=== PATIENT | male | born 1945 | race Caucasian/White ===

== ENCOUNTER 2019-08-28 10:23 | Emergency (ER) | payer OTHER, SELFPAY | END 2019-08-28 10:30 | disposition left against medical advice (07) | PROVIDERS: Emergency Provider Nurse Practitioner Family; PCP Physician Assistant | DX: Z53.21 Procedure and treatment not carried out due to patient leaving prior to being seen by health care provider (principal) | CPT/HCPCS: 99199 ==

== ENCOUNTER 2019-08-28 10:55 | Emergency (ER) | payer OTHER, SELFPAY ==
--- NOTE | ~2019-08-28 | CT_ITS ---
EXAMINATION: CT brain wo con INDICATION: Intermittent dizziness and nausea COMPARISON: None TECHNIQUE: Standard unenhanced head CT. The dose-length product (DLP) was 605.33 mGy-cm. The mA was a djusted according to patient size. Iterative reconstruction technique was employed. FINDINGS: There is no acute intraparenchymal hemorrhage. No evidence of mass lesion. No evidence of a cute infarction. There is mild periventricular and subcortical hypodensity probably related to small vessel ischemic disease. There is mild prominence of the sulci and ventricles related to cerebral atr ophy. Intracranial calcified cerebral atherosclerosis is noted. There are no extra-axial collections. There is no mass effect or midline shift. The orbits and soft tissues are unremarkable. There is mi ld mucosal thickening of the paranasal sinuses. IMPRESSION: 1. No acute intracranial abnormality. 2. Age related findings. Reviewed, dictated and finalized at location A.
--- NOTE | ~2019-08-28 | XR_ITS ---
EXAMINATION: XR chest 1V portable INDICATION: Dizziness and loss of balance TECHNIQUE: Portable AP chest at 1159 hours COMPARISON: 05/09/2014 FINDINGS: The lungs are free of acute opacities. There is no pleural effusion or pneumothorax. The ca rdiomediastinal silhouette is normal. IMPRESSION: 1. No acute cardiopulmonary abnormality. Reviewed, dictated and finalized at location A.
--- NOTE | 2019-08-28 10:57 | ECG_ITS ---
Measurements Intervals [place] Rate: 59 P: 80 WV: 160 QRS: -37 QRSD: 109 T: 2 QT: 409 QTc: 405 Interpretive Statements SINUS BRADYCARDIA LEFT AXIS DEVIATION INCOMPLETE RIGHT BUNDLE BRANCH BLOCK BORDERLINE ECG Electronically Signed On 08-28-2019 13:31:25 CDT by Henry Fraser D.O.
[2019-08-28 10:59] VITALS: BP 169/74; PULSE 58; RESP 19; TEMP 36.3; O2SAT 94
[2019-08-28 11:16] VITALS: BP 140/79; PULSE 59; RESP 17; O2SAT 96
[2019-08-28] MEDS: SODIUM CHLORIDE 0.9% IV 500 ML 999 ML IV CONT (11:17)
[2019-08-28] MEDS: FAMOTIDINE 20 MG/2 ML VIAL IV PUSH (11:17)
[2019-08-28] MEDS: MECLIZINE HCL 25 MG TABLET PO (11:18)
--- NOTE | 2019-08-28 11:24 | ED.GENADULT ---
HPI - General Adult General Chief complaint: Dizziness Stated complaint: loss of balance, occ dizzy Time Seen by Provider: 08/28/19 10:58 Source: patient Mode of arrival: ambulatory Limitations: no limitations History of Present Illness HPI narrative: Patient is a 74-year-old male who presents to emergency department per private vehicle for evaluation of intermittent dizziness patient notes over the weekend he had had an episode of sneezing with resultant dizziness and vertigo-like symptoms followed by nausea and vomiting patient notes that the vomiting and severe dizziness resolved but he continues to have intermittent bouts of dizziness typically made worse with standing feeling a little off balance patient denies similar occurrence in the past injury or trauma patient has not taken anything for his symptoms has not been seen for this complaint Related Data Allergies Allergy/AdvReac Type Severity Reaction Status Date / Time olmesartan Allergy Unknown sob sick Verified 08/28/19 11:01 potassium iodide Allergy Unknown Nausea and Verified 08/28/19 11:01 myalgias Review of Systems Review of Systems: All systems reviewed & are unremarkable except as noted in HPI and below PMFSH Past Medical History Medical History (Updated 08/28/19 @ 13:04 by Cole Blake PA-C) Hypertension Surgical History Surgical History H/O hernia repair Family History Family History Mother Patient's mother is , Onset Age: 80 Father Patient's father is , Onset Age: 80 Sibling Patient's brother is in good health Social History Social History Smoking status: Former smoker Smoking end date: 03/11/05 Alcohol intake: current Gender identity (if verbalized by the patient): Male Exam Narrative: Exam Narrative: GENERAL: Well-appearing, well-nourished, and in no acute distress. HEAD: Normocephalic, atraumatic. EYES: PERRLA and EOMI. ENT: Nares clear, no rhinorrhea or epistaxis. Mucous membranes moist. Oropharynx without tonsillar hypertrophy exudate or other lesions. NECK: Supple. No adenopathy or masses. CHEST: Clear to auscultation. No respiratory distress. No wheezes rales or rhonchi HEART: Regular rate and rhythm. No murmur heard. Normal peripheral pulses. ABDOMEN: Soft, nontender,distended EXTREMITIES: Normal range of motion. No edema. SKIN: Warm, dry, no rash. NEURO: No focal deficits. Alert and oriented x3. Cranial nerves II through XII grossly intact. Normal speech and gait. Cerebellar intact. No pronator drift. PSYCH: Normal mood and affect. Course Course Emergency Course: Patient in the room at this time in no distress aware of case findings treatment plan and diagnosis agreeing to follow-up with primary care and ENT as instructed also provided with reasons to return. Patient's intermittent dizziness is without focal neurological deficits on exam. Subarachnoid hemorrhage is felt to be unlikey at this time. There is no history of fever, and neck is supple without meningismus, making meningitis unlikely. No traumatic history or signs of trauma on exam. No risk factors for CVA, risk factors reviewed. NO ocular signs on exam and in history to suggest acute glaucoma. Patients headache is felt to be a reasonable candidate for outpatient evaluation. Consultations Consultation #1: Discussed case with primary care who agrees patient can be followed in clinic Date: 08/28/19 Time: 13:04 Vital Signs Vital signs: Vital Signs Temperature 97.4 F L 08/28/19 10:59 Pulse Rate 58 L 08/28/19 10:59 Respiratory Rate 19 08/28/19 10:59 Blood Pressure 169/74 H 08/28/19 10:59 Pulse Oximetry 94 08/28/19 10:59 Temperature 97.4 F L 08/28/19 10:59 Pulse Rate 59 L 08/28/19 11:16 Respiratory Rate 17 08/28/19 11:
--- NOTE | 2019-08-28 11:26 | PC.NURSE ---
BS 96
[2019-08-28 11:27] LABS: Glucose Point of Care 95 (65-105)
[2019-08-28 11:27] LABS: Basophils Percent Auto 0.2 % (0.2-1.2); Eosinophils Absolute Auto 0.1 K/mm3 (0-0.3); Eosinophils Percent Auto 2.3 % (0-4.4); Hematocrit 41.9 % (42.0-52.0); Hemoglobin 13.8 g/dL (14.0-18.0); Immature Granulocyte Absolute 0.02 K/mm3 (0.00-0.031); Immature Granulocyte Percent A 0.3 % (0-0.5); Lymphocytes Absolute Auto 2.64 K/mm3 (0.9-3.2); Lymphocytes Percent Auto 43.6 % (18.3-44.2); Mean Corpuscular HGB Conc 32.9 g/dl (32-36); Mean Corpuscular Hemoglobin 30.5 pg (26-34); Mean Corpuscular Volume 92.7 fl (80-100); Mean Platelet Volume 8.9 fl (7.4-10.4); Monocytes Absolute Auto 0.5 K/mm3 (0.1-0.6); Monocytes Percent Auto 7.6 % (2.6-8.5); Neutrophils Absolute Auto 2.8 K/mm3 (1.3-6.7); Platelet Count Result 243 k/mm3 (150-375); Red Blood Count 4.52 M/mm3 (4.6-6.20); Red Cell Distribution Width 12.9 % (11.5-14.5); White Blood Count 6.1 K/mm3 (4.5-10.0)
[2019-08-28 11:36] LABS: Blood Urea Nitrogen 15 mg/dL (9-20); Calcium 9.6 mg/dL (8.4-10.2); Carbon Dioxide 31 mmol/L (22-30); Chloride 102 mmol/L (98-107); Estimated CRCL calculation 87 ml/min; Estimated Glomerular Filt Rate > 60; Glucose 105 mg/dL (75-110); Potassium 3.9 mmol/L (3.4-5.0); Sodium 138 mmol/L (137-145)
[2019-08-28 11:37] LABS: INR 0.9; Prothrombin Time 12.1 Seconds (11.1-14.7)
[2019-08-28 11:48] LABS: Troponin I 0.017 ng/mL (0.000-0.034)
[2019-08-28 12:15] VITALS: BP 138/82; PULSE 59; RESP 19; O2SAT 100
[2019-08-28 13:16] VITALS: BP 136/99; PULSE 67; RESP 16; O2SAT 99
[2019-08-28 13:23] VITALS: BP 136/99; PULSE 61; RESP 16; O2SAT 98
== END 2019-08-28 13:24 | disposition home or self-care (01) ==
PROVIDERS: Emergency Medicine Emergency Medical Services; Emergency Provider Emergency Medicine; PCP Family Medicine
DX: R42 Dizziness and giddiness (principal); I10 Essential (primary) hypertension; Z87.891 Personal history of nicotine dependence; R00.1 Bradycardia, unspecified; I45.10 Unspecified right bundle-branch block
CPT/HCPCS: 36415; 70450; 71045; 80048; 82948; 84484; 85025; 85610; 85730; 93005; 96361; 96374; 99284; A9270; J7040

== ENCOUNTER 2023-06-11 10:34 | Observation (INO) | payer OTHER, SELFPAY ==
[2023-06-11] VITALS (11 sets, daily range): BP systolic 115–153; BP diastolic 72–105; PULSE 79–105; RESP 16–22; TEMP 36.1–36.6; O2SAT 93–96
--- NOTE | ~2023-06-11 | XR_ITS ---
Clinical Indication: Weakness PA and lateral views of the chest: Comparison: None Findings: Questionable minimal bibasilar haziness. Cardiomediastinal silhouette is within normal hare its. Bones and soft tissues are unremarkable. Impression: Questionable minimal bibasilar haziness. Correlate for minimal pulmonary edema or infection. Reviewed, dictated and finalized at [facility]. Impression: Questionable minimal bibasilar haziness. Correlate for minimal pulmonary edema or infection.
--- NOTE | 2023-06-11 10:41 | ECG_ITS ---
Measurements Intervals [place] Rate: 83 P: [place]: 0 QRS: 4 QRSD: 108 T: 120 QT: 351 QTc: 413 Interpretive Statements ATRIAL FIBRILLATION ST DEVIATION AND MODERATE T-WAVE ABNORMALITY, CONSIDER ANTERIOR ISCHEMIA [-0.1+ mV T WAVE IN V3/V4] COMPARED TO ECG 08/28/2019 11:02:46 ATRIAL FIBRILLATION NOW PRESENT Electronically Signed On 06-11-2023 12:36:18 CDT by Heron Panda M.D.
[2023-06-11 11:22] LABS: Basophils Percent Auto 0.1 % (0.2-1.2); Eosinophils Absolute Auto 0.1 K/mm3 (0-0.3); Eosinophils Percent Auto 0.6 % (0-4.4); Hematocrit 39.4 % (42.0-52.0); Hemoglobin 12.5 g/dL (14.0-18.0); Immature Granulocyte Absolute 0.02 K/mm3 (0.00-0.031); Immature Granulocyte Percent A 0.2 % (0-0.5); Lymphocytes Absolute Auto 1.98 K/mm3 (0.9-3.2); Lymphocytes Percent Auto 24.4 % (18.3-44.2); Mean Corpuscular HGB Conc 31.7 g/dl (32-36); Mean Corpuscular Volume 94.5 fl (80-100); Mean Platelet Volume 8.7 fl (7.4-10.4); Monocytes Absolute Auto 0.4 K/mm3 (0.1-0.6); Monocytes Percent Auto 4.7 % (2.6-8.5); Neutrophils Absolute Auto 5.7 K/mm3 (1.3-6.7); Platelet Count Result 248 k/mm3 (150-375); Red Blood Count 4.17 M/mm3 (4.6-6.20); Red Cell Distribution Width 13.5 % (11.5-14.5); White Blood Count 8.1 K/mm3 (4.5-10.0)
[2023-06-11 11:35] LABS: Alanine Aminotransferase 22 U/L (6-50); Albumin Level 4.3 g/dL (3.5-5.1); Alkaline Phosphatase 90 U/L (38-126); Anion Gap 6 mmol/L (4-12); Aspartate Amino Transferase 61 U/L (17-59); Bilirubin,Total 1.9 mg/dL (0.2-1.3); Blood Urea Nitrogen 17 mg/dL (9-20); Calcium 9.7 mg/dL (8.4-10.2); Carbon Dioxide 30 mmol/L (22-30); Chloride 99 mmol/L (98-107); Estimated CRCL calculation 89 ml/min; Estimated Glomerular Filt Rate > 60; Glucose 126 mg/dL (65-110); Sodium 135 mmol/L (137-145)
[2023-06-11 12:33] LABS: Appearance Urine Clear (Clear); Bilirubin Urine Negative (Negative); Blood Urine Negative (Negative); Color Urine Yellow (Yellow); Glucose Urine UA Negative (Negative); Ketones Urine Negative (Negative); Leukocyte Esterase Ur Negative LEU/UL (Negative); Nitrate Urine Negative (Negative); Protein Urine Negative (Negative); Specific Grav Ur 1.018 (1.001-1.035)
--- NOTE | 2023-06-11 12:38 | ED.WEAKNESS ---
HPI - Weakness General Chief complaint: Weakness Stated complaint: sent by PCP for mult. c/o Time Seen by Provider: 06/11/23 11:55 Source: patient and family ( ) Mode of arrival: ambulatory History of Present Illness HPI Narrative: 77-year-old male presents after being sent to emergency department by his primary care physician to multiple complaints. Patient states on Saturday06/09/2023 he started developing symptoms of generalized weakness, dizziness, and shortness or breath. He states the dizziness and shortness of breath have now resolved but the generalized weakness persists. I don't feel like doing nothing. no fevers, diarrhea, or vomiting. He has had a cough productive of green sputum. has noticed the emergency department that will be intermittently diaphoretic and this is associated with his blood pressure being elevated for example systolic 159mmHg. Patient is on apixaban atenolol for atrial fibrillation. he was previously once told that he has hyperlipidemia but then this resolved on further testing or medication. Nonsmoker. No family history. He has seen his tour operator Dr. Cordero recently and had an echo but denies previous stress test or heart catheterization Related Data Allergies Allergy/AdvReac Type Severity Reaction Status Date / Time No Known Allergies Allergy Verified 06/11/23 10:49 [facility] Past Medical History Medical History (Updated 06/11/23 @ 17:50 by Amina Gregory PA-C) Chronic anticoagulation Hypertension Paroxysmal atrial fibrillation Surgical History Surgical History (Updated 06/11/23 @ 17:47 by Amina Gregory PA-C) History of cataract extraction with lens replacement History of elbow surgery Open reduction and internal fixation of lateral epicondyle fracture and irrigation debridement of open fracture. History of inguinal hernia repair Family History Family History Mother Patient's mother is , Onset Age: 80 Father Patient's father is , Onset Age: 80 Sibling Patient's brother is in good health Social History Social History (Updated 06/11/23 @ 17:49 by Amina Gregory PA-C) Social History: Surrogate medical decision maker: Florence Nicoleter, spouse. Code status: Full code. Smoking status: Never smoker Smoking end date: 03/11/05 Alcohol intake: current Drinks per week: 7 Substance use: never Substance use type: does not use Do You Feel Safe in your Home?: Yes Lack of Transportation: No Lack of Food: Never True Current Housing: I Have Housing Concerned About Future Housing: No Difficulty Paying Gas/Electric Bills: No Difficulty Paying for Meds: No Currently Unemployed: No Education: High School Diploma/GED Difficulty w/ Childcare or Family Care: No Additional living arrangements comments: Lives with spouse in [place]. Spiritual care concerns: No Exam Narrative: GENERAL: Well-appearing, well-nourished, and in no acute distress. HEAD: Normocephalic, atraumatic. EYES: Non injected, non icteric ENT: Nares clear, no rhinorrhea or epistaxis. NECK: Supple. CHEST: Clear to auscultation Without wheeze , crackles, stridor, focal consolidation. No respiratory distress. HEART: irregularly irregular rate and rhythm , rate controlled. . ABDOMEN: Soft, obese but nondistended. EXTREMITIES: Normal range of motion. No edema. SKIN: Warm, dry, no rash. NEURO: No focal deficits. Alert and oriented. PSYCH: Normal mood and affect. Course Vital Signs Vital signs: Vital Signs Temperature 97.8 F 06/11/23 10:44 Pulse Rate 79 06/11/23 10:44 Respiratory Rate 18 06/11/23 10:44 Blood Pressure 153/98 H 06/11/23 10:44 Pulse Oximetry 93 06/11/23 10:44 Oxygen Delivery Room Air 06/11/23 10:44 Temperature 97.9 F 06/12/23 07:54 Pulse Rate 96 06/12/23 10:00 Respiratory Rate 18 06/12/23 07:54 [place]
[2023-06-11 12:43] LABS: Add Urine Microscopic? NO
--- NOTE | 2023-06-11 12:48 | PC.NURSE ---
Lab called to add on additional blood tests
[2023-06-11 12:56] LABS: Creatine Kinase 204 U/L (55-170); Magnesium 1.7 mg/dL (1.6-2.3)
--- NOTE | 2023-06-11 13:23 | ECG_ITS ---
Measurements Intervals [place] Rate: 91 P: [place]: 0 QRS: -14 QRSD: 98 T: 22 QT: 333 QTc: 410 Interpretive Statements ATRIAL FIBRILLATION ST DEVIATION AND MODERATE T-WAVE ABNORMALITY, CONSIDER ANTEROLATERAL ISCHEMIA [-0.1+ mV T WAVE IN V3-V6] COMPARED TO ECG 06/11/2023 10:51:44 NO SIGNIFICANT CHANGES Electronically Signed On 06-11-2023 14:54:07 CDT by Heron Panda M.D.
[2023-06-11 13:40] LABS: Influenza A QL RT-PCR Negative (Negative); Influenza B QL RT-PCR Negative (Negative); RSV RNA, RT-PCR Negative (Negative); SARS-CoV-2 RNA PCR Negative (Negative)
[2023-06-11] MEDS: ASPIRIN 81 MG CHEWABLE TABLET 324 MG PO (15:26)
[2023-06-11] MEDS: HEPARIN SODIUM 5,000 UNITS/ML VIAL 4000 UNITS IV PUSH ×2 (15:27→21:13)
[2023-06-11] MEDS: HEPARIN SOD/D5W 100 UNITS/ML 25,000 UNITS/250 ML BAG 10 UNITS IV CONT (15:27)
[2023-06-11 15:30] LABS: Basophils Percent Auto 0.1 % (0.2-1.2); Eosinophils Absolute Auto 0.1 K/mm3 (0-0.3); Eosinophils Percent Auto 0.7 % (0-4.4); Hematocrit 39.5 % (42.0-52.0); Hemoglobin 12.7 g/dL (14.0-18.0); Immature Granulocyte Absolute 0.02 K/mm3 (0.00-0.031); Immature Granulocyte Percent A 0.3 % (0-0.5); Lymphocytes Absolute Auto 1.89 K/mm3 (0.9-3.2); Lymphocytes Percent Auto 25.1 % (18.3-44.2); Mean Corpuscular HGB Conc 32.2 g/dl (32-36); Mean Corpuscular Hemoglobin 30.1 pg (26-34); Mean Corpuscular Volume 93.6 fl (80-100); Mean Platelet Volume 8.5 fl (7.4-10.4); Monocytes Absolute Auto 0.4 K/mm3 (0.1-0.6); Monocytes Percent Auto 5.4 % (2.6-8.5); Neutrophils Absolute Auto 5.2 K/mm3 (1.3-6.7); Neutrophils Percent Auto 68.4 % (45.5-73.1); Platelet Count Result 243 k/mm3 (150-375); Red Blood Count 4.22 M/mm3 (4.6-6.20); Red Cell Distribution Width 13.6 % (11.5-14.5); White Blood Count 7.5 K/mm3 (4.5-10.0)
[2023-06-11 15:35] LABS: INR 1.1; Prothrombin Time 14.5 Seconds (11.1-14.7)
[2023-06-11 15:36] LABS: Partial Thromboplastin Time 32.7 Seconds (22.3-36.8)
--- NOTE | 2023-06-11 16:00 | PC.NURSE ---
Meal tray ordered for pt
--- NOTE | 2023-06-11 16:17 | ECG_ITS ---
Measurements Intervals [place] Rate: 95 P: [place]: 0 QRS: -22 QRSD: 118 T: 31 QT: 353 QTc: 445 Interpretive Statements ATRIAL FIBRILLATION ST DEVIATION AND MODERATE T-WAVE ABNORMALITY, CONSIDER ANTEROLATERAL ISCHEMIA COMPARED TO ECG 06/11/2023 13:32:44 NO SIGNIFICANT CHANGES Electronically Signed On 06-12-2023 12:19:07 CDT by Heron Panda M.D.
--- NOTE | 2023-06-11 17:44 | PM.IMHP ---
H&P: HPI History of Present Illness Date/Time: 06/11/23 18:00 Chief Complaint: Weakness. Narrative: This is a pleasant 77-year-old male with hypertension and paroxysmal atrial fibrillation on chronic anticoagulation who presented to the emergency department for evaluation of weakness. The patient provides the following history. Send the evening he was sitting on the couch watching television when he developed pain in the back of his neck radiating to the posterior shoulders associated with dizziness, weakness, and shortness of breath. He took some ibuprofen for the pain however his symptoms lasted a majority of the night. He was not having any pain when he woke up yesterday morning but has continued to feel extremely weak and short of breath with minimal activity. ?I do not feel like doing anything.? Blood pressures have been running a bit high and notes that he has been developing sweats with minimal activity such as ambulating 10 ft to the bathroom. He has no current chest pain, sweats, for nausea. He has no known history of coronary artery disease. In the ED: He was afebrile on arrival with an initial blood pressure of 153/98. He has been in atrial fibrillation but is rate controlled. Labs were significant for a WBC count of 7.5, hemoglobin 12.7, platelet 243, INR 1.1, sodium 135, BUN 12 17, creatinine 0.80, total bili I 0.9, AST 61, total CK 204, troponin 4.780. EKG showed atrial fibrillation with a rate of [address] deviation moderate T-wave abnormalities in the anterior leads. He tested negative for influenza, RSV, and COVID. Chest x-ray showed questionable minimal bibasilar haziness which could be mild pulmonary edema or infection. He received aspirin 324 mg and was started on a heparin drip. He is being admitted for close monitoring and Cardiology consultation. Review of Systems Review of Systems: Twelve systems were reviewed. No fever, chills, or sweats. No sinus congestion or sore throat. Endorses cough which is rarely productive of green sputum. No sick contacts. Except as documented, all other systems were reviewed and are negative. [facility] Past Medical History Medical History (Updated 06/11/23 @ 17:50 by Amina Gregory PA-C) Chronic anticoagulation Hypertension Paroxysmal atrial fibrillation Surgical History Surgical History (Updated 06/11/23 @ 17:47 by Amina Gregory PA-C) History of cataract extraction with lens replacement History of elbow surgery Open reduction and internal fixation of lateral epicondyle fracture and irrigation debridement of open fracture. History of inguinal hernia repair Family History Family History Mother Patient's mother is , Onset Age: 80 Father Patient's father is , Onset Age: 80 Sibling Patient's brother is in good health Social History Social History (Updated 06/11/23 @ 17:49 by Amina Gregory PA-C) Social History: Surrogate medical decision maker: Florence Garner, spouse. Code status: Full code. Smoking status: Never smoker Smoking end date: 03/11/05 Alcohol intake: current Drinks per week: 7 Substance use: never Substance use type: does not use Do You Feel Safe in your Home?: Yes Lack of Transportation: No Lack of Food: Never True Current Housing: I Have Housing Concerned About Future Housing: No Difficulty Paying Gas/Electric Bills: No Difficulty Paying for Meds: No Currently Unemployed: No Education: High School Diploma/GED Difficulty w/ Childcare or Family Care: No Additional living arrangements comments: Lives with spouse in [place]. Spiritual care concerns: No Meds Home Medications and Allergies Home Medications Medication Instructions Recorded Confirmed Type atenolol 50 mg-chlorthalidone 25 1 tablet PO DAILY #90 tabs 03/12/23 06/11/23 Rx mg tablet apixaban 5 mg tablet 5 mg PO BID #60 tabs 04/29/23 06/11/23 Rx
[2023-06-11 20:54] LABS: Partial Thromboplastin Time 53.9 Seconds (22.3-36.8)
[2023-06-12] VITALS (21 sets, daily range): BP systolic 113–161; BP diastolic 63–109; PULSE 67–103; RESP 15–24; TEMP 36.1–36.6; O2SAT 92–100
--- NOTE | 2023-06-12 | ECHO_ITS ---
Patient Info Name: Sudarshan Garner Age: 77 years : 1945 Gender: Male Ht: 69 in Wt: 279 lbs BSA: 2.54 m2 HR: 85 bpm BP: 152 / 90 mmHg Heart Rhythm: Atrial Fibrillation Technical Quality: Poor Exam Date: 06/12/2023 10:50 AM Exam Location: Echo Lab Exam Room: 214 Patient Status: Inpatient Admit Date: 06/11/2023 Staff Ordering Physician: Amina Gregory PA-C Wheelabrator Operator: Josee Hardy RDCS Attending Provider: Mayito Boyd MD Referring Physician: Colt ELIAS; Exam Type: CA echo doppler color flow Study Info Indications - NSTEMI ATRIAL FIB Complete two-dimensional, color flow and Doppler transthoracic echocardiogram is performed with contrast to opacify the left ventricle and to improve the deliniation of the left ventricle endocardial borders. Contrast/Agitated Saline Contrast/Ag. Saline: Definity Amount: 3.00 ml Administered By: Josee Hardy [facility] Existing IV Access: Yes IV Access Condition: patent with no signs of infiltration Reason for Poor Study: patient body habitus Summary 1. Technically difficult study due to body habitus. 2. Left ventricular chamber dimension is normal. 3. Left ventricular systolic function is mildly reduced, estimated at 40-45%. 4. There is mildly increased left ventricular wall thickness. 5. Right ventricular systolic function is normal. 6. Right atrial chamber dimension is mildly enlarged. 7. There is mild mitral valve regurgitation. 8. There is mild tricuspid valve regurgitation. Left Ventricle Left ventricular chamber dimension is normal. Left ventricular systolic function is mildly reduced, estimated at 40-45%. There is mildly increased left ventricular wall thickness. Right Ventricle Right ventricular chamber dimension is normal. Right ventricular systolic function is normal. Left Atria Left atrial chamber dimension is normal. Right Atria Right atrial chamber dimension is mildly enlarged. Atrial Septum Intact interatrial septum visualized by color flow imaging. Aortic Valve The aortic valve is probable trileaflet. There is no aortic valve stenosis. There is no aortic valve regurgitation. There is moderate aortic valve calcification. Pulmonic Valve The pulmonic valve is not well visualized. There is trace pulmonic regurgitation. Mitral Valve There is mild mitral valve regurgitation. The mitral valve annulus is mildly calcified. Tricuspid Valve There is mild tricuspid valve regurgitation. Pericardium/Pleural The pericardium appears epicardial fat pad. There is no pericardial effusion. Inferior Vena Cava Normal inferior vena cava with >50% collapse upon inspiration consistent with normal right atrial pressure, 3 mmHg. Left Ventricular Outflow Tract Name Value Normal LVOT 2D LVOT Diameter 2.1 cm LVOT Doppler LVOT Peak Gradient 3 mmHg LVOT Mean Gradient 2 mmHg LVOT VTI 16 cm LVOT VTI/AV VTI Ratio 0.9 LVOT Stroke Volume 55 ml LVOT CO 13.2 l/min LVOT CI
[2023-06-12 04:35] LABS: Basophils Percent Auto 0.3 % (0.2-1.2); Eosinophils Absolute Auto 0.1 K/mm3 (0-0.3); Eosinophils Percent Auto 1.3 % (0-4.4); Hematocrit 37.8 % (42.0-52.0); Hemoglobin 12.5 g/dL (14.0-18.0); Immature Granulocyte Absolute 0.02 K/mm3 (0.00-0.031); Immature Granulocyte Percent A 0.3 % (0-0.5); Lymphocytes Absolute Auto 1.91 K/mm3 (0.9-3.2); Mean Corpuscular HGB Conc 33.1 g/dl (32-36); Mean Corpuscular Hemoglobin 30.8 pg (26-34); Mean Corpuscular Volume 93.1 fl (80-100); Mean Platelet Volume 9.1 fl (7.4-10.4); Monocytes Absolute Auto 0.4 K/mm3 (0.1-0.6); Monocytes Percent Auto 6.6 % (2.6-8.5); Neutrophils Absolute Auto 3.7 K/mm3 (1.3-6.7); Neutrophils Percent Auto 60.5 % (45.5-73.1); Platelet Count Result 250 k/mm3 (150-375); Red Blood Count 4.06 M/mm3 (4.6-6.20); Red Cell Distribution Width 13.5 % (11.5-14.5); White Blood Count 6.2 K/mm3 (4.5-10.0)
[2023-06-12 04:46] LABS: Anion Gap 6 mmol/L (4-12); Blood Urea Nitrogen 17 mg/dL (9-20); Calcium 9.7 mg/dL (8.4-10.2); Carbon Dioxide 29 mmol/L (22-30); Chloride 99 mmol/L (98-107); Cholesterol 163 mg/dL (0-200); Estimated CRCL calculation 88 ml/min; Estimated Glomerular Filt Rate > 60; Glucose 123 mg/dL (65-110); HDL Direct 42 mg/dL; Magnesium 1.9 mg/dL (1.6-2.3); Potassium 3.6 mmol/L (3.4-5.0); Sodium 134 mmol/L (137-145); Triglycerides 80 mg/dL (<150)
[2023-06-12 04:57] LABS: LDL Cholesterol Direct 96 mg/dL
--- NOTE | 2023-06-12 09:21 | PM.IMPN ---
Progress Note: A&P Assessment and Plan (1) Non-ST elevation MA (NSTEMI): Code(s): I21.4 - Non-ST elevation (NSTEMI) myocardial infarction Status: Acute (2) Paroxysmal atrial fibrillation: Code(s): I48.0 - Paroxysmal atrial fibrillation Status: Deleted (3) Chronic anticoagulation: Code(s): Z79.01 - group home (current) use of anticoagulants Status: Acute (4) Hypertension: Code(s): I10 - Essential (primary) hypertension Status: Acute Plan NSTEMI The patient presented to the emergency department for evaluation of weakness as detailed Initial troponin was elevated EKG does show findings concerning for ischemia with ST deviation T-wave inversion in the anterior leads Troponins will be trended to peak. Cardiology consulted and they recommend starting heparin drip (last dose of apixaban was over 24 hours). NPO after midnight for cardiac catheterization AM. Continue aspirin 81 mg daily p.o., Lipitor 80 mg daily p.o., nitroglycerin sublingual Telemetry monitoring Chronic atrial fibrillation rate controlled on atenolol. Hold Eliquis patient is on heparin drip Essential hypertension Blood pressures stable. Continue atenolol, chlorthalidone 1 tab daily Subjective Date/time seen: 06/12/23 09:21 Interval history: I saw and examined the patient. Patient denies chest pain, shortness of breath, abdomen pain, nausea vomiting Exam Narrative: GENERAL: Pleasant, in no acute distress. Well-nourished. - EYES: EOMI. Anicteric. - HENT: Moist mucous membranes. - LUNGS: Clear to auscultation bilaterally, no wheezing, rhonchi, or rales. - CARDIOVASCULAR: Regular rate and rhythm. No murmur. No JVD. - ABDOMEN: Soft, non-tender and non-distended. No palpable masses. - EXTREMITIES: No edema. Peripheral pulses 2+. Non-tender. - NEUROLOGIC: No focal neurological deficits. CN II-XII grossly intact. - PSYCHIATRIC: Awake, Alert and oriented x 3. Appropriate mood and affect. - SKIN: No rashes or lesions. Warm. - LYMPH: No cervical lymphadenopathy. Objective Data Vital Signs Vital Signs: Vital Signs - 24 hr 06/11/23 10:44 06/11/23 10:49 06/11/23 12:24 Temperature 97.8 F Pulse Rate 79 84 Respiratory Rate 18 21 H Blood Pressure 153/98 H 140/80 Pulse Oximetry 93 94 94 Oxygen Delivery Room Air Room Air 06/11/23 12:57 06/11/23 15:31 06/11/23 16:38 Temperature Pulse Rate 92 98 90 Respiratory Rate 22 H 22 H 19 Blood Pressure 137/72 115/96 H 150/73 H Pulse Oximetry 95 95 96 Oxygen Delivery 06/11/23 17:40 06/11/23 17:45 06/11/23 20:00 Temperature 97.6 F 97.9 F 97 F L Pulse Rate 99 102 H 88 Respiratory Rate 17 20 16 Blood Pressure 130/81 130/80 128/105 H Pulse Oximetry 96 94 95 Oxygen Delivery 06/11/23 20:00 06/11/23 21:43 06/11/23 21:43 Temperature 97.2 F L 97.2 F L 97.2 F L Pulse Rate 88 99 105 H Respiratory Rate 16 18 18 Blood Pressure 142/73 H 130/83 132/72 Pulse Oximetry 95 94 94 Oxygen Delivery 06/11/23 20:00 06/11/23 22:00 06/11/23 20:00 Temperature Pulse Rate 93 85 85 Respiratory Rate 18 Blood Pressure Pulse Oximetry 94 Oxygen Delivery Room Air 06/12/23 00:00 06/12/23 00:00 06/12/23 00:00 Temperature 97 F L Pulse Rate 94 94 96 Respiratory Rate 18 18 Blood Pressure 141/79 H Pulse Oximetry 96 96 Oxygen Delivery Room Air 06/12/23 02:00 06/12/23 03:44 06/12/23 04:00 Temperature 97.5 F L Pulse Rate 103 H 90 95 Respiratory Rate 20 Blood Pressure 152/90 H Pulse Oximetry 93 Oxygen Delivery 06/12/23 04:00 06/12/23 06:00 06/12/23 07:53 Temperature 97.9 F Pulse Rate 95 97 89 Respiratory Rate 20 18 Blood Pressure 161/88 H Pulse Oximetry 93 96 Oxygen Delivery Room Air 06/12/23 07:54 06/12/23 07:56 06/12/23 07:56 Temperature 97.9 F Pulse Rate 89 Respiratory Rate 18 Blood Pressure 161/88 H 154/88 H 155/86 H Pulse Oximetry 96 Oxygen Delivery Intake
[2023-06-12] MEDS: HEPARIN SOD/D5W 100 UNITS/ML 25,000 UNITS/250 ML BAG 14 UNITS IV CONT (09:38)
[2023-06-12] MEDS: CHLORTHALIDONE 25 MG TABLET PO (09:38)
[2023-06-12] MEDS: atenoloL 50 MG TABLET PO (09:38)
--- NOTE | 2023-06-12 10:24 | PM.CNCAR ---
Assessment and Plan Assessment and plan (1) Non-ST elevation [place] (NSTEMI): Code(s): I21.4 - Non-ST elevation (NSTEMI) myocardial infarction Status: Acute Assessment and Plan: Given NSTEMI, recommend cardiac catheterization. Discussed indication for procedure, procedure details, risks vs benefits, alternative management options. Patient is agreeable to proceed. Will plan for cardiac cath later today. Patient to remain NPO for procedure. Start ASA 81mg once daily. LDL is 96. Start high-intensity statin. Continue Heparin drip for now. Echocardiogram ordered and pending. Further recommendations and plan pending results of cardiac catheterization. (2) Persistent atrial fibrillation: Code(s): I48.19 - Other persistent atrial fibrillation Status: Acute Assessment and Plan: Rate controlled. Continue Atenolol (3) Chronic anticoagulation: Code(s): Z79.01 - penitentiary (current) use of anticoagulants Status: Acute Assessment and Plan: Continue to hold Eliquis for now in anticipation for cardiac catheterization. (4) Hypertension: Code(s): I10 - Essential (primary) hypertension Status: Acute Assessment and Plan: Elevated blood pressures on admission. Continue home med of Atenolol-Chlorthalidone. Will reassess blood pressure after cardiac catheterization. (5) Obesity, unspecified: Qualifiers: Obesity type: due to excess calories Obesity classification: adult class 3 (BMI >= 40) Serious obesity comorbidity presence: with serious comorbidity Body mass index: BMI 40.0-44.9 Qualified Code(s): E66.01 - Morbid (severe) obesity due to excess calories; Z68.41 - Body mass index (BMI) 40.0-44.9, adult Code(s): E66.9 - Obesity, unspecified Status: Acute Assessment and Plan: Morbidly obese History of Present Illness History of Present Illness Consult date/time: 06/12/23 10:24 Requesting physician: Monisha Briggs MD Consult reason: Other (NSTEMI) Reason For Visit: NSTEMI/plan for Cardiac Cath 06/11 Narrative: We are consulted for NSTEMI. This is a 77 year old male with hypertension, atrial fibrillation on Eliquis, morbid obesity who states that on Saturday night, he had severe bilateral shoulder pain, left arm pain along with weakness and shortness of breath. Has been short of breath with exertion since then. No chest pain. Patient states he had a similar episode of shoulder pain about 6 months ago, but it was mild. Has not had issues with dyspnea on exertion prior to Saturday. He states he is feeling great now. EKGs on admission showed rate-controlled atrial fibrillation, T wave abnormality in the anterolateral leads, which is new compared to his last EKG from 2022. Troponins are 4.78, 4.71, 4.73. Patient is on Eliquis, but his reports that his last dose of Saturday morning. They ran out of Eliquis after that and didn't get a chance to get it filled. He is otherwise compliant with his Eliquis twice daily. Patient sees Dr. Gomez as his coater carbon paper. Last saw him in March 2023 as a new patient. Transthoracic echocardiogram 05/29/2023 showed LVEF 50%, moderate enlargement of left atrium, mild enlargement of right atrium, mild MR, mild TR. Review of Systems Review of Systems: All systems reviewed & are unremarkable except as noted in HPI and below (HPI) [facility] Past Medical History Medical History (Updated 06/12/23 @ 10:32 by Heron Panda MD) Chronic anticoagulation Hypertension Surgical History Surgical History History of cataract extraction with lens replacement History of elbow surgery Open reduction and internal fixation of lateral epicondyle fracture and irrigation debridement of open fracture. History of inguinal hernia repair Family History Family History Mother Patient's mother is , Onset Age: 80 F
--- NOTE | 2023-06-12 10:36 | WPDMODSED ---
Moderate Sedation Note-Pt Data Patient Data Diagnosis: NSTEMI Present Complaint: NSTEMI Procedure to be performed/Plan: Coronary angiography, left heart cath, +/- PCI Allergies Allergy/AdvReac Type Severity Reaction Status Date / Time No Known Allergies Allergy Verified 06/11/23 10:49 Home Medications Medication Instructions Recorded Confirmed Type atenolol 50 mg-chlorthalidone 25 1 tablet PO DAILY #90 tabs 03/12/23 06/11/23 Rx mg tablet apixaban 5 mg tablet 5 mg PO BID #60 tabs 04/29/23 06/11/23 Rx Current Medications: Active Medications Acetaminophen (Acetaminophen 325 Mg Tablet) 650 mg PO Q4H PRN PRN Reason: Mild Pain (1-3) or Fever Aspirin (Aspirin 81 Mg Enteric Tablet) 81 mg PO QAM [facility] Atenolol (Atenolol 50 Mg Tablet) 50 mg PO DAILY [facility] Last Admin: 06/12/23 09:38 Dose: 50 mg Atorvastatin Calcium (Atorvastatin 40 Mg Tablet) 80 mg PO DAILY [facility] Chlorthalidone (Chlorthalidone 25 Mg Tablet) 25 mg PO DAILY [facility] Last Admin: 06/12/23 09:38 Dose: 25 mg Heparin Sodium (Porcine) (Heparin Sodium 5,000 Units/Ml Vial) 4,000 units IV PUSH PRN PRN PRN Reason: aPTT less than 55 seconds Last Admin: 06/11/23 21:13 Dose: 4,000 units Heparin Sodium (Porcine) (Heparin Sodium 5,000 Units/Ml Vial) 3,500 units IV PUSH PRN PRN PRN Reason: aPTT 55 - 70 seconds Heparin Sodium/Dextrose (Heparin Sodium/D5w 100 Units/Ml) 25,000 units in 250 mls @ 14 mls/hr IV CONT .[id number] [facility]; Protocol Last Admin: 06/12/23 09:38 Dose: 1,400 units/hr, 14 mls/hr Morphine Sulfate (Morphine Sulfate (*Crx) 2 Mg/Ml Inj) 2 mg IV PUSH Q4H PRN PRN Reason: Pain Rated 7-10 Nitroglycerin (Nitroglycerin Sl 0.4 Mg Tablet) 0.4 mg SUBLINGUAL Q5MIN PRN PRN Reason: Chest Pain Ondansetron HCl (Ondansetron Inj 4 Mg/2 Ml Vial) 4 mg IV PUSH Q4H PRN PRN Reason: Nausea Perflutren Lipid Microsphere (Perflutren Lipid Microspheres 1.5 Ml Vial Diluted To 10 Ml Total Volume) 0 ml IV PUSH ONCE PRN; Protocol PRN Reason: adequate visualization Stop: 06/14/23 18:01 Perflutren Lipid Microsphere (Perflutren Lipid Microspheres 1.5 Ml Vial Diluted To 10 Ml Total Volume) 0 ml IV PUSH ONCE PRN; Protocol PRN Reason: adequate visualization Stop: 06/15/23 09:08 Sedation/Anesthesia: No previous sedation/anesthesia problems (including family history). [facility] Past Medical History Medical History Chronic anticoagulation Hypertension Surgical History Surgical History History of cataract extraction with lens replacement History of elbow surgery Open reduction and internal fixation of lateral epicondyle fracture and irrigation debridement of open fracture. History of inguinal hernia repair Family History Family History Mother Patient's mother is , Onset Age: 80 Father Patient's father is , Onset Age: 80 Sibling Patient's brother is in good health Social History Social History Social History: Surrogate medical decision maker: Florence Garner, spouse. Code status: Full code. Smoking status: Never smoker Smoking end date: 03/11/05 Alcohol intake: current Drinks per week: 7 Substance use: never Substance use type: does not use Do You Feel Safe in your Home?: Yes Lack of Transportation: No Lack of Food: Never True Current Housing: I Have Housing Concerned About Future Housing: No Difficulty Paying Gas/Electric Bills: No Difficulty Paying for Meds: No Currently Unemployed: No Education: High School Diploma/GED Difficulty w/ Childcare or Family Care: No Additional living arrangements comments: Lives with spouse in [place]. Spiritual care concerns: No Mod Sed Physical Exam Physical Exam Pre Procedural Exam: Normal: Lungs, Neuro Exam, Extremities and Skin and Variat
[2023-06-12] MEDS: ATORVASTATIN 40 MG TABLET 80 MG PO (11:18)
[2023-06-12] MEDS: ASPIRIN 81 MG ENTERIC TABLET PO (11:18)
[2023-06-12] MEDS: PERFLUTREN LIPID MICROSPHERES 1.5 ML VIAL DILUTED TO 10 ML TOTAL VOLUME IV PUSH (11:20)
--- NOTE | 2023-06-12 11:51 | PC.NURSE ---
patient to general labor, dairy and food laboratory assistant RN aware of bp 157/102, heparin drip stopped.
--- NOTE | 2023-06-12 12:40 | IVDEFINITY ---
Prior to administration of IV Definity the patient was educated on the risks and benefits of the imaging enhancing agent including potential adverse side effects. The patient verbalized understanding. Allergies were verified. No exclusion criteria were identified and at least one of the following inclusion criteria were met: 1) physician request, 2) patient technically difficult to image (per the [place] Society of Echocardiography guidelines of two or more segments not discernable within the apical view), or 3) questionable left ventricular function. ?
--- NOTE | 2023-06-12 12:56 | WPDCARDPROC ---
Cardiac Cath Procedure Note Date of procedure:: 06/12/23 Performing physician:: CATHETERIZATION LABORATORY REPORT Procedure Date: 06/12/2023 Mortuary Operations Manager: Heron Panda M.D., [facility]? Referring Physician: Heron Panda M.D. ? Anesthesia: Versed and Fentanyl were ordered and given in my presence at 12:15, procedure ended at 12:52. Supervision of nurse monitored moderate sedation with Versed and Fentanyl was provided for 37 minutes. Total of Versed 1mg and Fentanyl 75mcg were administered by the Judge Clerk RN Mariel Durham. Pre-op Diagnosis: NSTEMI Post-op Diagnosis: 1. Multivessel coronary artery disease 2. Elevated left ventricular end-diastolic pressure of 21mmHg Procedure(s): 1. Moderate sedation 2. Ultrasound-guided access of the right radial artery 3. Coronary angiography 4. Left heart catheterization Access Site: Right radial artery Brief History and Clinical Indications: Patient is a 77 year-old male with hypertension, persistent atrial fibrillation, morbid obesity who is referred for [facility] for NSTEMI. All risks, benefits and alternatives to left heart catheterization with or without percutaneous coronary intervention was discussed at length with the patient. Risk of complications including but not limited to bleeding, infection, arrhythmia, stroke, worsening kidney function, blood loss, groin hematoma, limb loss, emergency coronary artery bypass grafting, and even were discussed with the patient and all questions were answered. The patient understood and wished to proceed. Time out called, patient name, date of , medical record number, allergies, procedure performed, identify Mortuary Operations Manager, patient and staff member concurred with accurate data, procedure carried on. Findings: LEFT HEART CATHETERIZATION FINDINGS: 1. Left main: Heavy calcifications seen in the left main. The distal left main coronary artery has an eccentric 70-80% stenosis that extends into the ostium of the LAD and LCX. 2. Left anterior descending: Heavy calcifications seen in the proximal LAD. The distal left main disease extends into the ostium of the LAD resulting in significant stenosis. The proximal to mid LAD has severe diffuse disease of up to 90-99% stenosis. There is a large caliber first septal branch with significant ostial disease. The first diagonal branch has significant ostial disease of 80-90%. 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 3. Ramus: Ramus has diffuse mild disease. No angiographically significant disease appreciated in the Ramus 4. Left circumflex: The distal left main disease extends into the ostium of the LCX; remainder of the LCX has diffuse mid disease. There is an occluded OM branch that is filled distally from [id number] collaterals. 5. Right coronary artery: The RCA is the dominant vessel. The RCA is FORESTRY WORKER in its proximal portion. There are [id number] bridging collaterals to the mid RCA along with [id number] collaterals to the distal RCA territory. 6. Left ventricle: A. End-diastolic pressure 21 mmHg. B. LV gram deferred. C. No significant gradient across aortic valve on catheter pullback. Description of Procedure: Informed consent signed and placed in the chart. Patient transferred to freezer laboratory technician room. Prepped and draped in usual sterile fashion. 2% lidocaine injected subcutaneously in right wrist area. 22-gauge venipuncture catheter used to access the right radial artery under ultrasound guidance. 6-FR slender sheath placed in right radial artery. Nitroglycerine and Verapamil were given intraarterial through the sheath. Versacore wire advanced under fluoroscopy Initially engaged 5F Tig 4 diagnostic catheter engaged Left Main Coronary Artery, however, catheter kept disengaging. Therefore, left coronary system angiograms obtained with 5F FL 4 diagnostic catheter. 5F FR 4 diagnostic catheter engaged Right Coronary Artery Multiple orthogonal angiogram obtained and reviewe
--- NOTE | 2023-06-12 17:00 | PM.TDS ---
Transfer Discharge Sum: Prov Provider Date of admission: 06/11/23 14:47 Primary care physician: Frederick Mendez DO Admitting clinician: Mayito Boyd MD Attending physician on admission: Mayito Boyd Consults: 06/11/23 Consult to Physician Routine Comment: Consulting Provider: Heron Panda casting house laborer/MD group to consult: spoke with Moriah lance for provider Reason for consultation: NSTEMI; HEART score 6; no prior catheterization Has provider been notified: Yes Attending physician on discharge: Mayito Boyd Discharging clinician: Heron Panda Anticipated date of transfer: 06/12/23 Receiving physician/facility: [facility] DS: Admitting Diagnosis Discharge Date 06/12/23 Admitting Diagnosis NSTEMI DS: Discharge Diagnosis Discharge Diagnosis (1) Non-ST elevation [place] (NSTEMI): Code(s): I21.4 - Non-ST elevation (NSTEMI) myocardial infarction Status: Acute (2) Persistent atrial fibrillation: Code(s): I48.19 - Other persistent atrial fibrillation Status: Acute (3) Hypertension: Code(s): I10 - Essential (primary) hypertension Status: Acute (4) Chronic anticoagulation: Code(s): Z79.01 - intermediate manager (current) use of anticoagulants Status: Acute (5) Essential (primary) hypertension: Code(s): I10 - Essential (primary) hypertension Status: Acute Transfer Discharge Sum: Med Medications Active and Home Medications: Home Medications atenolol 50 mg-chlorthalidone 25 mg tablet 1 tablet PO DAILY #90 tabs 03/12/23 [Rx Confirmed 06/11/23] apixaban 5 mg tablet 5 mg PO BID #60 tabs 04/29/23 [Rx Confirmed 06/11/23] Transfer Discharge Sum: Hosp Hospital Course Hospital course: Sudarshan Garner is a 77 year old male who was admitted with NSTEMI. Cardiac catheterization 06/11 showed severe MVCAD. He was transferred to [facility] for CT Surgery evaluation for consideration of CABG. Time Spent with Patient Time attestation: Total time spent providing and/or coordinating transfer services: Exam Narrative: See exam from Cardiology Consult note dated 06/11. DS: Data Data Completed and Pending Labs on day of discharge: Labs from last 24 hours 04/03/24 04/03/24 18:00 03:43 POC Capillary Glucose 109 H Hemoglobin A1c 6.3 H
[2023-06-12 18:05] LABS: Glucose Point of Care 109 mg/dl (65-105)
--- NOTE | 2023-06-12 19:15 | PC.NURSE ---
1817 Report called to TRACY Najera at [facility]
--- NOTE | 2023-06-12 19:20 | PC.NURSE ---
Patient alert and oriented up EMS arrival. Right distal radius puncture site soft to palpitation, no drainage noted, arm board secure.
[2023-06-12 22:03] LABS: Hemoglobin A1C 6.3 % (<5.7)
== END 2023-06-12 19:22 | disposition short-term general hospital (02) ==
LOC: ANHED 12:53 → ANHIMU 17:19
PROVIDERS: Emergency Medicine; Internal Medicine; Physician Assistant; Admitting Provider Hospitalist; Emergency Provider Student in an Organized Health Care Education/Training Program; PCP Family Medicine; Visit Provider Hospitalist
PROC: 4A023N7 Measurement of Cardiac Sampling and Pressure, Left Heart, Percutaneous Approach (ICD-10-PCS; CPT 93452; principal; 2023-06-12 11:30)
DX: I21.4 Non-ST elevation (NSTEMI) myocardial infarction (principal); I48.19 Other persistent atrial fibrillation; I10 Essential (primary) hypertension; I25.10 Atherosclerotic heart disease of native coronary artery without angina pectoris; D64.9 Anemia, unspecified; I08.3 Combined rheumatic disorders of mitral, aortic and tricuspid valves; E66.01 Morbid (severe) obesity due to excess calories; Z68.41 Body mass index [BMI] 40.0-44.9, adult; Z20.822 Contact with and (suspected) exposure to COVID-19; Z79.01 Long term (current) use of anticoagulants; F10.90 Alcohol use, unspecified, uncomplicated; Z79.899 Other long term (current) drug therapy
CPT/HCPCS: 36415; 71046; 80048; 80053; 80061; 81003; 82550; 82948; 83036; 83735; 84443; 84484; 85025; 85610; 85730; 87637; 93005; 93306; 93458; 96365; 96366; 96375; 99285; A9270; C1769; C1887; C1894; C8929; G0378; J1644; J2250; J3010; J7040; Q9957

== ENCOUNTER 2023-07-01 12:28 | Emergency (ER) | payer OTHER, SELFPAY ==
[2023-07-01] VITALS (13 sets, daily range): BP systolic 121–171; BP diastolic 62–93; PULSE 94–110; RESP 18–30; TEMP 36.6; O2SAT 90–100
--- NOTE | ~2023-07-01 | CT_ITS ---
EXAMINATION: CTA chest PE protocol DATE: 07/01/2023 14:54 CDT INDICATION: Pulmonary embolism. High risk. TECHNIQUE: Computed tomographic angiography (CTA) of the chest was performed with 100 mL Omnipaque-35 0 intravenous contrast. The dose-length product was 1165.72 mGy-cm. Maximum intensity projection 3D-r econstructions of the aorta and other arteries were constructed by the technologist on a separate wor kstation. Automated exposure control and iterative reconstruction technique were employed. COMPARISON: Chest x-ray dated 06/11/2023. FINDINGS: The status post median sternotomy for CABG. These findings were not seen on chest x-ray per formed 06/11/2023. There is gas and fluid in the anterior mediastinum, likely related to recent surge ry. Small pleural effusions with dependent atelectasis. Study is technically adequate without evidenc e for central pulmonary embolism. Evaluation of lower lobe segmental and subsegmental pulmonary arter ies limited due to motion artifact. No endobronchial lesions. Borderline heart size. There are nonobs tructing left renal stones. There are calcified granulomas of the spleen. IMPRESSION: 1. Abnormal gas and fluid in the anterior mediastinum, likely related to interval median sternotomy f or CABG since prior chest x-ray. 2: Small pleural effusions with underlying compressive atelectasis. 3: No large central pulmonary embolism. Reviewed, dictated and finalized at location B. IMPRESSION: 1. Abnormal gas and fluid in the anterior mediastinum, likely related to interv al median sternotomy for CABG since prior chest x-ray. 2: Small pleural effusions with underlying compressive atelectasis. 3: No large central pulmonary embolism.
--- NOTE | 2023-07-01 13:50 | ECG_ITS ---
SEE SCANNED COPY FOR CONFIRMED REPORT MTDD
[2023-07-01 14:08] LABS: Basophils Percent Auto 0.3 % (0.2-1.2); Eosinophils Percent Auto 0.6 % (0-4.4); Hematocrit 29.7 % (42.0-52.0); Hemoglobin 8.8 g/dL (14.0-18.0); Immature Granulocyte Absolute 0.02 K/mm3 (0.00-0.031); Immature Granulocyte Percent A 0.3 % (0-0.5); Lymphocytes Absolute Auto 1.23 K/mm3 (0.9-3.2); Lymphocytes Percent Auto 19.4 % (18.3-44.2); Mean Corpuscular HGB Conc 29.6 g/dl (32-36); Mean Corpuscular Hemoglobin 29.2 pg (26-34); Mean Corpuscular Volume 98.7 fl (80-100); Mean Platelet Volume 8.3 fl (7.4-10.4); Monocytes Absolute Auto 0.3 K/mm3 (0.1-0.6); Monocytes Percent Auto 5.2 % (2.6-8.5); Neutrophils Absolute Auto 4.7 K/mm3 (1.3-6.7); Neutrophils Percent Auto 74.2 % (45.5-73.1); Platelet Count Result 484 k/mm3 (150-375); Red Blood Count 3.01 M/mm3 (4.6-6.20); Red Cell Distribution Width 15.1 % (11.5-14.5); White Blood Count 6.3 K/mm3 (4.5-10.0)
[2023-07-01] MEDS: ALBUTEROL SULFATE NEB 2.5 MG/3 ML INH 15 MG INHALATION (14:10)
[2023-07-01] MEDS: IPRATROPIUM BR 0.02% INH SOLN 0.5 MG/2.5 ML VIAL 1.5 MG INHALATION (14:10)
--- NOTE | 2023-07-01 14:11 | ED.SOB ---
HPI - SOB/Dyspnea General Chief Complaint: Shortness of Breath/Dyspnea Stated Complaint: SOB Time Seen by Provider: 07/01/23 13:36 History of Present Illness HPI Narrative: Patient is a 77-year-old male who presents ER with shortness of breath. Patient recently underwent 4 vessel CABG at [facility] 2 weeks ago. He has been out of his Xarelto for the last week. He reports since his discharge he has been having shortness of breath as well as cough and wheezing. No change in lower extremity edema. No hemoptysis. No fevers or chills. He is cared for by Dr. Gomez. Patient reports extreme shortness of breath with exertion and persistent short of breath at rest. Related Data Allergies Allergy/AdvReac Type Severity Reaction Status Date / Time No Known Allergies Allergy Verified 06/11/23 10:49 Review of Systems Review of Systems: All systems reviewed & are unremarkable except as noted in HPI and below Constitutional: Constitutional: Denies chills, Reports fatigue, Denies fever(s) and Reports weakness ENT: Reports system reviewed and no additional complaints, except as documented Cardiovascular: Cardiovascular: Reports no additional cardiovascular complaints Respiratory: Respiratory: Reports chest congestion, Reports cough and Reports wheezing Gastrointestinal: Gastrointestinal: Reports no additional gastrointestinal complaints Genitourinary: Genitourinary: Reports no additional male genitourinary complaints Musculoskeletal: Musculoskeletal: Reports no additional musculoskeletal complaints Neurologic: Reports system reviewed and no additional complaints, except as documented [facility] Past Medical History Medical History Chronic anticoagulation Hypertension Surgical History Surgical History History of cataract extraction with lens replacement History of elbow surgery Open reduction and internal fixation of lateral epicondyle fracture and irrigation debridement of open fracture. History of inguinal hernia repair Family History Family History Mother Patient's mother is , Onset Age: 80 Father Patient's father is , Onset Age: 80 Sibling Patient's brother is in good health Social History Social History (Updated 07/01/23 @ 18:36 by Aguila Palomares MD) Social History: Surrogate medical decision maker: Florence Nicoleter, spouse. Code status: Full code. Smoking status: Former smoker Tobacco type: cigars Smoking end date: 03/11/05 Alcohol intake: current Drinks per week: 7 Substance use: never Substance use type: does not use Do You Feel Safe in your Home?: Yes Lack of Transportation: No Lack of Food: Never True Current Housing: I Have Housing Concerned About Future Housing: No Difficulty Paying Gas/Electric Bills: No Difficulty Paying for Meds: No Currently Unemployed: No Education: High School Diploma/GED Difficulty w/ Childcare or Family Care: No Additional living arrangements comments: Lives with spouse in [place]. Spiritual care concerns: No Exam Narrative: GENERAL: Well-appearing, obese, and in no acute distress. HEAD: Normocephalic, atraumatic. ENT: Mucous membranes moist. NECK: Supple. CHEST: Rales and wheezing in all lung [place] with expiration, decreased air movement noted as well. No respiratory distress. HEART: Regular rate and rhythm. Normal peripheral pulses. ABDOMEN: Soft, nontender, nondistended. EXTREMITIES: Normal range of motion. 1+ edema. SKIN: Warm, dry, no rash. NEURO: Alert and oriented x3. PSYCH: Normal mood and affect. Course Course Emergency Course: Patient reports all symptoms are resolved the getting an hour long breathing treatment and wheezing has significantly improved. Troponin trending down words. Cardiology consulted and feel
[2023-07-01 14:19] LABS: INR 1.1; Prothrombin Time 14.3 Seconds (11.1-14.7)
[2023-07-01 14:20] LABS: Partial Thromboplastin Time 29.9 Seconds (22.3-36.8)
[2023-07-01 14:24] LABS: Alanine Aminotransferase 24 U/L (6-50); Albumin Level 3.9 g/dL (3.5-5.1); Alkaline Phosphatase 139 U/L (38-126); Anion Gap 5 mmol/L (4-12); Aspartate Amino Transferase 36 U/L (17-59); Bilirubin,Total 0.7 mg/dL (0.2-1.3); Blood Urea Nitrogen 20 mg/dL (9-20); Calcium 9.6 mg/dL (8.4-10.2); Carbon Dioxide 33 mmol/L (22-30); Chloride 100 mmol/L (98-107); Estimated CRCL calculation 72 ml/min; Estimated Glomerular Filt Rate > 60; Glucose 160 mg/dL (65-110); Potassium 4.7 mmol/L (3.4-5.0); Sodium 138 mmol/L (137-145)
[2023-07-01 14:32] LABS: NT Pro B Type Natriuretic Pept 4440 pg/mL (19.9-100)
[2023-07-01 14:44] LABS: Troponin I 0.112 ng/mL (0.000-0.034)
[2023-07-01 14:59] LABS: Platelet Estimate Adequate (Adequate)
[2023-07-01 15:00] LABS: Anisocytosis 1+; Hypochromasia 2+; Schistocytes None Seen; Stomatocytes 1+
--- NOTE | 2023-07-01 16:22 | ECG_ITS ---
SEE SCANNED COPY FOR CONFIRMED REPORT. MTDD
[2023-07-01] MEDS: FUROSEMIDE INJ 40 MG/4 ML VIAL IV PUSH (16:46)
[2023-07-01 17:19] LABS: Troponin I 0.097 ng/mL (0.000-0.034)
== END 2023-07-01 19:22 | disposition home or self-care (01) ==
PROVIDERS: Emergency Provider Emergency Medicine; PCP Family Medicine
DX: I11.0 Hypertensive heart disease with heart failure (principal); I50.9 Heart failure, unspecified; R06.2 Wheezing; R00.0 Tachycardia, unspecified; Z79.01 Long term (current) use of anticoagulants
CPT/HCPCS: 36415; 71275; 80053; 83880; 84484; 85025; 85610; 85730; 93005; 96374; 99284; J1940; Q9967

== ENCOUNTER 2023-07-04 16:16 | Inpatient (IN) | payer OTHER, MEDICARE, SELFPAY ==
[2023-07-04] VITALS (13 sets, daily range): BP systolic 126–165; BP diastolic 60–94; PULSE 81–98; RESP 18–26; TEMP 36.4–36.6; O2SAT 89–99; BMI 39.7
--- NOTE | ~2023-07-04 | CT_ITS ---
EXAMINATION: CTA chest PE protocol DATE: 07/04/2023 20:21 INDICATION: Shortness of breath. TECHNIQUE: Computed tomography angiography (CTA) of the chest was performed with 100 mL Omnipaque-350 intravenous contrast timed to evaluate the pulmonary arteries. Coronal maximum intensity projection 3D-reconstructions were created by the technologist. Automated exposure control and iterative reconst ruction technique were employed. The dose-length product was 1009.73 mGy-cm. COMPARISON: Chest CT 07/01/2023 FINDINGS: There are moderate-sized right and small left pleural effusions. There is dependent atelect asis bilaterally. There are mild airspace opacities in left lower lobe and lingula. Calcified right l drea nodules and calcified right hilar lymph nodes are consistent with old granulomatous disease. Ther e is no pulmonary embolus. Cardiomegaly is noted. There are coronary artery calcifications. There is a trace pericardial effusion. There are changes of recent coronary artery bypass grafting including a focus of gas in the anterior mediastinum. There is a closure device at left atrial appendage. There is severe cervical and thoracic spondylosis. IMPRESSION: 1. No pulmonary embolus. 2. Stable moderate-sized right and small left pleural effusions. 3. Stable mild airspace opacities in left lower lobe and lingula, consistent with atelectasis versus pneumonia. Reviewed, dictated and finalized at location E. IMPRESSION: 1. No pulmonary embolus. 2. Stable moderate-sized right and small left pleural effusions. 3. Stable mild airspace opacities in left lower lobe and lingula, consistent wi th atelectasis versus pneumonia.
--- NOTE | ~2023-07-04 | XR_ITS ---
XR chest 1V portable 07/09/2023 13:12 Indication: Shortness of breath Procedure: AP portable chest Comparison: Comparison to multiple prior studies sequentially, with oldest reviewed study dated 07/03. Findings: Status post median sternotomy for CABG. Mild interstitial edema. Small pleural effusions. N o pneumothorax. Impression: 1: Cardiomegaly with mild interstitial edema. Reviewed, dictated and finalized at location B. Impression: 1: Cardiomegaly with mild interstitial edema.
--- NOTE | ~2023-07-04 | XR_ITS ---
EXAMINATION: [id number] DATE: 07/08/2023 13:54 INDICATION: Right pleural effusion status post thoracentesis. TECHNIQUE: Frontal and lateral views of the chest were obtained. COMPARISON: Chest single view at 5:37 AM FINDINGS: There are small pleural effusions. There are airspace opacities at the lung bases. No pneum othorax. Cardiomegaly is noted. Median sternotomy wires and mediastinal surgical clips are seen, like ly from prior coronary artery bypass grafting. There is a closure device at left atrial appendage. IMPRESSION: 1. Small pleural effusions with improvement on the right status post thoracentesis. 2. Airspace opacities at the lung bases with improvement on the right, consistent with atelectasis ve rsus pneumonia. 3. Cardiomegaly. Reviewed, dictated and finalized at location A. IMPRESSION: 1. Small pleural effusions with improvement on the right status post thoracente sis. 2. Airspace opacities at the lung bases with improvement on the right, consiste nt with atelectasis versus pneumonia. 3. Cardiomegaly.
--- NOTE | ~2023-07-04 | US_ITS ---
EXAMINATION: US thoracentesis DATE: 07/08/2023 14:08 INDICATION: pleural effusion TECHNIQUE: The procedure and its risks, benefits, and alternatives were discussed with the patient. P otential risks discussed included bleeding, infection, and pneumothorax. The patient understood the r isks and agreed to proceed. The skin was prepped and draped in sterile fashion. 1% lidocaine was used for local anesthesia. Under ultrasound guidance, a 5 Fr catheter with trochar was advanced into the right pleural effusion. Fluid was aspirated. The catheter was removed, and a dressing was applied. Th ere were no immediate complications. FINDINGS: Ultrasound images demonstrate a right pleural effusion and the catheter within the fluid. IMPRESSION: 1. Successful ultrasound-guided thoracentesis yielding 1000 mL of serosanguineous fluid. Reviewed, dictated and finalized at location A. IMPRESSION: 1. Successful ultrasound-guided thoracentesis yielding 1000 mL of serosanguine ous fluid.
--- NOTE | ~2023-07-04 | XR_ITS ---
EXAMINATION: XR chest 2V DATE: 07/04/2023 17:10 INDICATION: Shortness of breath. TECHNIQUE: Frontal and lateral views of the chest were obtained on 3 radiographs. COMPARISON: Chest 2 views 06/11/2023, chest CT 07/01/2023 FINDINGS: There are moderate-sized right and small left pleural effusions. There are airspace opaciti es at the lung bases. No pneumothorax. Cardiomegaly is noted. Median sternotomy wires and mediastinal surgical clips are seen, likely from prior coronary artery bypass grafting. There is a closure devic e at left atrial appendage. IMPRESSION: 1. Moderate-sized right and small left pleural effusions. 2. Airspace opacities at the lung bases, consistent with atelectasis versus pneumonia. 3. Cardiomegaly. Reviewed, dictated and finalized at location E. IMPRESSION: 1. Moderate-sized right and small left pleural effusions. 2. Airspace opacities at the lung bases, consistent with atelectasis versus pne umonia. 3. Cardiomegaly.
--- NOTE | ~2023-07-04 | XR_ITS ---
Portable chest x-ray Comparison: 07/07/2023 Clinical History: CHF Findings: Moderate right pleural effusion and probable minimal left pleural effusion present. Mild p ulmonary edema pattern present with probable mild right basilar atelectasis. Cardiomediastinal silho uette is stable. Bones and soft tissues are unremarkable. Impression: Stable moderate right pleural effusion and small left pleural effusion with bibasilar mild pulmonary edema and probable right basilar atelectasis. Reviewed, dictated and finalized at location . Impression: Stable moderate right pleural effusion and small left pleural effusion with bib asilar mild pulmonary edema and probable right basilar atelectasis.
--- NOTE | ~2023-07-04 | XR_ITS ---
XR chest 1V portable 07/05/2023 05:33 Indication: Respiratory failure Procedure: AP portable chest Comparison: Comparison to multiple prior studies sequentially, with oldest reviewed study dated 03/2014. Findings: Cardiomegaly. Status post median sternotomy for CABG. There is pulmonary edema. Small pleur al effusions. No pneumothorax. No acute osseous abnormality. Impression: 1: Cardiomegaly with pulmonary edema. 2: Bilateral pleural effusions, right greater than left. Reviewed, dictated and finalized at location B. Impression: 1: Cardiomegaly with pulmonary edema. 2: Bilateral pleural effusions, right greater than left.
--- NOTE | ~2023-07-04 | XR_ITS ---
XR chest 1V portable DATE: 07/07/2023 06:02 INDICATION: Congestive heart failure TECHNIQUE: Portable upright AP views July 07, 2023 at 0540 and 0541 hours COMPARISON: July 05, 2023 portable upright AP chest at 0522 hours FINDINGS: Status post sternotomy. Cardiomegaly. Aortic arch calcification. There are bilateral predominantly lower lung infiltrates and/or atelectasis, the improved since July 05, 2023. Mild/moderate right and small left pleural effusions. No pneumothorax. IMPRESSION: Mild improvement in bilateral pulmonary infiltrates since July 05, 2023 Reviewed, dictated and finalized at location A.
--- NOTE | 2023-07-04 16:34 | ECG_ITS ---
SEE SCANNED COPY FOR CONFIRMED REPORT MTDD
[2023-07-04 17:00] LABS: Basophils Percent Auto 0.2 % (0.2-1.2); Eosinophils Percent Auto 0.6 % (0-4.4); Hematocrit 31.6 % (42.0-52.0); Hemoglobin 9.4 g/dL (14.0-18.0); Immature Granulocyte Absolute 0.01 K/mm3 (0.00-0.031); Immature Granulocyte Percent A 0.2 % (0-0.5); Lymphocytes Absolute Auto 1.08 K/mm3 (0.9-3.2); Lymphocytes Percent Auto 20.1 % (18.3-44.2); Mean Corpuscular HGB Conc 29.7 g/dl (32-36); Mean Corpuscular Hemoglobin 29.1 pg (26-34); Mean Corpuscular Volume 97.8 fl (80-100); Mean Platelet Volume 8.2 fl (7.4-10.4); Monocytes Absolute Auto 0.3 K/mm3 (0.1-0.6); Monocytes Percent Auto 5.4 % (2.6-8.5); Neutrophils Percent Auto 73.5 % (45.5-73.1); Platelet Count Result 390 k/mm3 (150-375); Red Blood Count 3.23 M/mm3 (4.6-6.20); White Blood Count 5.4 K/mm3 (4.5-10.0)
[2023-07-04 17:24] LABS: INR 1.2; Partial Thromboplastin Time 33.3 Seconds (22.3-36.8); Platelet Estimate Adequate (Adequate); Prothrombin Time 16.3 Seconds (11.1-14.7)
[2023-07-04 17:25] LABS: Anisocytosis 2+; Hypochromasia 1+; Ovalocytes 1+; Poikilocytosis 1+; Schistocytes None Seen; Stomatocytes 1+
[2023-07-04 17:35] LABS: Alanine Aminotransferase 22 U/L (6-50); Alkaline Phosphatase 171 U/L (38-126); Anion Gap 5 mmol/L (4-12); Aspartate Amino Transferase 31 U/L (17-59); Bilirubin,Total 0.8 mg/dL (0.2-1.3); Blood Urea Nitrogen 26 mg/dL (9-20); Calcium 9.7 mg/dL (8.4-10.2); Carbon Dioxide 35 mmol/L (22-30); Chloride 98 mmol/L (98-107); Estimated CRCL calculation 66 ml/min; Estimated Glomerular Filt Rate > 60; Glucose 157 mg/dL (65-110); Lipase 166 U/L (23-300); Potassium 4.3 mmol/L (3.4-5.0); Sodium 138 mmol/L (137-145)
[2023-07-04 17:47] LABS: Troponin I 0.087 ng/mL (0.000-0.034)
--- NOTE | 2023-07-04 19:10 | ED.SOB ---
HPI - SOB/Dyspnea General Chief Complaint: Shortness of Breath/Dyspnea <Argelia Ybarra PA-C - Last Filed: 07/05/23 02:36> Stated Complaint: SOB <Argelia Ybarra PA-C - Last Filed: 07/05/23 02:36> Time Seen by Provider: 07/04/23 18:56 <Argelia Ybarra PA-C - Last Filed: 07/05/23 02:36> History of Present Illness HPI Narrative: 77-year-old male with history of persistent AFib, hypertension, obesity, sleep apnea and NSTEMI with recent CABG at [facility] on 06/11/2023 presents to the emergency department for shortness of breath since his surgery. Patient states he has had increasing dyspnea since he was discharged from [facility] after his CABG. He was seen in our emergency department on 07/01/2023 and was found to have pleural effusions and down trending troponins. The case was consulted with Cardiology with decision to discharge the patient home. Patient states since his discharge he has continued to have worsening shortness of breath, especially today. He normally does not wear oxygen but he has been placed on 2 L nasal cannula for O2 saturations in the 80s. Patient has satting 96% on 2 L nasal cannula in no respiratory distress and speaking in full sentences. He denies chest pain, abdominal pain, nausea vomiting, diarrhea, cough or congestion, lower extremity edema. He is chronically anticoagulated on Eliquis for AFib and takes 40 mg of Lasix daily. States he has been taking all his medications as prescribed. Per chart review, patient saw his PCP today. Per PCP's note, the patient had a complicated bypass, had of a pericardiotomy with resultant bleeding, he had to return to the OR the next day. He was discharged last week and reportedly was not compliant with his Eliquis. He has a follow-up appoint with cardiology next week. In office his oxygen saturation was low at 80% and the patient admitted to feeling lightheaded when ambulating. <Argelia Ybarra PA-C - Last Filed: 07/05/23 02:36> Related Data Home Medications: Home Medications Medication Instructions Recorded Confirmed acetaminophen 500 mg capsule 500 mg PO Q6H PRN Pain (Scale 07/04/23 07/05/23 Score 1-3) amiodarone 200 mg tablet 200 mg PO DAILY 07/04/23 07/05/23 clopidogrel 75 mg tablet 75 mg PO DAILY 07/04/23 07/05/23 furosemide 40 mg tablet 40 mg PO QAM 07/04/23 07/05/23 polyethylene glycol 3350 17 17 g PO DAILY PRN Constipation 07/04/23 07/05/23 gram/dose oral powder (Miralax) potassium chloride 20 mEq 20 meq PO DAILY 07/04/23 07/05/23 tablet,extended release senna-docusate sodium tablet 1 tablet PO BID PRN Constipation 07/04/23 07/05/23 tramadol 50 mg tablet 50 mg PO Q8H PRN Pain (Scale Score 07/04/23 07/05/23 4-6) <Argelia Ybarra PA-C - Last Filed: 07/05/23 02:36> Allergies/Adverse Reactions: Allergies Allergy/AdvReac Type Severity Reaction Status Date / Time atorvastatin AdvReac Severe Agitated Verified 07/04/23 15:45 <Argelia Ybarra PA-C - Last Filed: 07/05/23 02:36> Review of Systems Review of Systems: CONSTITUTIONAL: Denies fever, chills, or sweats. EYES: Denies visual changes, redness, or discharge. ENT: Denies rhinorrhea, congestion, sore throat, or otalgia. CARDIOVASCULAR: See HPI RESPIRATORY: See HPI GASTROINTESTINAL: Denies abdominal pain, nausea, vomiting, or diarrhea. GENITOURINARY: Denies dysuria or hematuria. SKIN: Denies rash or itching. MUSCULOSKELETAL: Denies back pain, joint pain, or myalgia. NEUROLOGIC: Denies headache, numbness, or weakness. PSYCHIATRIC: Denies anxiety or depression. <Argelia Ybarra PA-C - Last Filed: 07/05/23 02:36> COUNTS INCLUDE 234 BEDS AT THE [facility] Past Medical History Medical History: Medical History Chronic anticoagulation Hypertension <Argelia Ybarra PA-C - Last Filed: 07/05/23 02:36> Surgical History Surgical History: Surgical History (Reviewed 07/04/23 @ 19:15 by Olamide
[2023-07-04 19:56] LABS: Alveolar/Arterial O2 Gradient 37.6 mmHg; Base Excess ABG 6.6 mEq/l (+/-2.0); Fractional Inspired Oxygen 28 %; HCO3 ABG 32.6 mEq/l (22.0-26.0); Oxygen Content ABG 12.6 %vol (16.0-22.0); Oxygen Saturation ABG 97.2 % (95.0-100.0); Oxyhemoglobin 94.9 % THb (90.0-100.0); PCO2 ABG 55.4 mmHg (35.0-45.0); PO2 ABG 96.7 mmHg (80.0-100.0); PO2 FiO2 Ratio Arterial Blood 3.45 %; Total Hemoglobin 9.3 g/dL (12.0-18.0); pH ABG 7.388 (7.350-7.450)
[2023-07-04 19:57] LABS: Device NASAL CANNULA; Modified Allen's Test Pass; Site Drawn RIGHT RADIAL
[2023-07-04 20:03] LABS: Lactic Acid Reflex 1.2 mmol/L (0.7-2.0)
[2023-07-04 20:17] LABS: Troponin I 0.082 ng/mL (0.000-0.034)
[2023-07-04 20:21] LABS: Magnesium 2.1 mg/dL (1.6-2.3)
[2023-07-04 20:25] LABS: Influenza A QL RT-PCR Negative (Negative); Influenza B QL RT-PCR Negative (Negative); RSV RNA, RT-PCR Negative (Negative); SARS-CoV-2 RNA PCR Negative (Negative)
[2023-07-04] MEDS: ASPIRIN 81 MG CHEWABLE TABLET 324 MG PO (20:25)
[2023-07-04 20:27] LABS: Appearance Urine Clear (Clear); Bacteria Urine None Seen /hpf; Bilirubin Urine 1+ (Negative); Blood Urine 3+ (Negative); Color Urine Dark Yellow (Yellow); Glucose Urine UA Negative (Negative); Ketones Urine Negative (Negative); Leukocyte Esterase Ur Negative LEU/UL (Negative); Nitrate Urine Negative (Negative); Non Pathogenic Casts 0-2; Protein Urine 1+ mg/dL (Negative); RBC Urine 51-100 /hpf (0-2); Specific Grav Ur 1.023 (1.001-1.035); Squamous Epithelial Cell Urine None Seen /hpf (Few); WBC Urine 0-5 /hpf (0-3)
[2023-07-04 20:31] LABS: NT Pro B Type Natriuretic Pept 6140 pg/mL (19.9-100)
[2023-07-04 20:35] LABS: Add Urine Microscopic? YES
--- NOTE | 2023-07-04 20:54 | ECG_ITS ---
SEE SCANNED COPY FOR CONFIRMED REPORT MTDD
[2023-07-04] MEDS: FUROSEMIDE INJ 40 MG/4 ML VIAL IV PUSH (21:27)
--- NOTE | 2023-07-04 21:41 | PC.NURSE ---
Spoke with pt's and gave update and informed her that pt will be admitted to the hospital.
--- NOTE | 2023-07-04 22:18 | PM.IMHP ---
H&P: HPI History of Present Illness Date/Time: 07/04/23 22:18 Chief Complaint: sob Narrative: This is a 77-year-old male with past medical history significant for coronary artery disease, coronary artery bypass graft, atrial fibrillation, obesity, obstructive sleep apnea. patient had coronary artery bypass graft at outside hospital. Comes to the emergency room due to shortness of breath, found to have low oxygen saturation requiring supplemental oxygen by nasal cannula. Patient has had chills and night sweats. Patient denies any nausea, vomiting, abdominal pain, diarrhea, has pedal and ankle swelling. Preliminary workup was significant for chest x-ray with lung infiltrates. Patient has been started on antibiotics admitted for further evaluation management and treatment. EXAMINATION: XR chest 2V DATE: 07/04/2023 17:10 INDICATION: Shortness of breath. TECHNIQUE: Frontal and lateral views of the chest were obtained on 3 radiographs. COMPARISON: Chest 2 views 06/11/2023, chest CT 07/01/2023 FINDINGS: There are moderate-sized right and small left pleural effusions. There are airspace opacities at the lung bases. No pneumothorax. Cardiomegaly is noted. Median sternotomy wires and mediastinal surgical clips are seen, likely from prior coronary artery bypass grafting. There is a closure device at left atrial appendage. IMPRESSION: 1. Moderate-sized right and small left pleural effusions. 2. Airspace opacities at the lung bases, consistent with atelectasis versus pneumonia. 3. Cardiomegaly. Review of Systems Review of Systems: shortness of breath Constitutional: Constitutional: Reports chills, Reports fatigue, Reports night sweats and Reports weakness Eyes: Eyes: Denies change in vision ENT: Denies dysphagia and Denies odynophagia Cardiovascular: Cardiovascular: Denies chest pain, Denies radiating jaw, neck or arm pain and Denies palpitations Respiratory: Respiratory: Denies chest congestion, Denies cough and Denies excessive phlegm production Gastrointestinal: Gastrointestinal: Denies abdominal pain, Denies dyspepsia, Denies diarrhea, Denies nausea and Denies vomiting Genitourinary: Genitourinary: Denies dysuria Musculoskeletal: Musculoskeletal: Reports myalgias Integumentary/Breasts: Skin/Breast: Denies rash Neurologic: Denies focal weakness and Denies Sensory deficit (Neuro) Psychiatric: Psychiatric: Reports no additional psychiatric complaints and Reports as per HPI Endocrine: Endocrine: Denies cold intolerance, Denies fatigue, Denies flushing, Denies heat intolerance, Denies polyphagia, Denies polydipsia, Denies polyuria and Denies palpitations Hematologic/Lymphatic: Hematologic/Lymphatic: Reports no additional hematologic/lymphatic complaints and Reports as per HPI Allergic/Immunologic: Allergic/Immunologic: Reports no additional allergic/immunologic complaints and Reports as per HPI PMFSH Past Medical History Medical History Chronic anticoagulation Hypertension Surgical History Surgical History History of cataract extraction with lens replacement History of elbow surgery Open reduction and internal fixation of lateral epicondyle fracture and irrigation debridement of open fracture. History of inguinal hernia repair Family History Family History Mother Patient's mother is , Onset Age: 80 Father Patient's father is , Onset Age: 80 Sibling Patient's brother is in good health Social History Social History Social History: Surrogate medical decision maker: Florence Nicoleter, spouse. Code status: Full code. Smoking status: Never smoker Tobacco type: cigars Smoking end date: 03/11/05 Alcohol intake: current Drinks per we
[2023-07-04] MEDS: AZITHROMYCIN 500 MG/NS 250 ML 500 MG/250 ML BAG 250 MG IVPB (22:58)
[2023-07-04 23:09] LABS: Troponin I 0.093 ng/mL (0.000-0.034)
--- NOTE | 2023-07-04 23:29 | ADMGEN ---
This patient, Sudarshan Garner, was admitted to IMU Room 203-01. Patient/family oriented to hospital policies and general routines including ID bracelet, bed and alarms, visiting hours, pain management, procedures, bathroom and other care routines, personal items, smoking policy, room service/diet, and visiting hours. Information on how to activate the Rapid Response Team has been discussed. Patient/Family are encouraged to report perceived risks to care and to ask questions if they do not understand what they are told or what they should do.
[2023-07-05] VITALS (40 sets, daily range): BP systolic 96–132; BP diastolic 64–79; PULSE 77–97; RESP 18–30; TEMP 36.2–36.8; O2SAT 77–100
--- NOTE | 2023-07-05 | ECHO_ITS ---
Patient Info Name: Sudarshan Garner Age: 77 years : 1945 Gender: Male Ht: 70 in Wt: 283 lbs BSA: 2.57 m2 HR: 88 bpm BP: 115 / 70 mmHg Heart Rhythm: Atrial Fibrillation Technical Quality: Poor Exam Date: 07/05/2023 12:12 PM Exam Location: Echo Lab Patient Status: Inpatient Admit Date: 07/05/2023 Staff Ordering Physician: Jaquelin Nails MD Automobile Accessories Installer: Omayra Hillman RDCS Attending Provider: Jaquelin Nails MD Referring Physician: Jesu GARDNER; Exam Type: CA echo dop color flow w con Study Info Indications - RESPIRATORY FAILURE Complete two-dimensional, color flow and Doppler transthoracic echocardiogram is performed with contrast to opacify the left ventricle and to improve the deliniation of the left ventricle endocardial borders. Reason for Poor Study: poor echocardiographic windows Summary 1. Technically difficult echocardiogram, definity contrast injected to improve visualization. 2. Concentric left ventricular hypertrophy with normal appearing systolic function. 3. Abnormal septal motion due to bundle branch block. 4. Sclerotic but not stenotic aortic valve. 5. Atrial fibrillation. 6. Moderate biatrial dilation. Left Ventricle Left ventricular chamber dimension is normal. Left ventricular systolic function is normal, estimated at 60-65%. There is moderate concentric increased left ventricular wall thickness. The left ventricular diastolic function is indeterminate. Right Ventricle Right ventricular chamber dimension is normal. Left Atria Left atrial chamber dimension is moderately enlarged. Right Atria Right atrial chamber dimension is moderately enlarged. Aortic Valve The aortic valve is trileaflet. There is mild aortic valve sclerosis. Pulmonic Valve The pulmonic valve is not well visualized. Mitral Valve The mitral valve has normal leaflets. Tricuspid Valve The tricuspid valve leaflets are not well visualized. Pericardium/Pleural The pericardium appears normal. Aorta The aortic root size at the sinus of Valsalva is normal. Left Ventricular Outflow Tract Name Value Normal LVOT 2D LVOT Diameter 2.29 cm LVOT Doppler LVOT Peak Gradient 3 mmHg LVOT Mean Gradient 2 mmHg LVOT VTI 16.55 cm LVOT VTI/AV VTI Ratio 0.69 LVOT Stroke Volume 68.00 ml LVOT CO 4.69 l/min LVOT CI 1.82 L/min/m2 Pulmonic Valve Name Value Normal RVOT Doppler RVOT Peak Gradient 1 mmHg PV Doppler PV Peak Gradient 1 mmHg Mitral Valve Name Value Normal
[2023-07-05] MEDS: TAMSULOSIN HCL 0.4 MG CAPSULE PO (01:29)
[2023-07-05] MEDS: WATER FOR IRRIGATION, STERILE 1,000 ML BOTTLE 1000 ML (02:55)
--- NOTE | 2023-07-05 03:26 | PC.NURSE ---
Patient's SpO2 dropping as low as 53% on 8 L high flow nasal cannula. Patient found to be apneic and having profound periods of apnea. Dr. Nails notified and CPAP ordered. Patient placed on CPAP and SpO2 in mid 90's. Will continue to monitor.
--- NOTE | 2023-07-05 04:35 | PC.NURSE ---
Patient desatting into the low 80's as low as 79% on CPAP. RT notified and bleed in placed on CPAP machine.
[2023-07-05 05:09] LABS: Glucose Point of Care 80 mg/dl (65-105)
--- NOTE | 2023-07-05 05:25 | PC.NURSE ---
Patient continues having worsening respiratory failure with SpO2's in 50's-70's on CPAP with 10L bleed in. Dr. Nails at bedside and patient placed on continuous BiPap. Stat labs & ABG obtained. CXR obtained as well. Patient extremely lethargic and arousable to voice but quickly drifts back to sleep. Hannon catheter placed. Will continue to monitor.
[2023-07-05 05:34] LABS: Alveolar/Arterial O2 Gradient 201.7 mmHg; Base Excess ABG 7.1 mEq/l (+/-2.0); Fractional Inspired Oxygen 60 %; HCO3 ABG 35.1 mEq/l (22.0-26.0); Oxygen Content ABG 13.8 %vol (16.0-22.0); Oxygen Saturation ABG 98.6 % (95.0-100.0); Oxyhemoglobin 97.7 % THb (90.0-100.0); PO2 ABG 147.1 mmHg (80.0-100.0); PO2 FiO2 Ratio Arterial Blood 2.45 %; Total Hemoglobin 9.8 g/dL (12.0-18.0); pH ABG 7.307 (7.350-7.450)
--- NOTE | 2023-07-05 05:45 | ECG_ITS ---
SEE SCANNED COPY FOR CONFIRMED REPORT MTDD
[2023-07-05 05:50] LABS: Device BIPAP; Modified Allen's Test Pass; PCO2 ABG 71.8 mmHg (35.0-45.0); Site Drawn RIGHT RADIAL
[2023-07-05 05:50] LABS: Hematocrit 29.7 % (42.0-52.0); Hemoglobin 8.6 g/dL (14.0-18.0); Mean Platelet Volume 8.3 fl (7.4-10.4); Platelet Count Result 352 k/mm3 (150-375); Red Blood Count 2.97 M/mm3 (4.6-6.20); Red Cell Distribution Width 14.8 % (11.5-14.5); White Blood Count 4.8 K/mm3 (4.5-10.0)
[2023-07-05 05:51] LABS: Expiratory Pressure 6 cmH2O; Inspiratory Pressure 16 cmH2O
[2023-07-05 06:03] LABS: INR 1.2; Prothrombin Time 16.2 Seconds (11.1-14.7)
[2023-07-05 06:04] LABS: Alanine Aminotransferase 20 U/L (6-50); Albumin Level 3.6 g/dL (3.5-5.1); Alkaline Phosphatase 158 U/L (38-126); Anion Gap 2 mmol/L (4-12); Aspartate Amino Transferase 31 U/L (17-59); Bilirubin,Total 0.8 mg/dL (0.2-1.3); Blood Urea Nitrogen 26 mg/dL (9-20); Calcium 8.8 mg/dL (8.4-10.2); Carbon Dioxide 38 mmol/L (22-30); Chloride 99 mmol/L (98-107); Estimated CRCL calculation 62 ml/min; Estimated Glomerular Filt Rate 59; Glucose 96 mg/dL (65-110); Lactic Acid Reflex 0.9 mmol/L (0.7-2.0); Magnesium 2.2 mg/dL (1.6-2.3); Partial Thromboplastin Time 34.1 Seconds (22.3-36.8); Phosphorus 4.5 mg/dL (2.5-4.5); Potassium 4.2 mmol/L (3.4-5.0); Sodium 139 mmol/L (137-145)
[2023-07-05 06:16] LABS: Troponin I 0.082 ng/mL (0.000-0.034)
[2023-07-05 08:22] LABS: Base Excess ABG 6.5 mEq/l (+/-2.0); Carboxyhemoglobin 0.4 % THb (0-2.0); Fractional Inspired Oxygen 50 %; HCO3 ABG 34.7 mEq/l (22.0-26.0); Methemoglobin ABG 0.2 %THb (0-1.5); Oxygen Content ABG 13.5 %vol (16.0-22.0); Oxygen Saturation ABG 96.2 % (95.0-100.0); Oxyhemoglobin 95.3 % THb (90.0-100.0); PO2 ABG 95.2 mmHg (80.0-100.0); Reduced Hemoglobin 4.1 %THb (0-5.0)
[2023-07-05 08:31] LABS: Device NON-INVASIVE VENT; Modified Allen's Test Pass; PCO2 ABG 73.2 mmHg (35.0-45.0); Site Drawn RIGHT RADIAL; pH ABG 7.294 (7.350-7.450)
[2023-07-05 08:32] LABS: Non-Invasive Expiratory Pressure 6 CMH2O; Non-Invasive Inspiratory Pressure 16 CMH2O; Non-Invasive Vent Rate 20 /MIN
--- NOTE | 2023-07-05 09:06 | PM.IMPN ---
Progress Note: A&P Assessment and Plan (1) Respiratory failure with hypoxia and hypercapnia: Code(s): J96.91 - Respiratory failure, unspecified with hypoxia; J96.92 - Respiratory failure, unspecified with hypercapnia Status: Acute (2) S/P CABG (coronary artery bypass graft): Code(s): Z95.1 - Presence of aortocoronary bypass graft Status: Acute (3) CAD (coronary artery disease): Code(s): I25.10 - Atherosclerotic heart disease of [place] coronary artery without angina pectoris Status: Acute (4) Acute hypoxic respiratory failure: Code(s): J96.01 - Acute respiratory failure with hypoxia Status: Acute (5) Pleural effusion: Code(s): J90 - Pleural effusion, not elsewhere classified Status: Acute Plan acute respiratory failure with hypoxemia and hypercapnia ? possible resulting from acute on chronic heart failure, obesity hypoventilation syndrome ? patient will be placed on BiPAP treat underlying disease start DuoNeb scheduled albuterol nebulizer as needed Consult lumber buyer for evaluation treatment, changed to AVAPS per lumber buyer acute on chronic heart failure echocardiogram June 2023 suggest mild to moderate systolic heart failure EF 40-55% X-ray shows pulmonary congestion and pulmonary edema pleural effusion start Lasix 40 mg b.i.d. IV push follow-up input output consult piece hand for evaluation treatment Pneumonia: suspected pneumonia, received azithromycin and ceftriaxone IV pulmonary does not consider patient have pneumonia, discontinue antibiotics per lumber buyer pleural effusion possible due to CHF Continue IV Lasix pulmonology considers thoracentesis on Saturday, if patient is not responsive diuretic medications Persistent atrial fibrillation: ?Code(s): I48.19 - Other persistent atrial fibrillation ?Status:?Acute ?Assessment and Plan: continue home meds discontinue mL and Eliquis per piece hand because patient had mass per seizure and left atrial appendage ligation JUDE patient has CO2 retention Patient may need BiPAP Consult lumber buyer for evaluation treatment elevated troponin history of CAD S/P CABG (coronary artery bypass graft): elevated troponin likely secondary to demand ischemia due to respiratory failure, heart failure EKG showed AFib, right bundle block continue Plavix 75 mg daily p.o. consult piece hand for evaluation treatment Generalized weakness: ?Code(s): R53.1 - Weakness ?Status:?Acute ?Assessment and Plan: likely secondary to deconditioning consult PT OT women's health care nurse practitioner for evaluation and assisting placement Subjective Date/time seen: 07/05/23 09:06 Interval history: I saw and examined patient today. Patient is on BiPAP, patient felt dyspnea is improving, has some cough. Patient afebrile, blood pressure stable, leukocytosis resolved Exam Narrative: GENERAL: Pleasant, in no acute distress. Well-nourished. - EYES: EOMI. Anicteric. - HENT: Moist mucous membranes. - LUNGS: coarse breath sound bilaterally - CARDIOVASCULAR: irregular irregular rhythm, tachycardia. No murmur. No JVD. - ABDOMEN: Soft, non-tender and non-distended. No palpable masses. - EXTREMITIES: No edema. Peripheral pulses 2+. Non-tender. - NEUROLOGIC: No focal neurological deficits. CN II-XII grossly intact. - PSYCHIATRIC: Awake, Alert and oriented x 3. Appropriate mood and affect. - SKIN: No rashes or lesions. Warm. - LYMPH: No cervical lymphadenopathy. Objective Data Vital Signs Vital Signs: Vital Signs - 24 hr 07/04/23 16:19 07/04/23 17:00 07/04/23 16:45 Temperature 97.9 F Pulse Rate 98 Respiratory Rate 22 H Blood Pressure 142/89 H Pulse Oximetry 92 92 95 Oxygen Delivery Room Air Nasal Cannula Nasal Cannula Oxygen Flow Rate 2 2 Fraction of Inspired Oxygen 07/04/23 16:31 07/04/23 17:00 07/04/23 17:15 Temperature Pulse R
[2023-07-05 11:51] LABS: Procalcitonin 0.1 ng/mL
[2023-07-05 11:52] LABS: Free T4 Free Thyroxine 1.36 ng/mL (0.78-2.19)
[2023-07-05] MEDS: PERFLUTREN LIPID MICROSPHERES 1.5 ML VIAL DILUTED TO 10 ML TOTAL VOLUME IV PUSH (12:20)
--- NOTE | 2023-07-05 12:33 | PM.CNPUL ---
Assessment and Plan Assessment and plan (1) Respiratory failure with hypoxia and hypercapnia: Code(s): J96.91 - Respiratory failure, unspecified with hypoxia; J96.92 - Respiratory failure, unspecified with hypercapnia Status: Acute Assessment and Plan: patient with a history of coronary artery disease status post CABG on 06/14/2023 presents now with worsening shortness of breath, Congestion with bilateral pleural effusions, pedal edema, elevated BNP. The chart states he has a history of prior tobacco use but is a maintained on no daily inhalers. CT angiogram of the chest is negative for PE. There are bilateral pleural effusions right greater than left with atelectasis. Very small infiltrates in the lingula and left lower lobe with no leukocytosis, no fever. ABG on presentation was 7.39/55/97 on 2 L and later on BiPAP 7.29/73/95. procalcitonin 0.1. Etiology of Acute on chronic hypoxemic and hypercarbic respiratory failure includes: congestive heart failure with fluid overload, bilateral pleural effusions with atelectasis, doubt pneumonia, tracheobronchitis or COPD exacerbation. 07/05/23 Plan: As aggressive diuresis as tolerated by his cardiac and renal systems per Cardiology and hospitalist team. Currently is on for 40 of Lasix IV b.i.d.. Will attempt to aggressively diurese patient over the next 3 days and reassess him on Saturday for possible thoracentesis if he does not respond to diuretics. I have placed his Plavix on hold as that is a 5 day hold prior to thoracentesis and cardiology will consult to determine if the Plavix is absolutely required a this time. He can continue his Eliquis for now as that is a 24 hour hold prior to thoracentesis. The chart says that he quit smoking in 2005 is not maintained on any inhalers. he has no wheezes on exam. He has no bullous emphysema on his CT scan of the chest. I have no PFTs. I will not initiate any inhalers at this time. I do not believe he has a pneumonia at this time. Unfortunately no blood cultures were drawn. I will discontinue azithromycin and ceftriaxone and follow him clinically. If there is concern for a pulmonary infection he will need coverage for healthcare associated pneumonia as he was recently admitted to [facility]. I changed him to noninvasive ventilation with the AVAPS mode and adjusted to comfort resulting in a rate of 20, tidal volume 500, EPAP 5, minimal inspiratory pressure 6, maximal inspiratory pressure 25, inspiratory time 1.0, rise of 5 and 45% FiO2 with saturations 96%. the patient is feeling better now and I have told the nurse that he can come off of the BiPAP and that he can use it p.r.n. during the day for shortness of breath are lethargy but that he should wear tonight. I will obtain an ABG in the morning prior to removal of the mask. Discussed with Dr Boyd, will follow with you. History of Present Illness History of Present Illness Consult date: 07/05/23 Chief complaint: Acute Hypoxic Respiratory Failure Narrative: 07/05/2023: This is a new pulmonary consult for acute on chronic hypercarbic and hypoxemic respiratory failure. 77-year-old with a history of hypertension, hyperlipidemia, AFib, vertigo, obesity, coronary artery disease status post CABG 06/14/2023. patient underwent 4 vessel CABG on 06/14/2023 with left atrial ligation and bilateral Maze ablation. Postoperative he had bleeding and went back to the OR with pericardial tamponade. He was discharged home from [facility] on 06/22/2023. On 07/01/2023 E presented to the emergency room with shortness of breath since discharge. He also complained of cough and wheezing. CT angiogram of the chest was negative for PE, small bilateral effusions with atelectasis. 07/04/2023 patient presented to his PCP with dizziness, shortness of breath and room air saturations 80% and was transferred to the ED. In the emergency room he had sheyla de
[2023-07-05] MEDS: AMIODARONE HCL 200 MG TABLET 400 MG PO (12:47)
[2023-07-05] MEDS: APIXABAN 5 MG TABLET PO (12:47)
[2023-07-05] MEDS: FUROSEMIDE INJ 40 MG/4 ML VIAL IV PUSH ×2 (12:48→17:36)
--- NOTE | 2023-07-05 13:01 | IVDEFINITY ---
Prior to administration of IV Definity the patient was educated on the risks and benefits of the imaging enhancing agent including potential adverse side effects. The patient verbalized understanding. Allergies were verified. No exclusion criteria were identified and at least one of the following inclusion criteria were met: 1) physician request, 2) patient technically difficult to image (per the [place] [employer] guidelines of two or more segments not discernable within the apical view), or 3) questionable left ventricular function. ?
--- NOTE | 2023-07-05 13:10 | PM.CNCAR ---
Assessment and Plan Assessment and plan (1) Persistent atrial fibrillation: Code(s): I48.19 - Other persistent atrial fibrillation Status: Acute (2) S/P CABG (coronary artery bypass graft): Code(s): Z95.1 - Presence of aortocoronary bypass graft Status: Acute Plan This is a 77-year-old man with chronic atrial fibrillation also with recently identified critical left main coronary artery disease who is couple of weeks following surgical revascularization at [facility]. He enters the hospital with shortness of breath pulmonary congestion and some right pleural fluid that is noted. He has responded favorably to diuretics he says he feels notably better than when he came into the hospital last evening. At this time I would recommend discontinuing amiodarone since he is in chronic atrial fibrillation and the chance of restoring and maintaining sinus rhythm is no longer an option. Maze procedure was done at the time of his surgery not unexpectedly he is back in atrial fibrillation. I would also recommend discontinuing apixaban since his left atrial appendage has been ligated he should not need ongoing anticoagulation. He was on ARB therapy with Benicar prior to his surgery I am going to resume that for the moment at 10 mg per day. We will observe his heart rate we may have to titrate in some beta-keith treatment for his CHF as well as his AFib since amiodarone is being discontinued. Thank you for asking us to see this gentleman in consultation and participate in his care once again. Gildardo Marroquin MD [facility] History of Present Illness History of Present Illness Consult date/time: 07/05/23 13:10 Reason For Visit: Acute Hypoxic Respiratory Failure Narrative: This is a 77-year-old man with atrial fibrillation and coronary artery disease being seen at the request of the hospitalist today apparently because of shortness of breath and evidence of some congestive heart failure. He is unknown to me but known to my partners. This is a gentleman with a history of atrial fibrillation for at least a year or more prior to recent office consultation by my partner. He presented to [facility] earlier this year with acute coronary syndrome and underwent left heart catheterization. He was found to have left main coronary disease with ostial LAD involvement and was transferred from this hospital to [facility] for surgical myocardial revascularization. He was taken to the operating room on 06/14/2023 and received an VALENTIN graft to the LAD, a radial artery graft sequentially to the ramus and OM branch and a saphenous vein graft to the posterior descending artery. He also underwent a bilateral Maze ablation procedure and a left atrial appendage ligation. His surgical recovery was complicated by bleeding with pericardial tamponade resulting in the need to return him to the operating room on the day of surgery for control of bleeding. After that the rest of his hospital stay was uncomplicated. His 1st postop electrocardiogram showed atrial fibrillation before discharge his ECG showed sinus rhythm with well with chronic right bundle branch block and leftward axis. He enters the hospital last night through the emergency room with symptoms of worsening shortness of breath for several days. His chest x-ray shows bilateral pulmonary congestion and a moderate-size right pleural effusion. He is in atrial fibrillation with a controlled ventricular response with chronic right bundle branch block pattern. In this setting I am seeing him in consultation. His laboratory data shows normal renal function and postop anemia with a hemoglobin of over 8 g. He is relatively comfortable supine in bed head of the bed elevated about 30? watching television when I entered the room to see him. He is receiving intravenous furosemide at this time Review of Systems Constitutional: Constitutional: Reports lethargy Eyes: Eyes: Reports no a
[2023-07-05] MEDS: ALBUTEROL SULFATE NEB 2.5 MG/3 ML INH INHALATION ×2 (15:28→20:36)
[2023-07-06] VITALS (17 sets, daily range): BP systolic 100–139; BP diastolic 57–96; PULSE 84–106; RESP 14–28; TEMP 35.7–36.6; O2SAT 94–100
[2023-07-06 04:31] LABS: Alveolar/Arterial O2 Gradient 115.9 mmHg; Fractional Inspired Oxygen 35 %; HCO3 ABG 36.5 mEq/l (22.0-26.0); Oxygen Content ABG 12.3 %vol (16.0-22.0); Oxygen Saturation ABG 96.3 % (95.0-100.0); PO2 ABG 77.9 mmHg (80.0-100.0); PO2 FiO2 Ratio Arterial Blood 2.23 %; Total Hemoglobin 9.1 g/dL (12.0-18.0); pH ABG 7.499 (7.350-7.450)
[2023-07-06 04:32] LABS: Modified Allen's Test Pass; Site Drawn RIGHT RADIAL
[2023-07-06 04:33] LABS: Device OTHER DEVICE
--- NOTE | 2023-07-06 08:52 | PM.IMPN ---
Progress Note: A&P Assessment and Plan (1) Respiratory failure with hypoxia and hypercapnia: Code(s): J96.91 - Respiratory failure, unspecified with hypoxia; J96.92 - Respiratory failure, unspecified with hypercapnia Status: Acute (2) S/P CABG (coronary artery bypass graft): Code(s): Z95.1 - Presence of aortocoronary bypass graft Status: Acute (3) CAD (coronary artery disease): Code(s): I25.10 - Atherosclerotic heart disease of [place] coronary artery without angina pectoris Status: Acute (4) Acute hypoxic respiratory failure: Code(s): J96.01 - Acute respiratory failure with hypoxia Status: Acute (5) Pleural effusion: Code(s): J90 - Pleural effusion, not elsewhere classified Status: Acute Plan acute respiratory failure with hypoxemia and hypercapnia ? possible resulting from acute on chronic heart failure, obesity hypoventilation syndrome ? patient will be placed on BiPAP treat underlying disease start DuoNeb scheduled albuterol nebulizer as needed Consult twine winder for evaluation treatment, changed to AVAPS per twine winder acute on chronic heart failure echocardiogram June 2023 suggest mild to moderate systolic heart failure EF 40-55% X-ray shows pulmonary congestion and pulmonary edema pleural effusion continue Lasix 40 mg b.i.d. IV push today follow-up input output consult powder shoveler for evaluation treatment may change Lasix to p.o. tomorrow per powder shoveler Pneumonia: suspected pneumonia, received azithromycin and ceftriaxone IV pulmonary does not consider patient have pneumonia, discontinue antibiotics per twine winder pleural effusion possible due to CHF Continue IV Lasix pulmonology considers thoracentesis on Saturday, if patient is not responsive diuretic medications Persistent atrial fibrillation: ?Code(s): I48.19 - Other persistent atrial fibrillation ?Status:?Acute ?Assessment and Plan: continue home meds discontinue amiodarone and Eliquis per powder shoveler because patient had mass per seizure and left atrial appendage ligation patient still has AFib, start metoprolol p.o. per powder shoveler JUDE patient has CO2 retention Patient may need BiPAP Consult twine winder for evaluation treatment elevated troponin history of CAD S/P CABG (coronary artery bypass graft): elevated troponin likely secondary to demand ischemia due to respiratory failure, heart failure EKG showed AFib, right bundle block continue Plavix 75 mg daily p.o. consult powder shoveler for evaluation treatment Generalized weakness: ?Code(s): R53.1 - Weakness ?Status:?Acute ?Assessment and Plan: likely secondary to deconditioning consult PT OT health care facility administrator for evaluation and assisting placement Subjective Date/time seen: 07/06/23 08:52 Interval history: I saw and examined patient today. Patient is ooff BiPAP, patient felt dyspnea is improving, has some cough. Patient afebrile, blood pressure stable, leukocytosis resolved. negative input and output balance 806 mL Exam Narrative: GENERAL: Pleasant, in no acute distress. Well-nourished. - EYES: EOMI. Anicteric. - HENT: Moist mucous membranes. - LUNGS: coarse breath sound bilaterally - CARDIOVASCULAR: regular rhythm, tachycardia. No murmur. No JVD. - ABDOMEN: Soft, non-tender and non-distended. No palpable masses. - EXTREMITIES: No edema. Peripheral pulses 2+. Non-tender. - NEUROLOGIC: No focal neurological deficits. CN II-XII grossly intact. - PSYCHIATRIC: Awake, Alert and oriented x 3. Appropriate mood and affect. - SKIN: No rashes or lesions. Warm. - LYMPH: No cervical lymphadenopathy. Objective Data Vital Signs Vital Signs: Vital Signs - 24 hr 07/05/23 12:02 07/05/23 12:13 07/05/23 12:47 Temperature 98.3 F Pulse Rate 88 97 Respiratory Rate 20 Blood Pressure 132/79 Pulse Oximetry 99 93 Oxygen Delivery Hi
[2023-07-06] MEDS: OLMESARTAN MEDOXOMIL 10 MG TABLET PO (09:10)
[2023-07-06] MEDS: FUROSEMIDE INJ 40 MG/4 ML VIAL IV PUSH ×2 (09:10→16:26)
--- NOTE | 2023-07-06 12:30 | PM.PNCARD ---
Progress Note: A&P Assessment and Plan (1) Persistent atrial fibrillation: Code(s): I48.19 - Other persistent atrial fibrillation Status: Acute Assessment and Plan: Heart rate in AFib elevated at times, reasonably controlled overall. Amiodarone discontinued. Add Toprol XL 25 mg daily to observe tolerance, monitor BP. Continue telemetry for heart rate control. Systemic anticoagulation discontinued given history of left atrial appendage ligation. Amiodarone discontinued given persistence of atrial fibrillation, however, concern with regards to heart rate control moving forward as such will initiate AV kassy blocking agents. (2) CAD (coronary artery disease): Code(s): I25.10 - Atherosclerotic heart disease of [place] coronary artery without angina pectoris Status: Acute Assessment and Plan: Stable, no anginal symptoms. Continue aggressive medical therapy. Continue clopidogrel 75 mg daily. Unfortunately patient is intolerant to statin therapy. Addition of Zetia 10 mg daily would be advised unable to utilize at this time. PCSK9 inhibitor therapy should be considered as an outpatient. (3) Acute hypoxic respiratory failure: Code(s): J96.01 - Acute respiratory failure with hypoxia Status: Acute Assessment and Plan: Wean O2 supplementation as tolerated. Patient remains on IV Lasix 40 mg twice daily for possible acute on chronic heart failure with preserved ejection fraction. Change to oral Lasix 40 mg p.o. b.i.d. starting tomorrow. Monitor volume status closely. Monitor electrolytes and renal function. (4) Pneumonia: Qualifiers: Laterality: left Lung location: lower lobe of lung Pneumonia type: due to unspecified organism Qualified Code(s): J18.9 - Pneumonia, unspecified organism Code(s): J18.9 - Pneumonia, unspecified organism Status: Acute Assessment and Plan: Continue management per primary service. Continue azithromycin, ceftriaxone. (5) Hypertension: Code(s): I10 - Essential (primary) hypertension Status: Acute Assessment and Plan: BP stable. Monitor tolerance with initiation Toprol XL. He remains on olmesartan 10 mg daily. (6) S/P CABG (coronary artery bypass graft): Code(s): Z95.1 - Presence of aortocoronary bypass graft Status: Acute Plan Subjective Date/time seen: Date of service: 07/06/23 12:30 Interval history: Follow-up for CHF, status post CABG, AFib Feeling better overall. denies SOB, CP or palps. AF 90's-100's on RA currently. Review of Systems Constitutional: Constitutional: Reports lethargy Eyes: Eyes: Reports no additional eye complaints ENT: Reports system reviewed and no additional complaints, except as documented Cardiovascular: Cardiovascular: Reports as per HPI and Reports dyspnea on exertion Respiratory: Respiratory: Reports dyspnea on exertion Gastrointestinal: Gastrointestinal: Reports no additional gastrointestinal complaints Genitourinary: Genitourinary: Reports no additional male genitourinary complaints Musculoskeletal: Musculoskeletal: Reports no additional musculoskeletal complaints Integumentary/Breasts: Skin/Breast: Reports system reviewed and no additional complaints, except as docu Neurologic: Reports system reviewed and no additional complaints, except as documented Endocrine: Endocrine: Reports no additional endocrine complaints Hematologic/Lymphatic: Hematologic/Lymphatic: Reports no additional hematologic/lymphatic complaints Allergic/Immunologic: Allergic/Immunologic: Reports no additional allergic/immunologic complaints Exam Const: Other: Obese white male BMI 40.6 supine in bed as mentioned above appears relatively comfortable at this time on room air lying upright in bed HENMT: Mouth: Yes moist mucous membranes Eyes: Sclera: sclerae normal Neck: Neck: supple Other: No obvious JVD Resp: Effort & Inspection
--- NOTE | 2023-07-06 12:37 | PM.PNPUL ---
Progress Note: A&P Assessment and Plan (1) Respiratory failure with hypoxia and hypercapnia: Code(s): J96.91 - Respiratory failure, unspecified with hypoxia; J96.92 - Respiratory failure, unspecified with hypercapnia Status: Acute Assessment and Plan: patient with a history of coronary artery disease status post CABG on 06/14/2023 presents now with worsening shortness of breath, Congestion with bilateral pleural effusions, pedal edema, elevated BNP. The chart states he has a history of prior tobacco use but is a maintained on no daily inhalers. CT angiogram of the chest is negative for PE. There are bilateral pleural effusions right greater than left with atelectasis. Very small infiltrates in the lingula and left lower lobe with no leukocytosis, no fever. ABG on presentation was 7.39/55/97 on 2 L and later on BiPAP 7.29/73/95. procalcitonin 0.1. Etiology of Acute on chronic hypoxemic and hypercarbic respiratory failure includes: congestive heart failure with fluid overload, bilateral pleural effusions with atelectasis, doubt pneumonia, tracheobronchitis or COPD exacerbation. 07/05/23 Plan: As aggressive diuresis as tolerated by his cardiac and renal systems per Cardiology and hospitalist team. Currently is on for 40 of Lasix IV b.i.d.. Will attempt to aggressively diurese patient over the next 3 days and reassess him on Saturday for possible thoracentesis if he does not respond to diuretics. I have placed his Plavix on hold as that is a 5 day hold prior to thoracentesis and cardiology will consult to determine if the Plavix is absolutely required a this time. He can continue his Eliquis for now as that is a 24 hour hold prior to thoracentesis. The chart says that he quit smoking in 2005 is not maintained on any inhalers. he has no wheezes on exam. He has no bullous emphysema on his CT scan of the chest. I have no PFTs. I will not initiate any inhalers at this time. I do not believe he has a pneumonia at this time. Unfortunately no blood cultures were drawn. I will discontinue azithromycin and ceftriaxone and follow him clinically. If there is concern for a pulmonary infection he will need coverage for healthcare associated pneumonia as he was recently admitted to [facility]. I changed him to noninvasive ventilation with the AVAPS mode and adjusted to comfort resulting in a rate of 20, tidal volume 500, EPAP 5, minimal inspiratory pressure 6, maximal inspiratory pressure 25, inspiratory time 1.0, rise of 5 and 45% FiO2 with saturations 96%. the patient is feeling better now and I have told the nurse that he can come off of the BiPAP and that he can use it p.r.n. during the day for shortness of breath are lethargy but that he should wear tonight. I will obtain an ABG in the morning prior to removal of the mask. 07/06/23: Patient tells me he slept well with the [facility] noninvasive ventilator. He is breathing back to his baseline. He denies cough. He does have some phlegm production. Patient is currently on 2 L nasal cannula saturations 96%. Cumulative diuresis since admission is 1.6 L. His weight today is 128.3 kg. Patient wore the hospital noninvasive ventilator with 35% FiO2 and his blood gas this morning prior to removal was 7.50/48/78. Plan: As aggressive diuresis as tolerated by his cardiac and renal systems per Cardiology and hospitalist team. Currently is on for 40 of Lasix IV b.i.d.. patient is improved states he is breathing back to normal. He is on 2 L nasal cannula so is oxygenation has improved. The patient tells me he does not feel he needs a BiPAP anymore. I will change the BiPAP to p.r.n.. I will check a blood gas in the morning off of the BiPAP on the 2 L nasal cannula oxygen. I will check a chest x-ray, BMP and BNP in the morning. Discussed with Dr Boyd, will follow with you. Subjective Date/time seen: 07/06/23 12:37 Interval history:
[2023-07-06] MEDS: METOPROLOL SUCCINATE EXT REL 25 MG TABCR PO (16:26)
[2023-07-06] MEDS: WATER FOR IRRIGATION, STERILE 500 ML BOTTLE (19:37)
[2023-07-07] VITALS (10 sets, daily range): BP systolic 99–126; BP diastolic 59–81; PULSE 71–88; RESP 16–20; TEMP 36.3–36.6; O2SAT 96–100
[2023-07-07 05:07] LABS: Anion Gap 4 mmol/L (4-12); Blood Urea Nitrogen 28 mg/dL (9-20); Carbon Dioxide 38 mmol/L (22-30); Chloride 96 mmol/L (98-107); Estimated CRCL calculation 57 ml/min; Estimated Glomerular Filt Rate 54; Glucose 113 mg/dL (65-110); Potassium 3.5 mmol/L (3.4-5.0); Sodium 138 mmol/L (137-145)
[2023-07-07 05:16] LABS: NT Pro B Type Natriuretic Pept 2430 pg/mL (19.9-100)
[2023-07-07 05:52] LABS: Alveolar/Arterial O2 Gradient 35.8 mmHg; Base Excess ABG 9.9 mEq/l (+/-2.0); Fractional Inspired Oxygen 28 %; HCO3 ABG 36.5 mEq/l (22.0-26.0); Oxygen Content ABG 12.8 %vol (16.0-22.0); Oxygen Saturation ABG 96.6 % (95.0-100.0); Oxyhemoglobin 95.7 % THb (90.0-100.0); PO2 ABG 90.3 mmHg (80.0-100.0); PO2 FiO2 Ratio Arterial Blood 3.23 %; Total Hemoglobin 9.4 g/dL (12.0-18.0); pH ABG 7.386 (7.350-7.450)
[2023-07-07 05:57] LABS: Modified Allen's Test Pass; PCO2 ABG 62.3 mmHg (35.0-45.0); Site Drawn RIGHT RADIAL
[2023-07-07 06:00] LABS: Device HIGH FLOW NASAL CANN
[2023-07-07] MEDS: METOPROLOL SUCCINATE EXT REL 25 MG TABCR PO (09:57)
[2023-07-07] MEDS: OLMESARTAN MEDOXOMIL 10 MG TABLET PO (09:57)
[2023-07-07] MEDS: FUROSEMIDE INJ 40 MG/4 ML VIAL IV PUSH (09:57)
--- NOTE | 2023-07-07 10:14 | P.PNPL_ITS ---
Progress Note: A&P Assessment and Plan (1) Respiratory failure with hypoxia and hypercapnia: Code(s): J96.91 - Respiratory failure, unspecified with hypoxia; J96.92 - Respiratory failure, unspecified with hypercapnia Status: Acute Assessment and Plan: patient with a history of coronary artery disease status post CABG on 06/14/2023 presents now with worsening shortness of breath, Congestion with bilateral pleural effusions, pedal edema, elevated BNP. The chart states he has a history of prior tobacco use but is a maintained on no daily inhalers. CT angiogram of the chest is negative for PE. There are bilateral pleural effusions right greater than left with atelectasis. Very small infiltrates in the lingula and left lower lobe with no leukocytosis, no fever. ABG on presentation was 7.39/55/97 on 2 L and later on BiPAP 7.29/73/95. procalcitonin 0.1. Etiology of Acute on chronic hypoxemic and hypercarbic respiratory failure includes: congestive heart failure with fluid overload, bilateral pleural effusions with atelectasis, obesity hypoventilation syndrome doubt pneumonia, tracheobronchitis or COPD exacerbation. 07/05/23 Plan: As aggressive diuresis as tolerated by his cardiac and renal systems per Cardiology and hospitalist team. Currently is on for 40 of Lasix IV b.i.d.. Will attempt to aggressively diurese patient over the next 3 days and reassess him on Saturday for possible thoracentesis if he does not respond to diuretics. I have placed his Plavix on hold as that is a 5 day hold prior to thoracentesis and cardiology will consult to determine if the Plavix is absolutely required a this time. He can continue his Eliquis for now as that is a 24 hour hold prior to thoracentesis. TSH 3.58. Free T4 1.36, both normal The chart says that he quit smoking in 2005 is not maintained on any inhalers. he has no wheezes on exam. He has no bullous emphysema on his CT scan of the chest. I have no PFTs. I will not initiate any inhalers at this time. I do not believe he has a pneumonia at this time. Unfortunately no blood cultures were drawn. I will discontinue azithromycin and ceftriaxone and follow him clinically. If there is concern for a pulmonary infection he will need coverage for healthcare associated pneumonia as he was recently admitted to [facility]. I changed him to noninvasive ventilation with the AVAPS mode and adjusted to comfort resulting in a rate of 20, tidal volume 500, EPAP 5, minimal inspiratory pressure 6, maximal inspiratory pressure 25, inspiratory time 1.0, rise of 5 and 45% FiO2 with saturations 96%. the patient is feeling better now and I have told the nurse that he can come off of the BiPAP and that he can use it p.r.n. during the day for shortness of breath are lethargy but that he should wear tonight. I will obtain an ABG in the morning prior to removal of the mask. 07/06/23: Patient tells me he slept well with the hospital noninvasive ventilator. He is breathing back to his baseline. He denies cough. He does have some phlegm production. Patient is currently on 2 L nasal cannula saturations 96%. Cumulative diuresis since admission is 1.6 L. His weight today is 128.3 kg. Patient wore the hospital noninvasive ventilator with 35% FiO2 and his blood gas this morning prior to removal was 7.50/48/78. Plan: The above AVAPS settings provide adequate ventilation. As aggressive diuresis as tolerated by his cardiac and renal systems per Cardiology and hospitalist team. Currently is on for 40 of Lasix IV b.i.d.. patient is improved states he is breathing back to normal. He is on 2 L nasal cannula so is oxygenation has improved. The patient tells me he does not feel
--- NOTE | 2023-07-07 10:57 | P.PNIM_ITS ---
Progress Note: A&P Assessment and Plan (1) Respiratory failure with hypoxia and hypercapnia: Code(s): J96.91 - Respiratory failure, unspecified with hypoxia; J96.92 - Respiratory failure, unspecified with hypercapnia Status: Acute (2) S/P CABG (coronary artery bypass graft): Code(s): Z95.1 - Presence of aortocoronary bypass graft Status: Acute (3) CAD (coronary artery disease): Code(s): I25.10 - Atherosclerotic heart disease of [place] coronary artery without angina pectoris Status: Acute (4) Acute hypoxic respiratory failure: Code(s): J96.01 - Acute respiratory failure with hypoxia Status: Acute (5) Pleural effusion: Code(s): J90 - Pleural effusion, not elsewhere classified Status: Acute Plan acute respiratory failure with hypoxemia and hypercapnia ? possible resulting from acute on chronic heart failure, obesity hypoventilation syndrome ? patient will be placed on BiPAP treat underlying disease start DuoNeb scheduled albuterol nebulizer as needed Consult daycare director for evaluation treatment, changed to AVAPS per daycare director acute on chronic heart failure echocardiogram June 2023 suggest mild to moderate systolic heart failure EF 40-55% X-ray shows pulmonary congestion and pulmonary edema pleural effusion continue Lasix 40 mg b.i.d. IV push today follow-up input output consult tight barrel inspector for evaluation treatment may change Lasix to p.o. tomorrow per tight barrel inspector 07/06. change to Lasix 40 mg b.i.d. p.o. per tight barrel inspector recommendation Pneumonia: suspected pneumonia, received azithromycin and ceftriaxone IV pulmonary does not consider patient have pneumonia, discontinue antibiotics per daycare director pleural effusion possible due to CHF Continue IV Lasix pulmonology considers thoracentesis on Saturday, if patient is not responsive diuretic medications Persistent atrial fibrillation: ?Code(s): I48.19 - Other persistent atrial fibrillation ?Status:?Acute ?Assessment and Plan: continue home meds discontinue amiodarone and Eliquis per tight barrel inspector because patient had mass per seizure and left atrial appendage ligation patient still has AFib, start metoprolol p.o. per tight barrel inspector JUDE patient has CO2 retention Patient may need BiPAP Consult daycare director for evaluation treatment elevated troponin history of CAD S/P CABG (coronary artery bypass graft): elevated troponin likely secondary to demand ischemia due to respiratory failure, heart failure EKG showed AFib, right bundle block continue Plavix 75 mg daily p.o. consult tight barrel inspector for evaluation treatment Generalized weakness: ?Code(s): R53.1 - Weakness ?Status:?Acute ?Assessment and Plan: likely secondary to deconditioning consult PT OT career consultant for evaluation and assisting placement Subjective Date/time seen: 07/07/23 10:57 Interval history: I saw examined patient today, patient feels comfortable, dyspnea is improving, patient is off BiPAP during the daytime, patient denies abdomen pain, nausea vomiting diarrhea, patient is afebrile, Exam Narrative: GENERAL: Pleasant, in no acute distress. Well-nourished. - EYES: EOMI. Anicteric. - HENT: Moist mucous membranes. - LUNGS: coarse breath sound bilaterall y - CARDIOV
--- NOTE | 2023-07-07 10:57 | PM.IMPN ---
Progress Note: A&P Assessment and Plan (1) Respiratory failure with hypoxia and hypercapnia: Code(s): J96.91 - Respiratory failure, unspecified with hypoxia; J96.92 - Respiratory failure, unspecified with hypercapnia Status: Acute (2) S/P CABG (coronary artery bypass graft): Code(s): Z95.1 - Presence of aortocoronary bypass graft Status: Acute (3) CAD (coronary artery disease): Code(s): I25.10 - Atherosclerotic heart disease of [place] coronary artery without angina pectoris Status: Acute (4) Acute hypoxic respiratory failure: Code(s): J96.01 - Acute respiratory failure with hypoxia Status: Acute (5) Pleural effusion: Code(s): J90 - Pleural effusion, not elsewhere classified Status: Acute Plan acute respiratory failure with hypoxemia and hypercapnia ? possible resulting from acute on chronic heart failure, obesity hypoventilation syndrome ? patient will be placed on BiPAP treat underlying disease start DuoNeb scheduled albuterol nebulizer as needed Consult liner machine operator helper for evaluation treatment, changed to AVAPS per liner machine operator helper acute on chronic heart failure echocardiogram June 2023 suggest mild to moderate systolic heart failure EF 40-55% X-ray shows pulmonary congestion and pulmonary edema pleural effusion continue Lasix 40 mg b.i.d. IV push today follow-up input output consult patient care associate for evaluation treatment may change Lasix to p.o. tomorrow per patient care associate 07/06. change to Lasix 40 mg b.i.d. p.o. per patient care associate recommendation Pneumonia: suspected pneumonia, received azithromycin and ceftriaxone IV pulmonary does not consider patient have pneumonia, discontinue antibiotics per liner machine operator helper pleural effusion possible due to CHF Continue IV Lasix pulmonology considers thoracentesis on Saturday, if patient is not responsive diuretic medications Persistent atrial fibrillation: ?Code(s): I48.19 - Other persistent atrial fibrillation ?Status:?Acute ?Assessment and Plan: continue home meds discontinue amiodarone and Eliquis per patient care associate because patient had mass per seizure and left atrial appendage ligation patient still has AFib, start metoprolol p.o. per patient care associate JUDE patient has CO2 retention Patient may need BiPAP Consult liner machine operator helper for evaluation treatment elevated troponin history of CAD S/P CABG (coronary artery bypass graft): elevated troponin likely secondary to demand ischemia due to respiratory failure, heart failure EKG showed AFib, right bundle block continue Plavix 75 mg daily p.o. consult patient care associate for evaluation treatment Generalized weakness: ?Code(s): R53.1 - Weakness ?Status:?Acute ?Assessment and Plan: likely secondary to deconditioning consult PT OT healthcare customer service for evaluation and assisting placement Subjective Date/time seen: 07/07/23 10:57 Interval history: I saw examined patient today, patient feels comfortable, dyspnea is improving, patient is off BiPAP during the daytime, patient denies abdomen pain, nausea vomiting diarrhea, patient is afebrile, Exam Narrative: GENERAL: Pleasant, in no acute distress. Well-nourished. - EYES: EOMI. Anicteric. - HENT: Moist mucous membranes. - LUNGS: coarse breath sound bilaterally - CARDIOVASCULAR: regular rhythm, tachycardia. No murmur. No JVD. - ABDOMEN: Soft, non-tender and non-distended. No palpable masses. - EXTREMITIES: No edema. Peripheral pulses 2+. Non-tender. - NEUROLOGIC: No focal neurological deficits. CN II-XII grossly intact. - PSYCHIATRIC: Awake, Alert and oriented x 3. Appropriate mood and affect. - SKIN: No rashes or lesions. Warm. - LYMPH: No cervical lymphadenopathy. Objective Data Vital Signs Vital Signs: Vital Signs - 24 hr 07/06/23 11:35 07/06/23 12:00 07/06/23 12:00 Temperature 97.2 F L Pulse Rate 103 H 106 H Respiratory Rate 18 Blood Pr
[2023-07-07 11:22] LABS: Hematocrit 30.7 % (42.0-52.0); Mean Corpuscular HGB Conc 29.3 g/dl (32-36); Mean Corpuscular Hemoglobin 29.2 pg (26-34); Mean Corpuscular Volume 99.7 fl (80-100); Mean Platelet Volume 8.6 fl (7.4-10.4); Platelet Count Result 339 k/mm3 (150-375); Red Blood Count 3.08 M/mm3 (4.6-6.20); Red Cell Distribution Width 15.5 % (11.5-14.5); White Blood Count 4.5 K/mm3 (4.5-10.0)
--- NOTE | 2023-07-07 12:25 | PM.PNCARD ---
Progress Note: A&P Assessment and Plan (1) Persistent atrial fibrillation: Code(s): I48.19 - Other persistent atrial fibrillation Status: Acute Assessment and Plan: Heart rate in AFib elevated at times, reasonably controlled overall. Amiodarone discontinued. Continue Toprol XL 25 mg daily to reasonably well, BP rate reasonably controlled at present. Systemic anticoagulation discontinued given history of left atrial appendage ligation. Amiodarone discontinued given persistence of atrial fibrillation, however, concern with regards to heart rate control moving forward. Will need to monitor (2) CAD (coronary artery disease): Code(s): I25.10 - Atherosclerotic heart disease of [place] coronary artery without angina pectoris Status: Acute Assessment and Plan: Stable, no anginal symptoms. Continue aggressive medical therapy. Continue clopidogrel 75 mg daily. Unfortunately patient is intolerant to statin therapy. Addition of Zetia 10 mg daily would be advised unable to utilize at this time. PCSK9 inhibitor therapy should be considered as an outpatient. Need resume antiplatelet therapy as soon as possible. Appreciate ability to resume aspirin today. (3) Acute hypoxic respiratory failure: Code(s): J96.01 - Acute respiratory failure with hypoxia Status: Acute Assessment and Plan: Wean O2 supplementation as tolerated. Patient remains on IV Lasix 40 mg twice daily for possible acute on chronic heart failure with preserved ejection fraction. Change to oral Lasix 40 mg p.o. b.i.d. starting tomorrow. Monitor volume status closely. Monitor electrolytes and renal function. Patient has right pleural effusion with recommendations for thoracentesis. Plan for right thoracentesis Saturday. Discussed with the patient who agrees with the. Appreciate Dr. Persaud's involvement and recommendations. (4) Pneumonia: Qualifiers: Laterality: left Lung location: lower lobe of lung Pneumonia type: due to unspecified organism Qualified Code(s): J18.9 - Pneumonia, unspecified organism Code(s): J18.9 - Pneumonia, unspecified organism Status: Acute Assessment and Plan: Continue management per primary service. Continue azithromycin, ceftriaxone. (5) Hypertension: Code(s): I10 - Essential (primary) hypertension Status: Acute Assessment and Plan: BP stable. Monitor tolerance with initiation Toprol XL. He remains on olmesartan 10 mg daily. (6) S/P CABG (coronary artery bypass graft): Code(s): Z95.1 - Presence of aortocoronary bypass graft Status: Acute Assessment and Plan: As above, resume antiplatelet therapy continue Zetia. Subjective Date/time seen: Date of service: 07/07/23 12:25 Interval history: Follow-up for CHF, status post CABG, AFib Feeling better overall. denies SOB, CP or palps. AF 90's-100's on RA currently. Date of service 07/07/2023: Today he states he feels fine. Denies shortness of breath, chest pain. He is on 2 L nasal cannula now. Plan for thoracentesis tomorrow morning. Heart rate reasonably controlled. Tolerating metoprolol. Review of Systems Constitutional: Constitutional: Denies lethargy Eyes: Eyes: Reports no additional eye complaints ENT: Reports system reviewed and no additional complaints, except as documented Cardiovascular: Cardiovascular: Reports as per HPI and Reports dyspnea on exertion Respiratory: Respiratory: Reports dyspnea on exertion Gastrointestinal: Gastrointestinal: Reports no additional gastrointestinal complaints Genitourinary: Genitourinary: Reports no additional male genitourinary complaints Musculoskeletal: Musculoskeletal: Reports no additional musculoskeletal complaints Integumentary/Breasts: Skin/Breast: Reports system reviewed and no additional complaints, except as docu Neurologic: Reports system reviewed and no additional complaints, except as docume
[2023-07-07] MEDS: ASPIRIN 81 MG ENTERIC TABLET PO (14:18)
[2023-07-07] MEDS: FUROSEMIDE 40 MG TABLET PO (17:18)
[2023-07-08] VITALS (11 sets, daily range): BP systolic 111–150; BP diastolic 58–81; PULSE 74–92; RESP 12–20; TEMP 35.8–36.6; O2SAT 92–99
[2023-07-08 04:57] LABS: Lactate Dehydrogenase 196 U/L (120-246)
[2023-07-08] MEDS: FUROSEMIDE 40 MG TABLET PO ×2 (09:25→16:49)
[2023-07-08] MEDS: OLMESARTAN MEDOXOMIL 10 MG TABLET PO (09:25)
[2023-07-08] MEDS: METOPROLOL SUCCINATE EXT REL 25 MG TABCR PO (09:25)
--- NOTE | 2023-07-08 10:06 | PM.PNCARD ---
Progress Note: A&P Assessment and Plan (1) Persistent atrial fibrillation: Code(s): I48.19 - Other persistent atrial fibrillation Status: Acute Assessment and Plan: Heart rate in AFib elevated at times, reasonably controlled overall. Amiodarone discontinued. Continue Toprol XL 25 mg daily as heart rate is controlled. Systemic anticoagulation discontinued given history of left atrial appendage ligation. Continue to monitor on telemetry for now. (2) CAD (coronary artery disease): Code(s): I25.10 - Atherosclerotic heart disease of [place] coronary artery without angina pectoris Status: Acute Assessment and Plan: Stable, no anginal symptoms. Continue aggressive medical therapy. Continue clopidogrel 75 mg daily. Unfortunately patient is intolerant to statin therapy. Addition of Zetia 10 mg daily would be advised unable to utilize at this time. PCSK9 inhibitor therapy should be considered as an outpatient. Need resume antiplatelet therapy as soon as possible. (3) Acute hypoxic respiratory failure: Code(s): J96.01 - Acute respiratory failure with hypoxia Status: Acute Assessment and Plan: Wean O2 supplementation as tolerated. Change to oral Lasix 40 mg p.o. b.i.d. today. Monitor volume status closely. Monitor electrolytes and renal function. Patient has right pleural effusion with recommendations for thoracentesis which is scheduled to take place today. (4) Pneumonia: Qualifiers: Laterality: left Lung location: lower lobe of lung Pneumonia type: due to unspecified organism Qualified Code(s): J18.9 - Pneumonia, unspecified organism Code(s): J18.9 - Pneumonia, unspecified organism Status: Acute Assessment and Plan: Continue management per primary service. Continue azithromycin, ceftriaxone. (5) Hypertension: Code(s): I10 - Essential (primary) hypertension Status: Acute Assessment and Plan: BP stable. Monitor tolerance with initiation Toprol XL. He remains on olmesartan 10 mg daily. (6) S/P CABG (coronary artery bypass graft): Code(s): Z95.1 - Presence of aortocoronary bypass graft Status: Acute Assessment and Plan: As above, resume antiplatelet therapy continue Zetia. Subjective Date/time seen: 07/08/23 10:06 Interval history: Follow-up for CHF, status post CABG, AFib Feeling better overall. denies SOB, CP or palps. AF 90's-100's on RA currently. Date of service 07/07/2023: Today he states he feels fine. Denies shortness of breath, chest pain. He is on 2 L nasal cannula now. Plan for thoracentesis tomorrow morning. Heart rate reasonably controlled. Tolerating metoprolol. Date of service 07/08/2023: He feels well this morning. Denies any shortness of breath. Has some mild edema still. Plan for thoracentesis today and he is wondering when this will take place because he is hungry and thirsty. Review of Systems Constitutional: Constitutional: Denies lethargy Eyes: Eyes: Reports no additional eye complaints ENT: Reports system reviewed and no additional complaints, except as documented Cardiovascular: Cardiovascular: Reports as per HPI and Reports dyspnea on exertion Respiratory: Respiratory: Reports dyspnea on exertion Gastrointestinal: Gastrointestinal: Reports no additional gastrointestinal complaints Genitourinary: Genitourinary: Reports no additional male genitourinary complaints Musculoskeletal: Musculoskeletal: Reports no additional musculoskeletal complaints Integumentary/Breasts: Skin/Breast: Reports system reviewed and no additional complaints, except as docu Neurologic: Reports system reviewed and no additional complaints, except as documented Endocrine: Endocrine: Reports no additional endocrine complaints Hematologic/Lymphatic: Hematologic/Lymphatic: Reports no additional hematologic/lymphatic complaints Allergic/Immunologic: Allergic/Immunologic: Report
--- NOTE | 2023-07-08 12:18 | PM.PNPUL ---
Progress Note: A&P Assessment and Plan (1) Respiratory failure with hypoxia and hypercapnia: Code(s): J96.91 - Respiratory failure, unspecified with hypoxia; J96.92 - Respiratory failure, unspecified with hypercapnia Status: Acute Assessment and Plan: patient with a history of coronary artery disease status post CABG on 06/14/2023 presents now with worsening shortness of breath, Congestion with bilateral pleural effusions, pedal edema, elevated BNP. The chart states he has a history of prior tobacco use but is a maintained on no daily inhalers. CT angiogram of the chest is negative for PE. There are bilateral pleural effusions right greater than left with atelectasis. Very small infiltrates in the lingula and left lower lobe with no leukocytosis, no fever. ABG on presentation was 7.39/55/97 on 2 L and later on BiPAP 7.29/73/95. procalcitonin 0.1. Etiology of Acute on chronic hypoxemic and hypercarbic respiratory failure includes: congestive heart failure with fluid overload, bilateral pleural effusions with atelectasis, obesity hypoventilation syndrome doubt pneumonia, tracheobronchitis or COPD exacerbation. 07/05/23 Plan: As aggressive diuresis as tolerated by his cardiac and renal systems per Cardiology and hospitalist team. Currently is on for 40 of Lasix IV b.i.d.. Will attempt to aggressively diurese patient over the next 3 days and reassess him on Saturday for possible thoracentesis if he does not respond to diuretics. I have placed his Plavix on hold as that is a 5 day hold prior to thoracentesis and cardiology will consult to determine if the Plavix is absolutely required a this time. He can continue his Eliquis for now as that is a 24 hour hold prior to thoracentesis. TSH 3.58. Free T4 1.36, both normal The chart says that he quit smoking in 2005 is not maintained on any inhalers. he has no wheezes on exam. He has no bullous emphysema on his CT scan of the chest. I have no PFTs. I will not initiate any inhalers at this time. I do not believe he has a pneumonia at this time. Unfortunately no blood cultures were drawn. I will discontinue azithromycin and ceftriaxone and follow him clinically. If there is concern for a pulmonary infection he will need coverage for healthcare associated pneumonia as he was recently admitted to [facility]. I changed him to noninvasive ventilation with the AVAPS mode and adjusted to comfort resulting in a rate of 20, tidal volume 500, EPAP 5, minimal inspiratory pressure 6, maximal inspiratory pressure 25, inspiratory time 1.0, rise of 5 and 45% FiO2 with saturations 96%. the patient is feeling better now and I have told the nurse that he can come off of the BiPAP and that he can use it p.r.n. during the day for shortness of breath are lethargy but that he should wear tonight. I will obtain an ABG in the morning prior to removal of the mask. 07/06/23: Patient tells me he slept well with the hospital noninvasive ventilator. He is breathing back to his baseline. He denies cough. He does have some phlegm production. Patient is currently on 2 L nasal cannula saturations 96%. Cumulative diuresis since admission is 1.6 L. His weight today is 128.3 kg. Patient wore the hospital noninvasive ventilator with 35% FiO2 and his blood gas this morning prior to removal was 7.50/48/78. Plan: The above AVAPS settings provide adequate ventilation. As aggressive diuresis as tolerated by his cardiac and renal systems per Cardiology and hospitalist team. Currently is on for 40 of Lasix IV b.i.d.. patient is improved states he is breathing back to normal. He is on 2 L nasal cannula so is oxygenation has improved. The patient tells me he does not feel he needs a BiPAP anymore. I will change the BiPAP to p.r.n.. I will check a blood gas in the morning off of the BiPAP on the 2 L nasal cannula oxygen. I will check a chest x-ray, BMP and BNP in the morning.
[2023-07-08 14:19] LABS: pH Pleural Fluid > 0.000 (7.210-7.500)
--- NOTE | 2023-07-08 14:35 | PM.IMPN ---
Progress Note: A&P Assessment and Plan (1) Respiratory failure with hypoxia and hypercapnia: Code(s): J96.91 - Respiratory failure, unspecified with hypoxia; J96.92 - Respiratory failure, unspecified with hypercapnia Status: Acute (2) S/P CABG (coronary artery bypass graft): Code(s): Z95.1 - Presence of aortocoronary bypass graft Status: Acute (3) CAD (coronary artery disease): Code(s): I25.10 - Atherosclerotic heart disease of [place] coronary artery without angina pectoris Status: Acute (4) Acute hypoxic respiratory failure: Code(s): J96.01 - Acute respiratory failure with hypoxia Status: Acute (5) Pleural effusion: Code(s): J90 - Pleural effusion, not elsewhere classified Status: Acute Plan acute respiratory failure with hypoxemia and hypercapnia ? possible resulting from acute on chronic heart failure, obesity hypoventilation syndrome ? patient will be placed on BiPAP treat underlying disease start DuoNeb scheduled albuterol nebulizer as needed Consult food safety specialist for evaluation treatment, changed to AVAPS per food safety specialist acute on chronic heart failure echocardiogram June 2023 suggest mild to moderate systolic heart failure EF 40-55% X-ray shows pulmonary congestion and pulmonary edema pleural effusion continue Lasix 40 mg b.i.d. IV push today follow-up input output consult operations scheduler for evaluation treatment may change Lasix to p.o. tomorrow per operations scheduler 07/06. change to Lasix 40 mg b.i.d. p.o. per operations scheduler recommendation Pneumonia: suspected pneumonia, received azithromycin and ceftriaxone IV pulmonary does not consider patient have pneumonia, discontinue antibiotics per food safety specialist pleural effusion possible due to CHF lasix changed to oral pulmology rounding sp thorecentesis Persistent atrial fibrillation: ?Code(s): I48.19 - Other persistent atrial fibrillation ?Status:?Acute ?Assessment and Plan: continue home meds discontinue amiodarone and Eliquis per operations scheduler because patient had mass per seizure and left atrial appendage ligation patient still has AFib, start metoprolol p.o. per operations scheduler JUDE patient has CO2 retention Patient may need BiPAP pulmology on board elevated troponin history of CAD S/P CABG (coronary artery bypass graft): elevated troponin likely secondary to demand ischemia due to respiratory failure, heart failure EKG showed AFib, right bundle block continue Plavix 75 mg daily p.o. cardiology on board Generalized weakness: ?Code(s): R53.1 - Weakness ?Status:?Acute ?Assessment and Plan: likely secondary to deconditioning PT/ OT Subjective Date/time seen: 07/08/23 14:35 Interval history: 77-year-old male with past medical history significant for coronary artery? disease, coronary artery bypass graft, atrial fibrillation, obesity, obstructive sleep apnea. patient had coronary artery bypass graft at outside hospital.? Pt going for thoracentesis today for pleural effusion recent CABG in [facility] one month ago Pt was on bipap last night Review of Systems Review of Systems: SOb improving Exam Narrative: GENERAL: Pleasant on oxygen presently . - HENT: Moist mucous membranes. - LUNGS: coarse breath sound bilaterally - CARDIOVASCULAR: regular rhythm, tachycardia. No murmur. No JVD. - ABDOMEN: Soft, non-tender and non-distended. No palpable masses. - EXTREMITIES: No edema. Peripheral pulses 2+. Non-tender. - NEUROLOGIC: No focal neurological deficits. CN II-XII grossly intact. - PSYCHIATRIC: Awake, Alert and oriented x 3. Appropriate mood and affect. - SKIN: No rashes or lesions. Warm. - LYMPH: No cervical lymphadenopathy. Objective Data Vital Signs Vital Signs: Vital Signs - 24 hr 07/07/23 16:32 07/07/23 17:00 07/07/23 16:00 Temperature 36.6 C Pulse Rate 79 82 Respiratory Rate 20 Blood Pressur
[2023-07-08] MEDS: ASPIRIN 81 MG ENTERIC TABLET PO (14:48)
--- NOTE | 2023-07-08 15:47 | PC.NURSE ---
This patient, Sudarshan Garner, was received from IMU on 07/08/23 at 1500. Report received from TRACY Doll. Patient/family oriented to unit policies and routines
--- NOTE | 2023-07-08 16:14 | PC.NURSE ---
This patient, Sudarshan Garner, was transferred to [facility] on 07/08/23 at 1500. Personal belongings sent with patient. Report given to TRACY Vang. Appropriate documentation sent with patient.
[2023-07-09] VITALS (17 sets, daily range): BP systolic 94–116; BP diastolic 42–60; PULSE 73–108; RESP 16–28; TEMP 36.7–36.9; O2SAT 86–97
[2023-07-09 05:07] LABS: Hemoglobin 8.4 g/dL (14.0-18.0); Mean Corpuscular Hemoglobin 28.3 pg (26-34); Mean Platelet Volume 8.3 fl (7.4-10.4); Platelet Count Result 293 k/mm3 (150-375); Red Blood Count 2.97 M/mm3 (4.6-6.20); Red Cell Distribution Width 14.9 % (11.5-14.5); White Blood Count 5.2 K/mm3 (4.5-10.0)
[2023-07-09 05:20] LABS: Blood Urea Nitrogen 22 mg/dL (9-20); Carbon Dioxide > 40 mmol/L (22-30); Chloride 95 mmol/L (98-107); Estimated CRCL calculation 62 ml/min; Estimated Glomerular Filt Rate 59; Glucose 116 mg/dL (65-110); Potassium 3.9 mmol/L (3.4-5.0); Sodium 138 mmol/L (137-145)
[2023-07-09] MEDS: METOPROLOL SUCCINATE EXT REL 25 MG TABCR PO (10:00)
[2023-07-09] MEDS: ASPIRIN 81 MG ENTERIC TABLET PO (10:00)
[2023-07-09] MEDS: FUROSEMIDE 40 MG TABLET PO ×2 (10:00→17:29)
[2023-07-09] MEDS: OLMESARTAN MEDOXOMIL 10 MG TABLET PO (10:00)
--- NOTE | 2023-07-09 11:32 | HOMEO2EVAL ---
Evaluation was performed at [facility] Home Oxygen Evaluation RC: Home Oxygen (O2) Evaluation Start: 07/09/23 10:24 Freq: ONCE Status: Active Protocol: RPE Activity Type Activity Date Activity User E-sign Co-sign Detail Recorded Client Recorded Date Recorded By Document 07/09/23 11:00 ARVIND [id number] 07/09/23 11:32 ARVIND Document 07/09/23 11:05 ARVIND [email or web address] 07/09/23 11:32 ARVIND Document 07/09/23 11:06 ARVIND [email or web address] 07/09/23 11:32 ARVIND Document 07/09/23 11:07 ARVIND [email or web address] 07/09/23 11:32 ARVIND Document 07/09/23 11:15 ARVIND [email or web address] 07/09/23 11:32 ARVIND 07/09/23 07/09/23 07/09/23 11:00 11:05 11:06 Home O2 Evaluation [Oxygen] -Test Phase Resting Exercise Exercise -Oxygen Delivery Room Air Room Air Nasal Cannula -Oxygen Flow Rate (L/min) 1 [Pulse Oximetry] -Pulse Oximetry (90-100 %) 92 86 L 87 L [Pulse Rate] -Pulse Rate (60-100 beats/min) 86 96 [Comments] -Home Oxygen Evaluation Comments [Charges] -Evaluation Charges O2 Evaluation by Pulmonary 07/09/23 07/09/23 11:07 11:15 Home O2 Evaluation [Oxygen] -Test Phase Exercise Resting -Oxygen Delivery Nasal Cannula Room Air -Oxygen Flow Rate (L/min) 2 [Pulse Oximetry] -Pulse Oximetry (90-100 %) 90 92 [Pulse Rate] -Pulse Rate (60-100 beats/min) 108 H 92 [Comments] -Home Oxygen Evaluation Comments Pt requires 2 L home O2 with activity [Charges] -Evaluation Charges
--- NOTE | 2023-07-09 12:49 | PM.IMPN ---
Progress Note: A&P Assessment and Plan (1) Respiratory failure with hypoxia and hypercapnia: Code(s): J96.91 - Respiratory failure, unspecified with hypoxia; J96.92 - Respiratory failure, unspecified with hypercapnia Status: Acute (2) S/P CABG (coronary artery bypass graft): Code(s): Z95.1 - Presence of aortocoronary bypass graft Status: Acute (3) CAD (coronary artery disease): Code(s): I25.10 - Atherosclerotic heart disease of [place] coronary artery without angina pectoris Status: Acute (4) Acute hypoxic respiratory failure: Code(s): J96.01 - Acute respiratory failure with hypoxia Status: Acute (5) Pleural effusion: Code(s): J90 - Pleural effusion, not elsewhere classified Status: Acute Plan acute respiratory failure with hypoxemia and hypercapnia ? possible resulting from acute on chronic heart failure, obesity hypoventilation syndrome ? patient will be placed on BiPAP treat underlying disease start DuoNeb scheduled albuterol nebulizer as needed Consult electronic equipment maint tech for evaluation treatment unfortunately pt refusing BIPAP at night awaiting pleural fluid analysis off oxygen but needs oxygen on ambulation pt failed walk study michael need oxygen at home plan dc erinn on 2 liters of oxygen on DC acute on chronic heart failure echocardiogram June 2023 suggest mild to moderate systolic heart failure EF 40-55% X-ray shows pulmonary congestion and pulmonary edema pleural effusion continue Lasix 40 mg b.i.d. IV push today follow-up input output consult education supervisor for evaluation treatment may change Lasix to p.o. tomorrow per education supervisor 07/06. change to Lasix 40 mg b.i.d. p.o. per education supervisor recommendation Pneumonia: suspected pneumonia, received azithromycin and ceftriaxone IV pulmonary does not consider patient have pneumonia, off antibiotics per electronic equipment maint tech pleural effusion possible due to CHF lasix changed to oral pulmology rounding sp thoracentesis Persistent atrial fibrillation: ?Code(s): I48.19 - Other persistent atrial fibrillation ?Status:?Acute ?Assessment and Plan: continue home meds discontinue amiodarone and Eliquis per education supervisor because patient had mass per seizure and left atrial appendage ligation patient still has AFib, start metoprolol p.o. per education supervisor JUDE patient has CO2 retention Patient may need BiPAP pulmology on board elevated troponin history of CAD S/P CABG (coronary artery bypass graft): elevated troponin likely secondary to demand ischemia due to respiratory failure, heart failure EKG showed AFib, right bundle block continue Plavix 75 mg daily p.o. cardiology on board Generalized weakness: ?Code(s): R53.1 - Weakness ?Status:?Acute ?Assessment and Plan: likely secondary to deconditioning PT/ OT DC catheter walk with theraphy DC erinn Subjective Date/time seen: 07/09/23 12:49 Interval history: 77-year-old male with past medical history significant for coronary artery? disease, coronary artery bypass graft, atrial fibrillation, obesity, obstructive sleep apnea. patient had coronary artery bypass graft at outside hospital.? Pt going for thoracentesis today for pleural effusion recent CABG in [facility] one month ago 07/08 Pt feels better since thoracentesis Pt refused BIPAP last night Really wants to go home not on oxygen at rest but needing 2 liters on ambulation Review of Systems Review of Systems: Still sob on ambulation Exam Narrative: GENERAL: Pleasant off oxygen at rest - HENT: Moist mucous membranes. - LUNGS: Coarse breath sound bilaterally - CARDIOVASCULAR: regular rhythm, tachycardia. No murmur. No JVD. - ABDOMEN: Soft, non-tender and non-distended. No palpable masses. - EXTREMITIES: No edema. Peripheral pulses 2+. Non-tender. - NEUROLOGIC: No focal neurological deficits. CN II-XII grossly intact. - PSY
--- NOTE | 2023-07-09 14:51 | PM.PNCARD ---
Progress Note: A&P Assessment and Plan (1) Persistent atrial fibrillation: Code(s): I48.19 - Other persistent atrial fibrillation Status: Acute Assessment and Plan: Heart rate in AFib well controlled. Amiodarone discontinued. Continue Toprol XL 25 mg daily as heart rate is controlled. Systemic anticoagulation discontinued given history of left atrial appendage ligation. Telemetry can be discontinued at this point. (2) CAD (coronary artery disease): Code(s): I25.10 - Atherosclerotic heart disease of [place] coronary artery without angina pectoris Status: Acute Assessment and Plan: Stable, no anginal symptoms. Continue aggressive medical therapy. Continue clopidogrel 75 mg daily. Unfortunately patient is intolerant to statin therapy. Addition of Zetia 10 mg daily would be advised unable to utilize at this time. PCSK9 inhibitor therapy should be considered as an outpatient. Plavix has not been resumed, so will order that. (3) Acute hypoxic respiratory failure: Code(s): J96.01 - Acute respiratory failure with hypoxia Status: Acute Assessment and Plan: Wean O2 supplementation as tolerated. Continue Lasix 40 mg p.o. b.i.d. today, would reduce to 40mg daily at discharge. Monitor electrolytes and renal function. s/p thoracentesis with 1L fluid removed. (4) Pneumonia: Qualifiers: Laterality: left Lung location: lower lobe of lung Pneumonia type: due to unspecified organism Qualified Code(s): J18.9 - Pneumonia, unspecified organism Code(s): J18.9 - Pneumonia, unspecified organism Status: Acute Assessment and Plan: Continue management per primary service. Continue azithromycin, ceftriaxone. (5) Hypertension: Code(s): I10 - Essential (primary) hypertension Status: Acute Assessment and Plan: BP stable. Monitor tolerance with initiation Toprol XL. He remains on olmesartan 10 mg daily. (6) S/P CABG (coronary artery bypass graft): Code(s): Z95.1 - Presence of aortocoronary bypass graft Status: Acute Assessment and Plan: As above, resume antiplatelet therapy continue Zetia. Plan Would anticipate discharge tomorrow. Cardiology will sign off please call with any questions. Subjective Date/time seen: 07/09/23 14:51 Interval history: Follow-up for CHF, status post CABG, AFib Feeling better overall. denies SOB, CP or palps. AF 90's-100's on RA currently. Date of service 07/07/2023: Today he states he feels fine. Denies shortness of breath, chest pain. He is on 2 L nasal cannula now. Plan for thoracentesis tomorrow morning. Heart rate reasonably controlled. Tolerating metoprolol. Date of service 07/08/2023: He feels well this morning. Denies any shortness of breath. Has some mild edema still. Plan for thoracentesis today and he is wondering when this will take place because he is hungry and thirsty. Date of service 07/09/23: Feeling much better today. Currently off room air. Edema resolved. Heart rate is stable on telemetry. Review of Systems Constitutional: Constitutional: Denies lethargy Eyes: Eyes: Reports no additional eye complaints ENT: Reports system reviewed and no additional complaints, except as documented Cardiovascular: Cardiovascular: Reports as per HPI and Reports dyspnea on exertion Respiratory: Respiratory: Reports dyspnea on exertion Gastrointestinal: Gastrointestinal: Reports no additional gastrointestinal complaints Genitourinary: Genitourinary: Reports no additional male genitourinary complaints Musculoskeletal: Musculoskeletal: Reports no additional musculoskeletal complaints Integumentary/Breasts: Skin/Breast: Reports system reviewed and no additional complaints, except as docu Neurologic: Reports system reviewed and no additional complaints, except as documented Endocrine: Endocrine: Reports no additional endocrine complaints Hematologic/Lymphatic:
[2023-07-10 04:39] VITALS: BP 120/64; PULSE 88; RESP 18; TEMP 37; O2SAT 91
[2023-07-10 04:58] LABS: Hematocrit 29.6 % (42.0-52.0); Hemoglobin 8.4 g/dL (14.0-18.0); Mean Corpuscular HGB Conc 28.4 g/dl (32-36); Mean Corpuscular Hemoglobin 28.3 pg (26-34); Mean Corpuscular Volume 99.7 fl (80-100); Mean Platelet Volume 8.3 fl (7.4-10.4); Platelet Count Result 277 k/mm3 (150-375); Red Blood Count 2.97 M/mm3 (4.6-6.20); Red Cell Distribution Width 14.7 % (11.5-14.5); White Blood Count 4.6 K/mm3 (4.5-10.0)
[2023-07-10 05:12] LABS: Blood Urea Nitrogen 21 mg/dL (9-20); Calcium 8.8 mg/dL (8.4-10.2); Carbon Dioxide > 40 mmol/L (22-30); Chloride 93 mmol/L (98-107); Estimated CRCL calculation 67 ml/min; Estimated Glomerular Filt Rate > 60; Glucose 122 mg/dL (65-110); Potassium 3.6 mmol/L (3.4-5.0); Sodium 135 mmol/L (137-145)
[2023-07-10 09:03] VITALS: PULSE 78
[2023-07-10] MEDS: CLOPIDOGREL BISULFATE 75 MG TABLET PO (09:03)
[2023-07-10] MEDS: METOPROLOL SUCCINATE EXT REL 25 MG TABCR PO (09:03)
[2023-07-10] MEDS: FUROSEMIDE 40 MG TABLET PO (09:03)
[2023-07-10] MEDS: OLMESARTAN MEDOXOMIL 10 MG TABLET PO (09:03)
[2023-07-10] MEDS: ASPIRIN 81 MG ENTERIC TABLET PO (09:03)
[2023-07-10 09:09] VITALS: O2SAT 91
[2023-07-10 14:00] VITALS: BP 115/43; PULSE 85; RESP 24; TEMP 36.4; O2SAT 93
--- NOTE | 2023-07-10 16:13 | PM.DS ---
DS: Admitting Diagnosis Discharge Date July 10, 2023 Admitting Diagnosis Acute respiratory failure DS: Discharge Diagnosis Discharge Diagnosis (1) Respiratory failure with hypoxia and hypercapnia: Code(s): J96.91 - Respiratory failure, unspecified with hypoxia; J96.92 - Respiratory failure, unspecified with hypercapnia Status: Acute (2) S/P CABG (coronary artery bypass graft): Code(s): Z95.1 - Presence of aortocoronary bypass graft Status: Acute (3) CAD (coronary artery disease): Code(s): I25.10 - Atherosclerotic heart disease of [place] coronary artery without angina pectoris Status: Acute (4) Pleural effusion: Code(s): J90 - Pleural effusion, not elsewhere classified Status: Acute DS: Summary Hospital Course Hospital Course: 77-year-old male with past medical history hypertension, hyperlipidemia, AFib, vertigo, obesity, CAD status post CABG on 06/14/2023 presents to [place] emergency room with shortness of breath he was found to have bilateral pleural effusions elevated BNP. The patient was aggressively diuresed and responded well. He intermittently requires oxygen via nasal cannula and failed a walk test will be sent home on oxygen therapy. AVAPS was prescribed due to hypercapnia but the patient refused on multiple occasions. Otherwise, medication changes were made by the Cardiology team. He is status post left atrial appendage ligation so has amiodarone and Eliquis were discontinued. Toprol XL 25 mg daily continued. Advised the patient continue Plavix 75 mg daily. Unfortunately he is intolerant to statin therapy so Zetia at 10 mg was started. He is being sent home on 40 mg of Lasix p.o. q.day. he was treated for possible pneumonia ceftriaxone and azithromycin. He is stable for discharge to home on July 10, 2023 with his . Adverse effects risk and benefits of medications were discussed to which the patient understood and agreed with the plan. Placed heavy prior ready on the patient following up with his air bag stripper and primary care provider within a week to which he agreed. Also agreed he can take his medications as prescribed. He was full code during the admission. Time Spent with Patient Time attestation: Total time spent providing and/or coordinating discharge services: Exam Const: General: comfortable and no acute distress Eyes: Pupils: Equal, round and reactive pupils present Neck: Neck: supple Resp: Effort & Inspection: normal respiratory effort Auscultation: crackles Cardio: Rate: regular rate Rhythm: regular rhythm GI: GI Palp: Yes Soft to palpation and No Tenderness to palpation present (GI) Extrem: General: no edema DS: Data Data Completed and Pending Completed studies during hospitalization: Pending at discharge 07/08/23 11:15 Cytology [PTH] Routine Labs on day of discharge: Labs from last 24 hours 07/10/23 04:36 WBC 4.6 RBC 2.97 L Hgb 8.4 L Hct 29.6 L MCV 99.7 MCH 28.3 MCHC 28.4 L RDW 14.7 H Plt Count 277 MPV 8.3 Sodium 135 L Potassium 3.6 Chloride 93 L Carbon Dioxide > 40 H Anion Gap BUN 21 H Creatinine 1.10 Estim Creat Clear Calc 67 Estimated GFR > 60 Glucose 122 H Calcium 8.8 Preliminary micro results at discharge 07/08/23 13:55 Acid Fast Bacilli Culture - Preliminary Pleural Fluid 07/08/23 13:55 Anaerobic Culture - Preliminary Pleural Fluid Aerobic Culture - Preliminary Discharge Plan Discharge Attending physician on discharge: Julianna Borjas Consulting providers: Argelia Ybarra; Gildardo Persaud; Gildardo Marroquin Discharging Clinician: Julianna Borjas Patient Disposition: Home Health Service Activity: july shower Diet: as tolerated Discharge Instructions: Per Care Coordination: [facility] will resume services at discharge. [facility] will follow for RN and PT/OT eval and treat. [facility] can be co
[2023-07-18 21:24] LABS: Albumin Pleural Fluid 1.7 g/dL; Amylase, Pleural Fluid <10 U/L; Glucose Pleural Fluid 108 mg/dL; LDH Pleural Fluid 175 U/L; Total Protein Pleural Fluid <3.0 g/dL
== END 2023-07-10 16:40 | disposition home health service (06) | DRG 291 ==
LOC: ANHED 21:35 → ANHIMU 22:32 → ANH2MED 07-08 14:53
PROVIDERS: Family Medicine; Hospitalist; Internal Medicine Pulmonary Disease; Student in an Organized Health Care Education/Training Program; Admitting Provider Internal Medicine; Emergency Provider Physician Assistant; PCP Family Medicine; Visit Provider General Practice
DX: I11.0 Hypertensive heart disease with heart failure (principal); I50.23 Acute on chronic systolic (congestive) heart failure; J96.21 Acute and chronic respiratory failure with hypoxia; J18.9 Pneumonia, unspecified organism; J96.22 Acute and chronic respiratory failure with hypercapnia; Z68.41 Body mass index [BMI] 40.0-44.9, adult; E66.2 Morbid (severe) obesity with alveolar hypoventilation; I48.19 Other persistent atrial fibrillation; I24.89 Other forms of acute ischemic heart disease; J91.8 Pleural effusion in other conditions classified elsewhere; I25.10 Atherosclerotic heart disease of native coronary artery without angina pectoris; E78.5 Hyperlipidemia, unspecified; I45.10 Unspecified right bundle-branch block; Z95.1 Presence of aortocoronary bypass graft; Z87.891 Personal history of nicotine dependence
CPT/HCPCS: 32555; 36415; 36600; 71045; 71046; 71275; 80048; 80053; 81001; 82042; 82150; 82375; 82805; 82945; 82948; 83050; 83605; 83615; 83690; 83735; 83880; 83986; 84100; 84145; 84155; 84157; 84311; 84439; 84443; 84478; 84484; 85025; 85027; 85610; 85730; 87015; 87070; 87075; 87102; 87116; 87205; 87206; 87637; 88108; 88305; 93005; 94002; 94003; 94618; 94640; 94660; 96365; 96375; 97161; 99285; A9270; C8929; G0378; J0456; J0696; J1940; Q9957; Q9967

== ENCOUNTER 2023-07-16 11:24 | Inpatient (IN) | payer MEDICARE, OTHER, SELFPAY ==
[2023-07-16] VITALS (31 sets, daily range): BP systolic 76–148; BP diastolic 57–93; PULSE 79–112; RESP 16–33; TEMP 36.3–36.6; O2SAT 93–100; BMI 42.4
--- NOTE | ~2023-07-16 | US_ITS ---
EXAMINATION: US thoracentesis DATE: 07/26/2023 10:10 INDICATION: Large right pleural effusion TECHNIQUE: The procedure and its risks and benefits were discussed with the patient. Potential risks discussed included bleeding, infection, and pneumothorax. The patient understood the risks and agreed to proceed. The skin was prepped and draped in sterile fashion. 1% lidocaine was used for local anes thesia. Under ultrasound guidance, a 5 Fr catheter with trochar was advanced into the right pleural e ffusion. Fluid was aspirated. The catheter was removed, and a dressing was applied. There were no imm ediate complications. FINDINGS: Ultrasound images demonstrate a large right pleural effusion and the catheter within the fluid. IMPRESSION: 1. Successful ultrasound-guided thoracentesis yielding 1000 mL of yellowish fluid. Reviewed, dictated and finalized at location A. IMPRESSION: 1. Successful ultrasound-guided thoracentesis yielding 1000 mL of yellowish fl uid.
--- NOTE | ~2023-07-16 | XR_ITS ---
EXAMINATION: XR chest 1V portable DATE: 07/23/2023 08:35 INDICATION: Shortness of breath. TECHNIQUE: A single frontal view of the chest was obtained on 2 radiographs. COMPARISON: Chest single view 07/20/2023 FINDINGS: There is a moderate-sized right pleural effusion. There is a small left pleural effusion. T here are airspace opacities at the lung bases. No pneumothorax. Cardiomegaly is noted. Median sternot harrison wires and mediastinal surgical clips are seen, likely from prior coronary artery bypass grafting. There is a closure device at left atrial appendage. Calcified right hilar lymph nodes are consistent with old granulomatous disease. IMPRESSION: 1. Stable moderate-sized right and small left pleural effusions. 2. Several airspace opacities at the lung bases, consistent with atelectasis or less likely pneumonia . 3. Cardiomegaly. Reviewed, dictated and finalized at location A. IMPRESSION: 1. Stable moderate-sized right and small left pleural effusions. 2. Several airspace opacities at the lung bases, consistent with atelectasis or less likely pneumonia. 3. Cardiomegaly.
--- NOTE | ~2023-07-16 | XR_ITS ---
EXAMINATION: [id number] DATE: 07/26/2023 10:05 INDICATION: Status post right thoracentesis TECHNIQUE: frontal and lateral views of the chest were obtained. COMPARISON: Chest radiograph dated 07/08/2023 FINDINGS: Small to moderate-sized right and small left pleural effusions with associated compressive atelectasi s at the posterior lower lungs. No other airspace opacities, pulmonary edema or pneumothorax. Cardiom egaly. Median sternotomy wires and mediastinal surgical clips are seen, likely from prior coronary ar lauren bypass grafting. Visualized bones and soft tissues are unremarkable. Left atrial appendage occlu pepito clip. IMPRESSION: 1. Small to moderate right and small left pleural effusions with associated compressive atelectasis. No pneumothorax. 2. Cardiomegaly. Reviewed, dictated and finalized at location A. IMPRESSION: 1. Small to moderate right and small left pleural effusions with associated com pressive atelectasis. No pneumothorax. 2. Cardiomegaly.
--- NOTE | ~2023-07-16 | XR_ITS ---
Portable chest x-ray Comparison: 07/09/2023 Clinical History: Shortness of breath Findings: Moderate right pleural effusion and small left pleural effusion are present. There is biba silar pulmonary edema/atelectasis. Cardiomediastinal silhouette is stable. Bones and soft tissues ar e unremarkable. Impression: Moderate right pleural effusion with bibasilar pulmonary edema/atelectasis. Reviewed, dictated and finalized at location M. Impression: Moderate right pleural effusion with bibasilar pulmonary edema/atelectasis.
--- NOTE | ~2023-07-16 | CT_ITS ---
EXAMINATION: CTA chest PE protocol DATE: 07/16/2023 16:00 INDICATION: Shortness of breath. TECHNIQUE: Computed tomography angiography (CTA) of the chest was performed with 100 mL Omnipaque-350 intravenous contrast timed to evaluate the pulmonary arteries. Coronal maximum intensity projection 3D-reconstructions were created by the technologist. Automated exposure control and iterative reconst ruction technique were employed. The dose-length product was 1120.04 mGy-cm. COMPARISON: Chest CT 07/04/2023 FINDINGS: There are moderate-sized right and small left pleural effusions. There is dependent atelect asis bilaterally. There is persistent mild airspace opacities in left lower lobe and lingula. There a re parenchymal calcifications in the lower lobes. Calcified right hilar lymph nodes are consistent wi th old granulomatous disease. Cardiomegaly is noted. There are changes of recent coronary artery bypa ss grafting. There is a closure device at left atrial appendage. No pericardial effusion. There is a 17 mm cyst in left kidney. There is severe cervical and thoracic spondylosis. There is mild chronic a nterior wedging of multiple vertebral bodies. IMPRESSION: 1. Persistent mild airspace opacities in left lower lobe and lingula, consistent with atelectasis/sca rring versus pneumonia. 2. Stable moderate-sized right and small left pleural effusions. Reviewed, dictated and finalized at location A. IMPRESSION: 1. Persistent mild airspace opacities in left lower lobe and lingula, consisten t with atelectasis/scarring versus pneumonia. 2. Stable moderate-sized right and small left pleural effusions.
--- NOTE | ~2023-07-16 | XR_ITS ---
XR chest 1V portable DATE: 07/20/2023 06:10 INDICATION: Congestive heart failure TECHNIQUE: Portable AP views on 07/20/2023 at 0537 and 0538 hours COMPARISON: 07/16/2023 CTA chest 07/16/2023 portable AP chest FINDINGS: Status post sternotomy. Cardiomegaly. Aortic arch calcification. There is pulmonary vascular congestion and redistribution. There are bilateral but a right central pa rticularly lower lung zone infiltrates and/or atelectasis. There are bilateral pleural effusions, mod erate on the right, mild on the left. No pneumothorax. IMPRESSION: Congestive heart failure Bilateral pulmonary infiltrates, likely due to pulmonary edema. Pneumonia or aspiration are not exclu ded Bilateral pleural effusions, moderate on the right, mild on the left There may be minimal improvement of the bilateral pulmonary infiltrates since 07/16/2023 Reviewed, dictated and finalized at location A. IMPRESSION: Congestive heart failure Bilateral pulmonary infiltrates, likely due to pulmonary edema. Pneumonia or as piration are not excluded Bilateral pleural effusions, moderate on the right, mild on the left There may be minimal improvement of the bilateral pulmonary infiltrates since
--- NOTE | ~2023-07-16 | CT_ITS ---
Clinical Indication: Shortness of breath CT Scan of the Chest with Contrast: Technique: Contiguous sections were acquired throughout the chest after intravenous administration of 100 cc of Omnipaque 350. Dose reduction technique was used on this scan by utilizing automated expos ure control and iterative reconstruction technique. The dose-length product (DLP) was 1085.67 mGy-cm. COMPARISON: 07/16/2023 Findings: There is no evidence of any significant mediastinal, hilar or axillary lymphadenopathy. There is no f illing defect in the pulmonary arterial tree to suggest pulmonary embolus. There is no evidence of ao rtic dissection or aneurysm. No pericardial effusion. Moderate to large right pleural effusion and moderate left pleural effusion are present. There is com plete right lower lobe atelectasis, as well as partial left lower lobe and right middle lobe atelecta sis. There is mild dependent right upper lobe atelectasis. Images through the upper abdomen reveal no abnormalities. Impression: No evidence of pulmonary embolus, aortic dissection, or aortic aneurysm. Moderate to large right pleural effusion and moderate left pleural effusion, with extensive bibasilar atelectatic changes, as detailed above, including complete right lower lobe atelectasis. Reviewed, dictated and finalized at location . Impression: No evidence of pulmonary embolus, aortic dissection, or aortic aneurysm. Moderate to large right pleural effusion and moderate left pleural effusion, wi th extensive bibasilar atelectatic changes, as detailed above, including comple te right lower lobe atelectasis.
--- NOTE | 2023-07-16 11:34 | ECG_ITS ---
SEE SCANNED COPY FOR CONFIRMED REPORT. MTDD
--- NOTE | 2023-07-16 11:44 | ED.GENADULT ---
HPI - General Adult General Chief complaint: Shortness of Breath/Dyspnea <Constantine Mitchell PA-C - Last Filed: 07/16/23 18:48> Stated complaint: cant breath <ERYN Ramirez Last Filed: 07/16/23 18:48> Time Seen by Provider: 07/16/23 11:34 <ERYN Ramirez Last Filed: 07/16/23 18:48> Source: patient <ERYN Ramirez Last Filed: 07/16/23 18:48> Mode of arrival: ambulatory <ERYN Ramirez Last Filed: 07/16/23 18:48> Limitations: no limitations <ERYN Ramirez Last Filed: 07/16/23 18:48> History of Present Illness HPI narrative: This is a 77-year-old male with PMH of CAD, s/p CABG x4, HTN who presents to the ED with chief complaint of shortness of breath x1 day. Patient reports that he was discharged from this hospital nearly 1 week ago after coming in for shortness of breath. Patient reports that he was started on home O2 2L nasal cannula when he was discharged. Reports that over the last couple of days he has had to start wearing it all the time rather than as needed. Reports some chest discomfort at his incision site from CABG that was done several weeks ago at [facility]. He is unsure if this is associated with exertion or not. Denies fevers, chills, cough, back pain, syncope, numbness, weakness, abdominal pain or vomiting. He does note that while in the hospital they were able to draw fluid off of his lungs which helped a lot. He was told that he may have pneumonia and heart failure that caused all this. <ERYN Ramirez Last Filed: 07/16/23 18:48> Related Data Home medications: Home Medications Medication Instructions Recorded Confirmed acetaminophen 500 mg capsule 500 mg PO Q6H PRN Pain (Scale 07/04/23 07/16/23 Score 1-3) clopidogrel 75 mg tablet 75 mg PO DAILY 07/04/23 07/16/23 polyethylene glycol 3350 17 17 g PO DAILY PRN Constipation 07/04/23 07/16/23 gram/dose oral powder (Miralax) potassium chloride 20 mEq 20 meq PO DAILY 07/04/23 07/16/23 tablet,extended release senna-docusate sodium tablet 1 tablet PO BID PRN Constipation 07/04/23 07/16/23 tramadol 50 mg tablet 50 mg PO Q8H PRN Pain (Scale Score 07/04/23 07/16/23 4-6) <Constantine Mitchell PA-C - Last Filed: 07/16/23 18:48> Allergies/adverse reactions: Allergies Allergy/AdvReac Type Severity Reaction Status Date / Time atorvastatin AdvReac Severe Agitated Verified 07/16/23 11:41 <ERYN Ramirez Last Filed: 07/16/23 18:48> Review of Systems Review of Systems: All systems as dictated in HPI <ERYN Ramirez Last Filed: 07/16/23 18:48> [facility] Past Medical History Medical History: Medical History Chronic anticoagulation Hypertension <ERYN Ramirez Last Filed: 07/16/23 18:48> Surgical History Surgical History: Surgical History History of cataract extraction with lens replacement History of elbow surgery Open reduction and internal fixation of lateral epicondyle fracture and irrigation debridement of open fracture. History of inguinal hernia repair <ERYN Ramirez Last Filed: 07/16/23 18:48> Family History Family History: Family History Mother Patient's mother is , Onset Age: 80 Father Patient's father is , Onset Age: 80 Sibling Patient's brother is in good health <ERYN Ramirez Last Filed: 07/16/23 18:48> Social History Social History: Social History Social History: Surrogate medical decision maker: Florence Nicoleter, spouse. Code status: Full code. Smoking status: Never smoker Tobacco type: cigars Smoking end date: 03/11/05 Alcohol intake: current Drinks per week: 7 Substance use: never Substance use type: does not
[2023-07-16] MEDS: FUROSEMIDE INJ 40 MG/4 ML VIAL IV PUSH (12:02)
[2023-07-16 12:03] LABS: Basophils Percent Auto 0.2 % (0.2-1.2); Eosinophils Absolute Auto 0.1 K/mm3 (0-0.3); Eosinophils Percent Auto 0.8 % (0-4.4); Hematocrit 28.7 % (42.0-52.0); Hemoglobin 8.3 g/dL (14.0-18.0); Immature Granulocyte Absolute 0.02 K/mm3 (0.00-0.031); Immature Granulocyte Percent A 0.3 % (0-0.5); Lymphocytes Absolute Auto 1.33 K/mm3 (0.9-3.2); Lymphocytes Percent Auto 21.8 % (18.3-44.2); Mean Corpuscular HGB Conc 28.9 g/dl (32-36); Mean Corpuscular Hemoglobin 28.5 pg (26-34); Mean Corpuscular Volume 98.6 fl (80-100); Mean Platelet Volume 8.6 fl (7.4-10.4); Monocytes Absolute Auto 0.3 K/mm3 (0.1-0.6); Monocytes Percent Auto 4.1 % (2.6-8.5); Neutrophils Absolute Auto 4.5 K/mm3 (1.3-6.7); Neutrophils Percent Auto 72.8 % (45.5-73.1); Platelet Count Result 336 k/mm3 (150-375); Red Blood Count 2.91 M/mm3 (4.6-6.20); Red Cell Distribution Width 15.1 % (11.5-14.5); White Blood Count 6.1 K/mm3 (4.5-10.0)
[2023-07-16 12:15] LABS: Alveolar/Arterial O2 Gradient 87.7 mmHg; Base Excess ABG 11.7 mEq/l (+/-2.0); Fractional Inspired Oxygen 32 %; HCO3 ABG 38.9 mEq/l (22.0-26.0); Oxygen Content ABG 16.9 %vol (16.0-22.0); Oxygen Saturation ABG 92.8 % (95.0-100.0); Oxyhemoglobin 91.4 % THb (90.0-100.0); PO2 ABG 66.8 mmHg (80.0-100.0); PO2 FiO2 Ratio Arterial Blood 2.09 %; Total Hemoglobin 13.1 g/dL (12.0-18.0); pH ABG 7.408 (7.350-7.450)
[2023-07-16 12:16] LABS: Alanine Aminotransferase 37 U/L (6-50); Albumin Level 3.8 g/dL (3.5-5.1); Alkaline Phosphatase 197 U/L (38-126); Anion Gap 3 mmol/L (4-12); Aspartate Amino Transferase 44 U/L (17-59); Bilirubin,Total 0.8 mg/dL (0.2-1.3); Blood Urea Nitrogen 21 mg/dL (9-20); Calcium 9.5 mg/dL (8.4-10.2); Carbon Dioxide 35 mmol/L (22-30); Chloride 98 mmol/L (98-107); Estimated CRCL calculation 93 ml/min; Estimated Glomerular Filt Rate > 60; Glucose 119 mg/dL (65-110); Potassium 5.2 mmol/L (3.4-5.0); Sodium 136 mmol/L (137-145)
[2023-07-16 12:16] LABS: Device NASAL CANNULA; Modified Allen's Test Pass; Site Drawn RIGHT RADIAL
[2023-07-16 12:22] LABS: NT Pro B Type Natriuretic Pept 5790 pg/mL (19.9-100)
[2023-07-16 12:24] LABS: Anisocytosis 1+; Platelet Estimate Adequate (Adequate)
[2023-07-16 12:25] LABS: Schistocytes None Seen; Stomatocytes 1+; Target Cells 1+
[2023-07-16 12:26] LABS: D Dimer 3.72 ug/mL (<0.48)
[2023-07-16 12:29] LABS: Troponin I 0.044 ng/mL (0.000-0.034)
--- NOTE | 2023-07-16 13:02 | PC.NURSE ---
bone density technician came to room to take patient for scan. patient consented to get scan with contrast. after getting to CT, she verified that he wanted scan and he then said he does not want it and wants to call his to go home. attempted to call @1245 to inform her. Lforence, his called back at 1303 to state she will not be able to come back for roughly an hour. respiratory also informed me that the patient now declines an updated ABG to see if BIPAP is working well for his treatment. patient has been demanding that staff brings a phone to his room to talk to his , but he is unable to walk so he cannot make it to the nurses station to talk to her himself until she comes back to the ER. patient was educated on the reasons these tests are being ordered and provider is notified on refusal.
--- NOTE | 2023-07-16 13:06 | PCRCNOTE ---
RT attempted to obtain repeat ABG. Patient refused. RN and Constantine Mitchell PA-C aware.
--- NOTE | 2023-07-16 13:42 | PC.NURSE ---
patient refuses to lay in stretcher. provided a recliner for them with call light bedside.
[2023-07-16 14:53] LABS: Alveolar/Arterial O2 Gradient 60.4 mmHg; Base Excess ABG 13.7 mEq/l (+/-2.0); Fractional Inspired Oxygen 28 %; HCO3 ABG 38.5 mEq/l (22.0-26.0); Oxygen Content ABG 12.5 %vol (16.0-22.0); Oxygen Saturation ABG 96.4 % (95.0-100.0); Oxyhemoglobin 94.5 % THb (90.0-100.0); PCO2 ABG 50.7 mmHg (35.0-45.0); PO2 ABG 79.4 mmHg (80.0-100.0); PO2 FiO2 Ratio Arterial Blood 2.84 %; Total Hemoglobin 9.3 g/dL (12.0-18.0); pH ABG 7.498 (7.350-7.450)
[2023-07-16 14:54] LABS: Device NON-INVASIVE VENT; Modified Allen's Test Pass; Site Drawn RIGHT RADIAL
[2023-07-16 14:55] LABS: Non-Invasive Expiratory Pressure 7 CMH2O; Non-Invasive Inspiratory Pressure 14 CMH2O; Non-Invasive Vent Rate 18 /MIN
--- NOTE | 2023-07-16 15:04 | ECG_ITS ---
SEE SCANNED COPY FOR CONFIRMED REPORT MTDD
[2023-07-16 15:36] LABS: Troponin I 0.045 ng/mL (0.000-0.034)
--- NOTE | 2023-07-16 18:00 | PC.NURSE ---
attempted to call report at 1715 and nurse was not quite ready yet. called again @1749 and was able to give report to TRACY Mahan
--- NOTE | 2023-07-16 18:18 | ADMGEN ---
This patient, Sudarshan Garner, was admitted to IMU Room 211-01 at 1801. Patient/family oriented to hospital policies and general routines including ID bracelet, bed and alarms, visiting hours, pain management, procedures, bathroom and other care routines, personal items, smoking policy, room service/diet, and visiting hours. Information on how to activate the Rapid Response Team has been discussed. Patient/Family are encouraged to report perceived risks to care and to ask questions if they do not understand what they are told or what they should do.
[2023-07-16] MEDS: AZITHROMYCIN 500 MG/NS 250 ML 500 MG/250 ML BAG 250 MG IVPB (18:38)
[2023-07-16 19:06] LABS: Troponin I 0.039 ng/mL (0.000-0.034)
--- NOTE | 2023-07-16 20:41 | PM.IMHP ---
H&P: HPI History of Present Illness Date/Time: 07/16/23 20:41 Chief Complaint: Shortness of breath Narrative: 77-year-old male with a past medical history of 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 at [facility], atrial fibrillation, essential hypertension, CHF with preserved ejection fraction and obstructive sleep apnea with refusal BiPAP/trilogy who presented to the ER from primary care physician's office with shortness of breath. The patient usually wears oxygen as needed and has required the oxygen continuously since his recent discharge from hospital for respiratory failure on 07/10/2023. The patient reports that his biggest complaint is not really shortness of breath but fatigue. His symptoms were improved after his oxygen was increased from 2 L which she had been discharged home on this past week up to 3 L. He reports that he sleeps on the couch at all times. He has not noticed any increasing orthopnea. Nursing staff reports that he send the patient falls asleep his oxygen saturations do drop to 77%. The patient did agree to BiPAP despite his protest earlier in the evening. The patient states that he does not want to do cardiac rehab because he is just lazy. He wants to be discharged in the morning because he already has follow-up with Dr. Gomez on . He reports that his cough is moderate and occasionally productive of white sputum. He has not had any fevers or chills. He was treated with a full course of antibiotic therapy with Rocephin and azithromycin during his last hospitalization. Changes on a CT scan appears stable he does not have a white count. His BNP is double what it was during his last hospitalization. He denies any chest pain except for the pain associated with his recent sternotomy. He complains of frequent urination due to Lasix and initially refused Lasix at the time of my evaluation in stated that he would not take it until he got home. He denies palpitations despite having chronic AFib. He is no longer on chronic anticoagulation due to recent left atrial appendage ablation. Source of information is review of external records, ER report and patient report. Patient is a poor to fair historian. The patient reports that he is frustrated because nobody is helping him. When we tried to explain the treatment options the patient then states that he will not allow us to give him the meds or support needed. He states he does not understand why he cannot just go home on increased oxygen. Review of Systems Review of Systems: 12 systems were reviewed with pertinent positives and negatives per HPI. Except as documented in the HPI, all other systems were reviewed and are negative. [facility] Past Medical History Medical History (Updated 07/17/23 @ 04:39 by Pao Deal DO) Chronic anticoagulation Stopped as the patient had ligation of his left atrial appendage 06/14/2023 Dupuytren's contracture Hypertension Morbid obesity with BMI of 40.0-44.9, adult Obstructive sleep apnea Persistent atrial fibrillation Surgical History Surgical History (Updated 07/17/23 @ 04:39 by Pao Deal DO) History of cardiac catheterization (06/12/23) Multivessel coronary disease transferred for CABG History of cataract extraction with lens replacement History of elbow surgery Open reduction and internal fixation of lateral epicondyle fracture and irrigation debridement of open fracture. History of four vessel coronary artery bypass graft (06/14/23) [facility] History of inguinal hernia repair Status post ligation of left atrial appendage Family History Family History Mother Patient's mother is , Onset Age: 80 Father Patient's father is , Onset Age: 80 Sibling Patient's brother is in good health Social History Social History (Updated 07/17/23 @ 04:40 by Pao Deal DO) Social
[2023-07-17] VITALS (17 sets, daily range): BP systolic 117–141; BP diastolic 54–97; PULSE 72–107; RESP 20–24; TEMP 36.2–36.8; O2SAT 92–100
--- NOTE | 2023-07-17 09:18 | PM.IMPN ---
Progress Note: A&P Assessment and Plan (1) Acute on chronic respiratory failure with hypoxemia: Code(s): J96.21 - Acute and chronic respiratory failure with hypoxia Status: Acute (2) Persistent atrial fibrillation: Code(s): I48.19 - Other persistent atrial fibrillation Status: Acute (3) Hyperkalemia: Code(s): E87.5 - Hyperkalemia Status: Acute (4) Elevated troponin: Code(s): R79.89 - Other specified abnormal findings of blood chemistry Status: Acute (5) Pleural effusion: Code(s): J90 - Pleural effusion, not elsewhere classified Status: Acute Plan 77-year-old male with a past medical history of 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 at [facility], atrial fibrillation, essential hypertension, CHF with preserved ejection fraction and obstructive sleep apnea with refusal BiPAP/trilogy who presented to the ER from primary care physician's office with shortness of breath acute on chronic respiratory failure, JUDE, acute on chronic diastolic heart failure patient is noncompliant with medications, including Lasix, and patient also refused trilogy AVAPS patient came back to due to worsening shortness of breath He still has persistent moderate right pleural effusion despite recent thoracentesis and small left pleural effusion. startLasix 40 mg IV b.i.d. and monitor strict I&O's and daily weights. Patient has agreed to wear BiPAP now that his oxygen saturations have dropped. history of CAD Patient denies chest pain Continue with home Plavix, atorvastatin, and Zetia, angiotensin receptor keith and beta-keith. paroxysmal afib Amiodarone discontinued.? Continue Toprol XL 25 mg daily as heart rate is controlled.? ? Systemic anticoagulation discontinued given history of left atrial appendage ligation. pleural effusion CT report 1. Persistent mild airspace opacities in left lower lobe and lingula, consistent with atelectasis/scarring versus pneumonia. 2. Stable moderate-sized right and small left pleural effusions. continue Lasix IV, less likely pneumonia Follow-up procalcitonin mild hyperkalemia. The patient's potassium has been placed on hold. Subjective Date/time seen: 07/17/23 09:18 Interval history: I saw exam patient today, patient feels better, patient has cough, scant phlegm, no respiratory distress Exam Narrative: GENERAL: Pleasant, in no acute distress. Well-nourished. - EYES: EOMI. Anicteric. - HENT: Moist mucous membranes. - LUNGS: decreased air entry right lower lobe no wheezing, rhonchi, or rales. - CARDIOVASCULAR: Regular rate and rhythm. No murmur. No JVD. - ABDOMEN: Soft, non-tender and non-distended. No palpable masses. - EXTREMITIES: No edema. Peripheral pulses 2+. Non-tender. - NEUROLOGIC: No focal neurological deficits. CN II-XII grossly intact. - PSYCHIATRIC: Awake, Alert and oriented x 3. Appropriate mood and affect. - SKIN: No rashes or lesions. Warm. - LYMPH: No cervical lymphadenopathy. Objective Data Vital Signs Vital Signs: Vital Signs - 24 hr 07/16/23 11:35 07/16/23 11:55 07/16/23 11:55 Temperature 97.3 F L Pulse Rate 112 H 104 H Respiratory Rate 28 H Blood Pressure 107/78 Pulse Oximetry 97 95 Oxygen Delivery Nasal Cannula Nasal Cannula Oxygen Flow Rate 3 3 Fraction of Inspired Oxygen 07/16/23 12:08 07/16/23 11:40 07/16/23 11:46 Temperature Pulse Rate 111 H 112 H 107 H Respiratory Rate 24 H 33 H 30 H Blood Pressure 107/78 130/84 Pulse Oximetry 99 94 94 Oxygen Delivery BiPAP Oxygen Flow Rate Fraction of Inspired Oxygen 07/16/23 12:02 07/16/23 12:16 07/16/23 13:41 Temperature Pulse Rate 103 H 102 H 89 Respiratory Rate 32 H 27 H 28 H Blood Pressure 135/88 129/82 86/57 L Pulse Oximetry 96 98 99 Oxygen Delivery Oxygen Flow Rate Fraction of Inspired Oxygen 07/16/23 13:46 07/16/23 14:01 07/16/23 14:15
[2023-07-17] MEDS: ENOXAPARIN 40 MG/0.4 ML SYRINGE SUB-Q (11:30)
[2023-07-17] MEDS: FUROSEMIDE INJ 40 MG/4 ML VIAL IV PUSH ×2 (11:31→17:58)
[2023-07-17] MEDS: CLOPIDOGREL BISULFATE 75 MG TABLET PO (11:31)
[2023-07-17] MEDS: METOPROLOL SUCCINATE EXT REL 25 MG TABCR PO (11:31)
[2023-07-17] MEDS: OLMESARTAN MEDOXOMIL 10 MG TABLET PO (11:31)
[2023-07-17] MEDS: EZETIMIBE 10 MG TABLET PO (11:32)
--- NOTE | 2023-07-17 11:33 | PC.NURSE ---
This RN went into the patients room to pass medications. The BIPAP machine was removed and the patient was placed on nasal cannula at this time. The patient had complaints related to his bed not adjusting up and down properly. Stated When I roll this way (indicating on his right side), I fall into a hole . This RN explained to the patient that we were going to change out his bed. The bed does move up and down but stops at about a 30-40 degree anais. The patient is sitting with legs on the right side of the bed and the his upper torso on the left side of the bed. This RN asked the patient to pull his upper torso more centered in the bed. The patient stated he was comfortable in his current position, but that he couldn't eat in because he couldn't sit high enough. This RN again told the patient that we are planning on changing out his bed. The patient was clearly agitated and asked who I was and what my title was. This RN told the patient name and title. This RN asked if there was an issue and the patient proceeded to say that You are the worse nurse I have ever had of all 2000 nurse . This RN asked the patient if he would like a different nurse? The patient stated I would like a different nurse . This RN called the charge nurse and made her aware of the situation. Report was given to TRACY Mahan.
[2023-07-18] VITALS (18 sets, daily range): BP systolic 106–135; BP diastolic 45–91; PULSE 74–102; RESP 20–21; TEMP 36–36.6; O2SAT 93–100
[2023-07-18 04:42] LABS: Hematocrit 29.1 % (42.0-52.0); Hemoglobin 8.2 g/dL (14.0-18.0); Mean Corpuscular HGB Conc 28.2 g/dl (32-36); Mean Corpuscular Hemoglobin 28.5 pg (26-34); Mean Platelet Volume 8.5 fl (7.4-10.4); Platelet Count Result 336 k/mm3 (150-375); Red Blood Count 2.88 M/mm3 (4.6-6.20); Red Cell Distribution Width 15.3 % (11.5-14.5); White Blood Count 4.3 K/mm3 (4.5-10.0)
[2023-07-18 04:56] LABS: Blood Urea Nitrogen 23 mg/dL (9-20); Carbon Dioxide > 40 mmol/L (22-30); Chloride 95 mmol/L (98-107); Estimated CRCL calculation 63 ml/min; Estimated Glomerular Filt Rate 59; Glucose 104 mg/dL (65-110); Magnesium 2.1 mg/dL (1.6-2.3); Phosphorus 4.7 mg/dL (2.5-4.5); Potassium 4.3 mmol/L (3.4-5.0); Sodium 138 mmol/L (137-145)
[2023-07-18] MEDS: FUROSEMIDE INJ 40 MG/4 ML VIAL IV PUSH ×2 (08:48→17:38)
[2023-07-18] MEDS: EZETIMIBE 10 MG TABLET PO (08:48)
[2023-07-18] MEDS: CLOPIDOGREL BISULFATE 75 MG TABLET PO (08:48)
[2023-07-18] MEDS: ENOXAPARIN 40 MG/0.4 ML SYRINGE SUB-Q (08:48)
[2023-07-18] MEDS: METOPROLOL SUCCINATE EXT REL 25 MG TABCR PO (08:48)
[2023-07-18] MEDS: OLMESARTAN MEDOXOMIL 10 MG TABLET PO (08:49)
--- NOTE | 2023-07-18 10:00 | PM.IMPN ---
Progress Note: A&P Assessment and Plan (1) Acute on chronic respiratory failure with hypoxemia: Code(s): J96.21 - Acute and chronic respiratory failure with hypoxia Status: Acute (2) Persistent atrial fibrillation: Code(s): I48.19 - Other persistent atrial fibrillation Status: Acute (3) Hyperkalemia: Code(s): E87.5 - Hyperkalemia Status: Acute (4) Elevated troponin: Code(s): R79.89 - Other specified abnormal findings of blood chemistry Status: Acute (5) Pleural effusion: Code(s): J90 - Pleural effusion, not elsewhere classified Status: Acute Plan 77-year-old male with a past medical history of 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 at [facility], atrial fibrillation, essential hypertension, CHF with preserved ejection fraction and obstructive sleep apnea with refusal BiPAP/trilogy who presented to the ER from primary care physician's office with shortness of breath acute on chronic respiratory failure, JUDE, acute on chronic diastolic heart failure patient is noncompliant with medications, including Lasix, and patient also refused trilogy AVAPS patient came back to due to worsening shortness of breath He still has persistent moderate right pleural effusion despite recent thoracentesis and small left pleural effusion. startLasix 40 mg IV b.i.d. and monitor strict I&O's and daily weights. Patient has agreed to wear BiPAP now that his oxygen saturations have dropped. history of CAD Patient denies chest pain Continue with home Plavix, atorvastatin, and Zetia, angiotensin receptor keith and beta-keith. paroxysmal afib Amiodarone discontinued.? Continue Toprol XL 25 mg daily as heart rate is controlled.? ? Systemic anticoagulation discontinued given history of left atrial appendage ligation. pleural effusion CT report 1. Persistent mild airspace opacities in left lower lobe and lingula, consistent with atelectasis/scarring versus pneumonia. 2. Stable moderate-sized right and small left pleural effusions. continue Lasix IV, less likely pneumonia Follow-up procalcitonin pleural effusion seems worse than previous admission consult president + publisher for evaluation treatment mild hyperkalemia. The patient's potassium has been placed on hold. Subjective Date/time seen: 07/18/23 10:00 Interval history: I saw exam patient today, patient feels better, but still has shortnessof breath, patient has cough, scant phlegm, no respiratory distress Exam Narrative: GENERAL: Pleasant, in no acute distress. Well-nourished. - EYES: EOMI. Anicteric. - HENT: Moist mucous membranes. - LUNGS: decreased air entry right lower lobe no wheezing, rhonchi, or rales. - CARDIOVASCULAR: Regular rate and rhythm. No murmur. No JVD. - ABDOMEN: Soft, non-tender and non-distended. No palpable masses. - EXTREMITIES: No edema. Peripheral pulses 2+. Non-tender. - NEUROLOGIC: No focal neurological deficits. CN II-XII grossly intact. - PSYCHIATRIC: Awake, Alert and oriented x 3. Appropriate mood and affect. - SKIN: No rashes or lesions. Warm. - LYMPH: No cervical lymphadenopathy. Objective Data Vital Signs Vital Signs: Vital Signs - 24 hr 07/17/23 12:00 07/17/23 12:00 07/17/23 12:00 Temperature 97.1 F L Pulse Rate 103 H 107 H 107 H Respiratory Rate 24 H 24 H Blood Pressure 128/62 Pulse Oximetry 97 97 Oxygen Delivery Nasal Cannula Oxygen Flow Rate 5 Fraction of Inspired Oxygen 50 07/17/23 12:00 07/17/23 14:00 07/17/23 16:00 Temperature 97.2 F L Pulse Rate 87 102 H Respiratory Rate 22 H Blood Pressure 141/97 H Pulse Oximetry 97 93 Oxygen Delivery Nasal Cannula Oxygen Flow Rate 5 Fraction of Inspired Oxygen 07/17/23 16:00 07/17/23 16:00 07/17/23 18:00 Temperature Pulse Rate 84 100 Respiratory Rate Blood Pressure Pulse Oximetry 93 Oxygen Delivery Nasal Cannula O
--- NOTE | 2023-07-18 13:35 | PM.CNPUL ---
Assessment and Plan Assessment and plan (1) Acute on chronic respiratory failure with hypoxemia: Code(s): J96.21 - Acute and chronic respiratory failure with hypoxia Status: Acute Assessment and Plan: A 77-year-old male patient with a history of obesity was recently admitted to the hospital due to acute on chronic hypercapnic hypoxemic respiratory failure, along with new bilateral pleural effusions since early June this year. Approximately a month ago, he underwent a coronary artery bypass grafting procedure. During his previous hospitalization, he was treated for congestive heart failure. He has now returned, complaining of shortness of breath. His respiratory status remains largely unchanged since his last hospital stay. A chest CT scan confirmed the presence of bilateral pleural effusions, as seen previously. Given the moderate size of these bilateral pleural effusions, it's highly likely that the patient continues to experience desaturation at night. These relatively new bilateral pleural effusions could be related to his recent cardiac surgery or diastolic heart failure. His obesity also suggests a potential underlying condition of obstructive sleep apnea. Fortunately, the patient is now agreeable to continuing with BiPAP support. The treatment plan is to maintain his current BiPAP support and supplemental oxygen, administer diuretics, and continue DVT prophylaxis. Pleural fluid analysis results are pending. We will also proceed with an ApneaLink test. (2) S/P CABG (coronary artery bypass graft): Code(s): Z95.1 - Presence of aortocoronary bypass graft Status: Acute (3) Pleural effusion: Code(s): J90 - Pleural effusion, not elsewhere classified Status: Acute (4) Obesity, unspecified: Qualifiers: Obesity type: due to excess calories Obesity classification: adult class 3 (BMI >= 40) Serious obesity comorbidity presence: with serious comorbidity Body mass index: BMI 40.0-44.9 Qualified Code(s): E66.01 - Morbid (severe) obesity due to excess calories; Z68.41 - Body mass index (BMI) 40.0-44.9, adult Code(s): E66.9 - Obesity, unspecified Status: Acute (5) Sleep apnea, unspecified: Code(s): G47.30 - Sleep apnea, unspecified Status: Acute History of Present Illness History of Present Illness Consult date: 07/18/23 Chief complaint: Acute Hypoxic Respiratory Failure/Plueral Effusion Narrative: A 77-year-old male patient with a past medical history of multivessel coronary disease, atrial fibrillation, essential hypertension, CHF with preserved ejection fraction, and obstructive sleep apnea was presented to the ER from his primary care physician's office due to shortness of breath. He was recently discharged from [facility]. During his last hospitalization, the Pulmonary Services team found that he had bilateral pleural effusions associated with congestive heart failure, and there was speculation about the possibility of obesity hypoventilation syndrome. The patient refused home ventilatory support treatment during his hospitalization. He has a history of orthopnea, mild cough, and shortness of breath. There hasn't been a significant change in his cough or shortness of breath since his discharge from the hospital about a week ago. He denied having fever, chills, or hemoptysis. A chest CT on admission revealed bilateral pleural effusions, which were essentially unchanged from his recent hospitalization. A chest x-ray taken in early June showed clear lungs with no evidence of bilateral effusions. He then underwent coronary artery bypass surgery at [facility]. Approximately two weeks ago, when he presented to [facility], a chest x-ray revealed new bilateral pleural effusions. The patient underwent right thoracentesis with the removal of about 1L of fluid. The fluid analysis data is not yet available. During his last hospitalization, the patient had acute on ch
[2023-07-19] VITALS (14 sets, daily range): BP systolic 106–118; BP diastolic 58–67; PULSE 70–100; RESP 18–23; TEMP 36.4–36.7; O2SAT 93–98
[2023-07-19] MEDS: OLMESARTAN MEDOXOMIL 10 MG TABLET PO (08:43)
[2023-07-19] MEDS: METOPROLOL SUCCINATE EXT REL 25 MG TABCR PO (08:43)
[2023-07-19] MEDS: FUROSEMIDE INJ 40 MG/4 ML VIAL IV PUSH ×2 (08:43→17:58)
[2023-07-19] MEDS: CLOPIDOGREL BISULFATE 75 MG TABLET PO (08:43)
[2023-07-19] MEDS: ENOXAPARIN 40 MG/0.4 ML SYRINGE SUB-Q (08:43)
[2023-07-19] MEDS: EZETIMIBE 10 MG TABLET PO (08:43)
--- NOTE | 2023-07-19 11:01 | PM.IMPN ---
Progress Note: A&P Assessment and Plan (1) Acute on chronic respiratory failure with hypoxemia: Code(s): J96.21 - Acute and chronic respiratory failure with hypoxia Status: Acute (2) Persistent atrial fibrillation: Code(s): I48.19 - Other persistent atrial fibrillation Status: Acute (3) Hyperkalemia: Code(s): E87.5 - Hyperkalemia Status: Acute (4) Elevated troponin: Code(s): R79.89 - Other specified abnormal findings of blood chemistry Status: Acute (5) Pleural effusion: Code(s): J90 - Pleural effusion, not elsewhere classified Status: Acute Plan 77-year-old male with a past medical history of 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 [facility], atrial fibrillation, essential hypertension, CHF with preserved ejection fraction and obstructive sleep apnea with refusal BiPAP/trilogy who presented to the ER from primary care physician's office with shortness of breath acute on chronic respiratory failure, JUDE, acute on chronic diastolic heart failure patient is noncompliant with medications, including Lasix, and patient also refused trilogy AVAPS patient came back to due to worsening shortness of breath He still has persistent moderate right pleural effusion despite recent thoracentesis and small left pleural effusion. startLasix 40 mg IV b.i.d. and monitor strict I&O's and daily weights. Patient has agreed to wear BiPAP now that his oxygen saturations have dropped. history of CAD Patient denies chest pain Continue with home Plavix, atorvastatin, and Zetia, angiotensin receptor keith and beta-keith. paroxysmal afib Amiodarone discontinued.? Continue Toprol XL 25 mg daily as heart rate is controlled.? ? Systemic anticoagulation discontinued given history of left atrial appendage ligation. pleural effusion CT report 1. Persistent mild airspace opacities in left lower lobe and lingula, consistent with atelectasis/scarring versus pneumonia. 2. Stable moderate-sized right and small left pleural effusions. continue Lasix IV, less likely pneumonia Follow-up procalcitonin pleural effusion seems worse than previous admission consult customer advisor for evaluation treatment mild hyperkalemia. The patient's potassium has been placed on hold. Subjective Date/time seen: 07/19/23 11:01 Interval history: I saw exam patient today, patient feels better, dyspnea is improving,, patient has cough, scant phlegm, no respiratory distress Exam Narrative: GENERAL: Pleasant, in no acute distress. Well-nourished. - EYES: EOMI. Anicteric. - HENT: Moist mucous membranes. - LUNGS: decreased air entry right lower lobe no wheezing, rhonchi, or rales. - CARDIOVASCULAR: Regular rate and rhythm. No murmur. No JVD. - ABDOMEN: Soft, non-tender and non-distended. No palpable masses. - EXTREMITIES: No edema. Peripheral pulses 2+. Non-tender. - NEUROLOGIC: No focal neurological deficits. CN II-XII grossly intact. - PSYCHIATRIC: Awake, Alert and oriented x 3. Appropriate mood and affect. - SKIN: No rashes or lesions. Warm. - LYMPH: No cervical lymphadenopathy. Objective Data Vital Signs Vital Signs: Vital Signs - 24 hr 07/18/23 12:00 07/18/23 12:00 07/18/23 16:00 Temperature 97.5 F L 97.5 F L Pulse Rate 79 93 90 Respiratory Rate 20 20 Blood Pressure 108/91 H 118/55 L Pulse Oximetry 100 99 Oxygen Delivery Oxygen Flow Rate 07/18/23 16:00 07/18/23 19:39 07/18/23 21:25 Temperature 97.6 F Pulse Rate 89 100 Respiratory Rate 20 Blood Pressure 130/45 L Pulse Oximetry 93 94 Oxygen Delivery Nasal Cannula Oxygen Flow Rate 3 07/18/23 22:48 07/18/23 23:21 07/18/23 20:00 Temperature 97.8 F Pulse Rate 89 79 80 Respiratory Rate 21 H 20 Blood Pressure 106/63 Pulse Oximetry 98 96 Oxygen Delivery BiPAP Oxygen Flow Rate 07/18/23 20:00 07/19/23 00:00 07/19/23 03:14 Temper
--- NOTE | 2023-07-19 11:08 | PM.PNPUL ---
Progress Note: A&P Assessment and Plan (1) Acute on chronic respiratory failure with hypoxemia: Code(s): J96.21 - Acute and chronic respiratory failure with hypoxia Status: Acute (2) Respiratory failure with hypoxia and hypercapnia: Code(s): J96.91 - Respiratory failure, unspecified with hypoxia; J96.92 - Respiratory failure, unspecified with hypercapnia Status: Acute Assessment and Plan: A 77-year-old male patient with a history of obesity was recently admitted to the hospital due to acute on chronic hypercapnic hypoxemic respiratory failure, along with new bilateral pleural effusions since early June this year. Approximately a month ago, he underwent a coronary artery bypass grafting procedure. During his previous hospitalization, he was treated for congestive heart failure. He has now returned, complaining of shortness of breath. His respiratory status remains largely unchanged since his last hospital stay. A chest CT scan confirmed the presence of bilateral pleural effusions, as seen previously. Given the moderate size of these bilateral pleural effusions, it's highly likely that the patient continues to experience desaturation at night. These relatively new bilateral pleural effusions could be related to his recent cardiac surgery or diastolic heart failure. His obesity also suggests a potential underlying condition of obstructive sleep apnea. Fortunately, the patient is now agreeable to continuing with BiPAP support. The treatment plan is to maintain his current BiPAP support and supplemental oxygen, administer diuretics, and continue DVT prophylaxis. ApneaLink conducted last night showed no evidence of oxyhemoglobin desaturation. Will continue to monitor respiratory status along with you. (3) Pleural effusion: Code(s): J90 - Pleural effusion, not elsewhere classified Status: Acute (4) CAD (coronary artery disease): Code(s): I25.10 - Atherosclerotic heart disease of [place] coronary artery without angina pectoris Status: Acute Subjective Date/time seen: 07/19/23 11:08 Interval history: Patient has no new respiratory symptoms. He slept well last night on BiPAP 21/09, respirations 18 per minute and FiO2 of 50%. He tolerated the BiPAP support with no issues. Review of Systems Review of Systems: All systems reviewed & are unremarkable except as noted in HPI and below (HPI and below) Exam Narrative: GENERAL APPEARANCE: Well developed, well nourished, alert and cooperative, and appears to be in no acute distress while on supplemental oxygen via nasal cannula SKIN: Inspection of the skin reveals no rashes, ulcerations or petechiae. HEENT: Sclerae anicteric and conjunctivae pink and moist. Extraocular movements were intact and pupils were equal, round, and reactive to light. The oral mucosa, hard and soft palate, tongue and posterior pharynx were normal. NECK: Supple. There was no thyroid enlargement, and no tenderness, or masses were felt. CHEST: Normal AP diameter and normal contour without any kyphoscoliosis. LUNGS: Dullness to percussion and decreased breath sounds at bases posteriorly no wheezing CARDIAC: There was a regular rate and rhythm without any murmurs, gallops, rubs. ABDOMEN: Soft and nontender with normal bowel sounds. There was no organomegaly. LYMPH NODES: No lymphadenopathy was appreciated in the neck. EXTREMITIES: No cyanosis, clubbing; 1+ pedal edema NEUROLOGIC: Alert and oriented x 3. Normal affect. Objective Data Vital Signs Vital Signs: Vital Signs - 24 hr 07/18/23 12:00 07/18/23 12:00 07/18/23 16:00 Temperature 36.4 C L 36.4 C L Pulse Rate 79 93 90 Respiratory Rate 20 20 Blood Pressure 108/91 H 118/55 L Pulse Oximetry 100 99 Oxygen Delivery Oxygen Flow Rate 07/18/23 16:00 07/18/23 19:39 07/18/23 21:25 Temperature 36.4 C Pulse Rate 89 100 Respiratory Rate 20 Blood Pressure 130/45 L Pulse Oximetry 93 94 Oxygen Delivery
--- NOTE | 2023-07-19 15:11 | PC.NURSE ---
This patient, Sudarshan Garner, was transferred to [facility] on 07/19/23 at 1511. Personal belongings sent with patient. Report given to Agnes MOLINA. Appropriate documentation sent with patient.
[2023-07-20] VITALS (13 sets, daily range): BP systolic 103–128; BP diastolic 46–64; PULSE 84–94; RESP 16–28; TEMP 36.4–36.8; O2SAT 92–98
[2023-07-20] MEDS: METOPROLOL SUCCINATE EXT REL 25 MG TABCR PO (09:14)
[2023-07-20] MEDS: CLOPIDOGREL BISULFATE 75 MG TABLET PO (09:14)
[2023-07-20] MEDS: OLMESARTAN MEDOXOMIL 10 MG TABLET PO (09:14)
[2023-07-20] MEDS: ENOXAPARIN 40 MG/0.4 ML SYRINGE SUB-Q (09:15)
[2023-07-20] MEDS: EZETIMIBE 10 MG TABLET PO (09:15)
[2023-07-20] MEDS: FUROSEMIDE INJ 40 MG/4 ML VIAL IV PUSH ×2 (09:15→17:01)
--- NOTE | 2023-07-20 15:05 | PM.PNPUL ---
Progress Note: A&P Assessment and Plan (1) Acute on chronic respiratory failure with hypoxemia: Code(s): J96.21 - Acute and chronic respiratory failure with hypoxia Status: Acute (2) Respiratory failure with hypoxia and hypercapnia: Code(s): J96.91 - Respiratory failure, unspecified with hypoxia; J96.92 - Respiratory failure, unspecified with hypercapnia Status: Acute Assessment and Plan: A 77-year-old male patient with a history of obesity was recently admitted to the hospital due to acute on chronic hypercapnic hypoxemic respiratory failure, along with new bilateral pleural effusions since early June this year. Approximately a month ago, he underwent a coronary artery bypass grafting procedure. During his previous hospitalization, he was treated for congestive heart failure. He has now returned, complaining of shortness of breath. His respiratory status remains largely unchanged since his last hospital stay. A chest CT scan confirmed the presence of bilateral pleural effusions, as seen previously. Given the moderate size of these bilateral pleural effusions, it's highly likely that the patient continues to experience desaturation at night. These relatively new bilateral pleural effusions could be related to his recent cardiac surgery or diastolic heart failure. His obesity also suggests a potential underlying condition of obstructive sleep apnea. Fortunately, the patient is now agreeable to continuing with BiPAP support. The treatment plan is to maintain his current BiPAP support and supplemental oxygen, administer diuretics, and continue DVT prophylaxis. ApneaLink conducted recently showed no evidence of oxyhemoglobin desaturation while on BiPAP support and supplemental oxygen. Plan: Will repeat overnight oximetry on just supplemental oxygen 3 liters/minute. (3) Pleural effusion: Code(s): J90 - Pleural effusion, not elsewhere classified Status: Acute (4) CAD (coronary artery disease): Code(s): I25.10 - Atherosclerotic heart disease of [place] coronary artery without angina pectoris Status: Acute Subjective Date/time seen: 07/20/23 15:05 Interval history: Patient has no new respiratory symptoms. Remains on supplemental oxygen. Did not use BiPAP support last night. Review of Systems Review of Systems: All systems reviewed & are unremarkable except as noted in HPI and below (HPI and below) Exam Narrative: GENERAL APPEARANCE: Well developed, well nourished, alert and cooperative, and appears to be in no acute distress while on supplemental oxygen via nasal cannula SKIN: Inspection of the skin reveals no rashes, ulcerations or petechiae. HEENT: Sclerae anicteric and conjunctivae pink and moist. Extraocular movements were intact and pupils were equal, round, and reactive to light. The oral mucosa, hard and soft palate, tongue and posterior pharynx were normal. NECK: Supple. There was no thyroid enlargement, and no tenderness, or masses were felt. CHEST: Normal AP diameter and normal contour without any kyphoscoliosis. LUNGS: Dullness to percussion and decreased breath sounds at bases posteriorly no wheezing CARDIAC: There was a regular rate and rhythm without any murmurs, gallops, rubs. ABDOMEN: Soft and nontender with normal bowel sounds. There was no organomegaly. LYMPH NODES: No lymphadenopathy was appreciated in the neck. EXTREMITIES: No cyanosis, clubbing; 1+ pedal edema NEUROLOGIC: Alert and oriented x 3. Normal affect. Objective Data Vital Signs Vital Signs: Vital Signs - 24 hr 07/19/23 15:15 07/19/23 15:30 07/19/23 16:00 Temperature 36.4 C Pulse Rate 89 89 Respiratory Rate 20 Blood Pressure 106/58 L Pulse Oximetry 98 98 Oxygen Delivery Nasal Cannula Oxygen Flow Rate 3 07/19/23 20:26 07/19/23 20:00 07/20/23 00:00 Temperature 36.5 C Pulse Rate 100 97 90 Respiratory Rate 18 Blood Pressure 118/60 Pulse Oximetry 95 Oxygen Delivery O
--- NOTE | 2023-07-20 15:16 | PM.IMPN ---
Progress Note: A&P Time Spent With Patient Time: 77-year-old male residing at home with past medical history hypertension, hyperlipidemia, AFib status post left atrial appendage ligation, vertigo, obesity, CAD status post CABG had [facility], bilateral pleural effusion, JUDE noncompliant/refusing NIPPV, diastolic heart failure presenting main complaint of fatigue associated shortness of breath. Admitted on 07/16/2023 Acute on chronic respiratory failure with hypoxia and hypercapnia -multifactorial including obesity/JUDE/heart failure/compliance. -pulmonology consulted. Plan is to can use supplemental oxygen and diuretics. Has previously been refusing CPAP at night on multiple occasions although he is amenable to using it on this admission. Bilateral pleural effusions -stable moderate size right and small left pleural effusions. -most likely due to decompensated heart failure. His respiratory status is stable so we will continue to monitor this. Diastolic heart failure -he is on Lasix 40 mg q.day at home. Currently on Lasix 40 mg IV b.i.d. deescalate this tomorrow as he is approaching euvolemic status AFib status post left atrial appendage ligation -continue metoprolol 25 mg p.o. q.a.m., this is home dose. JUDE noncompliant/refusing NIPPV at night -he is now amenable to using this since this admission. He has a chronic retainer. On admission his pCO2 has come down to 50. Encourage compliance and recheck ABG as needed. Essential hypertension -at goal. Continue metoprolol and olmesartan. Diuretic use adjusted per the above problems Acute on chronic anemia -subacute. Previously his baseline was in the 10s. Since June 30 which included last admission he is now in the low 8. -macrocytic anemia -check iron panel ferritin vitamin B12 and folate. This could be contributing to his anemia -check stool occult FEN: Saline lock IV. GI prophylaxis: Not indicated DVT prophylaxis: Lovenox 40 mg subQ daily Lines: Peripheral IV Code Status: Full code Dispo: Stable on medical floor Subjective Date/time seen: 07/20/23 15:16 Interval history: No acute overnight events. Patient rest comfortably in bed and has no complaints including shortness of breath or cough or chest pain. Review of Systems Review of Systems: All systems reviewed & are unremarkable except as noted in HPI and below (Subjective) Exam Const: General: comfortable and no acute distress Objective Data Vital Signs Vital Signs: Vital Signs - 24 hr 07/19/23 15:30 07/19/23 16:00 07/19/23 20:26 Temperature 97.7 F Pulse Rate 89 100 Respiratory Rate 18 Blood Pressure 118/60 Pulse Oximetry 98 95 Oxygen Delivery Nasal Cannula Oxygen Flow Rate 3 07/19/23 20:00 07/20/23 00:00 07/20/23 04:00 Temperature Pulse Rate 97 90 93 Respiratory Rate Blood Pressure Pulse Oximetry Oxygen Delivery Oxygen Flow Rate 07/20/23 04:28 07/20/23 09:14 07/20/23 09:13 Temperature 97.6 F Pulse Rate 94 87 Respiratory Rate 16 Blood Pressure 117/64 Pulse Oximetry 92 92 Oxygen Delivery Nasal Cannula Oxygen Flow Rate 3 07/20/23 08:00 07/20/23 12:00 07/20/23 13:55 Temperature 98.2 F Pulse Rate 89 85 89 Respiratory Rate 18 Blood Pressure 128/63 Pulse Oximetry 98 Oxygen Delivery Oxygen Flow Rate Intake/Output Intake/Output: Intake & Output 07/17/23 07/18/23 07/19/23 07/20/23 23:59 23:59 23:59 23:59 Intake Total 1664 2070 750 780 Output Total 1420 2750 2110 550 Balance 900 -296 -4336 230 Meds/Results Medications: Active Medications Generic Name Dose Route Start Last Admin Trade Name Freq PRN Reason Stop Dose Admin Acetaminophen 500 mg 07/16/23 20:52 Acetaminophen 500 Mg Tablet PO Q6H PRN Pain 1-3 or fever Clopidogrel Bisulfate 75 mg 07/17/23 09:00 07/20/23 09:14 Clopidogrel Bisulfate 75 Mg Tablet PO 75 mg DAILY DAMIAN Administration Ezetimibe 1
[2023-07-20] MEDS: ACETAMINOPHEN 500 MG TABLET PO (19:38)
[2023-07-21] VITALS (20 sets, daily range): BP systolic 108–140; BP diastolic 66–82; PULSE 76–95; RESP 16–29; TEMP 36.3–36.8; O2SAT 91–100
[2023-07-21 06:17] LABS: Basophils Percent Auto 0.2 % (0.2-1.2); Eosinophils Absolute Auto 0.1 K/mm3 (0-0.3); Eosinophils Percent Auto 1.8 % (0-4.4); Hematocrit 28.8 % (42.0-52.0); Hemoglobin 8.1 g/dL (14.0-18.0); Immature Granulocyte Absolute 0.01 K/mm3 (0.00-0.031); Immature Granulocyte Percent A 0.2 % (0-0.5); Lymphocytes Absolute Auto 1.27 K/mm3 (0.9-3.2); Lymphocytes Percent Auto 28.3 % (18.3-44.2); Mean Corpuscular HGB Conc 28.1 g/dl (32-36); Mean Corpuscular Hemoglobin 29.1 pg (26-34); Mean Corpuscular Volume 103.6 fl (80-100); Mean Platelet Volume 8.3 fl (7.4-10.4); Monocytes Absolute Auto 0.3 K/mm3 (0.1-0.6); Neutrophils Absolute Auto 2.9 K/mm3 (1.3-6.7); Neutrophils Percent Auto 63.5 % (45.5-73.1); Platelet Count Result 295 k/mm3 (150-375); Red Blood Count 2.78 M/mm3 (4.6-6.20); White Blood Count 4.5 K/mm3 (4.5-10.0)
[2023-07-21 06:25] LABS: Alanine Aminotransferase 34 U/L (6-50); Albumin Level 3.8 g/dL (3.5-5.1); Alkaline Phosphatase 179 U/L (38-126); Aspartate Amino Transferase 34 U/L (17-59); Bilirubin,Total 0.7 mg/dL (0.2-1.3); Blood Urea Nitrogen 17 mg/dL (9-20); Carbon Dioxide > 40 mmol/L (22-30); Chloride 91 mmol/L (98-107); Estimated CRCL calculation 75 ml/min; Estimated Glomerular Filt Rate > 60; Glucose 119 mg/dL (65-110); Magnesium 2.1 mg/dL (1.6-2.3); Potassium 4.1 mmol/L (3.4-5.0); Sodium 138 mmol/L (137-145)
[2023-07-21 06:27] LABS: Iron 44 ug/dL (49-181)
[2023-07-21 06:36] LABS: Percent Iron Saturation 11 % (20-50)
[2023-07-21 06:48] LABS: Anisocytosis 1+; Platelet Estimate Adequate (Adequate); Schistocytes None Seen; Stomatocytes 1+
[2023-07-21 07:27] LABS: Folic Acid 7.1 ng/mL (2.76->20)
[2023-07-21] MEDS: CLOPIDOGREL BISULFATE 75 MG TABLET PO (08:59)
[2023-07-21] MEDS: METOPROLOL SUCCINATE EXT REL 25 MG TABCR PO (09:00)
[2023-07-21] MEDS: OLMESARTAN MEDOXOMIL 10 MG TABLET PO (09:00)
[2023-07-21] MEDS: ENOXAPARIN 40 MG/0.4 ML SYRINGE SUB-Q (09:00)
[2023-07-21] MEDS: EZETIMIBE 10 MG TABLET PO (09:00)
[2023-07-21] MEDS: FUROSEMIDE INJ 40 MG/4 ML VIAL IV PUSH (09:01)
--- NOTE | 2023-07-21 11:37 | PM.PNPUL ---
Progress Note: A&P Assessment and Plan (1) Acute on chronic respiratory failure with hypoxemia: Code(s): J96.21 - Acute and chronic respiratory failure with hypoxia Status: Acute (2) Respiratory failure with hypoxia and hypercapnia: Code(s): J96.91 - Respiratory failure, unspecified with hypoxia; J96.92 - Respiratory failure, unspecified with hypercapnia Status: Acute Assessment and Plan: A 77-year-old male patient with a history of obesity was recently admitted to the hospital due to acute on chronic hypercapnic hypoxemic respiratory failure, along with new bilateral pleural effusions since early June this year. Approximately a month ago, he underwent a coronary artery bypass grafting procedure. During his previous hospitalization, he was treated for congestive heart failure. He has now returned, complaining of shortness of breath. His respiratory status remains largely unchanged since his last hospital stay. A chest CT scan confirmed the presence of bilateral pleural effusions, as seen previously. Given the moderate size of these bilateral pleural effusions, it's highly likely that the patient continues to experience desaturation at night. These relatively new bilateral pleural effusions could be related to his recent cardiac surgery or diastolic heart failure. His obesity also suggests a potential underlying condition of obstructive sleep apnea. Fortunately, the patient is now agreeable to continuing with BiPAP support. The treatment plan is to maintain his current BiPAP support and supplemental oxygen, administer diuretics, and continue DVT prophylaxis. ApneaLink conducted recently showed no evidence of oxyhemoglobin desaturation while on BiPAP support and supplemental oxygen. New ApneaLink study on just supplemental oxygen last night showed significant oxyhemoglobin desaturation, making sleep disordered breathing highly likely. Plan: The patient should persist with the current BiPAP settings and supplemental oxygen during the night. It's crucial for him to maintain his home BiPAP support and supplemental oxygen, as his cardiorespiratory condition is unlikely to improve without ventilatory assistance and additional oxygen. It's worth mentioning that the patient was recently readmitted to the hospital for a similar issue, most likely due to ongoing overnight oxyhemoglobin desaturation in the absence of home ventilatory support. (3) Pleural effusion: Code(s): J90 - Pleural effusion, not elsewhere classified Status: Acute (4) CAD (coronary artery disease): Code(s): I25.10 - Atherosclerotic heart disease of [place] coronary artery without angina pectoris Status: Acute Subjective Date/time seen: 07/21/23 11:37 Interval history: Patient has no new respiratory symptoms. Underwent ApneaLink study last night on just supplemental oxygen. Study showed significant oxyhemoglobin desaturation on just supplemental oxygen. Review of Systems Review of Systems: All systems reviewed & are unremarkable except as noted in HPI and below (HPI and below) Exam Narrative: GENERAL APPEARANCE: Well developed, well nourished, alert and cooperative, and appears to be in no acute distress while on supplemental oxygen via nasal cannula SKIN: Inspection of the skin reveals no rashes, ulcerations or petechiae. HEENT: Sclerae anicteric and conjunctivae pink and moist. Extraocular movements were intact and pupils were equal, round, and reactive to light. The oral mucosa, hard and soft palate, tongue and posterior pharynx were normal. NECK: Supple. There was no thyroid enlargement, and no tenderness, or masses were felt. CHEST: Normal AP diameter and normal contour without any kyphoscoliosis. LUNGS: Dullness to percussion and decreased breath sounds at bases posteriorly no wheezing CARDIAC: There was a regular rate and rhythm without any murmurs, gallops, rubs. ABDOMEN: Soft and nontender with normal bowel sounds. There w
[2023-07-21 11:49] LABS: IFOB Positive Control Positive; Immunochemical Fecal Occult Bl Negative (N)
--- NOTE | 2023-07-21 12:01 | PM.IMPN ---
Progress Note: A&P Time Spent With Patient Time: 77-year-old male residing at home with past medical history hypertension, hyperlipidemia, AFib status post left atrial appendage ligation, vertigo, obesity, CAD status post CABG had [facility], bilateral pleural effusion, JUDE noncompliant/refusing NIPPV, diastolic heart failure presenting main complaint of fatigue associated shortness of breath. Admitted on 07/16/2023 Acute on chronic respiratory failure with hypoxia and hypercapnia -multifactorial including obesity/JUDE/heart failure/compliance. -pulmonology consulted. Plan is to can use supplemental oxygen and diuretics. Has previously been refusing CPAP at night on multiple occasions although he is amenable to using it on this admission. -ApneaLink conducted on night of 07/19. Although it was a technically short study does have desaturations on 3 L nasal cannula. As well in the morning of 07/20 the patient has developed confusion after not being on noninvasive positive pressure overnight. This further supports him needing ventilatory assistance. This was again encouraged in the patient seems to be amenable now. -as for his acute confusion, his pCO2 on ABG is 72.6. We will place him back on BiPAP in recheck ABG in 2 hours. Bilateral pleural effusions -stable moderate size right and small left pleural effusions. -most likely due to decompensated heart failure. His respiratory status is stable so we will continue to monitor this. Diastolic heart failure -he appears euvolemic now. Deescalate Lasix 40 mg IV b.i.d. to 40 mg p.o. q.day which is his home dose. AFib status post left atrial appendage ligation -continue metoprolol 25 mg p.o. q.a.m., this is home dose. JUDE noncompliant/refusing NIPPV at night -he is now amenable to using this since this admission. He is a chronic retainer. On admission his pCO2 has come down to 50. Encourage compliance and recheck ABG as needed. Essential hypertension -at goal. Continue metoprolol and olmesartan. Diuretic use adjusted per the above problems Acute on chronic anemia -subacute. Previously his baseline was in the 10s. Since June 30 which included last admission he is now in the low 8. -macrocytic anemia -check iron panel ferritin vitamin B12 and folate. Vitamin B12 borderline low. Check MMA and homocystine levels. -stool occult negative FEN: Saline lock IV. GI prophylaxis: Not indicated DVT prophylaxis: Lovenox 40 mg subQ daily Lines: Peripheral IV Code Status: Full code Dispo: Stable on medical floor Subjective Date/time seen: 07/21/23 12:01 Interval history: ApneaLink conducted overnight on 3 L nasal cannula. Patient is A&O x3 and cooperative with exam however nursing reports he is going on for his in seems a bit more agitated. Patient denies complaints otherwise. Review of Systems Review of Systems: All systems reviewed & are unremarkable except as noted in HPI and below (Subjective) Exam Const: General: comfortable and no acute distress Eyes: Pupils: Equal, round and reactive pupils present Neck: Neck: supple Resp: Effort & Inspection: normal respiratory effort Auscultation: diminished lung sounds Cardio: Rate: regular rate Rhythm: regular rhythm GI: GI Palp: Yes Soft to palpation and No Tenderness to palpation present (GI) Extrem: General: no edema Objective Data Vital Signs Vital Signs: Vital Signs - 24 hr 07/20/23 13:55 07/20/23 16:00 07/20/23 19:17 Temperature 98.2 F 97.6 F Pulse Rate 89 84 87 Respiratory Rate 18 16 Blood Pressure 128/63 103/46 L Pulse Oximetry 98 95 Oxygen Delivery Oxygen Flow Rate 07/20/23 20:00 07/21/23 00:00 07/20/23 21:25 Temperature Pulse Rate 94 93 93 Respiratory Rate 28 H Blood Pressure Pulse Oximetry 95 Oxygen Delivery BiPAP Oxygen Flow Rate 07/20/23 22:40 07/21/23 04:00 07/21/23 05:25 Temperature 98.2 F Pulse Rate 93 95 Respiratory Rate 16 Blo
[2023-07-21 12:17] LABS: Alveolar/Arterial O2 Gradient 86.9 mmHg; Carboxyhemoglobin 1.4 % THb (0-2.0); Fractional Inspired Oxygen 32 %; HCO3 ABG 43.2 mEq/l (22.0-26.0); Oxyhemoglobin 88.1 % THb (90.0-100.0); PO2 ABG 56.3 mmHg (80.0-100.0); PO2 FiO2 Ratio Arterial Blood 1.76 %; Reduced Hemoglobin 10.5 %THb (0-5.0); Total Hemoglobin 8.8 g/dL (12.0-18.0); pH ABG 7.392 (7.350-7.450)
[2023-07-21 12:18] LABS: PCO2 ABG 72.6 mmHg (35.0-45.0)
[2023-07-21 12:19] LABS: Device NASAL CANNULA; Modified Allen's Test Pass; Oxygen Saturation ABG 87.6 % (95.0-100.0); Site Drawn RIGHT RADIAL
[2023-07-21 14:46] LABS: Alveolar/Arterial O2 Gradient 66.9 mmHg; Base Excess ABG 16.1 mEq/l (+/-2.0); Fractional Inspired Oxygen 32 %; HCO3 ABG 43.5 mEq/l (22.0-26.0); Oxygen Content ABG 12.2 %vol (16.0-22.0); Oxygen Saturation ABG 94.2 % (95.0-100.0); Oxyhemoglobin 93.7 % THb (90.0-100.0); PO2 ABG 74.8 mmHg (80.0-100.0); PO2 FiO2 Ratio Arterial Blood 2.34 %; Total Hemoglobin 9.2 g/dL (12.0-18.0); pH ABG 7.388 (7.350-7.450)
--- NOTE | 2023-07-21 14:49 | PCPTNOTE ---
HOLD PT evaluation due to respiratory issues per Krystal RN, pt is on BIPAP.
[2023-07-21 14:50] LABS: Device NON-INVASIVE VENT; Modified Allen's Test Pass; Non-Invasive Expiratory Pressure 7 CMH2O; Non-Invasive Inspiratory Pressure 14 CMH2O; Non-Invasive Vent Rate 18 /MIN; PCO2 ABG 73.9 mmHg (35.0-45.0); Site Drawn RIGHT RADIAL
--- NOTE | 2023-07-21 18:15 | PC.NURSE ---
This patient, Sudarshan Garner, was transferred to [facility] [place] on 07/21/23 at 1735. Personal belongings sent with patient. Report given to TRACY Mahan. Appropriate documentation sent with patient.
[2023-07-22] VITALS (23 sets, daily range): BP systolic 109–131; BP diastolic 63–98; PULSE 73–99; RESP 18–26; TEMP 36.1–36.6; O2SAT 93–100
[2023-07-22 05:08] LABS: Alveolar/Arterial O2 Gradient 58.6 mmHg; Base Excess ABG 15.9 mEq/l (+/-2.0); Carboxyhemoglobin 1.4 % THb (0-2.0); Fractional Inspired Oxygen 32 %; HCO3 ABG 43.3 mEq/l (22.0-26.0); Methemoglobin ABG 0.3 %THb (0-1.5); Oxygen Content ABG 12.3 %vol (16.0-22.0); Oxygen Saturation ABG 95.6 % (95.0-100.0); Oxyhemoglobin 94.5 % THb (90.0-100.0); PO2 ABG 83.1 mmHg (80.0-100.0); Reduced Hemoglobin 3.8 %THb (0-5.0); Total Hemoglobin 9.2 g/dL (12.0-18.0); pH ABG 7.386 (7.350-7.450)
[2023-07-22 05:12] LABS: Device NON-INVASIVE VENT; Modified Allen's Test Pass; PCO2 ABG 73.9 mmHg (35.0-45.0); Site Drawn RIGHT RADIAL
[2023-07-22 05:13] LABS: Non-Invasive Expiratory Pressure 7 CMH2O; Non-Invasive Inspiratory Pressure 14 CMH2O; Non-Invasive Vent Rate 18 /MIN
--- NOTE | 2023-07-22 08:20 | PCPTNOTE ---
per RN, hold PT evaluation d/t pt being on and off Bipap , will follow
--- NOTE | 2023-07-22 08:48 | PCOTNOTE ---
The patient treatment was not able to be completed hold per RN. Will plan to continue treatment per plan of care.
[2023-07-22] MEDS: OLMESARTAN MEDOXOMIL 10 MG TABLET PO (09:11)
[2023-07-22] MEDS: CLOPIDOGREL BISULFATE 75 MG TABLET PO (09:11)
[2023-07-22] MEDS: FUROSEMIDE 40 MG TABLET PO (09:11)
[2023-07-22] MEDS: EZETIMIBE 10 MG TABLET PO (09:12)
[2023-07-22] MEDS: METOPROLOL SUCCINATE EXT REL 25 MG TABCR PO (09:12)
--- NOTE | 2023-07-22 09:18 | PM.PNPUL ---
Progress Note: A&P Assessment and Plan (1) Acute on chronic respiratory failure with hypoxemia: Code(s): J96.21 - Acute and chronic respiratory failure with hypoxia Status: Acute (2) Respiratory failure with hypoxia and hypercapnia: Code(s): J96.91 - Respiratory failure, unspecified with hypoxia; J96.92 - Respiratory failure, unspecified with hypercapnia Status: Acute Assessment and Plan: A 77-year-old male patient with a history of obesity was recently admitted to the hospital due to acute on chronic hypercapnic hypoxemic respiratory failure, along with new bilateral pleural effusions since early June this year. Approximately a month ago, he underwent a coronary artery bypass grafting procedure. During his previous hospitalization, he was treated for congestive heart failure. He has now returned, complaining of shortness of breath. His respiratory status remains largely unchanged since his last hospital stay. A chest CT scan confirmed the presence of bilateral pleural effusions, as seen previously. Given the moderate size of these bilateral pleural effusions, it's highly likely that the patient continues to experience desaturation at night. These relatively new bilateral pleural effusions could be related to his recent cardiac surgery or diastolic heart failure. His obesity also suggests a potential underlying condition of obstructive sleep apnea. Fortunately, the patient is now agreeable to continuing with BiPAP support. The treatment plan is to maintain his current BiPAP support and supplemental oxygen, administer diuretics, and continue DVT prophylaxis. ApneaLink conducted recently showed no evidence of oxyhemoglobin desaturation while on BiPAP support and supplemental oxygen. New ApneaLink study on just supplemental oxygen showed significant oxyhemoglobin desaturation, making sleep disordered breathing highly likely. Plan: The patient should persist with the current BiPAP settings and supplemental oxygen during the night. It's crucial for him to maintain his home BiPAP support and supplemental oxygen, as his cardiorespiratory condition is unlikely to improve without ventilatory assistance and additional oxygen. It's worth mentioning that the patient was recently readmitted to the hospital for a similar issue, most likely due to ongoing overnight oxyhemoglobin desaturation in the absence of home ventilatory support. The patient is set for discharge once his home ventilatory support receives approval. Both the patient and his , who was present at the bedside, have been briefed on the treatment plan. The patient will persist with his congestive heart failure treatment. His confirmed that appointments with his top waddy and cardiac thoracic surgeon have been scheduled for later this week. I've furnished the patient with the pulmonary clinic's business card, advising him to schedule an appointment roughly 3-4 weeks after discharge. There's a need for additional investigation into potential sleep apnea and/or obstructive airway disease. I'm concluding my note now, but please feel free to contact me if you have any questions. (3) Pleural effusion: Code(s): J90 - Pleural effusion, not elsewhere classified Status: Acute (4) CAD (coronary artery disease): Code(s): I25.10 - Atherosclerotic heart disease of [place] coronary artery without angina pectoris Status: Acute Subjective Date/time seen: 07/22/23 09:18 Interval history: Patient without any new respiratory symptoms. Using BiPAP support at night as well as oxygen 3 liters/minute continuously. Review of Systems Review of Systems: All systems reviewed & are unremarkable except as noted in HPI and below (HPI and below) Exam Narrative: GENERAL APPEARANCE: Well developed, well nourished, alert and cooperative, and appears to be in no acute distress while on supplemental oxygen via nasal cannula SKIN: Inspection of the skin reveals no r
[2023-07-22] MEDS: ENOXAPARIN 40 MG/0.4 ML SYRINGE SUB-Q (09:36)
--- NOTE | 2023-07-22 11:45 | PCRCNOTE ---
PT. CURRENTLY HAS O2 WITH [facility]. FAXED BIPAP SETUP TO THEM WELL. PENDING APPROVAL.
[2023-07-22] MEDS: guaiFENesin 12 HR 600 MG TABCR PO ×2 (12:38→20:05)
--- NOTE | 2023-07-22 15:47 | PM.IMPN ---
Progress Note: A&P Time Spent With Patient Time: 77-year-old male residing at home with past medical history hypertension, hyperlipidemia, AFib status post left atrial appendage ligation not on anticoagulation, vertigo, obesity, CAD status post CABG at [facility] on 06/14/2023, bilateral pleural effusions, JUDE noncompliant/refusing NIPPV, diastolic heart failure presenting main complaint of fatigue associated shortness of breath. Admitted on 07/16/2023 Acute on chronic respiratory failure with hypoxia and hypercapnia -multifactorial including obesity/JUDE/heart failure/compliance. -pulmonology consulted. Plan is to can use supplemental oxygen and diuretics and continuous noninvasive positive pressure ventilation support. He has been previously very noncompliant since being readmitted the patient seems understand the dire need for ventilatory support and he has been wearing the mask. -ApneaLink conducted on night of 07/19. Although it was a technically short study does have desaturations on 3 L nasal cannula. He developed transient confusion while his pCO2 was above 70 but it resolved in his pCO2 did not come down. -pulmonology recommendations appreciated. It is felt that due to his pleural effusions, CHF, morbid obesity and severe thoracic spondylosis he will need continuous BiPAP support with backup rate and home base oxygen therapy. This is currently being set up for his home. He has been furnished pulmonology clinics business card to follow up in 3-4 weeks can do additional investigations for sleep apnea/obstructive disease. The patient also has follow-up with dural mechanic and thoracic surgeon. Bilateral pleural effusions -stable moderate size right and small left pleural effusions. -most likely due to decompensated heart failure. Respiratory status currently stable Diastolic heart failure -he appears euvolemic now. Diuresis has been deescalated to his home dose. -surface echocardiogram on 07/05/2023 was technically difficult but did demonstrate concentric left ventricular hypertrophy with normal appearing systolic function. The left ventricular diastolic function was indeterminate. AFib status post left atrial appendage ligation -continue metoprolol 25 mg p.o. q.a.m., this is home dose. JUDE noncompliant/refusing NIPPV at night -he is now amenable to using this since this admission. He is a chronic retainer. Essential hypertension -at goal. Continue metoprolol and olmesartan. Diuretic use adjusted per the above problems Acute on chronic anemia -subacute. Previously his baseline was in the 10s. Since June 30 which included last admission he is now in the low 8. -macrocytic anemia -check iron panel ferritin vitamin B12 and folate. Vitamin B12 borderline low. Check MMA and homocystine levels. -stool occult negative FEN: Saline lock IV. GI prophylaxis: Not indicated DVT prophylaxis: Lovenox 40 mg subQ daily Lines: Peripheral IV Code Status: Full code Dispo: Stable on medical floor. Patient is being set up for BiPAP and oxygen therapy at home. Otherwise he is ready for discharge. Subjective Date/time seen: 07/22/23 15:47 Interval history: No acute overnight events. Patient appears to be comfortable wearing the noninvasive positive-pressure ventilation mask and is amenable to continue wearing it. Review of Systems Review of Systems: All systems reviewed & are unremarkable except as noted in HPI and below (Subjective) Exam Const: General: comfortable and no acute distress Other: Obese. Eyes: Pupils: Equal, round and reactive pupils present Neck: Neck: supple Resp: Effort & Inspection: normal respiratory effort Other: Diminished lung sounds. Dullness at the bilateral bases Cardio: Rate: regular rate Rhythm: regular rhythm GI: GI Palp: Yes Soft to palpation, No Tenderness to palpation present (GI) and No Guarding due to palpation present (GI) Neuro: Other: A&O x3 Extre
[2023-07-23] VITALS (32 sets, daily range): BP systolic 103–130; BP diastolic 66–76; PULSE 82–102; RESP 21–36; TEMP 35.7–36.6; O2SAT 92–100
--- NOTE | 2023-07-23 07:55 | PM.IMPN ---
Progress Note: A&P Time Spent With Patient Time: 77-year-old male residing at home with past medical history hypertension, hyperlipidemia, AFib status post left atrial appendage ligation not on anticoagulation, vertigo, obesity, CAD status post CABG at [facility] on 06/14/2023, bilateral pleural effusions, JUDE noncompliant/refusing NIPPV, diastolic heart failure presenting main complaint of fatigue associated shortness of breath. Admitted on 07/16/202307/22 -will hold discharge. He is complaining of shortness of breath again and can barely eat breakfast. He wore BiPAP at night and we will place him on that continuous again. Check chest x-ray troponin EKG quad viral screen CBC BMP magnesium. We will give him a 1 time DuoNeb and then schedule them afterwards. An ABG is well and will consult pulmonology for optimizing his ventilator settings, suspect he will be hypercapnic. Acute on chronic respiratory failure with hypoxia and hypercapnia -multifactorial including obesity/JUDE/heart failure/compliance. -pulmonology consulted. Plan is to can use supplemental oxygen and diuretics and continuous noninvasive positive pressure ventilation support. He has been previously very noncompliant since being readmitted the patient seems understand the dire need for ventilatory support and he has been wearing the mask. -ApneaLink conducted on night of 07/19. Although it was a technically short study does have desaturations on 3 L nasal cannula. He developed transient confusion while his pCO2 was above 70 but it resolved in his pCO2 did not come down. -pulmonology recommendations appreciated. It is felt that due to his pleural effusions, CHF, morbid obesity and severe thoracic spondylosis he will need continuous BiPAP support with backup rate and home base oxygen therapy. This is currently being set up for his home. He has been furnished pulmonology clinics business card to follow up in 3-4 weeks can do additional investigations for sleep apnea/obstructive disease. The patient also has follow-up with hydraulic miner blasting and thoracic surgeon. Bilateral pleural effusions -stable moderate size right and small left pleural effusions. -most likely due to decompensated heart failure. Respiratory status currently stable Diastolic heart failure -he appears euvolemic now. Diuresis has been deescalated to his home dose. -surface echocardiogram on 07/05/2023 was technically difficult but did demonstrate concentric left ventricular hypertrophy with normal appearing systolic function. The left ventricular diastolic function was indeterminate. AFib status post left atrial appendage ligation -continue metoprolol 25 mg p.o. q.a.m., this is home dose. JUDE noncompliant/refusing NIPPV at night -he is now amenable to using this since this admission. He is a chronic retainer. Essential hypertension -at goal. Continue metoprolol and olmesartan. Diuretic use adjusted per the above problems Acute on chronic anemia -subacute. Previously his baseline was in the 10s. Since June 30 which included last admission he is now in the low 8. -macrocytic anemia -check iron panel ferritin vitamin B12 and folate. Vitamin B12 borderline low. Check MMA and homocystine levels. -stool occult negative FEN: Saline lock IV. GI prophylaxis: Not indicated DVT prophylaxis: Lovenox 40 mg subQ daily Lines: Peripheral IV Code Status: Full code Dispo: Stable on medical floor. Patient is being set up for BiPAP and oxygen therapy at home. Otherwise he is ready for discharge. Subjective Date/time seen: 07/23/23 07:55 Interval history: Patient seen approximately 0730 he is complaining of shortness of breath after taking a few bites his pancakes. He did well overnight otherwise apparently. Denies any chest pain. Review of Systems Review of Systems: All systems reviewed & are unremarkable except as noted in HPI and below (Subjective) Exam Const: General: comfortable Other:
--- NOTE | 2023-07-23 07:56 | ECG_ITS ---
SEE SCANNED COPY FOR CONFIRMED REPORT MTDD
[2023-07-23 08:39] LABS: Basophils Percent Auto 0.3 % (0.2-1.2); Eosinophils Absolute Auto 0.1 K/mm3 (0-0.3); Eosinophils Percent Auto 1.9 % (0-4.4); Hematocrit 28.5 % (42.0-52.0); Hemoglobin 8.1 g/dL (14.0-18.0); Immature Granulocyte Absolute 0.02 K/mm3 (0.00-0.031); Immature Granulocyte Percent A 0.5 % (0-0.5); Lymphocytes Absolute Auto 1.22 K/mm3 (0.9-3.2); Lymphocytes Percent Auto 32.4 % (18.3-44.2); Mean Corpuscular HGB Conc 28.4 g/dl (32-36); Mean Corpuscular Hemoglobin 28.4 pg (26-34); Mean Platelet Volume 8.4 fl (7.4-10.4); Monocytes Absolute Auto 0.3 K/mm3 (0.1-0.6); Monocytes Percent Auto 6.6 % (2.6-8.5); Neutrophils Absolute Auto 2.2 K/mm3 (1.3-6.7); Neutrophils Percent Auto 58.3 % (45.5-73.1); Platelet Count Result 307 k/mm3 (150-375); Red Blood Count 2.85 M/mm3 (4.6-6.20); Red Cell Distribution Width 15.3 % (11.5-14.5); White Blood Count 3.8 K/mm3 (4.5-10.0)
[2023-07-23 08:55] LABS: Blood Urea Nitrogen 15 mg/dL (9-20); Calcium 9.1 mg/dL (8.4-10.2); Carbon Dioxide > 40 mmol/L (22-30); Chloride 90 mmol/L (98-107); Estimated CRCL calculation 82 ml/min; Estimated Glomerular Filt Rate > 60; Glucose 114 mg/dL (65-110); Phosphorus 2.9 mg/dL (2.5-4.5); Potassium 3.8 mmol/L (3.4-5.0); Sodium 136 mmol/L (137-145)
[2023-07-23 09:09] LABS: Troponin I 0.038 ng/mL (0.000-0.034)
[2023-07-23] MEDS: CLOPIDOGREL BISULFATE 75 MG TABLET PO (09:22)
[2023-07-23] MEDS: ENOXAPARIN 40 MG/0.4 ML SYRINGE SUB-Q (09:22)
[2023-07-23] MEDS: OLMESARTAN MEDOXOMIL 10 MG TABLET PO (09:22)
[2023-07-23] MEDS: guaiFENesin 12 HR 600 MG TABCR PO ×2 (09:22→21:20)
[2023-07-23] MEDS: EZETIMIBE 10 MG TABLET PO (09:23)
[2023-07-23] MEDS: METOPROLOL SUCCINATE EXT REL 25 MG TABCR PO (09:23)
[2023-07-23] MEDS: FUROSEMIDE 40 MG TABLET PO (09:23)
[2023-07-23] MEDS: IPRATROPIUM 0.5 MG/ALBUTEROL SULFATE 2.5 MG AMPUL.NEB 3 ML INHALATION ×3 (09:40→21:15)
[2023-07-23 09:45] LABS: Anisocytosis 1+; Hypochromasia 1+; Microcytosis 1+ (NORMAL); Platelet Estimate Adequate (Adequate); Schistocytes None Seen
[2023-07-23 09:47] LABS: Alveolar/Arterial O2 Gradient 72.9 mmHg; Base Excess ABG 17.5 mEq/l (+/-2.0); Carboxyhemoglobin 1.4 % THb (0-2.0); Fractional Inspired Oxygen 32 %; HCO3 ABG 43.7 mEq/l (22.0-26.0); Methemoglobin ABG 0.3 %THb (0-1.5); Oxygen Content ABG 12.5 %vol (16.0-22.0); Oxygen Saturation ABG 96.1 % (95.0-100.0); Oxyhemoglobin 94.6 % THb (90.0-100.0); PO2 ABG 81.2 mmHg (80.0-100.0); PO2 FiO2 Ratio Arterial Blood 2.54 %; Reduced Hemoglobin 3.7 %THb (0-5.0); Total Hemoglobin 9.3 g/dL (12.0-18.0); pH ABG 7.457 (7.350-7.450)
[2023-07-23 09:50] LABS: Device BIPAP; Modified Allen's Test Pass; PCO2 ABG 63.3 mmHg (35.0-45.0); Site Drawn RIGHT RADIAL
[2023-07-23 09:51] LABS: Expiratory Pressure 7 cmH2O; Inspiratory Pressure 14 cmH2O
[2023-07-23 10:27] LABS: Influenza A QL RT-PCR Negative (Negative); Influenza B QL RT-PCR Negative (Negative); RSV RNA, RT-PCR Negative (Negative); SARS-CoV-2 RNA PCR Negative (Negative)
--- NOTE | 2023-07-23 13:57 | PCPTNOTE ---
Attempted to see patient for PT, however patient was out of the room for procedure.
--- NOTE | 2023-07-23 14:54 | PC.NURSE ---
Notified Dr. Borjas of CTA results. New order to change PO Furosemide to 40mg IVP Furosemide TID first dose now
[2023-07-23] MEDS: FUROSEMIDE INJ 40 MG/4 ML VIAL IV PUSH (15:05)
--- NOTE | 2023-07-23 15:09 | PM.PNPUL ---
Progress Note: A&P Assessment and Plan (1) Acute on chronic respiratory failure with hypoxemia: Code(s): J96.21 - Acute and chronic respiratory failure with hypoxia Status: Acute (2) Respiratory failure with hypoxia and hypercapnia: Code(s): J96.91 - Respiratory failure, unspecified with hypoxia; J96.92 - Respiratory failure, unspecified with hypercapnia Status: Acute Assessment and Plan: A 77-year-old male patient with a history of obesity was recently admitted to the hospital due to acute on chronic hypercapnic hypoxemic respiratory failure, along with new bilateral pleural effusions since early June this year. Approximately a month ago, he underwent a coronary artery bypass grafting procedure. During his previous hospitalization, he was treated for congestive heart failure. He has now returned, complaining of shortness of breath. His respiratory status remains largely unchanged since his last hospital stay. A chest CT scan confirmed the presence of bilateral pleural effusions, as seen previously. Given the moderate size of these bilateral pleural effusions, it's highly likely that the patient continues to experience desaturation at night. These relatively new bilateral pleural effusions could be related to his recent cardiac surgery or diastolic heart failure. His obesity also suggests a potential underlying condition of obstructive sleep apnea. Fortunately, the patient is now agreeable to continuing with BiPAP support. The treatment plan is to maintain his current BiPAP support and supplemental oxygen, administer diuretics, and continue DVT prophylaxis. ApneaLink conducted recently showed no evidence of oxyhemoglobin desaturation while on BiPAP support and supplemental oxygen. New ApneaLink study on just supplemental oxygen showed significant oxyhemoglobin desaturation, making sleep disordered breathing highly likely. Earlier today, the patient experienced an increased incidence of shortness of breath while lying down, prompting a return to BiPAP support. The arterial blood gases didn't show any significant alterations while on BiPAP. The patient subsequently underwent a CT pulmonary angiogram (CT PA) to rule out the possibility of a pulmonary embolism. The CT PA results indicated no presence of a pulmonary embolism. However, the patient continued to exhibit bilateral pleural effusions, with a moderately large one on the right and a smaller one on the left. The previously noted right lower lobe atelectasis remained unchanged, with no new infiltrates observed. Despite diuresis and BiPAP support, the pleural effusions persist. Considering the patient's recent history of coronary artery bypass grafting, which can often be linked to chronic pleural effusions, a repeat right thoracentesis prior to discharge home may be beneficial for the patient. Plan: proceed with repeat thoracentesis on right. The patient cannot be discharged home home at this point. The case was discussed with the patient's hospitalist. (3) Pleural effusion: Code(s): J90 - Pleural effusion, not elsewhere classified Status: Acute (4) CAD (coronary artery disease): Code(s): I25.10 - Atherosclerotic heart disease of [place] coronary artery without angina pectoris Status: Acute Subjective Date/time seen: 07/23/23 15:09 Interval history: Patient had increasing shortness of breath while in bed earlier today. He was placed back on continues BiPAP support. Currently he has no new respiratory symptoms. Specifically he denied having chest pain palpitations orthopnea hemoptysis cough or wheezing. Review of Systems Review of Systems: All systems reviewed & are unremarkable except as noted in HPI and below (HPI and below) Exam Narrative: GENERAL APPEARANCE: Well developed, well nourished, alert and cooperative, and appears to be in no acute distress while on supplemental oxygen via nasal cannula SKIN: Inspection of the skin reveals
[2023-07-24] VITALS (28 sets, daily range): BP systolic 115–135; BP diastolic 60–78; PULSE 83–105; RESP 16–29; TEMP 36–36.5; O2SAT 91–100
[2023-07-24] MEDS: IPRATROPIUM 0.5 MG/ALBUTEROL SULFATE 2.5 MG AMPUL.NEB 3 ML INHALATION ×4 (02:25→19:54)
[2023-07-24 03:35] LABS: Hematocrit 29.8 % (42.0-52.0); Hemoglobin 8.7 g/dL (14.0-18.0); Mean Corpuscular HGB Conc 29.2 g/dl (32-36); Mean Corpuscular Hemoglobin 28.4 pg (26-34); Mean Corpuscular Volume 97.4 fl (80-100); Platelet Count Result 305 k/mm3 (150-375); Red Blood Count 3.06 M/mm3 (4.6-6.20); Red Cell Distribution Width 15.8 % (11.5-14.5)
[2023-07-24 03:47] LABS: Partial Thromboplastin Time 29.5 Seconds (22.3-36.8)
[2023-07-24 04:00] LABS: Alanine Aminotransferase 27 U/L (6-50); Albumin Level 3.8 g/dL (3.5-5.1); Alkaline Phosphatase 172 U/L (38-126); Aspartate Amino Transferase 31 U/L (17-59); Bilirubin,Total 0.8 mg/dL (0.2-1.3); Blood Urea Nitrogen 17 mg/dL (9-20); Calcium 9.2 mg/dL (8.4-10.2); Carbon Dioxide > 40 mmol/L (22-30); Chloride 89 mmol/L (98-107); Estimated CRCL calculation 74 ml/min; Estimated Glomerular Filt Rate > 60; Glucose 110 mg/dL (65-110); Magnesium 2.2 mg/dL (1.6-2.3); Potassium 3.5 mmol/L (3.4-5.0); Sodium 138 mmol/L (137-145)
[2023-07-24 04:41] LABS: Lactate Dehydrogenase 184 U/L (120-246)
--- NOTE | 2023-07-24 08:34 | PCPTNOTE ---
Patient refused treatment session this morning on 07/24/2023. Encouraged patient to participate in PT, however patient continued to refuse.
[2023-07-24] MEDS: OLMESARTAN MEDOXOMIL 10 MG TABLET PO (09:12)
[2023-07-24] MEDS: guaiFENesin 12 HR 600 MG TABCR PO ×2 (09:12→20:45)
[2023-07-24] MEDS: METOPROLOL SUCCINATE EXT REL 25 MG TABCR PO (09:12)
[2023-07-24] MEDS: EZETIMIBE 10 MG TABLET PO (09:12)
[2023-07-24] MEDS: FUROSEMIDE 40 MG TABLET PO (09:14)
--- NOTE | 2023-07-24 09:21 | PM.IMPN ---
Progress Note: A&P Time Spent With Patient Time: 77-year-old male residing at home with past medical history hypertension, hyperlipidemia, AFib status post left atrial appendage ligation not on anticoagulation, vertigo, obesity, CAD status post CABG at [facility] on 06/14/2023, bilateral pleural effusions, JUDE noncompliant/refusing NIPPV, diastolic heart failure presenting main complaint of fatigue associated shortness of breath. Admitted on 07/16/202307/22 -will hold discharge. He is complaining of shortness of breath again and can barely eat breakfast. He wore BiPAP at night and we will place him on that continuous again. Check chest x-ray troponin EKG quad viral screen CBC BMP magnesium. We will give him a 1 time DuoNeb and then schedule them afterwards. An ABG is well and will consult pulmonology for optimizing his ventilator settings, suspect he will be hypercapnic. 07/23 -pending right side thoracentesis Acute on chronic respiratory failure with hypoxia and hypercapnia -multifactorial including obesity/JUDE/heart failure/compliance. -pulmonology consulted. Plan is to can use supplemental oxygen and diuretics and continuous noninvasive positive pressure ventilation support. He has been previously very noncompliant since being readmitted the patient seems understand the dire need for ventilatory support and he has been wearing the mask. -ApneaLink conducted on night of 07/19. Although it was a technically short study does have desaturations on 3 L nasal cannula. He developed transient confusion while his pCO2 was above 70 but it resolved in his pCO2 did not come down. -pulmonology recommendations appreciated. It is felt that due to his pleural effusions, CHF, morbid obesity and severe thoracic spondylosis he will need continuous BiPAP support with backup rate and home base oxygen therapy. This is currently being set up for his home. He has been furnished pulmonology clinics business card to follow up in 3-4 weeks can do additional investigations for sleep apnea/obstructive disease. The patient also has follow-up with corporate law specialist and thoracic surgeon. Bilateral pleural effusions -stable moderate size right and small left pleural effusions. -most likely due to decompensated heart failure. Respiratory status currently stable Diastolic heart failure -he appears euvolemic now. Diuresis has been deescalated to his home dose. -surface echocardiogram on 07/05/2023 was technically difficult but did demonstrate concentric left ventricular hypertrophy with normal appearing systolic function. The left ventricular diastolic function was indeterminate. AFib status post left atrial appendage ligation -continue metoprolol 25 mg p.o. q.a.m., this is home dose. JUDE noncompliant/refusing NIPPV at night -he is now amenable to using this since this admission. He is a chronic retainer. Essential hypertension -at goal. Continue metoprolol and olmesartan. Diuretic use adjusted per the above problems Acute on chronic anemia -subacute. Previously his baseline was in the 10s. Since June 30 which included last admission he is now in the low 8. -macrocytic anemia -check iron panel ferritin vitamin B12 and folate. Vitamin B12 borderline low. Check MMA and homocystine levels. -stool occult negative FEN: Saline lock IV. GI prophylaxis: Not indicated DVT prophylaxis: Lovenox 40 mg subQ daily Lines: Peripheral IV Code Status: Full code Dispo: Stable on medical floor. Patient is being set up for BiPAP and oxygen therapy at home. Otherwise he is ready for discharge. Subjective Date/time seen: 07/24/23 09:21 Interval history: No acute overnight events Review of Systems Review of Systems: All systems reviewed & are unremarkable except as noted in HPI and below (Subjective) Exam Const: General: comfortable Other: Slightly distressed due to his shortness of breath Eyes: Pupils: Equal, round and reactive pupils present
--- NOTE | 2023-07-24 11:54 | PCNWS ---
Weekly nutritional screen. Patient is tolerating current diet with adequate intake. Pt missed a few meal intakes because of being on bipap. He did eat a late breakfast which was not recorded. Intakes are good, just having breathing issues. No weight loss reported. No nutritional needs at this time.
--- NOTE | 2023-07-24 13:42 | PM.PNPUL ---
Progress Note: A&P Assessment and Plan (1) Acute on chronic respiratory failure with hypoxemia: Code(s): J96.21 - Acute and chronic respiratory failure with hypoxia Status: Acute (2) Respiratory failure with hypoxia and hypercapnia: Code(s): J96.91 - Respiratory failure, unspecified with hypoxia; J96.92 - Respiratory failure, unspecified with hypercapnia Status: Acute Assessment and Plan: A 77-year-old male patient with a history of obesity was recently admitted to the hospital due to acute on chronic hypercapnic hypoxemic respiratory failure, along with new bilateral pleural effusions since early June this year. Approximately a month ago, he underwent a coronary artery bypass grafting procedure. During his previous hospitalization, he was treated for congestive heart failure. He has now returned, complaining of shortness of breath. His respiratory status remains largely unchanged since his last hospital stay. A chest CT scan confirmed the presence of bilateral pleural effusions, as seen previously. Given the moderate size of these bilateral pleural effusions, it's highly likely that the patient continues to experience desaturation at night. These relatively new bilateral pleural effusions could be related to his recent cardiac surgery or diastolic heart failure. His obesity also suggests a potential underlying condition of obstructive sleep apnea. Fortunately, the patient is now agreeable to continuing with BiPAP support. The treatment plan is to maintain his current BiPAP support and supplemental oxygen, administer diuretics, and continue DVT prophylaxis. ApneaLink conducted recently showed no evidence of oxyhemoglobin desaturation while on BiPAP support and supplemental oxygen. New ApneaLink study on just supplemental oxygen showed significant oxyhemoglobin desaturation, making sleep disordered breathing highly likely. Yesterday, the patient experienced an increased incidence of shortness of breath while lying down, prompting a return to continues BiPAP support. The arterial blood gases didn't show any significant alterations while on BiPAP. The patient subsequently underwent a CT pulmonary angiogram (CT PA) to rule out the possibility of a pulmonary embolism. The CT PA results indicated no presence of a pulmonary embolism. However, the patient continued to exhibit bilateral pleural effusions, with a moderately large one on the right and a smaller one on the left. The previously noted right lower lobe atelectasis remained unchanged, with no new infiltrates observed. Despite diuresis and BiPAP support, the pleural effusions persist. Considering the patient's recent history of coronary artery bypass grafting, which can often be linked to chronic pleural effusions, a repeat right thoracentesis prior to discharge home may be beneficial for the patient. Plan: Await thoracentesis on right. Patient can be switched to BiPAP support just at night. May increase diuretic to b.i.d. starting in a.m.. The case was discussed with the patient's hospitalist. (3) Pleural effusion: Code(s): J90 - Pleural effusion, not elsewhere classified Status: Acute (4) CAD (coronary artery disease): Code(s): I25.10 - Atherosclerotic heart disease of [place] coronary artery without angina pectoris Status: Acute Subjective Date/time seen: 07/24/23 13:42 Interval history: Patient has no new respiratory symptoms. He continues to be on BiPAP support. Afebrile Review of Systems Review of Systems: All systems reviewed & are unremarkable except as noted in HPI and below (HPI and below) Exam Narrative: GENERAL APPEARANCE: Well developed, well nourished, alert and cooperative, and appears to be in no acute distress while on supplemental oxygen via nasal cannula SKIN: Inspection of the skin reveals no rashes, ulcerations or petechiae. HEENT: Sclerae anicteric and conjunctivae pink and moist. Extraocular movements were intac
[2023-07-25] VITALS (26 sets, daily range): BP systolic 102–128; BP diastolic 52–74; PULSE 78–95; RESP 18–22; TEMP 36–36.6; O2SAT 93–100
[2023-07-25] MEDS: IPRATROPIUM 0.5 MG/ALBUTEROL SULFATE 2.5 MG AMPUL.NEB 3 ML INHALATION ×4 (02:01→20:16)
[2023-07-25 04:59] LABS: Hematocrit 27.1 % (42.0-52.0); Hemoglobin 7.9 g/dL (14.0-18.0); Mean Corpuscular HGB Conc 29.2 g/dl (32-36); Mean Corpuscular Hemoglobin 28.2 pg (26-34); Mean Corpuscular Volume 96.8 fl (80-100); Mean Platelet Volume 8.7 fl (7.4-10.4); Platelet Count Result 289 k/mm3 (150-375); Red Cell Distribution Width 15.7 % (11.5-14.5); White Blood Count 3.7 K/mm3 (4.5-10.0)
[2023-07-25 05:14] LABS: Blood Urea Nitrogen 18 mg/dL (9-20); Calcium 8.9 mg/dL (8.4-10.2); Carbon Dioxide > 40 mmol/L (22-30); Chloride 94 mmol/L (98-107); Estimated CRCL calculation 67 ml/min; Estimated Glomerular Filt Rate > 60; Glucose 105 mg/dL (65-110); Magnesium 2.1 mg/dL (1.6-2.3); Potassium 3.6 mmol/L (3.4-5.0); Sodium 140 mmol/L (137-145)
--- NOTE | 2023-07-25 08:47 | PM.PNPUL ---
Progress Note: A&P Assessment and Plan (1) Acute on chronic respiratory failure with hypoxemia: Code(s): J96.21 - Acute and chronic respiratory failure with hypoxia Status: Acute (2) Respiratory failure with hypoxia and hypercapnia: Code(s): J96.91 - Respiratory failure, unspecified with hypoxia; J96.92 - Respiratory failure, unspecified with hypercapnia Status: Acute Assessment and Plan: A 77-year-old male patient with a history of obesity was recently admitted to the hospital due to acute on chronic hypercapnic hypoxemic respiratory failure, along with new bilateral pleural effusions since early June this year. Approximately a month ago, he underwent a coronary artery bypass grafting procedure. During his previous hospitalization, he was treated for congestive heart failure. He has now returned, complaining of shortness of breath. His respiratory status remains largely unchanged since his last hospital stay. A chest CT scan confirmed the presence of bilateral pleural effusions, as seen previously. Given the moderate size of these bilateral pleural effusions, it's highly likely that the patient continues to experience desaturation at night. These relatively new bilateral pleural effusions could be related to his recent cardiac surgery or diastolic heart failure. His obesity also suggests a potential underlying condition of obstructive sleep apnea. Fortunately, the patient is now agreeable to continuing with BiPAP support. The treatment plan is to maintain his current BiPAP support and supplemental oxygen, administer diuretics, and continue DVT prophylaxis. ApneaLink conducted recently showed no evidence of oxyhemoglobin desaturation while on BiPAP support and supplemental oxygen. New ApneaLink study on just supplemental oxygen showed significant oxyhemoglobin desaturation, making sleep disordered breathing highly likely. Given the persistence of bilateral pleural effusions despite the use of diuretics, we will proceed with another thoracentesis on the right side. It's plausible that the recent cardiac surgery could have led to resistant pleural effusions. Typically, in such scenarios, repeat thoracentesis often results in reduction of these effusions. Plan: Await thoracentesis on right. May increase diuretic to b.i.d. starting in a.m.. The case was discussed with the patient's hospitalist. (3) Pleural effusion: Code(s): J90 - Pleural effusion, not elsewhere classified Status: Acute (4) CAD (coronary artery disease): Code(s): I25.10 - Atherosclerotic heart disease of [place] coronary artery without angina pectoris Status: Acute Subjective Date/time seen: 07/25/23 08:47 Interval history: Patient has no new respiratory symptoms. Using BiPAP support every night. Waiting for right thoracentesis Review of Systems Review of Systems: All systems reviewed & are unremarkable except as noted in HPI and below (HPI and below) Exam Narrative: GENERAL APPEARANCE: Well developed, well nourished, alert and cooperative, and appears to be in no acute distress while on supplemental oxygen via nasal cannula SKIN: Inspection of the skin reveals no rashes, ulcerations or petechiae. HEENT: Sclerae anicteric and conjunctivae pink and moist. Extraocular movements were intact and pupils were equal, round, and reactive to light. The oral mucosa, hard and soft palate, tongue and posterior pharynx were normal. NECK: Supple. There was no thyroid enlargement, and no tenderness, or masses were felt. CHEST: Normal AP diameter and normal contour without any kyphoscoliosis. LUNGS: Dullness to percussion and decreased breath sounds at bases posteriorly no wheezing CARDIAC: There was a regular rate and rhythm without any murmurs, gallops, rubs. ABDOMEN: Soft and nontender with normal bowel sounds. There was no organomegaly. LYMPH NODES: No lymphadenopathy was appreciated in the neck. EXTREMITIES: No cyanosis, clubbing
[2023-07-25] MEDS: EZETIMIBE 10 MG TABLET PO (10:43)
[2023-07-25] MEDS: METOPROLOL SUCCINATE EXT REL 25 MG TABCR PO (10:43)
[2023-07-25] MEDS: OLMESARTAN MEDOXOMIL 10 MG TABLET PO (10:43)
[2023-07-25] MEDS: FUROSEMIDE 40 MG TABLET PO (10:44)
[2023-07-25] MEDS: guaiFENesin 12 HR 600 MG TABCR PO ×2 (10:44→20:59)
--- NOTE | 2023-07-25 15:40 | PM.IMPN ---
Progress Note: A&P Time Spent With Patient Time: 77-year-old male residing at home with past medical history hypertension, hyperlipidemia, AFib status post left atrial appendage ligation not on anticoagulation, vertigo, obesity, CAD status post CABG at [facility] on 06/14/2023, bilateral pleural effusions, JUDE noncompliant/refusing NIPPV, diastolic heart failure presenting main complaint of fatigue associated shortness of breath. Admitted on 07/16/202307/22 -will hold discharge. He is complaining of shortness of breath again and can barely eat breakfast. He wore BiPAP at night and we will place him on that continuous again. Check chest x-ray troponin EKG quad viral screen CBC BMP magnesium. We will give him a 1 time DuoNeb and then schedule them afterwards. An ABG is well and will consult pulmonology for optimizing his ventilator settings, suspect he will be hypercapnic. 07/23 -pending right side thoracentesis July 24 update: NPO midnight. Thoracentesis is planned for tomorrow per radiology since he was receiving Plavix. His blood thinners and antiplatelets are on hold. His breathing is good today. Continue to appreciate pulmonology recommendations. Increase Lasix starting tomorrow to 40 mg p.o. b.i.d.. Hopefully home after thoracentesis if his respiratory status and the procedure is uncomplicated. Acute on chronic respiratory failure with hypoxia and hypercapnia -multifactorial including obesity/JUDE/heart failure/compliance. -pulmonology consulted. Plan is to can use supplemental oxygen and diuretics and continuous noninvasive positive pressure ventilation support. He has been previously very noncompliant since being readmitted the patient seems understand the dire need for ventilatory support and he has been wearing the mask. -ApneaLink conducted on night of 07/19. Although it was a technically short study does have desaturations on 3 L nasal cannula. He developed transient confusion while his pCO2 was above 70 but it resolved in his pCO2 did not come down. -pulmonology recommendations appreciated. It is felt that due to his pleural effusions, CHF, morbid obesity and severe thoracic spondylosis he will need continuous BiPAP support with backup rate and home base oxygen therapy. This is currently being set up for his home. He has been furnished pulmonology clinics business card to follow up in 3-4 weeks can do additional investigations for sleep apnea/obstructive disease. The patient also has follow-up with viscose department worker and thoracic surgeon. Bilateral pleural effusions -stable moderate size right and small left pleural effusions. -most likely due to decompensated heart failure. Respiratory status currently stable Diastolic heart failure -he appears euvolemic now. Diuresis has been deescalated to his home dose. -surface echocardiogram on 07/05/2023 was technically difficult but did demonstrate concentric left ventricular hypertrophy with normal appearing systolic function. The left ventricular diastolic function was indeterminate. AFib status post left atrial appendage ligation -continue metoprolol 25 mg p.o. q.a.m., this is home dose. JUDE noncompliant/refusing NIPPV at night -he is now amenable to using this since this admission. He is a chronic retainer. Essential hypertension -at goal. Continue metoprolol and olmesartan. Diuretic use adjusted per the above problems Acute on chronic anemia -subacute. Previously his baseline was in the 10s. Since June 30 which included last admission he is now in the low 8. -macrocytic anemia -check iron panel ferritin vitamin B12 and folate. Vitamin B12 borderline low. Check MMA and homocystine levels. -stool occult negative FEN: Saline lock IV. Heart healthy diet. NPO midnight. GI prophylaxis: Not indicated DVT prophylaxis: SCDs only. Lines: Peripheral IV Code Status: Full code Dispo: Stable on telemetry floor. Subjective Date/time seen: 07/25/23 15:40 Mikea
[2023-07-26] VITALS (17 sets, daily range): BP systolic 105–133; BP diastolic 62–80; PULSE 80–98; RESP 16–23; TEMP 36.3–36.6; O2SAT 85–100
[2023-07-26] MEDS: MELATONIN 3 MG TABLET PO (00:06)
[2023-07-26] MEDS: IPRATROPIUM 0.5 MG/ALBUTEROL SULFATE 2.5 MG AMPUL.NEB 3 ML INHALATION ×3 (01:50→12:36)
[2023-07-26 05:09] LABS: INR 1.1; Prothrombin Time 14.6 Seconds (11.1-14.7)
[2023-07-26 05:10] LABS: Partial Thromboplastin Time 29.6 Seconds (22.3-36.8)
[2023-07-26 05:21] LABS: Blood Urea Nitrogen 18 mg/dL (9-20); Calcium 8.8 mg/dL (8.4-10.2); Carbon Dioxide > 40 mmol/L (22-30); Chloride 94 mmol/L (98-107); Estimated CRCL calculation 67 ml/min; Estimated Glomerular Filt Rate > 60; Glucose 108 mg/dL (65-110); Magnesium 2.1 mg/dL (1.6-2.3); Potassium 3.9 mmol/L (3.4-5.0); Sodium 139 mmol/L (137-145)
[2023-07-26 05:35] LABS: Hematocrit 27.6 % (42.0-52.0); Hemoglobin 8.1 g/dL (14.0-18.0); Mean Corpuscular HGB Conc 29.3 g/dl (32-36); Mean Corpuscular Volume 98.9 fl (80-100); Mean Platelet Volume 8.7 fl (7.4-10.4); Platelet Count Result 274 k/mm3 (150-375); Red Blood Count 2.79 M/mm3 (4.6-6.20); Red Cell Distribution Width 15.6 % (11.5-14.5); White Blood Count 3.6 K/mm3 (4.5-10.0)
[2023-07-26] MEDS: EZETIMIBE 10 MG TABLET PO (08:50)
[2023-07-26] MEDS: OLMESARTAN MEDOXOMIL 10 MG TABLET PO (08:50)
[2023-07-26] MEDS: guaiFENesin 12 HR 600 MG TABCR PO (08:51)
[2023-07-26] MEDS: METOPROLOL SUCCINATE EXT REL 25 MG TABCR PO (08:51)
[2023-07-26] MEDS: FUROSEMIDE 40 MG TABLET PO (08:51)
--- NOTE | 2023-07-26 09:20 | PC.NURSE ---
Pt to ultrasound for thoracentesis via stretcher
--- NOTE | 2023-07-26 10:06 | PC.NURSE ---
Pt returned from ultrasound via stretcher with no issues noted
[2023-07-26 10:23] LABS: pH Pleural Fluid > 7.500 (7.210-7.500)
--- NOTE | 2023-07-26 10:44 | PM.PNPUL ---
Progress Note: A&P Assessment and Plan (1) Acute on chronic respiratory failure with hypoxemia: Code(s): J96.21 - Acute and chronic respiratory failure with hypoxia Status: Acute (2) Respiratory failure with hypoxia and hypercapnia: Code(s): J96.91 - Respiratory failure, unspecified with hypoxia; J96.92 - Respiratory failure, unspecified with hypercapnia Status: Acute Assessment and Plan: A 77-year-old male patient with a history of obesity was recently admitted to the hospital due to acute on chronic hypercapnic hypoxemic respiratory failure, along with new bilateral pleural effusions since early June this year. Approximately a month ago, he underwent a coronary artery bypass grafting procedure. During his previous hospitalization, he was treated for congestive heart failure. He has now returned, complaining of shortness of breath. His respiratory status remains largely unchanged since his last hospital stay. A chest CT scan confirmed the presence of bilateral pleural effusions, as seen previously. Given the moderate size of these bilateral pleural effusions, it's highly likely that the patient continues to experience desaturation at night. These relatively new bilateral pleural effusions could be related to his recent cardiac surgery or diastolic heart failure. His obesity also suggests a potential underlying condition of obstructive sleep apnea. Fortunately, the patient is now agreeable to continuing with BiPAP support. The treatment plan is to maintain his current BiPAP support and supplemental oxygen, administer diuretics, and continue DVT prophylaxis. ApneaLink conducted recently showed no evidence of oxyhemoglobin desaturation while on BiPAP support and supplemental oxygen. New ApneaLink study on just supplemental oxygen showed significant oxyhemoglobin desaturation, making sleep disordered breathing highly likely. Given the persistence of bilateral pleural effusions despite the use of diuretics, we will proceed with another thoracentesis on the right side. It's plausible that the recent cardiac surgery could have led to resistant pleural effusions. Typically, in such scenarios, repeat thoracentesis often results in reduction of these effusions. Patient underwent right thoracentesis today. Chest x-ray post procedure showed small residual pleural effusion on right and also a small effusion on left. Respiratory status has improved and has been stable over the last 48 hours. Plan: Okay to discharge patient home. The patient will need to continue with a diuretic, BiPAP support at night 14/7, supplemental oxygen 4 liters/minute at night. Prior to DC home I would do home oxygen evaluation. Patient has a point to come back to Pulmonary Clinics to see os in approximately 2-3 weeks. I just talked to the patient's regarding the treatment plan. I will sign off. Please call with any questions. (3) Pleural effusion: Code(s): J90 - Pleural effusion, not elsewhere classified Status: Acute (4) CAD (coronary artery disease): Code(s): I25.10 - Atherosclerotic heart disease of [place] coronary artery without angina pectoris Status: Acute Subjective Date/time seen: 07/26/23 10:44 Interval history: Patient has no new respiratory symptoms. He used BiPAP support last night. Underwent right thoracentesis again earlier today. Review of Systems Review of Systems: All systems reviewed & are unremarkable except as noted in HPI and below (Subjective) Exam Narrative: GENERAL APPEARANCE: Well developed, well nourished, alert and cooperative, and appears to be in no acute distress while on supplemental oxygen via nasal cannula SKIN: Inspection of the skin reveals no rashes, ulcerations or petechiae. HEENT: Sclerae anicteric and conjunctivae pink and moist. Extraocular movements were intact and pupils were equal, round, and reactive to light. The oral mucosa, hard and soft palate, tongue and posterior p
[2023-07-26 11:09] LABS: Methylmalonic Acid 260 nmol/L (87-318)
[2023-07-26 11:29] LABS: Appearance Pleural Fluid Hazy (Clear); Color Pleural Fluid Yellow (Colorless); Lymphocytes Pleural Fluid 53 %; Macrophages Pleural Fluid 9 %; Monocytes Pleural Fluid 2 %; Neutrophils Pleural Fluid 13 % (0-25); Pleural fluid source Pleural fluid
[2023-07-26 11:30] LABS: Mesothelial Cells Pleural Flui 23 %
--- NOTE | 2023-07-26 12:28 | PM.DS ---
DS: Admitting Diagnosis Discharge Date July 26, 2023 Admitting Diagnosis Shortness of breath DS: Discharge Diagnosis Discharge Diagnosis (1) Acute on chronic respiratory failure with hypoxemia: Code(s): J96.21 - Acute and chronic respiratory failure with hypoxia Status: Acute DS: Summary Hospital Course Hospital Course: 77-year-old male residing at home with past medical history hypertension, hyperlipidemia, AFib status post left atrial appendage ligation not on anticoagulation, vertigo, obesity, CAD status post CABG at [facility] on 06/14/2023, bilateral pleural effusions, diastolic heart failure presenting main complaint of fatigue associated shortness of breath.? Admitted on 07/16/2023 He was found to have acute on chronic hypercapnic hypoxemic respiratory failure. He was treated with nighttime BiPAP therapy intermittent with BiPAP during the day. Pulmonology was consulted. He had been previously noncompliant on this admission with further counseling he has been exceptional in his complaints with the ventilatory support. And he voices he will continue compliance at home. He was provided diuresis to take some extra fluid off. In addition on 07/25 a right-sided thoracentesis was performed which yielded 1000 mL of yellowish fluid. Pleural fluid studies are pending preliminary. He is breathing well. In fact, he is requesting to return home as his breathing is better than it was when he was at home. Therefore he is stable for discharge to home. He will be seen in the pulmonology clinic in 2-3 weeks. A walk test is performed and he is being provided oxygen as well. He was full code during the admission. The patient was satisfied with the course of his hospital stay and all of his questions and concerns were answered to satisfaction. Plavix with held for a few days for thoracentesis but it is being restarted on discharge. Does have a follow-up with his jewel stringer and his cardiac surgeon before the end of the month. This was discussed with his as well,. Time Spent with Patient Time attestation: Total time spent providing and/or coordinating discharge services: Exam Const: General: comfortable and no acute distress Other: Obese. A&O x4. Eyes: Pupils: Equal, round and reactive pupils present Neck: Neck: supple Resp: Effort & Inspection: normal respiratory effort Other: Diminished lung sounds at the bases Cardio: Rate: regular rate Rhythm: regular rhythm GI: GI Palp: Yes Soft to palpation and No Tenderness to palpation present (GI) Extrem: General: edema (Trivial pitting edema of the bilateral lower extremities below the knee) DS: Data Data Completed and Pending Pending studies at discharge: Pending at discharge 07/26/23 09:30 Cytology [PTH] Routine Labs on day of discharge: Labs from last 24 hours 07/26/23 07/26/23 07/26/23 09:52 09:48 04:29 WBC 3.6 L RBC 2.79 L Hgb 8.1 L Hct 27.6 L MCV 98.9 MCH 29.0 MCHC 29.3 L RDW 15.6 H Plt Count 274 MPV 8.7 PT 14.6 INR 1.1 APTT 29.6 Sodium 139 Potassium 3.9 Chloride 94 L Carbon Dioxide > 40 H Anion Gap BUN 18 Creatinine 1.10 Estim Creat Clear Calc 67 Estimated GFR > 60 Glucose 108 Calcium 8.8 Magnesium 2.1 Methylmalonic Acid Pleural Fluid Source Pleural fluid Pleural Color Yellow Pleural Appearance Hazy Pleural pH > 7.500 H Pleural RBC TNP Pleural Nuc Cells TNP Pleural Neutrophils 13 Pleural Lymphocytes 53 Pleural Monocytes 2 Pleural Macrophages 9 Pleural Mesothelial 23 Pleural Total Protein Pending Pleural Albumin Pending Pleural LDH Pending Pleural Glucose Pending 07/22/23 03:41 WBC RBC Hgb Hct MCV MCH MCHC RDW Plt Count MPV PT INR APTT Sodium Potassium Chloride Carbon Dioxide Anion Gap BUN Creatinine Estim Creat Clear Calc Estima
--- NOTE | 2023-07-26 13:38 | HOMEO2EVAL ---
Evaluation was performed at [facility] Home Oxygen Evaluation RC: Home Oxygen (O2) Evaluation Start: 07/26/23 12:08 Freq: ONCE Status: Active Protocol: RPE Activity Type Activity Date Activity User E-sign Co-sign Detail Recorded Client Recorded Date Recorded By Document 07/26/23 12:50 [email or web address] [email or web address] 07/26/23 13:38 DJO Document 07/26/23 12:55 [email or web address] [email or web address] 07/26/23 13:38 DJO Document 07/26/23 13:00 [email or web address] [email or web address] 07/26/23 13:38 DJO Document 07/26/23 13:05 [email or web address] [email or web address] 07/26/23 13:38 DJO Document 07/26/23 13:10 [email or web address] [email or web address] 07/26/23 13:38 DJO Document 07/26/23 13:25 [email or web address] [email or web address] 07/26/23 13:38 DJO 07/26/23 07/26/23 07/26/23 12:50 12:55 13:00 Home O2 Evaluation [Oxygen] -Test Phase Resting Resting Resting -Oxygen Delivery Room Air Nasal Cannula Nasal Cannula -Oxygen Flow Rate (L/min) 1 2 [Pulse Oximetry] -Pulse Oximetry (90-100 %) 85 L 87 L 88 L [Pulse Rate] -Pulse Rate (60-100 beats/min) 86 85 84 [Evaluation] -Activity Tolerance [Charges] -Evaluation Charges O2 Evaluation by Pulmonary 07/26/23 07/26/23 07/26/23 13:05 13:10 13:25 Home O2 Evaluation [Oxygen] -Test Phase Resting Exercise Resting -Oxygen Delivery Nasal Cannula Nasal Cannula Nasal Cannula -Oxygen Flow Rate (L/min) 3 3 3 [Pulse Oximetry] -Pulse Oximetry (90-100 %) 91 90 91 [Pulse Rate] -Pulse Rate (60-100 beats/min) 83 98 85 [Evaluation] -Activity Tolerance Fair [Charges] -Evaluation Charges
--- NOTE | 2023-07-26 13:38 | PCRCNOTE ---
HOME O2 EVAL COMPLETE, NO CHANGES FROM HOME SETTING. 3L AT REST AND WITH ACTIVITY. TO BRING IN HOME CONCENTRATOR FOR DISCHARGE.
[2023-07-31 20:44] LABS: Albumin Pleural Fluid 1.8 g/dL; Glucose Pleural Fluid 106 mg/dL; LDH Pleural Fluid 106 U/L
== END 2023-07-26 16:26 | disposition home health service (06) | DRG 189 ==
LOC: ANHED 12:27 → ANHIMU 17:06 → ANH2MED 07-19 15:12 → ANHIMU 07-21 17:45
PROVIDERS: Emergency Medicine; Internal Medicine; Admitting Provider Internal Medicine; Emergency Provider Physician Assistant; PCP Family Medicine; Visit Provider General Practice
DX: J96.21 Acute and chronic respiratory failure with hypoxia (principal); I50.33 Acute on chronic diastolic (congestive) heart failure; I48.19 Other persistent atrial fibrillation; Z68.41 Body mass index [BMI] 40.0-44.9, adult; J90 Pleural effusion, not elsewhere classified; I25.10 Atherosclerotic heart disease of native coronary artery without angina pectoris; I11.0 Hypertensive heart disease with heart failure; G47.33 Obstructive sleep apnea (adult) (pediatric); E66.01 Morbid (severe) obesity due to excess calories; E78.5 Hyperlipidemia, unspecified; D53.9 Nutritional anemia, unspecified; M47.814 Spondylosis without myelopathy or radiculopathy, thoracic region; E87.5 Hyperkalemia; Z99.81 Dependence on supplemental oxygen; Z87.891 Personal history of nicotine dependence; Z79.01 Long term (current) use of anticoagulants; Z79.899 Other long term (current) drug therapy; Z95.1 Presence of aortocoronary bypass graft; Z91.148 Patient's other noncompliance with medication regimen for other reason
CPT/HCPCS: 32555; 36415; 36600; 71045; 71275; 80048; 80053; 80076; 82042; 82274; 82375; 82607; 82728; 82746; 82805; 82945; 83050; 83090; 83540; 83550; 83615; 83735; 83880; 83921; 83986; 84100; 84157; 84484; 85025; 85027; 85380; 85610; 85730; 87070; 87075; 87102; 87205; 87206; 87637; 88108; 88305; 89051; 93005; 94002; 94003; 94618; 94640; 94762; 96365; 96375; 97110; 97162; 97165; 97530; 97535; 99291; A9270; G0378; J0456; J0696; J1650; J1940; Q9967

== ENCOUNTER 2023-07-30 14:52 | Outpatient (CLI) | payer OTHER, SELFPAY ==
--- NOTE | ~2023-07-30 | XR_ITS ---
XR chest 2V 07/30/2023 15:18 Indication: Shortness of breath Procedure: AP and lateral views of the chest Comparison: Comparison to multiple prior studies sequentially, with oldest reviewed study dated 07/08. Findings: Status post median sternotomy for CABG. There is a closure device overlying the heart. Ther e are bilateral pleural effusions, right greater than left, unchanged. Bibasilar airspace disease. No pneumothorax. No acute osseous abnormality. Stable cardiomegaly. Impression: 1: Stable bilateral pleural effusions, right greater than left. 2: Bibasilar consolidation may represent pneumonia and/or atelectasis. Reviewed, dictated and finalized at location A. Impression: 1: Stable bilateral pleural effusions, right greater than left. 2: Bibasilar consolidation may represent pneumonia and/or atelectasis.
== END 2023-07-30 14:53 ==
PROVIDERS: PCP Family Medicine; Visit Provider Family Medicine
DX: J39.8 Other specified diseases of upper respiratory tract (principal); J90 Pleural effusion, not elsewhere classified; R91.8 Other nonspecific abnormal finding of lung field
CPT/HCPCS: 71046

== ENCOUNTER 2023-08-08 14:04 | Outpatient (CLI) | payer OTHER, SELFPAY ==
[2023-08-08 20:08] LABS: Basophils Percent Auto 0.4 % (0.2-1.2); Eosinophils Percent Auto 0.8 % (0-4.4); Hematocrit 30.4 % (42.0-52.0); Hemoglobin 8.7 g/dL (14.0-18.0); Immature Granulocyte Absolute 0.01 K/mm3 (0.00-0.031); Immature Granulocyte Percent A 0.2 % (0-0.5); Lymphocytes Absolute Auto 1.45 K/mm3 (0.9-3.2); Mean Corpuscular HGB Conc 28.6 g/dl (32-36); Mean Corpuscular Hemoglobin 28.1 pg (26-34); Mean Corpuscular Volume 98.1 fl (80-100); Mean Platelet Volume 8.8 fl (7.4-10.4); Monocytes Absolute Auto 0.3 K/mm3 (0.1-0.6); Monocytes Percent Auto 5.8 % (2.6-8.5); Neutrophils Percent Auto 62.8 % (45.5-73.1); Platelet Count Result 290 k/mm3 (150-375); Red Cell Distribution Width 15.4 % (11.5-14.5); White Blood Count 4.8 K/mm3 (4.5-10.0)
[2023-08-08 20:37] LABS: Blood Urea Nitrogen 19 mg/dL (9-20); Carbon Dioxide > 40 mmol/L (22-30); Chloride 96 mmol/L (98-107); Estimated Glomerular Filt Rate > 60; Glucose 118 mg/dL (65-110); Potassium 4.3 mmol/L (3.4-5.0); Sodium 139 mmol/L (137-145)
[2023-08-08 20:43] LABS: Anisocytosis 1+; Hypochromasia 1+; Platelet Estimate Adequate (Adequate); Schistocytes None Seen
== END 2023-08-08 14:05 | disposition home or self-care (01) ==
LOC: ANHGOSHLAB 14:06
PROVIDERS: PCP Family Medicine; Visit Provider Family Medicine
DX: Z13.228 Encounter for screening for other metabolic disorders (principal); R53.83 Other fatigue; D64.9 Anemia, unspecified
CPT/HCPCS: 36415; 80048; 85025

== ENCOUNTER 2023-08-16 17:02 | Outpatient (CLI) | payer OTHER, SELFPAY ==
[2023-08-16 17:23] LABS: Basophils Absolute Auto 0.01 K/mm3 (0.00-0.10); Basophils Percent Auto 0.2 % (0.0-1.0); Eosinophils Absolute Auto 0.06 K/mm3 (0.02-0.50); Eosinophils Percent Auto 1.4 % (1.0-6.0); Hematocrit 30.8 % (37.0-46.0); Hemoglobin 8.8 g/dL (12.4-15.3); Immature Granulocyte Absolute 0.01 K/mm3 (0.00-0.00); Immature Granulocyte Percent A 0.2 % (0.0-0.0); Lymphocytes Absolute Auto 1.92 K/mm3 (1.10-4.50); Mean Corpuscular HGB Conc 28.6 g/dL (32-36); Mean Corpuscular Hemoglobin 27.5 pg (27.0-31.0); Mean Corpuscular Volume 96.3 fL (78.0-102.0); Mean Platelet Volume 8.3 fl (8.7-11.0); Monocytes Absolute Auto 0.33 K/mm3 (0.10-0.90); Monocytes Percent Auto 7.6 % (2.0-11.0); Neutrophils Absolute Auto 2.03 K/mm3 (1.70-7.20); Neutrophils Percent Auto 46.6 % (50.0-70.0); Platelet Count Result 246 K/mm3 (150-420); Red Cell Distribution Width 15.3 % (11.6-14.4); White Blood Count 4.4 K/mm3 (4.8-10.8)
[2023-08-16 17:49] LABS: Anion Gap 3 mmol/L (4-12); Blood Urea Nitrogen 17 mg/dL (7-18); Calcium 9.2 mg/dL (8.5-10.1); Carbon Dioxide 41 mmol/L (21-32); Chloride 99 mmol/L (98-108); Estimated Glomerular Filt Rate > 60; Glucose 89 mg/dL (70-99); Osmolality Calculated 296 mOsm/kg (285-295); Potassium 4.5 mmol/L (3.5-5.1); Sodium 143 mmol/L (136-145)
== END 2023-08-16 17:03 | disposition home or self-care (01) ==
LOC: CHSLAB 17:08
PROVIDERS: PCP Family Medicine
DX: I25.10 Atherosclerotic heart disease of native coronary artery without angina pectoris (principal); Z95.1 Presence of aortocoronary bypass graft
CPT/HCPCS: 36415; 80048; 85025

== ENCOUNTER 2023-08-26 11:15 | Inpatient (IN) | payer MEDICARE, OTHER, SELFPAY ==
[2023-08-26] VITALS (21 sets, daily range): BP systolic 106–147; BP diastolic 73–103; PULSE 52–116; RESP 16–30; TEMP 36.3–37.2; O2SAT 91–100; BMI 39.4
--- NOTE | ~2023-08-26 | XR_ITS ---
XR chest 1V portable Ordering provider: Tulio Banuelos MD History: 78 years Male with . dyspnea . Comparison: July 30, 2023 FINDINGS: MEDIASTINUM: The cardiac silhouette is slightly enlarged. Postoperative changes in the sternum. LUNGS: No pneumothorax. Opacification in the right lung base suggestive of atelectasis versus pneumon ia with pleural effusion. Minimal opacification in the left lung base with interstitial changes. OTHER: No free air under the diaphragm. IMPRESSION: Right basal pneumonia with pleural effusion. Interstitial changes in the left lung base which may indicate underlying pulmonary edema. Clinical co rrelation advised. Reviewed, dictated and finalized at location A. IMPRESSION: Right basal pneumonia with pleural effusion. Interstitial changes in the left lung base which may indicate underlying pulmon adalid edema. Clinical correlation advised.
--- NOTE | ~2023-08-26 | XR_ITS ---
EXAMINATION: XR chest 1V portable DATE: 08/30/2023 10:31 INDICATION: Congestive heart failure. TECHNIQUE: frontal view of the chest was obtained. COMPARISON: Chest radiograph dated 08/29/[address] dated 07/23/2023 FINDINGS: Hazy airspace and increased interstitial opacities in the bilateral lower lung zones. Persistent smal l to moderate-sized right pleural effusion. No definitive left pleural effusion although No pneumotho rax. There is diffuse narrowing of the trachea more prominent on one of the images. Heart size is enl arged with artifactual appearance of dextrocardia resulting from a fusion, a prominent right-sided pe ricardial fat pad and some volume loss in the right hemithorax with mild compensatory rightward shift of the heart. The orientation of the heart and a normal left-sided aortic arch can be seen on the pr ior CT. Median sternotomy wires and mediastinal surgical clips are seen, likely from prior coronary a rtery bypass grafting. There is also a left atrial appendage clip. IMPRESSION: 1. Hazy airspace and increased interstitial opacities in bilateral lower lung zones most likely mild pulmonary edema versus less likely pneumonia. 2. Unchanged small to moderate-sized right pleural effusion. 3. Cardiomegaly. Reviewed, dictated and finalized at location A. IMPRESSION: 1. Hazy airspace and increased interstitial opacities in bilateral lower lung z ones most likely mild pulmonary edema versus less likely pneumonia. 2. Unchanged small to moderate-sized right pleural effusion. 3. Cardiomegaly.
--- NOTE | ~2023-08-26 | XR_ITS ---
XR chest 1V portable DATE: 08/31/2023 12:22 INDICATION: Congestive heart failure TECHNIQUE: Portable upright AP chest on 08/31/2023 at 1215 hours COMPARISON: 08/30/2023 portable AP chest at 1019 hours FINDINGS: Status post sternotomy. Bilateral infiltrates, right greater than left, mild right pleural effusion appear relatively stable since 08/30/2023. IMPRESSION: No interval change since 08/30/2023 Reviewed, dictated and finalized at location A.
--- NOTE | ~2023-08-26 | US_ITS ---
EXAMINATION:US venous doppler LE BI INDICATION:Leg edema TECHNIQUE: Multiple grayscale, color flow and Doppler images of the right and left lower extremity de ep venous systems were obtained and reviewed. COMPARISON:No prior studies for comparison. FINDINGS: The common femoral, superficial femoral and popliteal veins demonstrate normal respiratory variation, augmentation and compressibility. Color flow is also seen within the posterior tibial, pe roneal, greater saphenous and profunda veins. IMPRESSION: 1: No lower extremity deep venous thrombosis. Reviewed, dictated and finalized at location B.
--- NOTE | ~2023-08-26 | XR_ITS ---
XR chest 1V portable Ordering provider: Mikey Perez MD History: 78 years Male with . CHF, effusion . Comparison: August 26, 2023 FINDINGS: MEDIASTINUM: The cardiac silhouette is slightly enlarged. Pericardial effusion is not excluded. Conge stive rigoberto. LUNGS: No pneumothorax. Right pleural effusion is noted. Bilateral prominent markings with interstiti al changes are noted. OTHER: No free air under the diaphragm. Degenerative changes of the spine. IMPRESSION: Slight cardiomegaly with a right-sided pleural effusion. Congestive rigoberto with interstitial changes wh ich may indicate pulmonary edema. Pneumonitis cannot be excluded. No significant change from previous examination. Clinical correlation advised. Reviewed, dictated and finalized at location A. IMPRESSION: Slight cardiomegaly with a right-sided pleural effusion. Congestive rigoberto with i nterstitial changes which may indicate pulmonary edema. Pneumonitis cannot be e xcluded. No significant change from previous examination. Clinical correlation advised.
--- NOTE | 2023-08-26 11:20 | ECG_ITS ---
Test Date: 2023-08-26 11:36:39 Measurements Intervals [place] Rate: 104 P: 0 AL: 0 QRS: -51 QRSD: 141 T: 29 QT: 370 QTc: 488 Interpretive Statements ATRIAL FIBRILLATION WITH RAPID VENTRICULAR RESPONSE MARKED LEFT AXIS DEVIATION [QRS AXIS < -30] RIGHT BUNDLE BRANCH BLOCK [120+ ms QRS DURATION, UPRIGHT V1, 40+ ms S IN I/aVL/V4/V5/V6] ABNORMAL ECG No previous ECG available for comparison Electronically Signed On 08-26-2023 15:27:29 CDT by Gildardo Marroquin M.D.
--- NOTE | 2023-08-26 11:35 | ED_ITS ---
HPI - SOB/Dyspnea General Chief Complaint: Shortness of Breath/Dyspnea <Amelia Street PA-C - Last Filed: 08/26/23 17:34> Stated Complaint: SOB <Amelia Street PA-C - Last Filed: 08/26/23 17:34> Time Seen by Provider: 08/26/23 11:26 <ERYN Fall Last Filed: 08/26/23 17:34> Source: patient <Amelia Street PA-C - Last Filed: 08/26/23 17:34> Mode of arrival: ambulatory <ERYN Fall Last Filed: 08/26/23 17:34> Limitations: no limitations <Amelia Street PA-C - Last Filed: 08/26/23 17:34> History of Present Illness HPI Narrative: Patient is a 78-year-old male who presents the ED with report of sh ortness of breath. Patient with hx of CHF on Lasix, AFIB on Eliquis, HTN, HLD, chronic hypoxic resp failure on 3L NC, JUDE on BiPAP at night, CABG in June of this year. Patient sees Cardiology in [facility]. He does see pulmonology here. Reports having increased shortness of breath over the last 2-3 days. Worse with exertion. Advised to come to the ED by pre k teacher as patient has history of hypercapnia. does report patient is frequently noncompliant with his bipap at night. He denies chest pain at rest, but does report chest wall pain with straining since his CABG surgery. Denies lower extremity swelling, cough, cold symptoms, fevers, sick contacts. <Amelia Street PA-C - Last Filed: 08/26/23 17:34> Related Data Home Medications: Home Medications Medication Instructions Recorded Confirmed acetaminophen 500 mg capsule 500 mg PO Q6H PRN Pain (Scale 07/04/23 07/30/23 Score 1-3) clopidogrel 75 mg tablet 75 mg PO DAILY 07/04/23 07/30/23 polyethylene glycol 3350 17 17 g PO DAILY PRN Constipation 07/04/23 07/30/23 gram/dose oral powder (Miralax) potassium chloride 20 mEq 20 meq PO DAILY 07/04/23 07/30/23 tablet,extended release senna-docusate sodium tablet 1 tablet PO BID PRN Constipation 07/04/23 07/30/23 tramadol 50 mg tablet 50 mg PO Q8H PRN Pain (Scale Score 07/04/23 07/30/23 4-6) <Amelia Street PA-C - Last Filed: 08/26/23 17:34> Allergies/Adverse Reactions: Allergies Allergy/AdvReac Type Severity Reaction Status Date / Time atorvastatin AdvReac Severe Agitated Verified 08/26/23 13:47 <Amelia Street PA-C - Last Filed: 08/26/23 17:34> Review of Systems Review of Systems: CONSTITUTIONAL: Denies fever, chills, or sweats. ENT: Denies rhinorrhea, congestion, sore throat. CARDIOVASCULAR: See HPI. RESPIRATORY: See HPI. GASTROINTESTINAL: Denies abdominal pain, nausea, vomiting MUSCULOSKELETAL: Denies back pain, extremity pain, myalgia. NEUROLOGIC: Denies headache, dizziness, numbness, or weakness. <Amelia Street PA-C - Last Filed: 08/26/23 17:34> All systems reviewed & are unremarkable except as noted in HPI and below <Amelia Street PA-C - Last Filed: 08/26/23 17:34> PMFSH Past Medical History Medical History: Medical History Chronic respiratory failure with hypoxia, on home oxygen therapy Coronary artery disease Dupuytren's contracture Heart failure with reduced ejection fraction EF of 40 to 45% on 06/11/2023. Hypertension Ischemic cardiomyopathy Morbid obesity with BMI of 40.0-44.9, adult Obstructive sleep apnea treated with BiPAP Persistent atrial fibrillation Status post Maze procedure and left atrial appendage ligation. <Amelia Street PA-C - Last Filed: 08/26/23 17:34> Surgical History Surgical History: Surgical History History of cardiac catheterization (06/12/23) Multivessel coronary disease transferred for CABG History of cataract extraction with lens replacement History of elbow surgery Open reduction and internal fixation of lateral epicondyle fracture and irrigation debridement of open fracture. History of four vessel coronary artery bypass graft (06/14/23) [facility] History of inguinal hernia repair History of maze procedure (06/2023) Status post ligation of left atrial appendage (06/2023) <Amelia Street PA-C - Last Filed: 08/26/23 17:34> Family History Family History: Family History Mother Patient's mother is , Onset Age: 80 Father Patient's father is , Onset Age: 80 Sibling Patient's brother is in good health <Amelia Street PA-C - Last Filed: 08/26/23 17:34> Social History Social History: Social History Social History: Surrogate medical decision maker: Florence Bonniepastora, spouse. Code status: Full code. Smoking status: Never smoker Tobacco type: cigars Smoking end date: 03/11/05 Alcohol intake: current Drinks per week: 7 Substance use: never Substance use type: does not use Do You Feel Safe in your Home?: Yes Lack of Transportation: No Lack of Food: Never True Current Housing: I Have Housing Concerned About Future Housing: No Difficulty Paying Gas/Electric Bills: No Difficulty Paying for Meds: No Currently Unemployed: No Education: High School Diploma/GED Difficulty w/ Childcare or Family Care: No Additional living arrangements comments: Lives with spouse in [place]. They have been for 34 years. He does not have any children. Occupation/Education: retired Spiritual care concerns: No <Amelia Street PA-C - Last Filed: 08/26/23 17:34> Exam Narrative: GENERAL: Elderly, chronically ill-appearing, obese with BMI of 39.5, non- toxic, in mild acute distress. HEAD: Normocephalic, atraumatic. RESPIRATORY: Airway patent, respirations mildly labored, borderline tachypneic, some accessory muscle use. Decreased lung sounds throughout, no significant wheezing or rhonchi heard. CARDIOVASCULAR: borderline tachycardic with irregular rhythm without murmurs, rubs, or gallops. ABDOMEN: Abdomen somewhat protuberant, nontender. Normoactive BS. MUSCULOSKELETAL: Moves all extremities. No gross deformities. No significant lower extremity swelling. SKIN: Warm, dry, normal color. Healing midline surgical scar across anterior chest wall. NEURO: A&O X2-3, unsure of year. Speech clear. Cranial nerves II-XII grossly intact. Steady gait. No ataxic movements. PSYCHIATRIC: Appropriate mood and affect. Normal interaction. <Amelia Street PA-C - Last Filed: 08/26/23 17:34> Course HOT WALKER/PA Physician Supervision For this patient encounter, I reviewed the HOT WALKER or PA documentation, treatment plan, and medical decision making; and I had [id number] time with this patient. <Tulio Banuelos MD - Last Filed: 08/26/23 18:02> Vital Signs Vital signs: Vital Signs Temperature 98.6 F 08/26/23 11:22 Pulse Rate 110 H 08/26/23 11:22 Respiratory Rate 26 H 08/26/23 11:22 Blood Pressure 142/83 H 08/26/23 11:22 Pulse Oximetry 91 08/26/23 11:22 Oxygen Delivery Nasal Cannula 08/26/23 11:22 Oxygen Flow Rate 5 08/26/23 11:22 Temperature 97.4 F L 08/26/23 17:26 Pulse Rate 52 L 08/26/23 17:38 Respiratory Rate 30 H 08/26/23 17:38 Blood Pressure 118/75 08/26/23 17:26 Pulse Oximetry 96 08/26/23 17:38 Oxygen Delivery BiPAP 08/26/23 17:38 Oxygen Flow Rate 5 08/26/23 11:22 <[address]elia [address] PA-C - Last Filed: 08/26/23 17:34> Vital Signs Temperature 98.6 F 08/26/23 11:22 Pulse Rate 110 H 08/26/23 11:22 Respiratory Rate 26 H 08/26/23 11:22 Blood Pressure 142/83 H 08/26/23 11:22 Pulse Oximetry 91 08/26/23 11:22 Oxygen Delivery Nasal Cannula 08/26/23 11:22 Oxygen Flow Rate 5 08/26/23 11:22 Temperature 97.4 F L 08/26/23 17:26 Pulse Rate 52 L 08/26/23 17:38 Respiratory Rate 30 H 08/26/23 17:38 Blood Pressure 118/75 08/26/23 17:26 Pulse Oximetry 96 08/26/23 17:38 Oxygen Delivery BiPAP 08/26/23 17:38 Oxygen Flow Rate 5 08/26/23 11:22 <Tulio Banuelos MD - Last Filed: 08/26/23 18:02> MDM - SOB/Dyspnea MDM Narrative Medical decision making narrative: Patient presented to ED with several day history of increased shortness of breath, history of CHF, CABG, AFib chronically anticoagulated on Eliquis. Patient was noted to be tachycardic and tachypneic upon arrival. Oxygen was borderline on patient's home 3 L. He was increased to 5 L nasal cannula with improvement of oxygen saturations in the mid 90s. Cbc without leukocytosis. Chronic mild anemia, consistent w/ previous records. CMP fairly unremarkable, CO2 38. ABG obtained and showing pCO2 of 55, consistent with mild retention. Patient has been in the 70s in the past per previous records. PO2 64. PH is normal. O2 saturation on ABG is 92.5. EKG showing AFib with borderline RVR, ra humaira in the low 100s. baseline troponin resulted mildly elevated at 0.043. Patient does have chronic elevation of troponins. Will continue to trend. He denies active chest pain at this time, only reporting chest wall pain with movements. BNP resulted elevated at 7560. Patient does have history of CHF, typically on Lasix 40 mg once daily. Will give dose of IV Lasix here in the ED. Chest x-ray showing pulmonary edema and a right-sided pneumonia. Blood cultures obtained. Ceftriaxone and azithromycin started in the ED. Viral swabs were negative. Patient will be admitted for further evaluation, continue diuresis, troponin evaluation. patient was noted to be slightly confused throug hout ED stay. Given this with increased oxygen requirement, hypercapnia, will place patient on BiPAP. Discussed case with Amina ORTIZ hospitalist, accepted patient for admission. IMU. Patient and family in agreement with plan and need for admission. <Amelia Street PA-C - Last Filed: 08/26/23 17:34> Medical Records Attestation: I reviewed the patient's medical records. <Amelia Street PA-C - Last Filed: 08/26/23 17:34> Lab Data Attestation: I reviewed the patient's lab results. <Amelia Street PA-C - Last Filed: 08/26/23 17:34> Result diagrams: 08/26/23 11:32 08/26/23 11:32 <Amelia Street PA-C - Last Filed: 08/26/23 17:34> Labs: Lab Results 08/26/23 08/26/23 08/26/23 Range/Units 11:32 11:50 11:53 WBC 6.0 (4.5-10.0) K/mm3 RBC 3.19 L (4.6-6.20) M/mm3 Hgb 9.0 L (14.0-18.0) g/dL Hct 29.6 L (42.0-52.0) % MCV 92.8 (80-100) fl MCH 28.2 (26-34) pg MCHC 30.4 L (32-36) g/dl RDW 15.3 H (11.5-14.5) % Plt Count 214 (150-375) k/mm3 MPV 8.8 (7.4-10.4) fl Immature Gran % (Auto) 0.3 (0-0.5) % Neut % (Auto) 70.3 (45.5-73.1) % Lymph % (Auto) 23.5 (18.3-44.2) % Troup % (Auto) 5.7 (2.6-8.5) % Eos % (Auto) 0.0 (0-4.4) % Baso % (Auto) 0.2 (0.2-1.2) % Lymph # (Auto) 1.40 (0.9-3.2) K/mm3 Troup # (Auto) 0.3 (0.1-0.6) K/mm3 Eos # (Auto) 0.0 (0-0.3) K/mm3 Baso # (Auto) 0.0 (0.0-0.1) K/mm3 Abs Immat Gran (auto) 0.02 (0.00-0.031) K/mm3 Absolute Neuts (auto) 4.2 (1.3-6.7) K/mm3 Absolute Nucleated RBC 0.000 (0.0-0.012) K/mm3 Nucleated RBC % 0.0 (0.0-0.2) % PT 20.1 H (11.1-14.7) Seconds INR 1.6 APTT 37.2 H (22.3-36.8) Seconds Methemoglobin 0.2 (0-1.5) %THb Sodium 138 (137-145) mmol/L Potassium 4.2 (3.4-5.0) mmol/L Chloride 94 L (98-107) mmol/L Carbon Dioxide 38 H (22-30) mmol/L Anion Gap 6 (4-12) mmol/L BUN 26 H (9-20) mg/dL Creatinine 0.90 (0.7-1.3) mg/dL Estim Creat Clear Calc Not Reportable Estimated GFR > 60 (59 - ) Glucose 124 H (65-110) mg/dL Calcium 9.5 (8.4-10.2) mg/dL Total Bilirubin 1.5 H (0.2-1.3) mg/dL AST 27 (17-59) U/L ALT 15 (6-50) U/L Alkaline Phosphatase 123 (38-126) U/L Troponin I 0.043 H* (0.000-0.034) ng/mL NT-Pro-B Natriuret Pep 7560 H (19.9-100) pg/mL Total Protein 8.0 (6.3-8.2) g/dL Albumin 4.3 (3.5-5.1) g/dL Urine Color (Yellow) Urine Appearance (Clear) Urine pH (5.0-9.0) Ur Specific Bradley (1.001-1.035) Urine Protein (Negative) mg/dL Urine Glucose (UA) (Negative) mg/dL Urine Ketones (Negative) mg/dL Ur Blood (Man) (Negative) Urine Nitrate (Negative) Urine Bilirubin (Negative) Urine Urobilinogen (<2.0) mg/dL Add Ur Microanalysis Leukocyte Esterase Rfl (Negative) JANET/UL Urine RBC (0-2) /hpf Urine WBC (0-3) /hpf Ur Squamous Epith Cells (Few) /hpf Urine Bacteria /hpf Urine Casts Influenza A (RT-PCR) Negative (Negative) Influenza B (RT-PCR) Negative (Negative) RSV (RT-PCR) Negative (Negative) SARS-CoV-2 RNA (RT-PCR) Negative (Negative) 08/26/23 08/26/23 Range/Units 13:59 14:37 WBC (4.5-10.0) K/mm3 RBC (4.6-6.20) M/mm3 Hgb (14.0-18.0) g/dL Hct (42.0-52.0) % MCV (80-100) fl MCH (26-34) pg MCHC (32-36) g/dl RDW (11.5-14.5) % Plt Count (150-375) k/mm3 MPV (7.4-10.4) fl Immature Gran % (Auto) (0-0.5) % Neut % (Auto) (45.5-73.1) % Lymph % (Auto) (18.3-44.2) % Troup % (Auto) (2.6-8.5) % Eos % (Auto) (0-4.4) % Baso % (Auto) (0.2-1.2) % Lymph # (Auto) (0.9-3.2) K/mm3 Troup # (Auto) (0.1-0.6) K/mm3 Eos # (Auto) (0-0.3) K/mm3 Baso # (Auto) (0.0-0.1) K/mm3 Abs Immat Gran (auto) (0.00-0.031) K/mm3 Absolute Neuts (auto) (1.3-6.7) K/mm3 Absolute Nucleated RBC (0.0-0.012) K/mm3 Nucleated RBC % (0.0-0.2) % PT (11.1-14.7) Seconds INR APTT (22.3-36.8) Seconds Methemoglobin (0-1.5) %THb Sodium (137-145) mmol/L Potassium (3.4-5.0) mmol/L Chloride (98-107) mmol/L Carbon Dioxide (22-30) mmol/L Anion Gap (4-12) mmol/L BUN (9-20) mg/dL Creatinine (0.7-1.3) mg/dL Estim Creat Clear Calc Estimated GFR (59 - ) Glucose (65-110) mg/dL Calcium (8.4-10.2) mg/dL Total Bilirubin (0.2-1.3) mg/dL AST (17-59) U/L ALT (6-50) U/L Alkaline Phosphatase (38-126) U/L Troponin I 0.037 H* (0.000-0.034) ng/mL NT-Pro-B Natriuret Pep (19.9-100) pg/mL Total Protein (6.3-8.2) g/dL Albumin (3.5-5.1) g/dL Urine Color Dark yellow (Yellow) Urine Appearance Clear (Clear) Urine pH 5.5 (5.0-9.0) Ur Specific Bradley 1.023 (1.001-1.035) Urine Protein 1+ H (Negative) mg/dL Urine Glucose (UA) Negative (Negative) mg/dL Urine Ketones Trace H (Negative) mg/dL Ur Blood (Man) Negative (Negative) Urine Nitrate Negative (Negative) Urine Bilirubin 1+ H (Negative) Urine Urobilinogen 1.0 (<2.0) mg/dL Add Ur Microanalysis Reviewed Leukocyte Esterase Rfl Trace H (Negative) JANET/UL Urine RBC 6-10 H (0-2) /hpf Urine WBC 0-5 (0-3) /hpf Ur Squamous Epith Cells None seen (Few) /hpf Urine Bacteria None seen /hpf Urine Casts 0-2 Influenza A (RT-PCR) (Negative) Influenza B (RT-PCR) (Negative) RSV (RT-PCR) (Negative) SARS-CoV-2 RNA (RT-PCR) (Negative) <Amelia Street PA-C - Last Filed: 08/26/23 17:34> Lab Results 08/26/23 08/26/23 08/26/23 Range/Units 11:32 11:50 11:53 WBC 6.0 (4.5-10.0) K/mm3 RBC 3.19 L (4.6-6.20) M/mm3 Hgb 9.0 L (14.0-18.0) g/dL Hct 29.6 L (42.0-52.0) % MCV 92.8 (80-100) fl MCH 28.2 (26-34) pg MCHC 30.4 L (32-36) g/dl RDW 15.3 H (11.5-14.5) % Plt Count 214 (150-375) k/mm3 MPV 8.8 (7.4-10.4) fl Immature Gran % (Auto) 0.3 (0-0.5) % Neut % (Auto) 70.3 (45.5-73.1) % Lymph % (Auto) 23.5 (18.3-44.2) % Troup % (Auto) 5.7 (2.6-8.5) % Eos % (Auto) 0.0 (0-4.4) % Baso % (Auto) 0.2 (0.2-1.2) % Lymph # (Auto) 1.40 (0.9-3.2) K/mm3 Troup # (Auto) 0.3 (0.1-0.6) K/mm3 Eos # (Auto) 0.0 (0-0.3) K/mm3 Baso # (Auto) 0.0 (0.0-0.1) K/mm3 Abs Immat Gran (auto) 0.02 (0.00-0.031) K/mm3 Absolute Neuts (auto) 4.2 (1.3-6.7) K/mm3 Absolute Nucleated RBC 0.000 (0.0-0.012) K/mm3 Nucleated RBC % 0.0 (0.0-0.2) % PT 20.1 H (11.1-14.7) Seconds INR 1.6 APTT 37.2 H (22.3-36.8) Seconds Methemoglobin 0.2 (0-1.5) %THb Sodium 138 (137-145) mmol/L Potassium 4.2 (3.4-5.0) mmol/L Chloride 94 L (98-107) mmol/L Carbon Dioxide 38 H (22-30) mmol/L Anion Gap 6 (4-12) mmol/L BUN 26 H (9-20) mg/dL Creatinine 0.90 (0.7-1.3) mg/dL Estim Creat Clear Calc Not Reportable Estimated GFR > 60 (59 - ) Glucose 124 H (65-110) mg/dL Calcium 9.5 (8.4-10.2) mg/dL Total Bilirubin 1.5 H (0.2-1.3) mg/dL AST 27 (17-59) U/L ALT 15 (6-50) U/L Alkaline Phosphatase 123 (38-126) U/L Troponin I 0.043 H* (0.000-0.034) ng/mL NT-Pro-B Natriuret Pep 7560 H (19.9-100) pg/mL Total Protein 8.0 (6.3-8.2) g/dL Albumin 4.3 (3.5-5.1) g/dL Urine Color (Yellow) Urine Appearance (Clear) Urine pH (5.0-9.0) Ur Specific Bradley (1.001-1.035) Urine Protein (Negative) mg/dL Urine Glucose (UA) (Negative) mg/dL Urine Ketones (Negative) mg/dL Ur Blood (Man) (Negative) Urine Nitrate (Negative) Urine Bilirubin (Negative) Urine Urobilinogen (<2.0) mg/dL Add Ur Microanalysis Leukocyte Esterase Rfl (Negative) JANET/UL Urine RBC (0-2) /hpf Urine WBC (0-3) /hpf Ur Squamous Epith Cells (Few) /hpf Urine Bacteria /hpf Urine Casts Influenza A (RT-PCR) Negative (Negative) Influenza B (RT-PCR) Negative (Negative) RSV (RT-PCR) Negative (Negative) SARS-CoV-2 RNA (RT-PCR) Negative (Negative) 08/26/23 08/26/23 Range/Units 13:59 14:37 WBC (4.5-10.0) K/mm3 RBC (4.6-6.20) M/mm3 Hgb (14.0-18.0) g/dL Hct (42.0-52.0) % MCV (80-100) fl MCH (26-34) pg MCHC (32-36) g/dl RDW (11.5-14.5) % Plt Count (150-375) k/mm3 MPV (7.4-10.4) fl Immature Gran % (Auto) (0-0.5) % Neut % (Auto) (45.5-73.1) % Lymph % (Auto) (18.3-44.2) % Troup % (Auto) (2.6-8.5) % Eos % (Auto) (0-4.4) % Baso % (Auto) (0.2-1.2) % Lymph # (Auto) (0.9-3.2) K/mm3 Troup # (Auto) (0.1-0.6) K/mm3 Eos # (Auto) (0-0.3) K/mm3 Baso # (Auto) (0.0-0.1) K/mm3 Abs Immat Gran (auto) (0.00-0.031) K/mm3 Absolute Neuts (auto) (1.3-6.7) K/mm3 Absolute Nucleated RBC (0.0-0.012) K/mm3 Nucleated RBC % (0.0-0.2) % PT (11.1-14.7) Seconds INR APTT (22.3-36.8) Seconds Methemoglobin (0-1.5) %THb Sodium (137-145) mmol/L Potassium (3.4-5.0) mmol/L Chloride (98-107) mmol/L Carbon Dioxide (22-30) mmol/L Anion Gap (4-12) mmol/L BUN (9-20) mg/dL Creatinine (0.7-1.3) mg/dL Estim Creat Clear Calc Estimated GFR (59 - ) Glucose (65-110) mg/dL Calcium (8.4-10.2) mg/dL Total Bilirubin (0.2-1.3) mg/dL AST (17-59) U/L ALT (6-50) U/L Alkaline Phosphatase (38-126) U/L Troponin I 0.037 H* (0.000-0.034) ng/mL NT-Pro-B Natriuret Pep (19.9-100) pg/mL Total Protein (6.3-8.2) g/dL Albumin (3.5-5.1) g/dL Urine Color Dark yellow (Yellow) Urine Appearance Clear (Clear) Urine pH 5.5 (5.0-9.0) Ur Specific Bradley 1.023 (1.001-1.035) Urine Protein 1+ H (Negative) mg/dL Urine Glucose (UA) Negative (Negative) mg/dL Urine Ketones Trace H (Negative) mg/dL Ur Blood (Man) Negative (Negative) Urine Nitrate Negative (Negative) Urine Bilirubin 1+ H (Negative) Urine Urobilinogen 1.0 (<2.0) mg/dL Add Ur Microanalysis Reviewed Leukocyte Esterase Rfl Trace H (Negative) JANET/UL Urine RBC 6-10 H (0-2) /hpf Urine WBC 0-5 (0-3) /hpf Ur Squamous Epith Cells None seen (Few) /hpf Urine Bacteria None seen /hpf Urine Casts 0-2 Influenza A (RT-PCR) (Negative) Influenza B (RT-PCR) (Negative) RSV (RT-PCR) (Negative) SARS-CoV-2 RNA (RT-PCR) (Negative) <Tulio Banuelos MD - Last Filed: 08/26/23 18:02> ABG Data ABG results: 08/26/23 11:50 Puncture Site Right radial ABG pH 7.414 ABG pCO2 55.6 H ABG pO2 64.7 L ABG PO2/FiO2 Ratio 1.62 ABG HCO3 34.8 H ABG O2 Saturation 92.5 L ABG O2 Content 12.0 L ABG Base Excess 8.9 A-a Gradient 156.6 Oxyhemoglobin 90.2 Carboxyhemoglobin 0.9 Reduced Hemoglobin 8.7 H Total Hemoglobin 9.4 L O2 Delivery Device Nasal cannula O2 Liters/Min 5.0 FiO2 40 <[address]elia [address] PA-C - Last Filed: 08/26/23 17:34> 08/26/23 11:50 Puncture Site Right radial ABG pH 7.414 ABG pCO2 55.6 H ABG pO2 64.7 L ABG PO2/FiO2 Ratio 1.62 ABG HCO3 34.8 H ABG O2 Saturation 92.5 L ABG O2 Content 12.0 L ABG Base Excess 8.9 A-a Gradient 156.6 Oxyhemoglobin 90.2 Carboxyhemoglobin 0.9 Reduced Hemoglobin 8.7 H Total Hemoglobin 9.4 L O2 Delivery Device Nasal cannula O2 Liters/Min 5.0 FiO2 40 <Tulio Banuelos MD - Last Filed: 08/26/23 18:02> Attestation: I personally reviewed and interpreted this ABG as follows: <Amelia Street PA-C - Last Filed: 08/26/23 17:34> Imaging Data Attestation: I personally reviewed and interpreted this imaging study as follows: <Amelia Street PA-C - Last Filed: 08/26/23 17:34> Radiologist's impression: ITS Impressions Chest X-Ray 08/26/23 12:24 IMPRESSION: Right basal pneumonia with pleural effusion. Interstitial changes in the left lung base which may indicate underlying pulmonary edema. Clinical correlation advised. <Amelia Street PA-C - Last Filed: 08/26/23 17:34> ECG Data EKG #1: Attestation: I personally reviewed and interpreted this ECG as follows: <Amelia Street PA-C - Last Filed: 08/26/23 17:34> ECG completion date: 08/26/23 <[address] PA-C - Last Filed: 08/26/23 17:34> ECG completion time: 11:36 <[address] PA-C - Last Filed: 08/26/23 17:34> EKG Interpretation: tachycardia (104), atrial fibrillation (borderline RVR), non- specific ST changes and RBBB <ERYN Fall Last Filed: 08/26/23 17:34> Discharge Plan Discharge Clinical Impression: Elevated troponin, Acute on chronic respiratory failure with hypoxia and hypercapnia Pneumonia Qualifiers: Pneumonia type: due to unspecified organism Laterality: right Lung location: lower lobe of lung Qualified Code(s): J18.9 - Pneumonia, unspecified organism Acute exacerbation of CHF (congestive heart failure) Qualifiers: Heart failure type: unspecified Qualified Code(s): I50.9 - Heart failure, unspecified <ERYN Fall Last Filed: 08/26/23 17:34> Patient Disposition: Still a Patient <ERYN Fall Last Filed: 08/26/23 17:34> Condition: Stable <ERYN Fall Last Filed: 08/26/23 17:34>
[2023-08-26 11:39] LABS: Basophils Percent Auto 0.2 % (0.2-1.2); Hematocrit 29.6 % (42.0-52.0); Immature Granulocyte Absolute 0.02 K/mm3 (0.00-0.031); Immature Granulocyte Percent A 0.3 % (0-0.5); Lymphocytes Percent Auto 23.5 % (18.3-44.2); Mean Corpuscular HGB Conc 30.4 g/dl (32-36); Mean Corpuscular Hemoglobin 28.2 pg (26-34); Mean Corpuscular Volume 92.8 fl (80-100); Mean Platelet Volume 8.8 fl (7.4-10.4); Monocytes Absolute Auto 0.3 K/mm3 (0.1-0.6); Monocytes Percent Auto 5.7 % (2.6-8.5); Neutrophils Absolute Auto 4.2 K/mm3 (1.3-6.7); Neutrophils Percent Auto 70.3 % (45.5-73.1); Platelet Count Result 214 k/mm3 (150-375); Red Blood Count 3.19 M/mm3 (4.6-6.20); Red Cell Distribution Width 15.3 % (11.5-14.5)
[2023-08-26 11:59] LABS: Alanine Aminotransferase 15 U/L (6-50); Albumin Level 4.3 g/dL (3.5-5.1); Alkaline Phosphatase 123 U/L (38-126); Anion Gap 6 mmol/L (4-12); Aspartate Amino Transferase 27 U/L (17-59); Bilirubin,Total 1.5 mg/dL (0.2-1.3); Blood Urea Nitrogen 26 mg/dL (9-20); Calcium 9.5 mg/dL (8.4-10.2); Carbon Dioxide 38 mmol/L (22-30); Chloride 94 mmol/L (98-107); Estimated Glomerular Filt Rate > 60; Glucose 124 mg/dL (65-110); Potassium 4.2 mmol/L (3.4-5.0); Sodium 138 mmol/L (137-145)
[2023-08-26 12:01] LABS: Alveolar/Arterial O2 Gradient 156.6 mmHg; Base Excess ABG 8.9 mEq/l (+/-2.0); Carboxyhemoglobin 0.9 % THb (0-2.0); Fractional Inspired Oxygen 40 %; HCO3 ABG 34.8 mEq/l (22.0-26.0); Methemoglobin ABG 0.2 %THb (0-1.5); Oxygen Saturation ABG 92.5 % (95.0-100.0); Oxyhemoglobin 90.2 % THb (90.0-100.0); PCO2 ABG 55.6 mmHg (35.0-45.0); PO2 ABG 64.7 mmHg (80.0-100.0); PO2 FiO2 Ratio Arterial Blood 1.62 %; Reduced Hemoglobin 8.7 %THb (0-5.0); Total Hemoglobin 9.4 g/dL (12.0-18.0); pH ABG 7.414 (7.350-7.450)
[2023-08-26 12:02] LABS: Device NASAL CANNULA; Modified Allen's Test Pass; Site Drawn RIGHT RADIAL
[2023-08-26 12:06] LABS: INR 1.6; Prothrombin Time 20.1 Seconds (11.1-14.7)
[2023-08-26 12:07] LABS: Partial Thromboplastin Time 37.2 Seconds (22.3-36.8)
[2023-08-26 12:39] LABS: Influenza A QL RT-PCR Negative (Negative); Influenza B QL RT-PCR Negative (Negative); RSV RNA, RT-PCR Negative (Negative); SARS-CoV-2 RNA PCR Negative (Negative)
[2023-08-26 12:54] LABS: NT Pro B Type Natriuretic Pept 7560 pg/mL (19.9-100); Troponin I 0.043 ng/mL (0.000-0.034)
[2023-08-26] MEDS: FUROSEMIDE INJ 40 MG/4 ML VIAL IV PUSH ×2 (13:10→20:35)
[2023-08-26] MEDS: AZITHROMYCIN 500 MG/NS 250 ML 500 MG/250 ML BAG 250 MG IVPB (14:30)
[2023-08-26 14:49] LABS: Appearance Urine Clear (Clear); Bacteria Urine None Seen /hpf; Bilirubin Urine 1+ (Negative); Blood Urine Negative (Negative); Color Urine Dark Yellow (Yellow); Glucose Urine UA Negative (Negative); Ketones Urine Trace mg/dL (Negative); Leukocyte Esterase Ur Trace LEU/UL (Negative); Need Manual Microscopic Reviewed; Nitrate Urine Negative (Negative); Non Pathogenic Casts 0-2; Protein Urine 1+ mg/dL (Negative); Specific Grav Ur 1.023 (1.001-1.035); Squamous Epithelial Cell Urine None Seen /hpf (Few); WBC Urine 0-5 /hpf (0-3); pH Urine 5.5 (5.0-9.0)
[2023-08-26 14:55] LABS: Add Urine Microscopic? YES
[2023-08-26 15:16] LABS: Troponin I 0.037 ng/mL (0.000-0.034)
--- NOTE | 2023-08-26 17:17 | PM.IMHP ---
H&P: HPI History of Present Illness Date/Time: 08/26/23 18:00 Chief Complaint: Shortness of breath. Narrative: This is a 78-year-old male with coronary artery disease, hypertension, paroxysmal atrial fibrillation status post left atrial appendage ligation and Maze procedure on apixaban, obstructive sleep apnea, and chronic hypoxic respiratory failure on 3 L nasal cannula who presented to the emergency department for evaluation of shortness of breath. The patient provides the following history. He was admitted to the hospital in early June 2023 with weakness at which time he was found to have elevated troponins. Cardiac catheterization demonstrated multivessel disease and he was transferred to [facility] where he had a 4 vessel bypass. This will be his 4th to the emergency department since his discharge and 3rd admission to the hospital with shortness of breath attributed to congestive heart failure. Sounds as though he was not always compliant with his furosemide and had not will wearing his BiPAP for quite some time. However is adamant that over the last 4 weeks he has been 100% compliant with his medications. Last Saturday she finally convinced him to wear his BiPAP and he has been wearing at the last 3 days. Coincidentally the last 3 days he has noticed increase in swelling in his feet and progressive shortness of breath. is convinced that is the BiPAP which has caused him to decompensate. Aside from the shortness of breath he is otherwise feeling fine and he denies fever, chills, sweats, chest pain, pleuritic pain, palpitations, orthopnea, paroxysmal nocturnal dyspnea, cough, sore throat, sinus congestion, nausea, vomiting, and diarrhea. In the ED: He was afebrile on arrival stable blood pressures. Labs were significant for WBC count of 6.0, hemoglobin 9.0, INR 1.6, 126, proBNP 7560. ABG showed a pH of 7.414, pCO2 55.6, PO2 64.7, bicarb 34.8. Chest x-ray shows opacification the right lung base suggestive of atelectasis versus pneumonia with pleural effusion and interstate in the left lung base which may indicate underlying pulmonary edema. He was given a dose of azithromycin and ceftriaxone for possible pneumonia in addition to furosemide 40 mg IV. He is being admitted in this setting for further treatment. Review of Systems Review of Systems: 12 systems were reviewed and are negative except for as per HPI. COUNT INCLUDES THE [facility] Past Medical History Medical History Chronic respiratory failure with hypoxia, on home oxygen therapy Coronary artery disease Dupuytren's contracture Heart failure with reduced ejection fraction EF of 40 to 45% on 06/11/2023. Hypertension Ischemic cardiomyopathy Morbid obesity with BMI of 40.0-44.9, adult Obstructive sleep apnea treated with BiPAP Persistent atrial fibrillation Status post Maze procedure and left atrial appendage ligation. Surgical History Surgical History History of cardiac catheterization (06/12/23) Multivessel coronary disease transferred for CABG History of cataract extraction with lens replacement History of elbow surgery Open reduction and internal fixation of lateral epicondyle fracture and irrigation debridement of open fracture. History of four vessel coronary artery bypass graft (06/14/23) [facility] History of inguinal hernia repair History of maze procedure (06/2023) Status post ligation of left atrial appendage (06/2023) Family History Family History Mother Patient's mother is , Onset Age: 80 Father Patient's father is , Onset Age: 80 Sibling Patient's brother is in good health Social History Social History Social History: Surrogate medical decision maker: Florence Garner, spouse. Code status: Full code. Smoking status: Never smoker Tobacco type: cigars Smoking end date: 03/11/05 Alcohol intake: current Drinks per week: 7 Substance use: never Substance use type: does not use Do You Feel Safe in your Home?: Yes Lack of Transportation: No Lack of Food: Never True Current Housing: I Have Housing Concerned About Future Housing: No Difficulty Paying Gas/Electric Bills: No Difficulty Paying for Meds: No Currently Unemployed: No Education: High School Diploma/GED Difficulty w/ Childcare or Family Care: No Additional living arrangements comments: Lives with spouse in [place]. They have been for 34 years. He does not have any children. Occupation/Education: retired Spiritual care concerns: No Meds Home Medications and Allergies Home Medications Medication Instructions Recorded Confirmed Type acetaminophen 500 mg capsule 500 mg PO Q6H PRN Pain (Scale 07/04/23 08/26/23 History Score 1-3) clopidogrel 75 mg tablet 75 mg PO DAILY 07/04/23 08/26/23 History polyethylene glycol 3350 17 17 g PO DAILY PRN Constipation 07/04/23 08/26/23 History gram/dose oral powder (Miralax) potassium chloride 20 mEq 20 meq PO DAILY 07/04/23 08/26/23 History tablet,extended release senna-docusate sodium tablet 1 tablet PO BID PRN Constipation 07/04/23 08/26/23 History tramadol 50 mg tablet 50 mg PO Q8H PRN Pain (Scale Score 07/04/23 08/26/23 History 4-6) ezetimibe 10 mg tablet (Zetia) 10 mg PO DAILY #30 tabs 07/10/23 08/26/23 Rx furosemide 40 mg tablet 40 mg PO DAILY #30 tabs 07/10/23 08/26/23 Rx metoprolol succinate 25 mg 25 mg PO QAM #30 tabs 07/10/23 08/26/23 Rx tablet,extended release 24 hr (Toprol XL) apixaban 5 mg tablet (Eliquis) 5 mg PO Q12H 08/26/23 08/26/23 History olmesartan 5 mg tablet 10 mg PO DAILY 08/26/23 08/26/23 History Allergies Allergy/AdvReac Type Severity Reaction Status Date / Time atorvastatin AdvReac Severe Agitated Verified 08/26/23 13:47 Vital Signs Vital Signs - 24 hr 08/26/23 11:22 08/26/23 11:22 08/26/23 11:32 Temperature 98.6 F Pulse Rate 110 H 116 H 111 H Respiratory Rate 26 H 20 19 Blood Pressure 142/83 H 142/93 H Pulse Oximetry 91 92 97 Oxygen Delivery Nasal Cannula Oxygen Flow Rate 5 08/26/23 12:02 08/26/23 12:15 08/26/23 13:00 Temperature Pulse Rate 109 H 105 H 110 H Respiratory Rate 20 16 18 Blood Pressure 139/93 H Pulse Oximetry 94 99 100 Oxygen Delivery Oxygen Flow Rate 08/26/23 13:19 08/26/23 14:10 08/26/23 14:30 Temperature Pulse Rate 101 H 103 H 104 H Respiratory Rate 16 30 H 19 Blood Pressure 147/103 H Pulse Oximetry 98 95 96 Oxygen Delivery BiPAP Oxygen Flow Rate 08/26/23 14:41 08/26/23 14:45 08/26/23 15:01 Temperature Pulse Rate 103 H 102 H 103 H Respiratory Rate 23 H 18 22 H Blood Pressure 114/83 106/76 Pulse Oximetry 97 97 98 Oxygen Delivery Oxygen Flow Rate 08/26/23 15:15 08/26/23 15:16 08/26/23 15:30 Temperature Pulse Rate 100 99 99 Respiratory Rate 20 20 19 Blood Pressure 121/73 Pulse Oximetry 98 97 98 Oxygen Delivery Oxygen Flow Rate 08/26/23 15:31 Temperature Pulse Rate 92 Respiratory Rate 20 Blood Pressure 132/98 H Pulse Oximetry 99 Oxygen Delivery Oxygen Flow Rate Exam Narrative: General: Chronically ill-appearing male in the semi-Unger position in bed. He appears in no distress. Weight: 124.8 kg. BMI: 39.5. HEENT: Normocephalic, atraumatic. PERRL, EOMI. Sclera anicteric. Oral mucosa moist. Crowded oropharynx. Neck: Supple. Exam limited due to neck circumference. No obvious JVD. Respiratory: Respirations are nonlabored and he is speaking in full sentences. Lung sounds are diminished at the right base with fine bibasilar crackles. Cardiovascular: Regular rate and rhythm with S1-S2. Gastrointestinal: Abdomen is soft, obese, nontender, and nondistended with positive bowel sounds. Skin: Warm and dry. No rash or lesions on limited exam. Extremities: No cyanosis or clubbing. Trace pedal in luis miguel ankle edema bilaterally. No palpable knots or cords. Negative Angelia sign bilaterally. Neurological: Alert. Cranial nerves 2-12 are grossly intact. No gross focal deficits to casual conversation. Psychiatric: Pleasant and cooperative with normal mood and affect. Judgment and insight intact. H&P: Results Labs Labs: Short CBC 08/26/23 Range/Units 11:32 WBC 6.0 (4.5-10.0) K/mm3 Hgb 9.0 L (14.0-18.0) g/dL Hct 29.6 L (42.0-52.0) % Plt Count 214 (150-375) k/mm3 BMP 08/26/23 11:32 Sodium 138 Potassium 4.2 Chloride 94 L Carbon Dioxide 38 H BUN 26 H Creatinine 0.90 Glucose 124 H Calcium 9.5 Cardiac Enzymes 08/26/23 08/26/23 Range/Units 11:32 14:37 Troponin I 0.043 H* 0.037 H* (0.000-0.034) ng/mL Liver Function 08/26/23 Range/Units 11:32 Total Bilirubin 1.5 H (0.2-1.3) mg/dL AST 27 (17-59) U/L ALT 15 (6-50) U/L Alkaline Phosphatase 123 (38-126) U/L Albumin 4.3 (3.5-5.1) g/dL Urine 08/26/23 Range/Units 13:59 Urine Color Dark yellow (Yellow) Urine Appearance Clear (Clear) Urine pH 5.5 (5.0-9.0) Ur Specific [employer] 1.023 (1.001-1.035) Urine Protein 1+ H (Negative) mg/dL Urine Glucose (UA) Negative (Negative) mg/dL Imaging Chest X-Ray 08/26/23 12:24 IMPRESSION: Right basal pneumonia with pleural effusion. Interstitial changes in the left lung base which may indicate underlying pulmonary edema. Clinical correlation advised. Assessment and Plan Assessment and plan (1) Acute and chronic respiratory failure: Code(s): J96.20 - Acute and chronic respiratory failure, unspecified whether with hypoxia or hypercapnia Status: Acute (2) Recurrent right pleural effusion: Code(s): J90 - Pleural effusion, not elsewhere classified Status: Acute (3) Elevated troponin: Code(s): R79.89 - Other specified abnormal findings of blood chemistry Status: Acute (4) Heart failure with reduced ejection fraction: Code(s): I50.20 - Unspecified systolic (congestive) heart failure Status: Acute (5) Coronary artery disease: Code(s): I25.10 - Atherosclerotic heart disease of [place] coronary artery without angina pectoris Status: Acute (6) Atrial fibrillation: Code(s): I48.91 - Unspecified atrial fibrillation Status: Acute (7) Obstructive sleep apnea treated with BiPAP: Code(s): G47.33 - Obstructive sleep apnea (adult) (pediatric) Status: Acute Plan The patient presented to the emergency department for evaluation of shortness of breath as detailed in HPI. Labs, imaging, EKG, and all reports were personally reviewed. Shortness of breath is related to recurrent right-sided pleural effusion and pulmonary edema. Pneumonia is unlikely by history. It is unclear why he has once again decompensated as he states of 100% compliance with his medications. believes that is related to the fact that he started using his BiPAP again 3 days ago. He will be diuresed with close monitoring of volume status, renal function, and electrolytes. Ending on his worse, would consider repeat thoracentesis. Pulmonary embolism is unlikely by history and the fact that he is on apixaban out missed doses. Troponin is mildly elevated however he is having no chest pain though we will trend to peak. Continue Plavix, statin, and beta-keith. BiPAP will be provided for the patient to use while hospitalized. Vital signs were reviewed and they are stable. He is at his baseline oxygen requirement. His home medications will be reviewed and resumed as appropriate. Findings and treatment plan were discussed with the patient. Questions were solicited and answered to satisfaction. The patient's medical management will be taken over by the hospitalist team in a.m. Quality VTE Prophylaxis VTE prophylaxis: pharmacologic ordered (on apixaban) The patient has been admitted under observation status. Hospitalist [facility] Advance Care Plan I have confirmed that the patient's Advanced Care Plan is present, code status is documented, or surrogate decision maker is listed in patient medical record.: Yes Medication Reconciliation I have utilized all available resources to obtain, update and review the patients current medications (includes all prescriptions, OTC, herbals, cannabis, and nutritional supplements).: Yes
--- NOTE | 2023-08-26 18:00 | ADMGEN ---
This patient, Sudarshan Garner, was admitted to IMU Room 204-01 @ 6127. Patient/family oriented to hospital policies and general routines including ID bracelet, bed and alarms, visiting hours, pain management, procedures, bathroom and other care routines, personal items, smoking policy, room service/diet, and visiting hours. Information on how to activate the Rapid Response Team has been discussed. Patient/Family are encouraged to report perceived risks to care and to ask questions if they do not understand what they are told or what they should do. Report received from TRACY Fine @ 1885
[2023-08-26 18:23] LABS: Troponin I 0.032 ng/mL (0.000-0.034)
[2023-08-26] MEDS: APIXABAN 5 MG TABLET PO (21:58)
[2023-08-27] VITALS (20 sets, daily range): BP systolic 113–149; BP diastolic 55–88; PULSE 87–115; RESP 18–25; TEMP 36.5–37.3; O2SAT 91–100
--- NOTE | 2023-08-27 | ECHO_ITS ---
Patient Info Name: Sudarshan Garner Age: 78 years : 1945 Gender: Male Ht: 70 in Wt: 273 lbs BSA: 2.53 m2 HR: 101 bpm BP: 113 / 64 mmHg Heart Rhythm: Atrial Fibrillation Technical Quality: Fair Exam Date: 08/27/2023 1:22 PM Exam Location: Echo Lab Patient Status: Inpatient Admit Date: 08/26/2023 Staff Ordering Physician: [employer] Teacher'S Aide: William Raza RDCS Attending Provider: Clem Franz MD Referring Physician: Aaliyah CLEMONS; Exam Type: CA echo dop color flow w con Study Info Indications R06.02 - Shortness of breath I25.700 - Atherosclerosis of coronary artery bypass graft(s), unspecified, with unstable angina pectoris Complete two-dimensional, color flow and Doppler transthoracic echocardiogram is performed with contrast to opacify the left ventricle and to improve the deliniation of the left ventricle endocardial borders. Contrast/Agitated Saline Contrast/Ag. Saline: Definity Amount: 2.00 ml IV Access Condition: patent with no signs of infiltration Summary 1. Technically difficult study. 2. Left ventricular chamber dimension is normal. 3. Left ventricular systolic function is normal, estimated at 55-60%. 4. There is mildly increased left ventricular wall thickness. 5. Right ventricular chamber dimension is mildly enlarged. 6. Right ventricular systolic function is normal. 7. Left atrial chamber dimension is moderately enlarged. 8. Right atrial chamber dimension is moderately enlarged. 9. There is mild to moderate mitral valve regurgitation. 10. There is mild tricuspid valve regurgitation. Left Ventricle Left ventricular chamber dimension is normal. Left ventricular systolic function is normal, estimated at 55-60%. There is mildly increased left ventricular wall thickness. Left ventricular septal wall motion is abnormal with septal motion related to a post-operative state. The left ventricular diastolic function is indeterminate. Right Ventricle Right ventricular chamber dimension is mildly enlarged. Right ventricular systolic function is normal. Left Atria Left atrial chamber dimension is moderately enlarged. Right Atria Right atrial chamber dimension is moderately enlarged. Atrial Septum Intact interatrial septum visualized by color flow imaging. Aortic Valve The aortic valve is probable trileaflet. There is no aortic valve stenosis. There is no aortic valve regurgitation. There is moderate aortic valve calcification. Pulmonic Valve The pulmonic valve is not well visualized. There is trace pulmonic regurgitation. Mitral Valve There is mild to moderate mitral valve regurgitation. Tricuspid Valve There is mild tricuspid valve regurgitation. Pericardium/Pleural There is no pericardial effusion. Inferior Vena Cava Normal inferior vena cava with <50% collapse upon inspiration consistent with elevated right atrial pressure, 8 mmHg. Aorta The aortic root size at the sinus of Valsalva is normal. Left Ventricular Outflow Tract Name Value Normal LVOT 2D LVOT Diameter 2.00 cm LVOT Doppler LVOT Peak Gradient 3 mmHg LVOT Mean Gradient 2 mmHg LVOT VTI 16.84 cm LVOT VTI/AV VTI Ratio 0.76 LVOT Stroke Volume 53.03 ml LVOT CO 5.01 l/min LVOT CI 1.98 L/min/m2 Pulmonic Valve Name Value Normal RVOT Doppler RVOT Peak Gradient 2 mmHg PV Doppler PV Peak Gradient 2 mmHg Mitral Valve Name Value Normal MV Doppler MV Decel Nash 497.28 cm/s2 MV PHT 0 s MV Area (PHT) 4.32 cm2 4.00-5.00 MV Diastolic Function MV E Peak Velocity 87.29 cm/s MV A Peak Velocity 29.37 cm/s MV E/A 2.97 MV Decel Time 0 s Tricuspid Valve Name Value Normal TV Regurgitation Doppler TR Peak Velocity 271.34 cm/s TR Peak Gradient 25 mmHg Estimated PAP/RSVP RA Pressure 8 mmHg <=5 PA Systolic Pressure 37 mmHg <36 RV Systolic Pressure 37 mmHg <36 Aorta Name Value Normal Ascending Aorta Ao Root Diameter (MM) 3.21 cm Ao Root Diam Index (MM) 1.27 cm/m2 Aortic Valve Name Value Normal AV Doppler AV Peak Velocity 137.73 cm/s AV Peak Gradient 8 mmHg AV Mean Gradient 4 mmHg AV VTI 22.07 cm AV Area (Cont Eq VTI) 2.40 cm2 >=3.00 AV Area (Cont Eq Sonny) 2.13 cm2 AV Regurgitation 2D LVOT Area 3.15 cm2 Ventricles Name Value Normal LV Dimensions 2D/MM IVS Diastolic Thickness (2D) 1.02 cm 0.60-1.00 IVS Diastole Thickness (MM) 1.26 cm 0.60-1.00 LVID Diastole (2D) 3.32 cm 4.20-5.80 LVID Diastole (MM) 7.42 cm 4.20-5.80 LVIW Diastolic Thickness (2D) 0.99 cm 0.60-1.00 LVIW Diastolic Thickness (MM) 1.15 cm 0.60-1.00 LVID Systole (2D) 3.07 cm 2.50-4.00 LVID Systole (MM) 6.05 cm 2.50-4.00 LVOT Diameter 2.00 cm LV Mass (2D Cubed) 96.66 g 88.00-224.00 LV Mass Index (2D Cubed) 0.00 g/cm2 0.00-0.01 Relative Wall Thickness (2D) 0.60 LV Mass (MM Cubed) 452.42 g 88.00-224.00 LV Mass Index (MM Cubed) 0.02 g/cm2 0.00-0.01 Relative Wall Thickness (MM) 0.31 LV Fractional Shortening/Ejection Fraction 2D/MM LV Fractional Shortening (2D) 8 % 25-43 LV Fractional Shortening (MM) 18 % 25-43 LV EF (MM Teicholz) 37 % 52-72 LV EF (2D Teicholz) 17 % 52-72 LV Diastolic Volume (4C MOD) 141.65 ml LV EF (4C MOD) 45 % LV Diastolic Volume (2C MOD) 111.45 ml LV EF (2C MOD) 42 % LV Diastolic Volume (BP MOD) 128.82 ml 62.00-150.00 LV Diastolic Volume Index (BP MOD) 0.05 l/m2 0.03-0.07 LV Systolic Volume (BP MOD) 71.08 ml 21.00-61.00 LV Systolic Volume Index (BP MOD) 0.03 l/m2 0.01-0.03 LV EF (BP MOD) 45 % 52-72 LV Diastolic Length (4C) 9.09 cm LV Systolic Length (4C) 8.27 cm LV Stroke Volume (4C MOD) 63.85 ml Atria Name Value Normal LA Dimensions LA Dimension (MM) 5.59 cm 3.00-4.10 LA Volume (4C A-L) 104.62 ml LA Volume (BP A-L) 110.15 ml RA Dimensions RA Area (4C) 23.16 cm2 <=18.00 Report Signatures
[2023-08-27 05:40] LABS: Blood Urea Nitrogen 25 mg/dL (9-20); Carbon Dioxide > 40 mmol/L (22-30); Chloride 95 mmol/L (98-107); Estimated CRCL calculation 71 ml/min; Estimated Glomerular Filt Rate > 60; Glucose 89 mg/dL (65-110); Potassium 3.6 mmol/L (3.4-5.0); Sodium 140 mmol/L (137-145)
[2023-08-27] MEDS: OLMESARTAN MEDOXOMIL 10 MG TABLET PO (09:05)
[2023-08-27] MEDS: APIXABAN 5 MG TABLET PO ×2 (09:06→20:30)
[2023-08-27] MEDS: EZETIMIBE 10 MG TABLET PO (09:06)
[2023-08-27] MEDS: CLOPIDOGREL BISULFATE 75 MG TABLET PO (09:06)
[2023-08-27] MEDS: POTASSIUM CHLORIDE 20 MEQ ER TABLET PO (09:06)
[2023-08-27] MEDS: METOPROLOL SUCCINATE EXT REL 25 MG TABCR PO (09:06)
[2023-08-27] MEDS: FUROSEMIDE INJ 40 MG/4 ML VIAL IV PUSH ×2 (09:07→20:30)
--- NOTE | 2023-08-27 14:05 | P.CONCA_ITS ---
Assessment and Plan Assessment and plan (1) Recurrent right pleural effusion: Code(s): J90 - Pleural effusion, not elsewhere classified Status: Acute Assessment and Plan: He has recurrent pleural effusions post CABG with thoracentesis on 07/08/23 and 07/26/23 both negative for malignancy revealing lymphocytic pleural fluid thought to be transudate. He is at higher risk for recurrent post operative pleural ef fusions as he has an VALENTIN graft, however, he is currently presenting with a right sided effusion vs. left sided which would be expected. It sounds like he is at times not compliant with his furosemide. Continue IV diuresis for now. (2) Heart failure with reduced ejection fraction: Code(s): I50.20 - Unspecified systolic (congestive) heart failure Status: Acute Assessment and Plan: EF 40-45% with subsequent improvement to normal but has not had repeat echo since his CABG that I am aware of. Will repeat an echo. Continue IV furosemide. (3) Obstructive sleep apnea treated with BiPAP: Code(s): G47.33 - Obstructive sleep apnea (adult) (pediatric) Status: Acute Assessment and Plan: Not compliant with BiPAP, is under the impression that use of BiPAP actually worsened his breathing and caused edema. (4) Atrial fibrillation: Code(s): I48.91 - Unspecified atrial fibrillation Status: Acute Assessment and Plan: s/p Maze procedure and JAMES ligation. In atrial fibrillation with heart rate controlled. (5) Coronary artery disease: Code(s): I25.10 - Atherosclerotic heart disease of [place] coronary artery without angina pectoris Status: Acute Assessment and Plan: s/p CABG x 4 in June of this year. Stable, no anginal symptoms. Continue plavix, statin, ezetimibe. Not on ASA because he is on apixaban as well. However, since he is s/p JAMES ligation, I don't think he requires anticoagulation for this. Will discuss with Dr. Panda and leave any further recommendations. History of Present Illness History of Present Illness Consult date/time: 08/27/23 14:05 Requesting physician: Julianna Borjas MD Consult reason: congestive heart failure Reason For Visit: CHF Exacerbation/PNA/Elevated Troponin/Acute on Ch Narrative: Sudarshan Garner is a 78 year old male with coronary artery disease s/p CABG x 4, atrial fibrillation s/p biatrial MAZE and left atrial appendage ligation, h ypertension, obstructive sleep apnea, and chronic hypoxic respiratory failure presenting to the hospital with a chief complaint of shortness of breath. He has presented to the emergency room multiple times and been admitted three times since his CABG in June of 2023 with shortness of breath. He tells me had been feeling well up until about 3 days ago when he started wearing his BiPAP at night at which point he actually started experiencing dyspnea and lower extremity edema. At this point his edema is improving but he still feels short of breath. He denies any chest pain, orthopnea, palpitations, syncope. He is currently following with [facility]. Review of Systems Review of Systems: All systems reviewed & are unremarkable except as noted in HPI and below PMFSH Past Medical History Medical History Chronic respiratory failure with hypoxia, on home oxygen therapy Coronary artery disease Dupuytren's contracture Heart failure with reduced ejection fraction EF of 40 to 45% on 06/11/2023. Hypertension Ischemic cardiomyopathy Morbid obesity with BMI of 40.0-44.9, adult Obstructive sleep apnea treated with BiPAP Persistent atrial fibrillation Status post Maze procedure and left atrial appendage ligation. Surgical History Surgical History History of cardiac catheterization (06/12/23) Multivessel coronary disease transferred for CABG History of cataract extraction with lens replacement History of elbow surgery Open reduction and internal fixation of lateral epicondyle fracture and irrigation debridement of open fracture. History of four vessel coronary artery bypass graft (06/14/23) [facility] History of inguinal hernia repair History of maze procedure (06/2023) Status post ligation of left atrial appendage (06/2023) Family History Family History Mother Patient's mother is , Onset Age: 80 Father Patient's father is , Onset Age: 80 Sibling Patient's brother is in good health Social History Social History Social History: Surrogate medical decision maker: Florence Garner, spouse. Code status: Full code. Smoking status: Never smoker Tobacco type: cigars Smoking end date: 03/11/05 Alcohol intake: current Drinks per week: 7 Substance use: never Substance use type: does not use Do You Feel Safe in your Home?: Yes Lack of Transportation: No Lack of Food: Never True Current Housing: I Have Housing Concerned About Future Housing: No Difficulty Paying Gas/Electric Bills: No Difficulty Paying for Meds: No Currently Unemployed: No Education: High School Diploma/GED Difficulty w/ Childcare or Family Care: No Additional living arrangements comments: Lives with spouse in [place]. They have been for 34 years. He does not have any children. Occupation/Education: retired Spiritual care concerns: No Meds Home Medications and Allergies Home Medications Medication Instructions Recorded Confirmed Type acetaminophen 500 mg capsule 500 mg PO Q6H PRN Pain (Scale 07/04/23 08/26/23 History Score 1-3) clopidogrel 75 mg tablet 75 mg PO DAILY 07/04/23 08/26/23 History polyethylene glycol 3350 17 17 g PO DAILY PRN Constipation 07/04/23 08/26/23 History gram/dose oral powder (Miralax) potassium chloride 20 mEq 20 meq PO DAILY 07/04/23 08/26/23 History tablet,extended release senna-docusate sodium tablet 1 tablet PO BID PRN Constipation 07/04/23 08/26/23 History tramadol 50 mg tablet 50 mg PO Q8H PRN Pain (Scale Score 07/04/23 08/26/23 History 4-6) ezetimibe 10 mg tablet (Zetia) 10 mg PO DAILY #30 tabs 07/10/23 08/26/23 Rx furosemide 40 mg tablet 40 mg PO DAILY #30 tabs 07/10/23 08/26/23 Rx metoprolol succinate 25 mg 25 mg PO QAM #30 tabs 07/10/23 08/26/23 Rx tablet,extended release 24 hr (Toprol XL) apixaban 5 mg tablet (Eliquis) 5 mg PO Q12H 08/26/23 08/26/23 History olmesartan 5 mg tablet 10 mg PO DAILY 08/26/23 08/26/23 History Allergies Allergy/AdvReac Type Severity Reaction Status Date / Time atorvastatin AdvReac Severe Agitated Verified 08/26/23 13:47 Vital Signs Vital Signs - 24 hr 08/26/23 14:10 08/26/23 14:30 08/26/23 14:41 Temperature Pulse Rate 103 H 104 H 103 H Respiratory Rate 30 H 19 23 H Blood Pressure 114/83 Pulse Oximetry 95 96 97 Oxygen Delivery BiPAP Oxygen Flow Rate Fraction of Inspired Oxygen 08/26/23 14:45 08/26/23 15:01 08/26/23 15:15 Temperature Pulse Rate 102 H 103 H 100 Respiratory Rate 18 22 H 20 Blood Pressure 106/76 Pulse Oximetry 97 98 98 Oxygen Delivery Oxygen Flow Rate Fraction of Inspired Oxygen 08/26/23 15:16 08/26/23 15:30 08/26/23 15:31 Temperature Pulse Rate 99 99 92 Respiratory Rate 20 19 20 Blood Pressure 121/73 132/98 H Pulse Oximetry 97 98 99 Oxygen Delivery Oxygen Flow Rate Fraction of Inspired Oxygen 08/26/23 17:26 08/26/23 17:38 08/26/23 17:15 Temperature 36.3 C L Pulse Rate 108 H 52 L Respiratory Rate 25 H 30 H Blood Pressure 118/75 Pulse Oximetry 100 96 96 Oxygen Delivery BiPAP BiPAP Oxygen Flow Rate Fraction of Inspired Oxygen 30 08/26/23 18:00 08/26/23 20:00 08/26/23 20:00 Temperature 37.2 C Pulse Rate 101 H 101 H 96 Respiratory Rate 18 Blood Pressure 143/94 H Pulse Oximetry 98 Oxygen Delivery Oxygen Flow Rate Fraction of Inspired Oxygen 08/26/23 22:00 08/27/23 00:00 08/27/23 00:00 Temperature 37.3 C Pulse Rate 102 H 93 94 Respiratory Rate 18 Blood Pressure 129/66 Pulse Oximetry 94 Oxygen Delivery Oxygen Flow Rate Fraction of Inspired Oxygen 08/27/23 00:40 08/27/23 03:26 08/27/23 04:00 Temperature 36.6 C Pulse Rate 93 90 88 Respiratory Rate 20 21 H 18 Blood Pressure 124/88 Pulse Oximetry 100 100 100 Oxygen Delivery BiPAP BiPAP Oxygen Flow Rate Fraction of Inspired Oxygen 08/27/23 02:00 08/27/23 04:00 08/27/23 06:00 Temperature Pulse Rate 87 87 89 Respiratory Rate Blood Pressure Pulse Oximetry Oxygen Delivery Oxygen Flow Rate Fraction of Inspired Oxygen 08/27/23 07:51 08/27/23 07:12 08/27/23 07:12 Temperature 36.5 C Pulse Rate 101 H 94 94 Respiratory Rate 25 H 18 Blood Pressure 149/55 H Pulse Oximetry 93 100 100 Oxygen Delivery Nasal Cannula Oxygen Flow Rate 3 Fraction of Inspired Oxygen 08/27/23 09:06 08/27/23 09:00 08/27/23 08:00 Temperature Pulse Rate 97 115 H Respiratory Rate Blood Pressure Pulse Oximetry 97 Oxygen Delivery Nasal Cannula Oxygen Flow Rate 4 Fraction of Inspired Oxygen 100 08/27/23 10:00 08/27/23 11:41 08/27/23 12:00 Temperature 36.9 C Pulse Rate 98 111 H Respiratory Rate 20 Blood Pressure 113/64 Pulse Oximetry 99 99 Oxygen Delivery Nasal Cannula Oxygen Flow Rate 4 Fraction of Inspired Oxygen 100 08/27/23 12:00 Temperature Pulse Rate 102 H Respiratory Rate Blood Pressure Pulse Oximetry Oxygen Delivery Oxygen Flow Rate Fraction of Inspired Oxygen Exam Const: General: comfortable, no acute distress, alert and awake Orientation/consciousness: patient oriented x3 HENMT: Head: normal to inspection Eyes: General: appearance normal, both eyes and all related structures Pupils: Equal, round and reactive pupils present Neck: Neck: normal visual inspection, supple and no JVD Carotids: normal carotid upstroke Resp: Effort & Inspection: normal respiratory effort Auscultation: not clear to auscultation bilaterally, rales and diminished lung sounds Cardio: Rate: regular rate Rhythm: abnormal rhythm irregularly irregular Heart sounds: S1 normal heart sound present, S2 normal heart sound present and no murmurs GI: Auscultation: normal bowel sounds Skin: General skin exam: normal color Neuro: General: patient oriented x3 Cranial nerves: Yes Equal, round and reactive pupils present Extrem: Other: trace bilateral pretibial edema Psych: Appearance: grossly normal Mental Status: mental status grossly normal Results Labs and Meds 08/26/23 11:32 08/27/23 04:43 Lab results: Cardiac Enzymes 08/26/23 08/26/23 Range/Units 14:37 17:33 Troponin I 0.037 H* 0.032 (0.000-0.034) ng/mL Comprehensive Metabolic Panel 08/27/23 Range/Units 04:43 Sodium 140 (137-145) mmol/L Potassium 3.6 (3.4-5.0) mmol/L Chloride 95 L (98-107) mmol/L Carbon Dioxide > 40 H (22-30) mmol/L BUN 25 H (9-20) mg/dL Creatinine 1.00 (0.7-1.3) mg/dL Glucose 89 (65-110) mg/dL Calcium 9.0 (8.4-10.2) mg/dL Intake and Output 08/26/23 08/27/23 08/27/23 23:59 07:59 15:59 Intake Total 120 Output Total 700 500 Balance -700 -500 120 Intake: Oral 120 Output: Urine 700 500 Patient Weight 08/27/23 23:59 Weight 124 kg
[2023-08-27] MEDS: PERFLUTREN LIPID MICROSPHERES 1.5 ML VIAL DILUTED TO 10 ML TOTAL VOLUME IV PUSH (14:36)
--- NOTE | 2023-08-27 14:36 | IVDEFINITY ---
Prior to administration of IV Definity the patient was educated on the risks and benefits of the imaging enhancing agent including potential adverse side effects. The patient verbalized understanding. Allergies were verified. No exclusion criteria were identified and at least one of the following inclusion criteria were met: 1) physician request, 2) patient technically difficult to image (per the [place] [employer] guidelines of two or more segments not discernable within the apical view), or 3) questionable left ventricular function. ?
--- NOTE | 2023-08-27 14:57 | PM.CNPUL ---
Assessment and Plan Assessment and plan (1) Recurrent right pleural effusion: Code(s): J90 - Pleural effusion, not elsewhere classified Status: Acute Assessment and Plan: This 78-year-old man has been treated for congestive heart failure following cardiac surgery in June of this year. Since then, he has been hospitalized on three occasions due to respiratory failure related to bilateral pleural effusions, with two thoracenteses performed last month. The patient was discharged home on BiPAP support set at 14/7 cm H2O and home oxygen to treat possible sleep-disordered breathing. On this regimen, there was no evidence of oxyhemoglobin desaturation at night. He has now presented again with shortness of breath and a right pleural effusion. Diagnostic studies suggest pulmonary edema related to congestive heart failure. According to his , the patient has not been compliant with his BiPAP support. Plan: The patient was evaluated by Cardiology Services for his congestive heart failure and atrial fibrillation. He is already on diuretic therapy, and his breathing has improved over the last 24 hours. From a respiratory standpoint, we need to continue supporting him with BiPAP and supplemental oxygen at night. We may need to decrease the BiPAP support to lower pressures, likely 12/6 cm H2O, and repeat an ApneaLink study before discharging him home. We will continue to follow the patient in collaboration with you. (2) Heart failure with reduced ejection fraction: Code(s): I50.20 - Unspecified systolic (congestive) heart failure Status: Acute (3) Obstructive sleep apnea treated with BiPAP: Code(s): G47.33 - Obstructive sleep apnea (adult) (pediatric) Status: Acute (4) Atrial fibrillation: Code(s): I48.91 - Unspecified atrial fibrillation Status: Acute (5) Chronic respiratory failure with hypoxia, on home oxygen therapy: Code(s): J96.11 - Chronic respiratory failure with hypoxia; Z99.81 - Dependence on supplemental oxygen Status: Acute (6) Acute on chronic respiratory failure with hypoxemia: Code(s): J96.21 - Acute and chronic respiratory failure with hypoxia Status: Acute History of Present Illness History of Present Illness Consult date: 08/27/23 Chief complaint: CHF Exacerbation/PNA/Elevated Troponin/Acute on Ch Narrative: This 78-year-old male presented with increasing shortness of breath over the past three days. He is well-known to Pulmonary Services due to previous hospitalizations. The patient had been in his usual state of health until last June, when he was transferred to [facility] for cardiac surgery, specifically a coronary artery bypass graft. Since then, he has been hospitalized three times with similar complaints, including shortness of breath. Bilateral pleural effusions were identified and evacuated at least twice, with fluid analysis suggesting congestive heart failure as the cause. Due to obesity and hypercapnic hypoxemic respiratory failure, the patient was started on BiPAP support during his hospital stay and was discharged home with BiPAP support and supplemental oxygen for nocturnal hypoxemia. During his previous hospitalization, an ApneaLink study on BiPAP and supplemental oxygen showed no significant oxyhemoglobin desaturation. According to his , the patient was doing well at home and was attempting to increase his daily activities. However, she mentioned that he had not been using the BiPAP support until about three days before this admission when he began experiencing shortness of breath again. He resumed BiPAP use, but his shortness of breath worsened. Additionally, he developed increasing lower extremity edema, and his tape coater doubled his Lasix dose a couple of weeks ago. The patient reported no other symptoms such as chest pain, palpitations, orthopnea, hemoptysis, or night sweats. In the emergency room, he was found to have a right pleural effusion, similar in size to previous episodes, and evidence of pulmonary edema. He is currently being treated with diuretics for congestive heart failure and BiPAP support at night with settings of 12/6 cm H2O, a respiratory rate of 18, and an FiO2 of 0.5. The patient reported improvement in his breathing over the past 24 hours. Cardiac surgery records were not available for review during the previous hospitalization. A new piece of information regarding his recent cardiac surgery is that he had to return to the OR for complications such as intrathoracic bleeding following the coronary artery surgery. The exact duration of cardiopulmonary bypass during both procedures is unknown. Review of Systems Review of Systems: All systems reviewed & are unremarkable except as noted in HPI and below (HPI and below) [facility] Past Medical History Medical History Chronic respiratory failure with hypoxia, on home oxygen therapy Coronary artery disease Dupuytren's contracture Heart failure with reduced ejection fraction EF of 40 to 45% on 06/11/2023. Hypertension Ischemic cardiomyopathy Morbid obesity with BMI of 40.0-44.9, adult Obstructive sleep apnea treated with BiPAP Persistent atrial fibrillation Status post Maze procedure and left atrial appendage ligation. Surgical History Surgical History History of cardiac catheterization (06/12/23) Multivessel coronary disease transferred for CABG History of cataract extraction with lens replacement History of elbow surgery Open reduction and internal fixation of lateral epicondyle fracture and irrigation debridement of open fracture. History of four vessel coronary artery bypass graft (06/14/23) [facility] History of inguinal hernia repair History of maze procedure (06/2023) Status post ligation of left atrial appendage (06/2023) Family History Family History Mother Patient's mother is , Onset Age: 80 Father Patient's father is , Onset Age: 80 Sibling Patient's brother is in good health Social History Social History Social History: Surrogate medical decision maker: Florence Garner, spouse. Code status: Full code. Smoking status: Never smoker Tobacco type: cigars Smoking end date: 03/11/05 Alcohol intake: current Drinks per week: 7 Substance use: never Substance use type: does not use Do You Feel Safe in your Home?: Yes Lack of Transportation: No Lack of Food: Never True Current Housing: I Have Housing Concerned About Future Housing: No Difficulty Paying Gas/Electric Bills: No Difficulty Paying for Meds: No Currently Unemployed: No Education: High School Diploma/GED Difficulty w/ Childcare or Family Care: No Additional living arrangements comments: Lives with spouse in [place]. They have been for 34 years. He does not have any children. Occupation/Education: retired Spiritual care concerns: No Meds Home Medications and Allergies Home Medications Medication Instructions Recorded Confirmed Type acetaminophen 500 mg capsule 500 mg PO Q6H PRN Pain (Scale 07/04/23 08/26/23 History Score 1-3) clopidogrel 75 mg tablet 75 mg PO DAILY 07/04/23 08/26/23 History polyethylene glycol 3350 17 17 g PO DAILY PRN Constipation 07/04/23 08/26/23 History gram/dose oral powder (Miralax) potassium chloride 20 mEq 20 meq PO DAILY 07/04/23 08/26/23 History tablet,extended release senna-docusate sodium tablet 1 tablet PO BID PRN Constipation 07/04/23 08/26/23 History tramadol 50 mg tablet 50 mg PO Q8H PRN Pain (Scale Score 07/04/23 08/26/23 History 4-6) ezetimibe 10 mg tablet (Zetia) 10 mg PO DAILY #30 tabs 07/10/23 08/26/23 Rx furosemide 40 mg tablet 40 mg PO DAILY #30 tabs 07/10/23 08/26/23 Rx metoprolol succinate 25 mg 25 mg PO QAM #30 tabs 07/10/23 08/26/23 Rx tablet,extended release 24 hr (Toprol XL) apixaban 5 mg tablet (Eliquis) 5 mg PO Q12H 08/26/23 08/26/23 History olmesartan 5 mg tablet 10 mg PO DAILY 08/26/23 08/26/23 History Allergies Allergy/AdvReac Type Severity Reaction Status Date / Time atorvastatin AdvReac Severe Agitated Verified 08/26/23 13:47 Vital Signs Vital Signs - 24 hr 08/26/23 15:01 08/26/23 15:15 08/26/23 15:16 Temperature Pulse Rate 103 H 100 99 Respiratory Rate 22 H 20 20 Blood Pressure 106/76 121/73 Pulse Oximetry 98 98 97 Oxygen Delivery Oxygen Flow Rate Fraction of Inspired Oxygen 08/26/23 15:30 08/26/23 15:31 08/26/23 17:26 Temperature 36.3 C L Pulse Rate 99 92 108 H Respiratory Rate 19 20 25 H Blood Pressure 132/98 H 118/75 Pulse Oximetry 98 99 100 Oxygen Delivery Oxygen Flow Rate Fraction of Inspired Oxygen 08/26/23 17:38 08/26/23 17:15 08/26/23 18:00 Temperature Pulse Rate 52 L 101 H Respiratory Rate 30 H Blood Pressure Pulse Oximetry 96 96 Oxygen Delivery BiPAP BiPAP Oxygen Flow Rate Fraction of Inspired Oxygen 30 08/26/23 20:00 08/26/23 20:00 08/26/23 22:00 Temperature 37.2 C Pulse Rate 101 H 96 102 H Respiratory Rate 18 Blood Pressure 143/94 H Pulse Oximetry 98 Oxygen Delivery Oxygen Flow Rate Fraction of Inspired Oxygen 06/18/24 00:00 08/27/23 00:00 08/27/23 00:40 Temperature 37.3 C Pulse Rate 93 94 93 Respiratory Rate 18 20 Blood Pressure 129/66 Pulse Oximetry 94 100 Oxygen Delivery BiPAP Oxygen Flow Rate Fraction of Inspired Oxygen 08/27/23 03:26 08/27/23 04:00 08/27/23 02:00 Temperature 36.6 C Pulse Rate 90 88 87 Respiratory Rate 21 H 18 Blood Pressure 124/88 Pulse Oximetry 100 100 Oxygen Delivery BiPAP Oxygen Flow Rate Fraction of Inspired Oxygen 08/27/23 04:00 08/27/23 06:00 08/27/23 07:51 Temperature 36.5 C Pulse Rate 87 89 101 H Respiratory Rate 25 H Blood Pressure 149/55 H Pulse Oximetry 93 Oxygen Delivery Oxygen Flow Rate Fraction of Inspired Oxygen 08/27/23 07:12 08/27/23 07:12 08/27/23 09:06 Temperature Pulse Rate 94 94 97 Respiratory Rate 18 Blood Pressure Pulse Oximetry 100 100 Oxygen Delivery Nasal Cannula Oxygen Flow Rate 3 Fraction of Inspired Oxygen 08/27/23 09:00 08/27/23 08:00 08/27/23 10:00 Temperature Pulse Rate 115 H 98 Respiratory Rate Blood Pressure Pulse Oximetry 97 Oxygen Delivery Nasal Cannula Oxygen Flow Rate 4 Fraction of Inspired Oxygen 100 08/27/23 11:41 08/27/23 12:00 08/27/23 12:00 Temperature 36.9 C Pulse Rate 111 H 102 H Respiratory Rate 20 Blood Pressure 113/64 Pulse Oximetry 99 99 Oxygen Delivery Nasal Cannula Oxygen Flow Rate 4 Fraction of Inspired Oxygen 100 Exam Narrative: GENERAL APPEARANCE: Well developed, well nourished, alert and cooperative, and appears to be in no acute distress while on supplemental oxygen via nasal cannula SKIN: Inspection of the skin reveals no rashes, ulcerations or petechiae. HEENT: Sclerae anicteric and conjunctivae pink and moist. Extraocular movements were intact and pupils were equal, round, and reactive to light. The oral mucosa, hard and soft palate, tongue and posterior pharynx were normal. NECK: Supple. There was no thyroid enlargement, and no tenderness, or masses were felt. CHEST: Normal AP diameter and normal contour without any kyphoscoliosis. LUNGS: Dullness to percussion and decreased breath sounds at right lung base posteriorly CARDIAC: There was an irregular rate and rhythm without any murmurs, gallops, rubs. ABDOMEN: Soft and nontender with normal bowel sounds. There was no organomegaly. LYMPH NODES: No lymphadenopathy was appreciated in the neck. EXTREMITIES: No cyanosis, clubbing; 1+ pedal edema NEUROLOGIC: Alert and oriented x 3. Normal affect. Results Laboratory Findings 08/26/23 11:32 08/27/23 04:43 ABG, PT/INR, D-dimer: ABG ABG pH 7.414 (7.350-7.450) 08/26/23 11:50 ABG pCO2 55.6 mmHg (35.0-45.0) H 08/26/23 11:50 ABG pO2 64.7 mmHg (80.0-100.0) L 08/26/23 11:50 ABG O2 Saturation 92.5 % (95.0-100.0) L 08/26/23 11:50 PT/INR, D-dimer PT 20.1 Seconds (11.1-14.7) H 08/26/23 11:32 INR 1.6 08/26/23 11:32 Abnormal lab findings: Abnormal Labs 08/26/23 08/26/23 08/26/23 11:32 11:50 13:59 RBC 3.19 L Hgb 9.0 L Hct 29.6 L MCHC 30.4 L RDW 15.3 H PT 20.1 H APTT 37.2 H ABG pCO2 55.6 H ABG pO2 64.7 L ABG HCO3 34.8 H ABG O2 Saturation 92.5 L ABG O2 Content 12.0 L Reduced Hemoglobin 8.7 H Total Hemoglobin 9.4 L Chloride 94 L Carbon Dioxide 38 H BUN 26 H Glucose 124 H Total Bilirubin 1.5 H Troponin I 0.043 H* NT-Pro-B Natriuret Pep 7560 H Urine Protein 1+ H Urine Ketones Trace H Urine Bilirubin 1+ H Leukocyte Esterase Rfl Trace H Urine RBC 6-10 H 08/26/23 08/27/23 14:37 04:43 RBC Hgb Hct MCHC RDW PT APTT ABG pCO2 ABG pO2 ABG HCO3 ABG O2 Saturation ABG O2 Content Reduced Hemoglobin Total Hemoglobin Chloride 95 L Carbon Dioxide > 40 H BUN 25 H Glucose Total Bilirubin Troponin I 0.037 H* NT-Pro-B Natriuret Pep Urine Protein Urine Ketones Urine Bilirubin Leukocyte Esterase Rfl Urine RBC
--- NOTE | 2023-08-27 18:20 | P.PNIM_ITS ---
Progress Note: A&P Assessment and Plan (1) Recurrent right pleural effusion: Code(s): J90 - Pleural effusion, not elsewhere classified Status: Acute (2) Heart failure with reduced ejection fraction: Code(s): I50.20 - Unspecified systolic (congestive) heart failure Status: Acute (3) Obstructive sleep apnea treated with BiPAP: Code(s): G47.33 - Obstructive sleep apnea (adult) (pediatric) Status: Acute Plan Patient is comfortable. He breathes well without BiPAP at the moment. Does not appear overloaded. While he has recurrent right pleural effusion is transudative, his recurrent readmission has been well known to be due to noncompliance. Patient reports he was not wearing the BiPAP in the got a new mask so he will wear it. He has ordered this on prior admissions although. He has also missed a couple doses here and there of his medications. Encourage compliance heavily. Spoke with both the patient and the about this. They both understood the importance of compliance. He is willing. Asked the patient if he is willing to pursue weight loss as well since this is now a events/chronic condition formed. Is amenable to having follow-up with PCP and referral. Will have discharge instructions to refer patient to weight loss [facility]. He is already the focusing on going home immediately. Advised he needs continued evaluation in the morning by the quality analyst/technical writer, Cardiology, pulmonology and we will give him our professional opinion. BiPAP settings currently at 12/6. Full code. Stable on telemetry. Continue noninvasive ventilator and oxygen support. Subjective Date/time seen: 08/27/23 18:20 Interval history: No acute events since admission. Patient rest comfortably in bed on nasal cannula. He denies shortness of breath. Review of Systems Review of Systems: All systems reviewed & are unremarkable except as noted in HPI and below (Subjective) Exam Const: General: comfortable and no acute distress Other: Obese, protuberant abdomen. A&O x3. Eyes: Pupils: Equal, round and reactive pupils present Neck: Neck: supple Resp: Effort & Inspection: normal respiratory effort Other: No crackles or rhonchi or wheezes. Decreased breath sounds at right lower lobe. Cardio: Rate: regular rate Rhythm: regular rhythm GI: GI Palp: Yes Soft to palpation and No Tenderness to palpation present (GI) Extrem: General: no edema Objective Data Vital Signs Vital Signs: Vital Signs - 24 hr 08/26/23 20:00 08/26/23 20:00 08/26/23 22:00 Temperature 98.9 F Pulse Rate 101 H 96 102 H Respiratory Rate 18 Blood Pressure 143/94 H Pulse Oximetry 98 Oxygen Delivery Oxygen Flow Rate Fraction of Inspired Oxygen 08/27/23 00:00 08/27/23 00:00 08/27/23 00:40 Temperature 99.1 F Pulse Rate 93 94 93 Respiratory Rate 18 20 Blood Pressure 129/66 Pulse Oximetry 94 100 Oxygen Delivery BiPAP Oxygen Flow Rate Fraction of Inspired Oxygen 08/27/23 03:26 08/27/23 04:00 08/27/23 02:00 Temperature 97.8 F Pulse Rate 90 88 87 Respiratory Rate 21 H 18 Blood Pressure 124/88 Pulse Oximetry 100 100 Oxygen Delivery BiPAP Oxygen Flow Rate Fraction of Inspired Oxygen 08/27/23 04:00 08/27/23 06:00 08/27/23 07:51 Temperature 97.7 F Pulse Rate 87 89 101 H Respiratory Rate 25 H Blood Pressure 149/55 H Pulse Oximetry 93 Oxygen Delivery Oxygen Flow Rate Fraction of Inspired Oxygen 08/27/23 07:12 08/27/23 07:12 08/27/23 09:06 Temperature Pulse Rate 94 94 97 Respiratory Rate 18 Blood Pressure Pulse Oximetry 100 100 Oxygen Delivery Nasal Cannula Oxygen Flow Rate 3 Fraction of Inspired Oxygen 08/27/23 09:00 08/27/23 08:00 08/27/23 10:00 Temperature Pulse Rate 115 H 98 Respiratory Rate Blood Pressure Pulse Oximetry 97 Oxygen Delivery Nasal Cannula Oxygen Flow Rate 4 Fraction of Inspired Oxygen 100 08/27/23 11:41 08/27/23 12:00 08/27/23 12:00 Temperature 98.4 F Pulse Rate 111 H 102 H Respiratory Rate 20 Blood Pressure 113/64 Pulse Oximetry 99 99 Oxygen Delivery Nasal Cannula Oxygen Flow Rate 4 Fraction of Inspired Oxygen 100 08/27/23 14:00 08/27/23 16:00 08/27/23 16:00 Temperature 98.2 F Pulse Rate 105 H 106 H 93 Respiratory Rate 20 Blood Pressure 140/72 Pulse Oximetry 91 Oxygen Delivery Oxygen Flow Rate Fraction of Inspired Oxygen 08/27/23 16:00 08/27/23 18:00 Temperature Pulse Rate 104 H Respiratory Rate Blood Pressure Pulse Oximetry 97 Oxygen Delivery Nasal Cannula Oxygen Flow Rate 4 Fraction of Inspired Oxygen 100 Intake/Output Intake/Output: Intake & Output 08/24/23 08/25/23 08/26/23 08/27/23 23:59 23:59 23:59 23:59 Intake Total 300 120 Output Total 700 500 Balance -400 -380 Meds/Results Medications: Active Medications Generic Name Dose Route Start Last Admin Trade Name Reynaldoq PRN Reason Stop Dose Admin Acetaminophen 650 mg 08/26/23 17:24 Acetaminophen 325 Mg Tablet PO Q6H PRN Mild Pain (1-3) or Fever Apixaban 5 mg 08/26/23 21:00 08/27/23 09:06 Apixaban 5 Mg Tablet PO 5 mg Q12H DAMIAN Administration Clopidogrel Bisulfate 75 mg 08/27/23 09:00 08/27/23 09:06 Clopidogrel Bisulfate 75 Mg Tablet PO 75 mg DAILY DAMIAN Administration Ezetimibe 10 mg 08/27/23 09:00 08/27/23 09:06 Ezetimibe 10 Mg Tablet PO 10 mg DAILY DAMIAN Administration Furosemide 40 mg 08/26/23 21:00 08/27/23 09:07 Furosemide Inj 40 Mg/4 Ml Vial IV PUSH 40 mg Q12HR DAMIAN Administration Metoprolol Succinate 25 mg 08/27/23 09:00 08/27/23 09:06 Metoprolol Succinate Ext Rel 25 Mg Tabcr PO 25 mg QAM DAMIAN Administration Olmesartan 10 mg 08/27/23 09:00 08/27/23 09:05 Olmesartan Medoxomil 10 Mg Tablet PO 10 mg DAILY DAMIAN Administration Polyethylene Glycol 17 gm 08/26/23 21:28 Polyethylene Glycol 3350 17 Gm Powd.Pack PO DAILY PRN Constipation Potassium Chloride 20 meq 08/27/23 09:00 08/27/23 09:06 Potassium Chloride 20 Meq Er Tablet PO 20 meq DAILY DAMIAN Administration Radiology Results: ITS Impressions Chest X-Ray 08/26/23 12:24 IMPRESSION: Right basal pneumonia with pleural effusion. Interstitial changes in the left lung base which may indicate underlying pulmonary edema. Clinical correlation advised. Venous Doppler Study 08/27/23 12:44 IMPRESSION: 1: No lower extremity deep venous thrombosis. Labs Labs: Laboratory Results - last 24 hr 08/26/23 08/27/23 17:33 04:43 Sodium 140 Potassium 3.6 Chloride 95 L Carbon Dioxide > 40 H Anion Gap BUN 25 H Creatinine 1.00 Estim Creat Clear Calc 71 Estimated GFR > 60 Glucose 89 Calcium 9.0 Magnesium 2.0 Troponin I 0.032
[2023-08-27 18:46] LABS: Hemoglobin 8.4 g/dL (14.0-18.0); Mean Corpuscular Hemoglobin 27.6 pg (26-34); Mean Corpuscular Volume 95.4 fl (80-100); Mean Platelet Volume 9.2 fl (7.4-10.4); Platelet Count Result 226 k/mm3 (150-375); Red Blood Count 3.04 M/mm3 (4.6-6.20); Red Cell Distribution Width 15.4 % (11.5-14.5); White Blood Count 4.8 K/mm3 (4.5-10.0)
[2023-08-28] VITALS (20 sets, daily range): BP systolic 112–133; BP diastolic 66–79; PULSE 81–109; RESP 19–27; TEMP 36.3–37.1; O2SAT 96–100
[2023-08-28 05:06] LABS: Blood Urea Nitrogen 22 mg/dL (9-20); Calcium 8.8 mg/dL (8.4-10.2); Carbon Dioxide > 40 mmol/L (22-30); Chloride 94 mmol/L (98-107); Estimated CRCL calculation 71 ml/min; Estimated Glomerular Filt Rate > 60; Glucose 101 mg/dL (65-110); Potassium 3.6 mmol/L (3.4-5.0); Sodium 142 mmol/L (137-145)
[2023-08-28] MEDS: EZETIMIBE 10 MG TABLET PO (09:22)
[2023-08-28] MEDS: OLMESARTAN MEDOXOMIL 10 MG TABLET PO (09:22)
[2023-08-28] MEDS: CLOPIDOGREL BISULFATE 75 MG TABLET PO (09:22)
[2023-08-28] MEDS: METOPROLOL SUCCINATE EXT REL 25 MG TABCR PO (09:22)
[2023-08-28] MEDS: POTASSIUM CHLORIDE 20 MEQ ER TABLET PO (09:22)
[2023-08-28] MEDS: APIXABAN 5 MG TABLET PO ×2 (09:22→20:08)
[2023-08-28] MEDS: FUROSEMIDE INJ 40 MG/4 ML VIAL IV PUSH (09:23)
--- NOTE | 2023-08-28 12:37 | P.PNPL_ITS ---
Progress Note: A&P Assessment and Plan (1) Acute on chronic respiratory failure with hypoxemia: Code(s): J96.21 - Acute and chronic respiratory failure with hypoxia Status: Acute (2) Respiratory failure with hypoxia and hypercapnia: Code(s): J96.91 - Respiratory failure, unspecified with hypoxia; J96.92 - Respiratory failure, unspecified with hypercapnia Status: Acute Assessment and Plan: This 78-year-old man has been treated for congestive heart failure following cardiac surgery in June of this year. Since then, he has been hospitalized on three occasions due to respiratory failure related to bilateral pleural effusions, with two thoracenteses performed last month. The patient was discharged home on BiPAP support set at 14/7 cm H2O and home oxygen to treat possible sleep-disordered breathing. On this regimen, there was no evidence of oxyhemoglobin desaturation at night. He has now presented again with shortness of breath and a right pleural effusion. Diagnostic studies suggest pulmonary edema related to congestive heart failure. According to his , the patient has not been compliant with his BiPAP support. Over the last 24 hours his respiratory status has improved. Patient uses BiPAP every night. Plan: Case was discussed with the hospitalist. Patient on treatment for congestive heart failure. Will measure nocturnal oxyhemoglobin saturation on BiPAP and supplemental oxygen tonight. (3) Pleural effusion: Code(s): J90 - Pleural effusion, not elsewhere classified Status: Acute (4) CAD (coronary artery disease): Code(s): I25.10 - Atherosclerotic heart disease of [place] coronary artery without angina pectoris Status: Acute Subjective Date/time seen: 08/28/23 12:37 Interval history: Patient stated he is doing better. Has no shortness of breath at rest. Used BiPAP support at night. He thinks his respiratory status is back at baseline. Review of Systems Review of Systems: All systems reviewed & are unremarkable except as noted in HPI and below (HPI and below) Exam Narrative: GENERAL APPEARANCE: Well developed, well nourished, alert and cooperative, and appears to be in no acute distress while on supplemental oxygen via nasal cannula SKIN: Inspection of the skin reveals no rashes, ulcerations or petechiae. HEENT: Sclerae anicteric and conjunctivae pink and moist. Extraocular movements were intact and pupils were equal, round, and reactive to light. The oral mucosa, hard and soft palate, tongue and posterior pharynx were normal. NECK: Supple. There was no thyroid enlargement, and no tenderness, or masses were felt. CHEST: Normal AP diameter and normal contour without any kyphoscoliosis. LUNGS: Dullness to percussion and decreased breath sounds at right lung base posteriorly CARDIAC: There was an irregular rate and rhythm without any murmurs, gallops, rubs. ABDOMEN: Soft and nontender with normal bowel sounds. There was no organomegaly. LYMPH NODES: No lymphadenopathy was appreciated in the neck. EXTREMITIES: No cyanosis, clubbing; 1+ pedal edema NEUROLOGIC: Alert and oriented x 3. Normal affect. Objective Data Vital Signs Vital Signs: Vital Signs - 24 hr 08/27/23 14:00 08/27/23 16:00 08/27/23 16:00 Temperature 36.8 C Pulse Rate 105 H 106 H 93 Respiratory Rate 20 Blood Pressure 140/72 Pulse Oximetry 91 Oxygen Delivery Oxygen Flow Rate Fraction of Inspired Oxygen 08/27/23 16:00 08/27/23 18:00 08/27/23 20:09 Temperature 36.5 C Pulse Rate 104 H 88 Respiratory Rate 20 Blood Pressure 115/63 Pulse Oximetry 97 95 Oxygen Delivery Nasal Cannula Oxygen Flow Rate 4 Fraction of Inspired Oxygen 100 08/27/23 20:00 08/27/23 22:45 08/27/23 22:45 Temperature Pulse Rate 95 Respiratory Rate 23 H Blood Pressure Pulse Oximetry 95 100 100 Oxygen Delivery Nasal Cannula BiPAP Nasal Cannula Oxygen Flow Rate 4 3 Fraction of Inspired Oxygen 08/27/23 20:00 08/28/23 00:00 08/28/23 00:36 Temperature 36.4 C L Pulse Rate 99 96 Respiratory Rate 21 H Blood Pressure 121/75 Pulse Oximetry 100 100 Oxygen Delivery BiPAP Oxygen Flow Rate Fraction of Inspired Oxygen 30 08/28/23 00:00 08/28/23 04:00 08/28/23 05:06 Temperature 36.4 C Pulse Rate 91 95 Respiratory Rate 19 Blood Pressure 128/67 Pulse Oximetry 100 97 Oxygen Delivery BiPAP Oxygen Flow Rate Fraction of Inspired Oxygen 50 08/28/23 04:00 08/28/23 02:50 08/28/23 08:00 Temperature 36.3 C L Pulse Rate 104 H 84 104 H Respiratory Rate 23 H 24 H Blood Pressure 133/73 Pulse Oximetry 97 98 Oxygen Delivery BiPAP Oxygen Flow Rate Fraction of Inspired Oxygen 08/28/23 09:22 08/28/23 08:00 08/28/23 10:00 Temperature Pulse Rate 101 H 109 H 102 H Respiratory Rate Blood Pressure Pulse Oximetry Oxygen Delivery Oxygen Flow Rate Fraction of Inspired Oxygen Intake/Output Intake/Output: Intake & Output 08/25/23 08/26/23 08/27/23 08/28/23 23:59 23:59 23:59 23:59 Intake Total 300 1020 470 Output Total 700 1200 2150 Balance -400 180 -8800 Meds/Results Medications: Active Medications Generic Name Dose Route Start Last Admin Trade Name Freq PRN Reason Stop Dose Admin Acetaminophen 650 mg 08/26/23 17:24 Acetaminophen 325 Mg Tablet PO Q6H PRN Mild Pain (1-3) or Fever Apixaban 5 mg 08/26/23 21:00 08/28/23 09:22 Apixaban 5 Mg Tablet PO 5 mg Q12H DAMIAN Administration Clopidogrel Bisulfate 75 mg 08/27/23 09:00 08/28/23 09:22 Clopidogrel Bisulfate 75 Mg Tablet PO 75 mg DAILY DAMIAN Administration Ezetimibe 10 mg 08/27/23 09:00 08/28/23 09:22 Ezetimibe 10 Mg Tablet PO 10 mg DAILY DAMIAN Administration Empagliflozin 10 mg 08/28/23 12:30 Empagliflozin 10 Mg Tablet PO DAILY [facility] Furosemide 40 mg 08/26/23 21:00 08/28/23 09:23 Furosemide Inj 40 Mg/4 Ml Vial IV PUSH 40 mg Q12HR DAMIAN Administration Metoprolol Succinate 25 mg 08/27/23 09:00 08/28/23 09:22 Metoprolol Succinate Ext Rel 25 Mg Tabcr PO 25 mg QAM DAMIAN Administration Olmesartan 10 mg 08/27/23 09:00 08/28/23 09:22 Olmesartan Medoxomil 10 Mg Tablet PO 10 mg DAILY DAMIAN Administration Polyethylene Glycol 17 gm 08/26/23 21:28 Polyethylene Glycol 3350 17 Gm Powd.Pack PO DAILY PRN Constipation Potassium Chloride 20 meq 08/27/23 09:00 08/28/23 09:22 Potassium Chloride 20 Meq Er Tablet PO 20 meq DAILY DAMIAN Administration Spironolactone 25 mg 08/28/23 12:35 Spironolactone 25 Mg Tablet PO QAM [facility] Radiology Results: ITS Impressions Chest X-Ray 08/26/23 12:24 IMPRESSION: Right basal pneumonia with pleural effusion. Interstitial changes in the left lung base which may indicate underlying pulmonary edema. Clinical correlation advised. Venous Doppler Study 08/27/23 12:44 IMPRESSION: 1: No lower extremity deep venous thrombosis. Labs Labs: Laboratory Results - last 24 hr 08/27/23 08/28/23 18:27 04:14 WBC 4.8 RBC 3.04 L Hgb 8.4 L Hct 29.0 L MCV 95.4 MCH 27.6 MCHC 29.0 L RDW 15.4 H Plt Count 226 MPV 9.2 Sodium 142 Potassium 3.6 Chloride 94 L Carbon Dioxide > 40 H Anion Gap BUN 22 H Creatinine 1.00 Estim Creat Clear Calc 71 Estimated GFR > 60 Glucose 101 Calcium 8.8 Magnesium 2.0
--- NOTE | 2023-08-28 12:41 | P.PNCA_ITS ---
Progress Note: A&P Assessment and Plan (1) Heart failure with improved ejection fraction (HFimpEF): Code(s): I50.32 - Chronic diastolic (congestive) heart failure Status: Acute Assessment and Plan: At this time, patient looks clinically euvolemic. Will stop IV Lasix and transition back to PO Lasix. To optimize his heart failure GDMT, will start Jardiance 10mg once daily along with Spironolactone 25mg once daily. Continue Olmesartan. Can consider shifting this to Entresto as an outpatient. (2) Obstructive sleep apnea treated with BiPAP: Code(s): G47.33 - Obstructive sleep apnea (adult) (pediatric) Status: Acute Assessment and Plan: Needs to be compliant with BIPAP as an outpatient. (3) Coronary artery disease: Code(s): I25.10 - Atherosclerotic heart disease of [place] coronary artery without angina pectoris Status: Acute Assessment and Plan: Stable. No anginal symptoms. Continue Plavix, Zetia. (4) Persistent atrial fibrillation: Code(s): I48.19 - Other persistent atrial fibrillation Status: Acute Assessment and Plan: Rate controlled. Continue Metoprolol. Continue Eliquis. (5) S/P CABG (coronary artery bypass graft): Code(s): Z95.1 - Presence of aortocoronary bypass graft Status: Acute Assessment and Plan: As above. Plan Recommendations and plan discussed with Hospitalist. Anticipate discharge home tomorrow. Patient to follow up with his primary pamphlet distributor after hospital discharge. Subjective Date/time seen: 08/28/23 12:41 Interval history: Reason for visit: CHF HPI: Sudarshan Garner is a 78 year old male with coronary artery disease s/p CABG x 4, atrial fibrillation s/p biatrial MAZE and left atrial appendage ligation, hypertension, obstructive sleep apnea, and chronic hypoxic respiratory failure presenting to the hospital with a chief complaint of shortness of breath. He has presented to the emergency room multiple times and been admitted three times since his CABG in June of 2023 with shortness of breath. He tells me had been feeling well up until about 3 days ago when he started wearing his BiPAP at night at which point he actually started experiencing dyspnea and lower extremity edema. At this point his edema is improving but he still feels short of breath. He denies any chest pain, orthopnea, palpitations, syncope. He is currently following with [facility]. Date of service 08/27: Feeling well today. No shortness of breath. No lower extremity edema. Review of Systems Review of Systems: All systems reviewed & are unremarkable except as noted in HPI and below (HPI) Exam Const: General: comfortable and no acute distress HENMT: Mouth: Yes moist mucous membranes Eyes: General: appearance normal, both eyes and all related structures Sclera: sclerae normal Resp: Effort & Inspection: normal respiratory effort Auscultation: clear to auscultation bilaterally Other: On supplemental oxygen via nasal cannula Cardio: Rhythm: abnormal rhythm irregularly irregular Other: No lower extremity edema Skin: General skin exam: normal color Neuro: Speech: normal speech Psych: Mental Status: mental status grossly normal Affect: normal affect Objective Data Vital Signs Vital Signs: Vital Signs - 24 hr 08/27/23 14:00 08/27/23 16:00 08/27/23 16:00 Temperature 36.8 C Pulse Rate 105 H 106 H 93 Respiratory Rate 20 Blood Pressure 140/72 Pulse Oximetry 91 Oxygen Delivery Oxygen Flow Rate Fraction of Inspired Oxygen 08/27/23 16:00 08/27/23 18:00 08/27/23 20:09 Temperature 36.5 C Pulse Rate 104 H 88 Respiratory Rate 20 Blood Pressure 115/63 Pulse Oximetry 97 95 Oxygen Delivery Nasal Cannula Oxygen Flow Rate 4 Fraction of Inspired Oxygen 100 08/27/23 20:00 08/27/23 22:45 08/27/23 22:45 Temperature Pulse Rate 95 Respiratory Rate 23 H Blood Pressure Pulse Oximetry 95 100 100 Oxygen Delivery Nasal Cannula BiPAP Nasal Cannula Oxygen Flow Rate 4 3 Fraction of Inspired Oxygen 08/27/23 20:00 08/28/23 00:00 08/28/23 00:36 Temperature 36.4 C L Pulse Rate 99 96 Respiratory Rate 21 H Blood Pressure 121/75 Pulse Oximetry 100 100 Oxygen Delivery BiPAP Oxygen Flow Rate Fraction of Inspired Oxygen 30 08/28/23 00:00 08/28/23 04:00 08/28/23 05:06 Temperature 36.4 C Pulse Rate 91 95 Respiratory Rate 19 Blood Pressure 128/67 Pulse Oximetry 100 97 Oxygen Delivery BiPAP Oxygen Flow Rate Fraction of Inspired Oxygen 50 08/28/23 04:00 08/28/23 02:50 08/28/23 08:00 Temperature 36.3 C L Pulse Rate 104 H 84 104 H Respiratory Rate 23 H 24 H Blood Pressure 133/73 Pulse Oximetry 97 98 Oxygen Delivery BiPAP Oxygen Flow Rate Fraction of Inspired Oxygen 08/28/23 09:22 08/28/23 08:00 08/28/23 10:00 Temperature Pulse Rate 101 H 109 H 102 H Respiratory Rate Blood Pressure Pulse Oximetry Oxygen Delivery Oxygen Flow Rate Fraction of Inspired Oxygen Intake/Output Intake/Output: Intake & Output 08/25/23 08/26/23 08/27/23 08/28/23 23:59 23:59 23:59 23:59 Intake Total 300 1020 470 Output Total 700 1200 2150 Balance -400 -180 -8740 Meds/Results Medications: Active Medications Generic Name Dose Route Start Last Admin Trade Name Freq PRN Reason Stop Dose Admin Acetaminophen 650 mg 08/26/23 17:24 Acetaminophen 325 Mg Tablet PO Q6H PRN Mild Pain (1-3) or Fever Apixaban 5 mg 08/26/23 21:00 08/28/23 09:22 Apixaban 5 Mg Tablet PO 5 mg Q12H DAMIAN Administration Clopidogrel Bisulfate 75 mg 08/27/23 09:00 08/28/23 09:22 Clopidogrel Bisulfate 75 Mg Tablet PO 75 mg DAILY DAMIAN Administration Ezetimibe 10 mg 08/27/23 09:00 08/28/23 09:22 Ezetimibe 10 Mg Tablet PO 10 mg DAILY DAMIAN Administration Empagliflozin 10 mg 08/28/23 12:30 Empagliflozin 10 Mg Tablet PO DAILY DAMIAN Furosemide 40 mg 08/29/23 09:00 Furosemide 40 Mg Tablet PO DAILY DAMIAN Metoprolol Succinate 25 mg 08/27/23 09:00 08/28/23 09:22 Metoprolol Succinate Ext Rel 25 Mg Tabcr PO 25 mg QAM DAMIAN Administration Olmesartan 10 mg 08/27/23 09:00 08/28/23 09:22 Olmesartan Medoxomil 10 Mg Tablet PO 10 mg DAILY DAMIAN Administration Polyethylene Glycol 17 gm 08/26/23 21:28 Polyethylene Glycol 3350 17 Gm Powd.Pack PO DAILY PRN Constipation Potassium Chloride 20 meq 08/27/23 09:00 08/28/23 09:22 Potassium Chloride 20 Meq Er Tablet PO 20 meq DAILY DAMIAN Administration Spironolactone 25 mg 08/28/23 12:35 Spironolactone 25 Mg Tablet PO QAM DAMIAN Radiology Results: ITS Impressions Chest X-Ray 08/26/23 12:24 IMPRESSION: Right basal pneumonia with pleural effusion. Interstitial changes in the left lung base which may indicate underlying pulmonary edema. Clinical correlation advised. Venous Doppler Study 08/27/23 12:44 IMPRESSION: 1: No lower extremity deep venous thrombosis. Labs Labs: Laboratory Results - last 24 hr 08/27/23 08/28/23 18:27 04:14 WBC 4.8 RBC 3.04 L Hgb 8.4 L Hct 29.0 L MCV 95.4 MCH 27.6 MCHC 29.0 L RDW 15.4 H Plt Count 226 MPV 9.2 Sodium 142 Potassium 3.6 Chloride 94 L Carbon Dioxide > 40 H Anion Gap BUN 22 H Creatinine 1.00 Estim Creat Clear Calc 71 Estimated GFR > 60 Glucose 101 Calcium 8.8 Magnesium 2.0
--- NOTE | 2023-08-28 13:05 | P.PNIM_ITS ---
Progress Note: A&P Assessment and Plan (1) Recurrent right pleural effusion: Code(s): J90 - Pleural effusion, not elsewhere classified Status: Acute (2) Heart failure with reduced ejection fraction: Code(s): I50.20 - Unspecified systolic (congestive) heart failure Status: Deleted (3) Obstructive sleep apnea treated with BiPAP: Code(s): G47.33 - Obstructive sleep apnea (adult) (pediatric) Status: Acute Plan Noncompliant on BiPAP at home. Multiple remissions due to noncompliance. Presented with a pCO2 72.6 not on 55.6. BiPAP settings changed to 12/6 with O2 supplementation. ApneaLink tonight to assess response. Plan is for discharge to home tomorrow pending ApneaLink results. Also, for heart failure with preserved ejection fraction currently appears euvolemic. Jardiance and spironolactone to start today. Monitor blood pressure response. 10+ minutes spent counseling patient on importance of noninvasive ventilator therapy and medications. He verbalizes understanding and agrees to remain compliant. He is also amenable to weight loss clinic which will be referred by his PCP. AFib rate controlled. Continue Eliquis. No GI prophylaxis indicated. Full code total time spent in discussion with pt, chart review, and discussion with sukh de guzman, child welfare social worker, cycle consultant, and developer trading systems 35 minutes. Subjective Date/time seen: 08/28/23 13:05 Interval history: No acute overnight events. After lengthy discussion about complaints patient is amenable to wearing the BiPAP. He is also amenable to staying overnight for the ApneaLink. He is calm and cooperative today. Denies shortness of breath Review of Systems Review of Systems: All systems reviewed & are unremarkable except as noted in HPI and below (Subjective) Exam Const: General: comfortable and no acute distress HENMT: Mouth: Yes moist mucous membranes Eyes: General: appearance normal, both eyes and all related structures Sclera: sclerae normal Resp: Effort & Inspection: normal respiratory effort Auscultation: clear to auscultation bilaterally Other: On supplemental oxygen via nasal cannula Cardio: Rhythm: abnormal rhythm irregularly irregular Other: No lower extremity edema Skin: General skin exam: normal color Neuro: Speech: normal speech Psych: Mental Status: mental status grossly normal Affect: normal affect Objective Data Vital Signs Vital Signs: Vital Signs - 24 hr 08/27/23 14:00 08/27/23 16:00 08/27/23 16:00 Temperature 98.2 F Pulse Rate 105 H 106 H 93 Respiratory Rate 20 Blood Pressure 140/72 Pulse Oximetry 91 Oxygen Delivery Oxygen Flow Rate Fraction of Inspired Oxygen 08/27/23 16:00 08/27/23 18:00 08/27/23 20:09 Temperature 97.7 F Pulse Rate 104 H 88 Respiratory Rate 20 Blood Pressure 115/63 Pulse Oximetry 97 95 Oxygen Delivery Nasal Cannula Oxygen Flow Rate 4 Fraction of Inspired Oxygen 100 08/27/23 20:00 08/27/23 22:45 08/27/23 22:45 Temperature Pulse Rate 95 Respiratory Rate 23 H Blood Pressure Pulse Oximetry 95 100 100 Oxygen Delivery Nasal Cannula BiPAP Nasal Cannula Oxygen Flow Rate 4 3 Fraction of Inspired Oxygen 08/27/23 20:00 08/28/23 00:00 08/28/23 00:36 Temperature 97.5 F L Pulse Rate 99 96 Respiratory Rate 21 H Blood Pressure 121/75 Pulse Oximetry 100 100 Oxygen Delivery BiPAP Oxygen Flow Rate Fraction of Inspired Oxygen 30 08/28/23 00:00 08/28/23 04:00 08/28/23 05:06 Temperature 97.6 F Pulse Rate 91 95 Respiratory Rate 19 Blood Pressure 128/67 Pulse Oximetry 100 97 Oxygen Delivery BiPAP Oxygen Flow Rate Fraction of Inspired Oxygen 50 08/28/23 04:00 08/28/23 02:50 08/28/23 08:00 Temperature 97.4 F L Pulse Rate 104 H 84 104 H Respiratory Rate 23 H 24 H Blood Pressure 133/73 Pulse Oximetry 97 98 Oxygen Delivery BiPAP Oxygen Flow Rate Fraction of Inspired Oxygen 08/28/23 09:22 08/28/23 08:00 08/28/23 10:00 Temperature Pulse Rate 101 H 109 H 102 H Respiratory Rate Blood Pressure Pulse Oximetry Oxygen Delivery Oxygen Flow Rate Fraction of Inspired Oxygen 08/28/23 13:01 Temperature Pulse Rate 99 Respiratory Rate Blood Pressure Pulse Oximetry 98 Oxygen Delivery Nasal Cannula Oxygen Flow Rate 3 Fraction of Inspired Oxygen Intake/Output Intake/Output: Intake & Output 08/25/23 08/26/23 08/27/23 08/28/23 23:59 23:59 23:59 23:59 Intake Total 300 1020 470 Output Total 700 1200 2150 Balance -400 -180 -1000 Meds/Results Medications: Active Medications Generic Name Dose Route Start Last Admin Trade Name Reynaldoq PRN Reason Stop Dose Admin Acetaminophen 650 mg 08/26/23 17:24 Acetaminophen 325 Mg Tablet PO Q6H PRN Mild Pain (1-3) or Fever Apixaban 5 mg 08/26/23 21:00 08/28/23 09:22 Apixaban 5 Mg Tablet PO 5 mg Q12H DAMIAN Administration Clopidogrel Bisulfate 75 mg 08/27/23 09:00 08/28/23 09:22 Clopidogrel Bisulfate 75 Mg Tablet PO 75 mg DAILY DAMIAN Administration Ezetimibe 10 mg 08/27/23 09:00 08/28/23 09:22 Ezetimibe 10 Mg Tablet PO 10 mg DAILY DAMIAN Administration Empagliflozin 10 mg 08/28/23 12:30 Empagliflozin 10 Mg Tablet PO DAILY [facility] Furosemide 40 mg 08/29/23 09:00 Furosemide 40 Mg Tablet PO DAILY [facility] Metoprolol Succinate 25 mg 08/27/23 09:00 08/28/23 09:22 Metoprolol Succinate Ext Rel 25 Mg Tabcr PO 25 mg QAM [facility] Administration Olmesartan 10 mg 08/27/23 09:00 08/28/23 09:22 Olmesartan Medoxomil 10 Mg Tablet PO 10 mg DAILY DAMIAN Administration Polyethylene Glycol 17 gm 08/26/23 21:28 Polyethylene Glycol 3350 17 Gm Powd.Pack PO DAILY PRN Constipation Potassium Chloride 20 meq 08/27/23 09:00 08/28/23 09:22 Potassium Chloride 20 Meq Er Tablet PO 20 meq DAILY DAMIAN Administration Spironolactone 25 mg 08/28/23 12:35 Spironolactone 25 Mg Tablet PO QAM [facility] Radiology Results: ITS Impressions Chest X-Ray 08/26/23 12:24 IMPRESSION: Right basal pneumonia with pleural effusion. Interstitial changes in the left lung base which may indicate underlying pulmonary edema. Clinical correlation advised. Venous Doppler Study 08/27/23 12:44 IMPRESSION: 1: No lower extremity deep venous thrombosis. Labs Labs: Laboratory Results - last 24 hr 08/27/23 08/28/23 18:27 04:14 WBC 4.8 RBC 3.04 L Hgb 8.4 L Hct 29.0 L MCV 95.4 MCH 27.6 MCHC 29.0 L RDW 15.4 H Plt Count 226 MPV 9.2 Sodium 142 Potassium 3.6 Chloride 94 L Carbon Dioxide > 40 H Anion Gap BUN 22 H Creatinine 1.00 Estim Creat Clear Calc 71 Estimated GFR > 60 Glucose 101 Calcium 8.8 Magnesium 2.0
[2023-08-28] MEDS: EMPAGLIFLOZIN 10 MG TABLET PO (14:15)
[2023-08-28] MEDS: SPIRONOLACTONE 25 MG TABLET PO (14:15)
[2023-08-29] VITALS (17 sets, daily range): BP systolic 117–139; BP diastolic 65–76; PULSE 85–104; RESP 19–24; TEMP 35.7–36.7; O2SAT 90–99
--- NOTE | 2023-08-29 05:25 | PCRCNOTE ---
Apnea link completed last night on patient. Patient was on bipap, 12/6 30% O2 when the oximetry study began. RT had to increase patients oxygen requirement to 40% at 0000 due to desaturation. Note added.
[2023-08-29] MEDS: OLMESARTAN MEDOXOMIL 10 MG TABLET PO (08:16)
[2023-08-29] MEDS: EZETIMIBE 10 MG TABLET PO (08:16)
[2023-08-29] MEDS: FUROSEMIDE 40 MG TABLET PO (08:16)
[2023-08-29] MEDS: SPIRONOLACTONE 25 MG TABLET PO (08:16)
[2023-08-29] MEDS: POTASSIUM CHLORIDE 20 MEQ ER TABLET PO (08:16)
[2023-08-29] MEDS: CLOPIDOGREL BISULFATE 75 MG TABLET PO (08:17)
[2023-08-29] MEDS: METOPROLOL SUCCINATE EXT REL 25 MG TABCR PO (08:17)
[2023-08-29] MEDS: APIXABAN 5 MG TABLET PO ×2 (08:17→20:30)
[2023-08-29] MEDS: EMPAGLIFLOZIN 10 MG TABLET PO (08:17)
--- NOTE | 2023-08-29 08:17 | P.PNPL_ITS ---
Progress Note: A&P Assessment and Plan (1) Acute on chronic respiratory failure with hypoxemia: Code(s): J96.21 - Acute and chronic respiratory failure with hypoxia Status: Acute (2) Respiratory failure with hypoxia and hypercapnia: Code(s): J96.91 - Respiratory failure, unspecified with hypoxia; J96.92 - Respiratory failure, unspecified with hypercapnia Status: Acute Assessment and Plan: This 78-year-old man has been treated for congestive heart failure following cardiac surgery in June of this year. Since then, he has been hospitalized on three occasions due to respiratory failure related to bilateral pleural effusions, with two thoracenteses performed last month. The patient was discharged home on BiPAP support set at 14/7 cm H2O and home oxygen to treat possible sleep-disordered breathing. On this regimen, there was no evidence of oxyhemoglobin desaturation at night. He has now presented again with shortness of breath and a right pleural effusion. Diagnostic studies suggest pulmonary edema related to congestive heart failure. According to his , the patient has not been compliant with his BiPAP support. Over the last 24 hours his respiratory status has improved. Patient uses BiPAP every night. On BiPAP settings 12/6 he had significant oxyhemoglobin desaturation with an O2 saturation less to than 88% being approximately 7%. Plan: BiPAP settings increased to 14/10. Will repeat apnea link tonight also new chest x-ray today. (3) Pleural effusion: Code(s): J90 - Pleural effusion, not elsewhere classified Status: Acute (4) CAD (coronary artery disease): Code(s): I25.10 - Atherosclerotic heart disease of [place] coronary artery without angina pectoris Status: Acute Subjective Date/time seen: 08/29/23 08:17 Interval history: Patient has no new respiratory symptoms. Used BiPAP support last night. ApneaLink showed significant oxyhemoglobin desaturation on current BiPAP settings. Patient willing to go home Review of Systems Review of Systems: All systems reviewed & are unremarkable except as noted in HPI and below (HPI and below) Exam Narrative: GENERAL APPEARANCE: Well developed, well nourished, alert and cooperative, and appears to be in no acute distress while on supplemental oxygen via nasal cannula SKIN: Inspection of the skin reveals no rashes, ulcerations or petechiae. HEENT: Sclerae anicteric and conjunctivae pink and moist. Extraocular movements were intact and pupils were equal, round, and reactive to light. The oral mucosa, hard and soft palate, tongue and posterior pharynx were normal. NECK: Supple. There was no thyroid enlargement, and no tenderness, or masses were felt. CHEST: Normal AP diameter and normal contour without any kyphoscoliosis. LUNGS: Dullness to percussion and decreased breath sounds at right lung base posteriorly CARDIAC: There was an irregular rate and rhythm without any murmurs, gallops, rubs. ABDOMEN: Soft and nontender with normal bowel sounds. There was no organomegaly. LYMPH NODES: No lymphadenopathy was appreciated in the neck. EXTREMITIES: No cyanosis, clubbing; 1+ pedal edema NEUROLOGIC: Alert and oriented x 3. Normal affect. Objective Data Vital Signs Vital Signs: Vital Signs - 24 hr 08/28/23 09:22 08/28/23 10:00 08/28/23 13:01 Temperature Pulse Rate 101 H 102 H 99 Respiratory Rate Blood Pressure Pulse Oximetry 98 Oxygen Delivery Nasal Cannula Oxygen Flow Rate 3 Fraction of Inspired Oxygen 08/28/23 12:00 08/28/23 13:39 08/28/23 12:00 Temperature 36.8 C Pulse Rate 107 H 99 Respiratory Rate 20 20 Blood Pressure 121/72 Pulse Oximetry 100 98 100 Oxygen Delivery BiPAP Nasal Cannula Oxygen Flow Rate 3 Fraction of Inspired Oxygen 08/28/23 12:00 08/28/23 14:00 08/28/23 16:00 Temperature 37.1 C Pulse Rate 99 98 96 Respiratory Rate 22 H Blood Pressure 117/68 Pulse Oximetry 96 Oxygen Delivery Oxygen Flow Rate Fraction of Inspired Oxygen 08/28/23 16:00 08/28/23 16:00 08/28/23 18:00 Temperature Pulse Rate 99 99 Respiratory Rate Blood Pressure Pulse Oximetry 96 Oxygen Delivery Nasal Cannula Oxygen Flow Rate 3 Fraction of Inspired Oxygen 08/28/23 20:00 08/28/23 20:00 08/28/23 20:00 Temperature 36.3 C L Pulse Rate 100 105 H Respiratory Rate 20 Blood Pressure 118/79 Pulse Oximetry 99 99 Oxygen Delivery Nasal Cannula Oxygen Flow Rate 3 Fraction of Inspired Oxygen 08/28/23 22:00 08/28/23 23:00 08/29/23 00:00 Temperature 36.9 C Pulse Rate 88 96 95 Respiratory Rate 27 H Blood Pressure 112/66 Pulse Oximetry 100 Oxygen Delivery Oxygen Flow Rate Fraction of Inspired Oxygen 08/29/23 00:00 08/28/23 23:05 08/28/23 22:50 Temperature Pulse Rate 81 81 Respiratory Rate 26 H Blood Pressure Pulse Oximetry 97 99 99 Oxygen Delivery BiPAP BiPAP BiPAP Oxygen Flow Rate Fraction of Inspired Oxygen 40 30 08/28/23 20:45 08/29/23 01:52 08/29/23 02:40 Temperature Pulse Rate 87 92 89 Respiratory Rate 19 Blood Pressure Pulse Oximetry 100 98 Oxygen Delivery Nasal Cannula BiPAP Oxygen Flow Rate 3 Fraction of Inspired Oxygen 08/29/23 04:00 08/29/23 04:00 08/29/23 05:42 Temperature 36.4 C Pulse Rate 87 99 Respiratory Rate 22 H Blood Pressure 117/69 Pulse Oximetry 92 98 Oxygen Delivery Nasal Cannula Oxygen Flow Rate 3 Fraction of Inspired Oxygen 08/29/23 06:00 08/29/23 07:56 Temperature 36.7 C Pulse Rate 103 H 99 Respiratory Rate 24 H Blood Pressure 139/65 Pulse Oximetry 90 Oxygen Delivery Oxygen Flow Rate Fraction of Inspired Oxygen Intake/Output Intake/Output: Intake & Output 08/26/23 08/27/23 08/28/23 08/29/23 23:59 23:59 23:59 23:59 Intake Total 300 1020 1670 400 Output Total 700 1200 3300 Balance -400 -180 -1630 400 Meds/Results Medications: Active Medications Generic Name Dose Route Start Last Admin Trade Name Freq PRN Reason Stop Dose Admin Acetaminophen 650 mg 08/26/23 17:24 Acetaminophen 325 Mg Tablet PO Q6H PRN Mild Pain (1-3) or Fever Apixaban 5 mg 08/26/23 21:00 08/28/23 20:08 Apixaban 5 Mg Tablet PO 5 mg Q12H DAMIAN Administration Clopidogrel Bisulfate 75 mg 08/27/23 09:00 08/28/23 09:22 Clopidogrel Bisulfate 75 Mg Tablet PO 75 mg DAILY [facility] Administration Ezetimibe 10 mg 08/27/23 09:00 08/28/23 09:22 Ezetimibe 10 Mg Tablet PO 10 mg DAILY [facility] Administration Empagliflozin 10 mg 08/28/23 12:30 08/28/23 14:15 Empagliflozin 10 Mg Tablet PO 10 mg DAILY [facility] Administration Furosemide 40 mg 08/29/23 09:00 Furosemide 40 Mg Tablet PO DAILY [facility] Metoprolol Succinate 25 mg 08/27/23 09:00 08/28/23 09:22 Metoprolol Succinate Ext Rel 25 Mg Tabcr PO 25 mg QAM [facility]IAN Administration Olmesartan 10 mg 08/27/23 09:00 08/28/23 09:22 Olmesartan Medoxomil 10 Mg Tablet PO 10 mg DAILY [facility] Administration Polyethylene Glycol 17 gm 08/26/23 21:28 Polyethylene Glycol 3350 17 Gm Powd.Pack PO DAILY PRN Constipation Potassium Chloride 20 meq 08/27/23 09:00 08/28/23 09:22 Potassium Chloride 20 Meq Er Tablet PO 20 meq DAILY [facility] Administration Spironolactone 25 mg 08/28/23 12:35 08/28/23 14:15 Spironolactone 25 Mg Tablet PO 25 mg QAM DAMIAN Administration Radiology Results: ITS Impressions Chest X-Ray 08/26/23 12:24 IMPRESSION: Right basal pneumonia with pleural effusion. Interstitial changes in the left lung base which may indicate underlying pulmonary edema. Clinical correlation advised. Venous Doppler Study 08/27/23 12:44 IMPRESSION: 1: No lower extremity deep venous thrombosis.
--- NOTE | 2023-08-29 10:45 | PM.IMPN ---
Progress Note: A&P Assessment and Plan (1) Recurrent right pleural effusion: Code(s): J90 - Pleural effusion, not elsewhere classified Status: Acute (2) Heart failure with reduced ejection fraction: Code(s): I50.20 - Unspecified systolic (congestive) heart failure Status: Deleted (3) Obstructive sleep apnea treated with BiPAP: Code(s): G47.33 - Obstructive sleep apnea (adult) (pediatric) Status: Acute Plan Acute on chronic respiratory failure Noncompliant on BiPAP at home. Multiple remissions due to noncompliance. Presented with a pCO2 72.6 not on 55.6. BiPAP settings changed to 12/6 with O2 supplementation. ApneaLink tonight to assess response. Also, for heart failure with preserved ejection fraction currently appears euvolemic. Jardiance and spironolactone to start today. Monitor blood pressure response. AFib rate controlled. Continue Eliquis. Plan is for discharge to home No GI prophylaxis indicated. Full code Subjective Date/time seen: 08/29/23 10:45 Interval history: Saw and examined patient today, patient feels better, Used BiPAP support last night. ApneaLink showed significant oxyhemoglobin desaturation on current BiPAP settings. Exam Narrative: General: Chronically ill-appearing male in the semi-Unger position in bed. He appears in no distress. Weight: 124.8 kg. BMI: 39.5. HEENT: Normocephalic, atraumatic. PERRL, EOMI. Sclera anicteric. Oral mucosa moist. Crowded oropharynx. Neck: Supple. Exam limited due to neck circumference. No obvious JVD. Respiratory: Respirations are nonlabored and he is speaking in full sentences. Lung sounds are diminished at the right base with fine bibasilar crackles. Cardiovascular: Regular rate and rhythm with S1-S2. Gastrointestinal: Abdomen is soft, obese, nontender, and nondistended with positive bowel sounds. Skin: Warm and dry. No rash or lesions on limited exam. Extremities: No cyanosis or clubbing. Trace pedal in luis miguel ankle edema bilaterally. No palpable knots or cords. Negative Angelia sign bilaterally. Neurological: Alert. Cranial nerves 2-12 are grossly intact. No gross focal deficits to casual conversation. Psychiatric: Pleasant and cooperative with normal mood and affect. Judgment and insight intact. Objective Data Vital Signs Vital Signs: Vital Signs - 24 hr 08/28/23 13:01 08/28/23 12:00 08/28/23 13:39 Temperature 98.2 F Pulse Rate 99 107 H 99 Respiratory Rate 20 20 Blood Pressure 121/72 Pulse Oximetry 98 100 98 Oxygen Delivery Nasal Cannula BiPAP Oxygen Flow Rate 3 Fraction of Inspired Oxygen 08/28/23 12:00 08/28/23 12:00 08/28/23 14:00 Temperature Pulse Rate 99 98 Respiratory Rate Blood Pressure Pulse Oximetry 100 Oxygen Delivery Nasal Cannula Oxygen Flow Rate 3 Fraction of Inspired Oxygen 08/28/23 16:00 08/28/23 16:00 08/28/23 16:00 Temperature 98.8 F Pulse Rate 96 99 Respiratory Rate 22 H Blood Pressure 117/68 Pulse Oximetry 96 96 Oxygen Delivery Nasal Cannula Oxygen Flow Rate 3 Fraction of Inspired Oxygen 08/28/23 18:00 08/28/23 20:00 08/28/23 20:00 Temperature 97.3 F L Pulse Rate 99 100 Respiratory Rate 20 Blood Pressure 118/79 Pulse Oximetry 99 99 Oxygen Delivery Nasal Cannula Oxygen Flow Rate 3 Fraction of Inspired Oxygen 08/28/23 20:00 08/28/23 22:00 08/28/23 23:00 Temperature 98.5 F Pulse Rate 105 H 88 96 Respiratory Rate 27 H Blood Pressure 112/66 Pulse Oximetry 100 Oxygen Delivery Oxygen Flow Rate Fraction of Inspired Oxygen 08/29/23 00:00 08/29/23 00:00 08/28/23 23:05 Temperature Pulse Rate 95 81 Respiratory Rate 26 H Blood Pressure Pulse Oximetry 97 99 Oxygen Delivery BiPAP BiPAP Oxygen Flow Rate Fraction of Inspired Oxygen 40 08/28/23 22:50 08/28/23 20:45 08/29/23 01:52 Temperature Pulse Rate 81 87 92 Respiratory Rate Blood Pressure Pulse Oximetry 99 100 Oxygen Delivery BiPAP Nasal Cannula Oxygen Flow Rate 3 Fraction of Inspired Oxygen 30 08/29/23 02:40 08/29/23 04:00 08/29/23 04:00 Temperature Pulse Rate 89 87 Respiratory Rate 19 Blood Pressure Pulse Oximetry 98 92 Oxygen Delivery BiPAP Nasal Cannula Oxygen Flow Rate 3 Fraction of Inspired Oxygen 08/29/23 05:42 08/29/23 06:00 08/29/23 07:56 Temperature 97.6 F 98.0 F Pulse Rate 99 103 H 99 Respiratory Rate 22 H 24 H Blood Pressure 117/69 139/65 Pulse Oximetry 98 90 Oxygen Delivery Oxygen Flow Rate Fraction of Inspired Oxygen 08/29/23 08:17 08/29/23 09:17 08/29/23 08:00 Temperature Pulse Rate 100 104 H Respiratory Rate Blood Pressure Pulse Oximetry 92 Oxygen Delivery Nasal Cannula Oxygen Flow Rate 3 Fraction of Inspired Oxygen 08/29/23 08:00 Temperature Pulse Rate Respiratory Rate Blood Pressure Pulse Oximetry 92 Oxygen Delivery Nasal Cannula Oxygen Flow Rate 3 Fraction of Inspired Oxygen Intake/Output Intake/Output: Intake & Output 08/26/23 08/27/23 08/28/23 08/29/23 23:59 23:59 23:59 23:59 Intake Total 300 1020 1670 520 Output Total 700 1200 3300 Balance -400 -180 -1630 520 Meds/Results Medications: Active Medications Generic Name Dose Route Start Last Admin Trade Name Freq PRN Reason Stop Dose Admin Acetaminophen 650 mg 08/26/23 17:24 Acetaminophen 325 Mg Tablet PO Q6H PRN Mild Pain (1-3) or Fever Apixaban 5 mg 08/26/23 21:00 08/29/23 08:17 Apixaban 5 Mg Tablet PO 5 mg Q12H DAMIAN Administration Clopidogrel Bisulfate 75 mg 08/27/23 09:00 08/29/23 08:17 Clopidogrel Bisulfate 75 Mg Tablet PO 75 mg DAILY DAMIAN Administration Ezetimibe 10 mg 08/27/23 09:00 08/29/23 08:16 Ezetimibe 10 Mg Tablet PO 10 mg DAILY [facility] Administration Empagliflozin 10 mg 08/28/23 12:30 08/29/23 08:17 Empagliflozin 10 Mg Tablet PO 10 mg DAILY [facility] Administration Furosemide 40 mg 08/29/23 09:00 08/29/23 08:16 Furosemide 40 Mg Tablet PO 40 mg DAILY [facility] Administration Metoprolol Succinate 25 mg 08/27/23 09:00 08/29/23 08:17 Metoprolol Succinate Ext Rel 25 Mg Tabcr PO 25 mg QAM [facility] Administration Olmesartan 10 mg 08/27/23 09:00 08/29/23 08:16 Olmesartan Medoxomil 10 Mg Tablet PO 10 mg DAILY [facility] Administration Polyethylene Glycol 17 gm 08/26/23 21:28 Polyethylene Glycol 3350 17 Gm Powd.Pack PO DAILY PRN Constipation Potassium Chloride 20 meq 08/27/23 09:00 08/29/23 08:16 Potassium Chloride 20 Meq Er Tablet PO 20 meq DAILY [facility] Administration Spironolactone 25 mg 08/28/23 12:35 08/29/23 08:16 Spironolactone 25 Mg Tablet PO 25 mg QAM DAMIAN Administration Radiology Results: ITS Impressions Venous Doppler Study 08/27/23 12:44 IMPRESSION: 1: No lower extremity deep venous thrombosis. Chest X-Ray 08/29/23 08:59 IMPRESSION: Slight cardiomegaly with a right-sided pleural effusion. Congestive rigoberto with interstitial changes which may indicate pulmonary edema. Pneumonitis cannot be excluded. No significant change from previous examination. Clinical correlation advised.
[2023-08-29 11:23] LABS: Hematocrit 29.4 % (42.0-52.0); Hemoglobin 8.5 g/dL (14.0-18.0); Mean Corpuscular HGB Conc 28.9 g/dl (32-36); Mean Corpuscular Volume 96.7 fl (80-100); Mean Platelet Volume 8.5 fl (7.4-10.4); Platelet Count Result 223 k/mm3 (150-375); Red Blood Count 3.04 M/mm3 (4.6-6.20); Red Cell Distribution Width 15.3 % (11.5-14.5); White Blood Count 4.4 K/mm3 (4.5-10.0)
--- NOTE | 2023-08-29 11:28 | PCPTNOTE ---
Attempted PT evaluation this date however pt declined. Will continue to attempt.
[2023-08-29 11:45] LABS: Blood Urea Nitrogen 20 mg/dL (9-20); Calcium 9.1 mg/dL (8.4-10.2); Carbon Dioxide > 40 mmol/L (22-30); Chloride 96 mmol/L (98-107); Estimated CRCL calculation 77 ml/min; Estimated Glomerular Filt Rate > 60; Glucose 117 mg/dL (65-110); Sodium 142 mmol/L (137-145)
--- NOTE | 2023-08-29 16:33 | PC.NURSE ---
1615 patient to the floor from 204-1 by wheelchair. Patient denies pain, purewick in place, NC at 1L, cpap at bedside. patient called , spoke to her to give update, cardiology was in the room when I entered and stated they are signing off and he is clear for d/c as far as they're concerned. I informed patient and that the hospitalist will be the one to decide tomorrow if he is clear medically for d/c and as long as his O2 maintains above 92%. all questions answered.
--- NOTE | 2023-08-29 16:48 | P.PNCA_ITS ---
Progress Note: A&P Assessment and Plan (1) Heart failure with improved ejection fraction (HFimpEF): Code(s): I50.32 - Chronic diastolic (congestive) heart failure Status: Acute Assessment and Plan: At this time, patient looks clinically euvolemic. Continue PO Lasix. To optimize his heart failure GDMT, started Jardiance 10mg once daily along with Spironolactone 25mg once daily. Continue Olmesartan. Can consider shifting this to Entresto as an outpatient. (2) Obstructive sleep apnea treated with BiPAP: Code(s): G47.33 - Obstructive sleep apnea (adult) (pediatric) Status: Acute Assessment and Plan: Needs to be compliant with BIPAP as an outpatient. (3) Coronary artery disease: Code(s): I25.10 - Atherosclerotic heart disease of [place] coronary artery without angina pectoris Status: Acute Assessment and Plan: Stable. No anginal symptoms. Continue Plavix, Zetia. (4) Persistent atrial fibrillation: Code(s): I48.19 - Other persistent atrial fibrillation Status: Acute Assessment and Plan: Rate controlled. Continue Metoprolol. Continue Eliquis. (5) S/P CABG (coronary artery bypass graft): Code(s): Z95.1 - Presence of aortocoronary bypass graft Status: Acute Assessment and Plan: As above. Plan Recommendations and plan discussed with Hospitalist. Patient to follow up with his primary cutter inspector after hospital discharge. Okay for discharge from my standpoint. Cardiology will sign off at this time. Subjective Date/time seen: 08/29/23 16:48 Interval history: Reason for visit: CHF HPI: Sudarshan Garner is a 78 year old male with coronary artery disease s/p CABG x 4, atrial fibrillation s/p biatrial MAZE and left atrial appendage ligation, hypertension, obstructive sleep apnea, and chronic hypoxic respiratory failure presenting to the hospital with a chief complaint of shortness of breath. He has presented to the emergency room multiple times and been admitted three times since his CABG in June of 2023 with shortness of breath. He tells me had been feeling well up until about 3 days ago when he started wearing his BiPAP at night at which point he actually started experiencing dyspnea and lower extremity edema. At this point his edema is improving but he still feels short of breath. He denies any chest pain, orthopnea, palpitations, syncope. He is currently following with [facility]. Date of service 08/27: Feeling well today. No shortness of breath. No lower extremity edema. Date of service 08/28: Feeling well today. Review of Systems Review of Systems: All systems reviewed & are unremarkable except as noted in HPI and below (HPI) Exam Const: General: comfortable and no acute distress HENMT: Mouth: Yes moist mucous membranes Eyes: General: appearance normal, both eyes and all related structures Sclera: sclerae normal Resp: Effort & Inspection: normal respiratory effort Cardio: Rhythm: abnormal rhythm irregularly irregular Other: No lower extremity edema Skin: General skin exam: normal color Neuro: Speech: normal speech Psych: Mental Status: mental status grossly normal Affect: normal affect Objective Data Vital Signs Vital Signs: Vital Signs - 24 hr 08/28/23 18:00 08/28/23 20:00 08/28/23 20:00 Temperature 36.3 C L Pulse Rate 99 100 Respiratory Rate 20 Blood Pressure 118/79 Pulse Oximetry 99 99 Oxygen Delivery Nasal Cannula Oxygen Flow Rate 3 Fraction of Inspired Oxygen 08/28/23 20:00 08/28/23 22:00 08/28/23 23:00 Temperature 36.9 C Pulse Rate 105 H 88 96 Respiratory Rate 27 H Blood Pressure 112/66 Pulse Oximetry 100 Oxygen Delivery Oxygen Flow Rate Fraction of Inspired Oxygen 08/29/23 00:00 08/29/23 00:00 08/28/23 23:05 Temperature Pulse Rate 95 81 Respiratory Rate 26 H Blood Pressure Pulse Oximetry 97 99 Oxygen Delivery BiPAP BiPAP Oxygen Flow Rate Fraction of Inspired Oxygen 40 08/28/23 22:50 08/28/23 20:45 08/29/23 01:52 Temperature Pulse Rate 81 87 92 Respiratory Rate Blood Pressure Pulse Oximetry 99 100 Oxygen Delivery BiPAP Nasal Cannula Oxygen Flow Rate 3 Fraction of Inspired Oxygen 30 08/29/23 02:40 08/29/23 04:00 08/29/23 04:00 Temperature Pulse Rate 89 87 Respiratory Rate 19 Blood Pressure Pulse Oximetry 98 92 Oxygen Delivery BiPAP Nasal Cannula Oxygen Flow Rate 3 Fraction of Inspired Oxygen 08/29/23 05:42 08/29/23 06:00 08/29/23 07:56 Temperature 36.4 C 36.7 C Pulse Rate 99 103 H 99 Respiratory Rate 22 H 24 H Blood Pressure 117/69 139/65 Pulse Oximetry 98 90 Oxygen Delivery Oxygen Flow Rate Fraction of Inspired Oxygen 08/29/23 08:17 08/29/23 09:17 08/29/23 08:00 Temperature Pulse Rate 100 104 H Respiratory Rate Blood Pressure Pulse Oximetry 92 Oxygen Delivery Nasal Cannula Oxygen Flow Rate 3 Fraction of Inspired Oxygen 08/29/23 08:00 08/29/23 10:00 08/29/23 11:54 Temperature 35.7 C L Pulse Rate 85 86 Respiratory Rate 21 H Blood Pressure 127/69 Pulse Oximetry 92 99 Oxygen Delivery Nasal Cannula Oxygen Flow Rate 3 Fraction of Inspired Oxygen 08/29/23 12:08 08/29/23 12:00 08/29/23 12:00 Temperature Pulse Rate 99 Respiratory Rate Blood Pressure Pulse Oximetry 94 Oxygen Delivery Nasal Cannula Nasal Cannula Oxygen Flow Rate 3 3 Fraction of Inspired Oxygen 08/29/23 15:30 08/29/23 16:00 Temperature 36.7 C Pulse Rate 96 Respiratory Rate 20 Blood Pressure 120/71 Pulse Oximetry 97 Oxygen Delivery Nasal Cannula Oxygen Flow Rate 1 Fraction of Inspired Oxygen Intake/Output Intake/Output: Intake & Output 08/26/23 08/27/23 08/28/23 08/29/23 23:59 23:59 23:59 23:59 Intake Total 300 1020 1670 760 Output Total 700 1200 3300 750 Balance -400 -180 -1630 10 Meds/Results Medications: Active Medications Generic Name Dose Route Start Last Admin Trade Name Freq PRN Reason Stop Dose Admin Acetaminophen 650 mg 08/26/23 17:24 Acetaminophen 325 Mg Tablet PO Q6H PRN Mild Pain (1-3) or Fever Apixaban 5 mg 08/26/23 21:00 08/29/23 08:17 Apixaban 5 Mg Tablet PO 5 mg Q12H DAMIAN Administration Clopidogrel Bisulfate 75 mg 08/27/23 09:00 08/29/23 08:17 Clopidogrel Bisulfate 75 Mg Tablet PO 75 mg DAILY DAMIAN Administration Ezetimibe 10 mg 08/27/23 09:00 08/29/23 08:16 Ezetimibe 10 Mg Tablet PO 10 mg DAILY DAMIAN Administration Empagliflozin 10 mg 08/28/23 12:30 08/29/23 08:17 Empagliflozin 10 Mg Tablet PO 10 mg DAILY DAMIAN Administration Furosemide 40 mg 08/29/23 09:00 08/29/23 08:16 Furosemide 40 Mg Tablet PO 40 mg DAILY DAMIAN Administration Metoprolol Succinate 25 mg 08/27/23 09:00 08/29/23 08:17 Metoprolol Succinate Ext Rel 25 Mg Tabcr PO 25 mg QAM DAMIAN Administration Olmesartan 10 mg 08/27/23 09:00 08/29/23 08:16 Olmesartan Medoxomil 10 Mg Tablet PO 10 mg DAILY DAMIAN Administration Polyethylene Glycol 17 gm 08/26/23 21:28 Polyethylene Glycol 3350 17 Gm Powd.Pack PO DAILY PRN Constipation Potassium Chloride 20 meq 08/27/23 09:00 08/29/23 08:16 Potassium Chloride 20 Meq Er Tablet PO 20 meq DAILY DAMIAN Administration Spironolactone 25 mg 08/28/23 12:35 08/29/23 08:16 Spironolactone 25 Mg Tablet PO 25 mg QAM DAMIAN Administration Radiology Results: ITS Impressions Venous Doppler Study 08/27/23 12:44 IMPRESSION: 1: No lower extremity deep venous thrombosis. Chest X-Ray 08/29/23 08:59 IMPRESSION: Slight cardiomegaly with a right-sided pleural effusion. Congestive rigoberto with interstitial changes which may indicate pulmonary edema. Pneumonitis cannot be excluded. No significant change from previous examination. Clinical correlation advised. Labs Labs: Laboratory Results - last 24 hr 08/29/23 11:13 WBC 4.4 L RBC 3.04 L Hgb 8.5 L Hct 29.4 L MCV 96.7 MCH 28.0 MCHC 28.9 L RDW 15.3 H Plt Count 223 MPV 8.5 Sodium 142 Potassium 4.0 Chloride 96 L Carbon Dioxide > 40 H Anion Gap BUN 20 Creatinine 0.90 Estim Creat Clear Calc 77 Estimated GFR > 60 Glucose 117 H Calcium 9.1
[2023-08-30] VITALS (7 sets, daily range): BP systolic 115–134; BP diastolic 73–75; PULSE 59–95; RESP 18–30; TEMP 36.2–36.6; O2SAT 92–98
--- NOTE | 2023-08-30 09:02 | P.PNIM_ITS ---
Progress Note: A&P Assessment and Plan (1) Recurrent right pleural effusion: Code(s): J90 - Pleural effusion, not elsewhere classified Status: Acute (2) Heart failure with reduced ejection fraction: Code(s): I50.20 - Unspecified systolic (congestive) heart failure Status: Deleted (3) Obstructive sleep apnea treated with BiPAP: Code(s): G47.33 - Obstructive sleep apnea (adult) (pediatric) Status: Acute Plan Acute on chronic respiratory failure Noncompliant on BiPAP at home. Multiple remissions due to noncompliance. Presented with a pCO2 72.6 not on 55.6. BiPAP settings changed to 12/6 with O2 supplementation. [facility] tonight to assess response. Acute on chronic heart failure with preserved ejection fraction Repeated chest is shows showed increased interstitial opacity bilateral lower lung zone, suggest mild pulmonary edema Patient's son Darrion and spironolactone Windows Application Administrator concerned above fluid overload, recommend continue diuretic medications and monitor patient in patient IV changed to Lasix 40 mg b.i.d. IV push, hold oral Lasix Follow-up input output BMP a electrolyte Essential hypertension Changed to Entresto p.o. per Cardiology recommendation AFib rate controlled. Continue Eliquis 5 mg b.i.d. p.o., metoprolol 25 mg daily p.o. Plan is for discharge to home No GI prophylaxis indicated. Full code Subjective Date/time seen: 08/30/23 09:02 Interval history: I saw examined patient today, patient can not improve, no respiratory distress addressed. Repeated ABG today showed CO2 retention 62, close to baseline, Exam Narrative: GENERAL: Pleasant, in no acute distress. Well-nourished. - EYES: EOMI. Anicteric. - HENT: Moist mucous membranes. - LUNGS: Decreased air entry right lobe - CARDIOVASCULAR: Regular rate and rhyth m. No murmur. No JVD. - ABDOMEN: Soft, non-tender and non-dist ended. No palpable masses. - EXTREMITIES: 1+ lower extremities jillian ma. Peripheral pulses 2+. Non-tender. - NEUROLOGIC: No focal neurological defi cits. CN II-XII grossly intact. - PSYCHIATRIC: Awake, Alert and oriented x 3. Appropriate mood and affect. - SKIN: No rashes or lesions. Warm. - LYMPH: No cervical lymphadenopathy. Objective Data Vital Signs Vital Signs: Vital Signs - 24 hr 08/29/23 09:17 08/29/23 10:00 08/29/23 11:54 Temperature 96.3 F L Pulse Rate 85 86 Respiratory Rate 21 H Blood Pressure 127/69 Pulse Oximetry 92 99 Oxygen Delivery Nasal Cannula Oxygen Flow Rate 3 Fraction of Inspired Oxygen 08/29/23 12:08 08/29/23 12:00 08/29/23 12:00 Temperature Pulse Rate 99 Respiratory Rate Blood Pressure Pulse Oximetry 94 Oxygen Delivery Nasal Cannula Nasal Cannula Oxygen Flow Rate 3 3 Fraction of Inspired Oxygen 08/29/23 15:30 08/29/23 16:36 08/29/23 16:00 Temperature 98.0 F Pulse Rate 99 96 Respiratory Rate 20 Blood Pressure 120/71 Pulse Oximetry 93 97 Oxygen Delivery Nasal Cannula Nasal Cannula Oxygen Flow Rate 1 1 Fraction of Inspired Oxygen 40 08/29/23 20:38 08/29/23 20:00 08/30/23 06:09 Temperature 97.8 F 97.9 F Pulse Rate 102 H 102 H 92 Respiratory Rate 20 20 20 Blood Pressure 124/76 125/74 Pulse Oximetry 93 93 94 Oxygen Delivery Nasal Cannula Oxygen Flow Rate 1 Fraction of Inspired Oxygen 40 Intake/Output Intake/Output: Intake & Output 08/27/23 08/28/23 08/29/23 08/30/23 23:59 23:59 23:59 23:59 Intake Total 1020 1670 1180 Output Total 1200 3300 750 350 Balance -180 -1630 430 -350 Meds/Results Medications: Active Medications Generic Name Dose Route Start Last Admin Trade Name Freq PRN Reason Stop Dose Admin Acetaminophen 650 mg 08/26/23 17:24 Acetaminophen 325 Mg Tablet PO Q6H PRN Mild Pain (1-3) or Fever Apixaban 5 mg 08/26/23 21:00 08/29/23 20:30 Apixaban 5 Mg Tablet PO 5 mg Q12H DAMIAN Administration Clopidogrel Bisulfate 75 mg 08/27/23 09:00 08/29/23 08:17 Clopidogrel Bisulfate 75 Mg Tablet PO 75 mg DAILY DAMIAN Administration Ezetimibe 10 mg 08/27/23 09:00 08/29/23 08:16 Ezetimibe 10 Mg Tablet PO 10 mg DAILY DAMIAN Administration Empagliflozin 10 mg 08/28/23 12:30 08/29/23 08:17 Empagliflozin 10 Mg Tablet PO 10 mg DAILY DAMIAN Administration Furosemide 40 mg 08/29/23 09:00 08/29/23 08:16 Furosemide 40 Mg Tablet PO 40 mg DAILY DAMIAN Administration Metoprolol Succinate 25 mg 08/27/23 09:00 08/29/23 08:17 Metoprolol Succinate Ext Rel 25 Mg Tabcr PO 25 mg QAM DAMIAN Administration Olmesartan 10 mg 08/27/23 09:00 08/29/23 08:16 Olmesartan Medoxomil 10 Mg Tablet PO 10 mg DAILY DAMIAN Administration Polyethylene Glycol 17 gm 08/26/23 21:28 Polyethylene Glycol 3350 17 Gm Powd.Pack PO DAILY PRN Constipation Potassium Chloride 20 meq 08/27/23 09:00 08/29/23 08:16 Potassium Chloride 20 Meq Er Tablet PO 20 meq DAILY DAMIAN Administration Spironolactone 25 mg 08/28/23 12:35 08/29/23 08:16 Spironolactone 25 Mg Tablet PO 25 mg QAM DAMIAN Administration Radiology Results: ITS Impressions Venous Doppler Study 08/27/23 12:44 IMPRESSION: 1: No lower extremity deep venous thrombosis. Chest X-Ray 08/29/23 08:59 IMPRESSION: Slight cardiomegaly with a right-sided pleural effusion. Congestive rigoberto with interstitial changes which may indicate pulmonary edema. Pneumonitis cannot be excluded. No significant change from previous examination. Clinical correlation advised. Labs Labs: Laboratory Results - last 24 hr 08/29/23 11:13 WBC 4.4 L RBC 3.04 L Hgb 8.5 L Hct 29.4 L MCV 96.7 MCH 28.0 MCHC 28.9 L RDW 15.3 H Plt Count 223 MPV 8.5 Sodium 142 Potassium 4.0 Chloride 96 L Carbon Dioxide > 40 H Anion Gap BUN 20 Creatinine 0.90 Estim Creat Clear Calc 77 Estimated GFR > 60 Glucose 117 H Calcium 9.1
--- NOTE | 2023-08-30 09:04 | PM.DS ---
DS: Admitting Diagnosis Discharge Date 08/29 DS: Summary Time Spent with Patient Time attestation: Total time spent providing and/or coordinating discharge services: DS: Data Data Completed and Pending Labs on day of discharge: Labs from last 24 hours 08/29/23 11:13 WBC 4.4 L RBC 3.04 L Hgb 8.5 L Hct 29.4 L MCV 96.7 MCH 28.0 MCHC 28.9 L RDW 15.3 H Plt Count 223 MPV 8.5 Sodium 142 Potassium 4.0 Chloride 96 L Carbon Dioxide > 40 H Anion Gap BUN 20 Creatinine 0.90 Estim Creat Clear Calc 77 Estimated GFR > 60 Glucose 117 H Calcium 9.1 Preliminary micro results at discharge 08/26/23 13:59 Blood Culture - Preliminary Blood Staphylococcus hominis 08/26/23 13:59 Blood Culture - Preliminary Blood Discharge Plan Discharge Consulting providers: Mikey Perez; Irene Fischer Discharge Medications: No Action acetaminophen 500 mg capsule 500 mg PO Q6H PRN (Reason: Pain (Scale Score 1-3)) clopidogrel 75 mg tablet 75 mg PO DAILY potassium chloride 20 mEq tablet extended release 20 meq PO DAILY tramadol 50 mg tablet 50 mg PO Q8H PRN (Reason: Pain (Scale Score 4-6)) senna-docusate sodium Tablet 1 tablet PO BID PRN (Reason: Constipation ) Rx Instructions: If no results from Miralax polyethylene glycol 3350 [Miralax] 17 gram/dose powder 17 g PO DAILY PRN (Reason: Constipation ) furosemide 40 mg Tablet 40 mg PO DAILY Qty: 30 0RF metoprolol succinate [Toprol XL] 25 mg Tablet Extended Release 24 Hr 25 mg PO QAM Qty: 30 0RF ezetimibe [Zetia] 10 mg tablet 10 mg PO DAILY Qty: 30 0RF olmesartan 5 mg tablet 10 mg PO DAILY Eliquis 5 mg tablet 5 mg PO Q12H Date of admission: 08/29/23 10:47 Primary Care Provider: Frederick Mendez Admitting Provider: Clem Franz Attending physician on admission: Clem Franz Condition: Stable
[2023-08-30] MEDS: EZETIMIBE 10 MG TABLET PO (09:05)
[2023-08-30] MEDS: APIXABAN 5 MG TABLET PO ×2 (09:05→21:21)
[2023-08-30] MEDS: EMPAGLIFLOZIN 10 MG TABLET PO (09:05)
[2023-08-30] MEDS: CLOPIDOGREL BISULFATE 75 MG TABLET PO (09:05)
[2023-08-30] MEDS: SPIRONOLACTONE 25 MG TABLET PO (09:05)
[2023-08-30] MEDS: METOPROLOL SUCCINATE EXT REL 25 MG TABCR PO (09:05)
[2023-08-30] MEDS: POTASSIUM CHLORIDE 20 MEQ ER TABLET PO (09:05)
[2023-08-30] MEDS: FUROSEMIDE 40 MG TABLET PO (09:05)
[2023-08-30] MEDS: OLMESARTAN MEDOXOMIL 10 MG TABLET PO (09:42)
--- NOTE | 2023-08-30 10:02 | PM.PNPUL ---
Progress Note: A&P Assessment and Plan (1) Acute on chronic respiratory failure with hypoxemia: Code(s): J96.21 - Acute and chronic respiratory failure with hypoxia Status: Acute (2) Respiratory failure with hypoxia and hypercapnia: Code(s): J96.91 - Respiratory failure, unspecified with hypoxia; J96.92 - Respiratory failure, unspecified with hypercapnia Status: Acute Assessment and Plan: This 78-year-old man has been treated for congestive heart failure following cardiac surgery in June of this year. Since then, he has been hospitalized on three occasions due to respiratory failure related to bilateral pleural effusions, with two thoracenteses performed last month. The patient was discharged home on BiPAP support set at 14/7 cm H2O and home oxygen to treat possible sleep-disordered breathing. On this regimen, there was no evidence of oxyhemoglobin desaturation at night. He has now presented again with shortness of breath and a right pleural effusion. Diagnostic studies suggest pulmonary edema related to congestive heart failure. According to his , the patient has not been compliant with his BiPAP support. Over the last 48 hours his respiratory status has improved. He continues to have oxyhemoglobin desaturation at night despite using higher pressures i.e. BiPAP 14/10 supplemental oxygen. On physical exam the patient has left lung crackles as before suggestive of pulmonary edema. Patient wants to go home because he thinks he is doing better. I talked to the patient's earlier today regarding cause of his respiratory failure. I indicated to them that the patient's respiratory failure is related to congestive heart failure following coronary artery bypass surgery. Of note this is the 3rd hospitalization following coronary artery bypass surgery in June of this year with a chest imaging studies showing lung congestion, bilateral pleural effusions initially and most recently right pleural effusion and pulmonary edema. Patient has been on aggressive treatment for congestive heart failure and is under the care of cardiology services. Plan: Will repeat chest x-ray today. From respiratory standpoint the patient is not ready to be discharged as he continues to desaturate at night. During previous hospitalization, [facility] on a BiPAP 14/7 and supplemental oxygen showed no evidence of oxyhemoglobin desaturation at night. The patient was then discharged home but according to his he had not been compliant with BiPAP support. (3) Pleural effusion: Code(s): J90 - Pleural effusion, not elsewhere classified Status: Acute (4) CAD (coronary artery disease): Code(s): I25.10 - Atherosclerotic heart disease of [place] coronary artery without angina pectoris Status: Acute Subjective Date/time seen: 08/30/23 10:02 Interval history: Patient has no new respiratory symptoms. He stated that he feels via would like to go home. He underwent [facility] on BiPAP 14/10 and supplemental oxygen. The patient stated that he did not use BiPAP throughout the night. He still had significant oxyhemoglobin desaturation on [facility]. Review of Systems Review of Systems: All systems reviewed & are unremarkable except as noted in HPI and below (HPI and below) Exam Narrative: GENERAL APPEARANCE: Well developed, well nourished, alert and cooperative, and appears to be in no acute distress while on supplemental oxygen via nasal cannula SKIN: Inspection of the skin reveals no rashes, ulcerations or petechiae. HEENT: Sclerae anicteric and conjunctivae pink and moist. Extraocular movements were intact and pupils were equal, round, and reactive to light. The oral mucosa, hard and soft palate, tongue and posterior pharynx were normal. NECK: Supple. There was no thyroid enlargement, and no tenderness, or masses were felt. CHEST: Normal AP diameter and normal contour without any kyphoscoliosis. LUNGS: Dullness to percussion and decreased breath sounds at right lung base posteriorly, crackles left lung posteriorly CARDIAC: There was an irregular rate and rhythm without any murmurs, gallops, rubs. ABDOMEN: Soft and nontender with normal bowel sounds. There was no organomegaly. LYMPH NODES: No lymphadenopathy was appreciated in the neck. EXTREMITIES: No cyanosis, clubbing; 1+ pedal edema NEUROLOGIC: Alert and oriented x 3. Normal affect. Objective Data Vital Signs Vital Signs: Vital Signs - 24 hr 08/29/23 11:54 08/29/23 12:08 08/29/23 12:00 Temperature 35.7 C L Pulse Rate 86 99 Respiratory Rate 21 H Blood Pressure 127/69 Pulse Oximetry 99 Oxygen Delivery Nasal Cannula Oxygen Flow Rate 3 Fraction of Inspired Oxygen 08/29/23 12:00 08/29/23 15:30 08/29/23 16:36 Temperature Pulse Rate 99 Respiratory Rate Blood Pressure Pulse Oximetry 94 93 Oxygen Delivery Nasal Cannula Nasal Cannula Nasal Cannula Oxygen Flow Rate 3 1 1 Fraction of Inspired Oxygen 40 08/29/23 16:00 08/29/23 20:38 08/29/23 20:00 Temperature 36.7 C 36.6 C Pulse Rate 96 102 H 102 H Respiratory Rate 20 20 20 Blood Pressure 120/71 124/76 Pulse Oximetry 97 93 93 Oxygen Delivery Nasal Cannula Oxygen Flow Rate 1 Fraction of Inspired Oxygen 40 08/30/23 06:09 Temperature 36.6 C Pulse Rate 92 Respiratory Rate 20 Blood Pressure 125/74 Pulse Oximetry 94 Oxygen Delivery Oxygen Flow Rate Fraction of Inspired Oxygen Intake/Output Intake/Output: Intake & Output 08/27/23 08/28/23 08/29/23 08/30/23 23:59 23:59 23:59 23:59 Intake Total 1020 1670 1180 120 Output Total 1200 3300 750 350 Balance -180 -1630 430 -230 Meds/Results Medications: Active Medications Generic Name Dose Route Start Last Admin Trade Name Freq PRN Reason Stop Dose Admin Acetaminophen 650 mg 08/26/23 17:24 Acetaminophen 325 Mg Tablet PO Q6H PRN Mild Pain (1-3) or Fever Apixaban 5 mg 08/26/23 21:00 08/30/23 09:05 Apixaban 5 Mg Tablet PO 5 mg Q12H DAMIAN Administration Clopidogrel Bisulfate 75 mg 08/27/23 09:00 08/30/23 09:05 Clopidogrel Bisulfate 75 Mg Tablet PO 75 mg DAILY DAMIAN Administration Ezetimibe 10 mg 08/27/23 09:00 08/30/23 09:05 Ezetimibe 10 Mg Tablet PO 10 mg DAILY DAMIAN Administration Empagliflozin 10 mg 08/28/23 12:30 08/30/23 09:05 Empagliflozin 10 Mg Tablet PO 10 mg DAILY DAMIAN Administration Furosemide 40 mg 08/29/23 09:00 08/30/23 09:05 Furosemide 40 Mg Tablet PO 40 mg DAILY DAMIAN Administration Metoprolol Succinate 25 mg 08/27/23 09:00 08/30/23 09:05 Metoprolol Succinate Ext Rel 25 Mg Tabcr PO 25 mg QAM DAMIAN Administration Olmesartan 10 mg 08/27/23 09:00 08/30/23 09:42 Olmesartan Medoxomil 10 Mg Tablet PO 10 mg DAILY DAMIAN Administration Polyethylene Glycol 17 gm 08/26/23 21:28 Polyethylene Glycol 3350 17 Gm Powd.Pack PO DAILY PRN Constipation Potassium Chloride 20 meq 08/27/23 09:00 08/30/23 09:05 Potassium Chloride 20 Meq Er Tablet PO 20 meq DAILY DAMIAN Administration Spironolactone 25 mg 08/28/23 12:35 08/30/23 09:05 Spironolactone 25 Mg Tablet PO 25 mg QAM DAMIAN Administration Radiology Results: ITS Impressions Venous Doppler Study 08/27/23 12:44 IMPRESSION: 1: No lower extremity deep venous thrombosis. Chest X-Ray 08/29/23 08:59 IMPRESSION: Slight cardiomegaly with a right-sided pleural effusion. Congestive rigoberto with interstitial changes which may indicate pulmonary edema. Pneumonitis cannot be excluded. No significant change from previous examination. Clinical correlation advised. Labs Labs: Laboratory Results - last 24 hr 08/29/23 11:13 WBC 4.4 L RBC 3.04 L Hgb 8.5 L Hct 29.4 L MCV 96.7 MCH 28.0 MCHC 28.9 L RDW 15.3 H Plt Count 223 MPV 8.5 Sodium 142 Potassium 4.0 Chloride 96 L Carbon Dioxide > 40 H Anion Gap BUN 20 Creatinine 0.90 Estim Creat Clear Calc 77 Estimated GFR > 60 Glucose 117 H Calcium 9.1
[2023-08-30 11:42] LABS: Alveolar/Arterial O2 Gradient 84.7 mmHg; Base Excess ABG 13.1 mEq/l (+/-2.0); Fractional Inspired Oxygen 35 %; HCO3 ABG 39.5 mEq/l (22.0-26.0); Oxygen Content ABG 12.8 %vol (16.0-22.0); Oxyhemoglobin 96.1 % THb (90.0-100.0); PO2 ABG 92.4 mmHg (80.0-100.0); PO2 FiO2 Ratio Arterial Blood 2.64 %; Total Hemoglobin 9.4 g/dL (12.0-18.0)
[2023-08-30 11:43] LABS: Device BIPAP; Modified Allen's Test Pass; PCO2 ABG 62.3 mmHg (35.0-45.0); Site Drawn RIGHT RADIAL
[2023-08-30 11:44] LABS: Expiratory Pressure 10 cmH2O; Inspiratory Pressure 14 cmH2O
[2023-08-30] MEDS: FUROSEMIDE INJ 40 MG/4 ML VIAL IV PUSH (16:21)
[2023-08-30] MEDS: SACUBITRIL/VALSARTAN 24-26 MG TABLET 1 TAB PO (21:21)
[2023-08-30 22:28] LABS: Pneumococcal Antigen Urine NOT DETECTED
[2023-08-31 03:00] VITALS: PULSE 78; RESP 23; O2SAT 98
[2023-08-31 06:26] VITALS: BP 104/90; PULSE 93; RESP 18; TEMP 36.6; O2SAT 98
[2023-08-31 08:31] VITALS: O2SAT 92
--- NOTE | 2023-08-31 08:56 | PM.IMPN ---
Progress Note: A&P Assessment and Plan (1) Recurrent right pleural effusion: Code(s): J90 - Pleural effusion, not elsewhere classified Status: Acute (2) Heart failure with reduced ejection fraction: Code(s): I50.20 - Unspecified systolic (congestive) heart failure Status: Deleted (3) Obstructive sleep apnea treated with BiPAP: Code(s): G47.33 - Obstructive sleep apnea (adult) (pediatric) Status: Acute Plan Acute on chronic respiratory failure Noncompliant on BiPAP at home. Multiple remissions due to noncompliance. Presented with a pCO2 72.6 not on 55.6. BiPAP settings changed to 12/6 with O2 supplementation. ApneaLink tonight to assess response. Acute on chronic heart failure with preserved ejection fraction Repeated chest is shows showed increased interstitial opacity bilateral lower lung zone, suggest mild pulmonary edema Patient's son Jardiance and spironolactone Electric Pile Driver Operator concerned above fluid overload, recommend continue diuretic medications and monitor patient in patient IV changed to Lasix 40 mg b.i.d. IV push, hold oral Lasix 08/29 Follow-up input output BMP a electrolyte 08/30: Patient is euvolemic, changed to Lasix 40 mg daily p.o. Essential hypertension Changed to Entresto p.o. per Cardiology recommendation AFib rate controlled. Continue Eliquis 5 mg b.i.d. p.o., metoprolol 25 mg daily p.o. Plan is for discharge to home No GI prophylaxis indicated. Full code Patient is ready to be discharged, interface engineer agreed to discharge patient today and follow-up patient in office Subjective Date/time seen: 08/31/23 08:56 Interval history: Patient is afebrile, blood pressure stable, on 1 L oxygen, patient has a negative input output, negative balance 2420 mL. Feels better, dyspnea continued to improve, exercise tolerance increased. Labs reviewed. Unremarkable, x-ray shows continue to improve of pleural effusion Exam Narrative: GENERAL: Pleasant, in no acute distress. Well-nourished. - EYES: EOMI. Anicteric. - HENT: Moist mucous membranes. - LUNGS: Decreased air entry right lobe - CARDIOVASCULAR: Regular rate and rhythm. No murmur. No JVD. - ABDOMEN: Soft, non-tender and non-distended. No palpable masses. - EXTREMITIES: 1+ lower extremities edema. Peripheral pulses 2+. Non-tender. - NEUROLOGIC: No focal neurological deficits. CN II-XII grossly intact. - PSYCHIATRIC: Awake, Alert and oriented x 3. Appropriate mood and affect. - SKIN: No rashes or lesions. Warm. - LYMPH: No cervical lymphadenopathy. Objective Data Vital Signs Vital Signs: Vital Signs - 24 hr 08/30/23 10:02 08/30/23 14:00 08/30/23 14:00 Temperature 97.1 F L Pulse Rate 59 L 95 89 Respiratory Rate 30 H 18 22 H Blood Pressure 115/75 Pulse Oximetry 98 93 97 Oxygen Delivery BiPAP BiPAP Oxygen Flow Rate 08/30/23 20:48 08/30/23 20:00 08/30/23 23:40 Temperature 97.9 F Pulse Rate 91 84 Respiratory Rate 18 21 H Blood Pressure 134/73 Pulse Oximetry 92 98 97 Oxygen Delivery Nasal Cannula BiPAP Oxygen Flow Rate 1 08/31/23 03:00 08/31/23 06:26 08/31/23 08:31 Temperature 97.9 F Pulse Rate 78 93 Respiratory Rate 23 H 18 Blood Pressure 104/90 Pulse Oximetry 98 98 92 Oxygen Delivery BiPAP Nasal Cannula Oxygen Flow Rate 1 Intake/Output Intake/Output: Intake & Output 08/28/23 08/29/23 08/30/23 08/31/23 23:59 23:59 23:59 23:59 Intake Total 1670 1180 1250 Output Total 3300 750 2850 1050 Balance -1630 430 -1600 -1050 Meds/Results Medications: Active Medications Generic Name Dose Route Start Last Admin Trade Name Freq PRN Reason Stop Dose Admin Acetaminophen 650 mg 08/26/23 17:24 Acetaminophen 325 Mg Tablet PO Q6H PRN Mild Pain (1-3) or Fever Apixaban 5 mg 08/26/23 21:00 08/30/23 21:21 Apixaban 5 Mg Tablet PO 5 mg Q12H DAMIAN Administration Clopidogrel Bisulfate 75 mg 08/27/23 09:00 08/30/23 09:05 Clopidogrel Bisulfate 75 Mg Tablet PO 75 mg DAILY DAMIAN Administration Ezetimibe 10 mg 08/27/23 09:00 08/30/23 09:05 Ezetimibe 10 Mg Tablet PO 10 mg DAILY DAMIAN Administration Empagliflozin 10 mg 08/28/23 12:30 08/30/23 09:05 Empagliflozin 10 Mg Tablet PO 10 mg DAILY DAMIAN Administration Furosemide 40 mg 08/30/23 17:00 08/30/23 16:21 Furosemide Inj 40 Mg/4 Ml Vial IV PUSH 40 mg BID DAMIAN Administration Metoprolol Succinate 25 mg 08/27/23 09:00 08/30/23 09:05 Metoprolol Succinate Ext Rel 25 Mg Tabcr PO 25 mg QAM DAMIAN Administration Polyethylene Glycol 17 gm 08/26/23 21:28 Polyethylene Glycol 3350 17 Gm Powd.Pack PO DAILY PRN Constipation Potassium Chloride 20 meq 08/27/23 09:00 08/30/23 09:05 Potassium Chloride 20 Meq Er Tablet PO 20 meq DAILY DAMIAN Administration Sacubitril/Valsartan 1 tab 08/30/23 21:00 08/30/23 21:21 Sacubitril/Valsartan 24-26 Mg Tablet PO 1 tab Q12HR DAMIAN Administration Spironolactone 25 mg 08/28/23 12:35 08/30/23 09:05 Spironolactone 25 Mg Tablet PO 25 mg QAM DAMIAN Administration Radiology Results: ITS Impressions Venous Doppler Study 08/27/23 12:44 IMPRESSION: 1: No lower extremity deep venous thrombosis. Chest X-Ray 08/30/23 10:45 IMPRESSION: 1. Hazy airspace and increased interstitial opacities in bilateral lower lung zones most likely mild pulmonary edema versus less likely pneumonia. 2. Unchanged small to moderate-sized right pleural effusion. 3. Cardiomegaly. Labs Labs: Laboratory Results - last 24 hr 08/26/23 08/30/23 20:23 11:07 Puncture Site Right radial ABG pH 7.420 ABG pCO2 62.3 H* ABG pO2 92.4 ABG PO2/FiO2 Ratio 2.64 ABG HCO3 39.5 H ABG O2 Saturation 97.0 ABG O2 Content 12.8 L ABG Base Excess 13.1 A-a Gradient 84.7 Oxyhemoglobin 96.1 Total Hemoglobin 9.4 L O2 Delivery Device Bipap O2 Liters/Min Not Reportable FiO2 35 Expiratory Pressure 10 Inspiratory Pressure 14 Urine Pneumococcal Ag Not detected
[2023-08-31 09:00] VITALS: O2SAT 93
[2023-08-31 09:02] VITALS: PULSE 91
[2023-08-31] MEDS: SACUBITRIL/VALSARTAN 24-26 MG TABLET 1 TAB PO (09:02)
[2023-08-31] MEDS: EZETIMIBE 10 MG TABLET PO (09:02)
[2023-08-31] MEDS: EMPAGLIFLOZIN 10 MG TABLET PO (09:02)
[2023-08-31] MEDS: APIXABAN 5 MG TABLET PO (09:02)
[2023-08-31] MEDS: FUROSEMIDE INJ 40 MG/4 ML VIAL IV PUSH (09:02)
[2023-08-31] MEDS: CLOPIDOGREL BISULFATE 75 MG TABLET PO (09:02)
[2023-08-31] MEDS: METOPROLOL SUCCINATE EXT REL 25 MG TABCR PO (09:02)
[2023-08-31] MEDS: SPIRONOLACTONE 25 MG TABLET PO (09:02)
[2023-08-31] MEDS: POTASSIUM CHLORIDE 20 MEQ ER TABLET PO (09:02)
[2023-08-31] MEDS: ACETAMINOPHEN 325 MG TABLET 650 MG PO (09:08)
[2023-08-31] MEDS: polyethylene glycoL 3350 17 GM POWD.PACK PO (09:10)
--- NOTE | 2023-08-31 09:14 | PM.PNPUL ---
Progress Note: A&P Assessment and Plan (1) Acute on chronic respiratory failure with hypoxemia: Code(s): J96.21 - Acute and chronic respiratory failure with hypoxia Status: Acute (2) Respiratory failure with hypoxia and hypercapnia: Code(s): J96.91 - Respiratory failure, unspecified with hypoxia; J96.92 - Respiratory failure, unspecified with hypercapnia Status: Acute Assessment and Plan: This 78-year-old man has been treated for congestive heart failure following cardiac surgery in June of this year. Since then, he has been hospitalized on three occasions due to respiratory failure related to bilateral pleural effusions, with two thoracenteses performed last month. The patient was discharged home on BiPAP support set at 14/7 cm H2O and home oxygen to treat possible sleep-disordered breathing. On this regimen, there was no evidence of oxyhemoglobin desaturation at night. He has now presented again with shortness of breath and a right pleural effusion. Diagnostic studies suggest pulmonary edema related to congestive heart failure. According to his , the patient has not been compliant with his BiPAP support. Over the last 48 hours his respiratory status has improved. He continues to have oxyhemoglobin desaturation at night despite using higher pressures i.e. BiPAP 14/10 supplemental oxygen. On physical exam the patient has left lung crackles as before suggestive of pulmonary edema. Patient wants to go home because he thinks he is doing better. I talked to the patient's earlier today regarding cause of his respiratory failure. I indicated to them that the patient's respiratory failure is related to congestive heart failure following coronary artery bypass surgery. Of note this is the 3rd hospitalization following coronary artery bypass surgery in June of this year with a chest imaging studies showing lung congestion, bilateral pleural effusions initially and most recently right pleural effusion and pulmonary edema. Patient has been on aggressive treatment for congestive heart failure and is under the care of cardiology services. Respiratory status improved over the last 24 hours. Patient had a good diuresis on IV Lasix. Physical exam his left lung sounded much improved. Gas exchange also improved currently on 1 liter/minute. Plan: Okay to discharge patient home. The patient will resume his BiPAP support at night supplemental oxygen using same settings as before. Cardiac medications as per hospitalist and Cardiology Services. Will sign off please call with any questions. (3) Pleural effusion: Code(s): J90 - Pleural effusion, not elsewhere classified Status: Acute (4) CAD (coronary artery disease): Code(s): I25.10 - Atherosclerotic heart disease of [place] coronary artery without angina pectoris Status: Acute Subjective Date/time seen: 08/31/23 09:14 Interval history: PATIENT STATED HE IS DOING BETTER. USED BIPAP SUPPORT LAST NIGHT, CURRENTLY ON NASAL FLOW AT 1 LITER/MINUTE. EAGER TO GO HOME. GOOD DIURESIS OVER THE 24 HOURS FOLLOWING LASIX IV. Review of Systems Review of Systems: All systems reviewed & are unremarkable except as noted in HPI and below (HPI and below) Exam Narrative: GENERAL APPEARANCE: Well developed, well nourished, alert and cooperative, and appears to be in no acute distress while on supplemental oxygen via nasal cannula SKIN: Inspection of the skin reveals no rashes, ulcerations or petechiae. HEENT: Sclerae anicteric and conjunctivae pink and moist. Extraocular movements were intact and pupils were equal, round, and reactive to light. The oral mucosa, hard and soft palate, tongue and posterior pharynx were normal. NECK: Supple. There was no thyroid enlargement, and no tenderness, or masses were felt. CHEST: Normal AP diameter and normal contour without any kyphoscoliosis. LUNGS: Dullness to percussion and decreased breath sounds at right lung base posteriorly, few crackles left lung posteriorly CARDIAC: There was an irregular rate and rhythm without any murmurs, gallops, rubs. ABDOMEN: Soft and nontender with normal bowel sounds. There was no organomegaly. LYMPH NODES: No lymphadenopathy was appreciated in the neck. EXTREMITIES: No cyanosis, clubbing; trace pedal edema NEUROLOGIC: Alert and oriented x 3. Normal affect. Objective Data Vital Signs Vital Signs: Vital Signs - 24 hr 08/30/23 10:02 08/30/23 14:00 08/30/23 14:00 Temperature 36.2 C L Pulse Rate 59 L 95 89 Respiratory Rate 30 H 18 22 H Blood Pressure 115/75 Pulse Oximetry 98 93 97 Oxygen Delivery BiPAP BiPAP Oxygen Flow Rate 08/30/23 20:48 08/30/23 20:00 08/30/23 23:40 Temperature 36.6 C Pulse Rate 91 84 Respiratory Rate 18 21 H Blood Pressure 134/73 Pulse Oximetry 92 98 97 Oxygen Delivery Nasal Cannula BiPAP Oxygen Flow Rate 1 08/31/23 03:00 08/31/23 06:26 08/31/23 08:31 Temperature 36.6 C Pulse Rate 78 93 Respiratory Rate 23 H 18 Blood Pressure 104/90 Pulse Oximetry 98 98 92 Oxygen Delivery BiPAP Nasal Cannula Oxygen Flow Rate 1 08/31/23 09:02 Temperature Pulse Rate 91 Respiratory Rate Blood Pressure Pulse Oximetry Oxygen Delivery Oxygen Flow Rate Intake/Output Intake/Output: Intake & Output 08/28/23 08/29/23 08/30/23 08/31/23 23:59 23:59 23:59 23:59 Intake Total 1670 1180 1250 Output Total 3300 750 2850 1050 Balance -1630 430 -1600 -1050 Meds/Results Medications: Active Medications Generic Name Dose Route Start Last Admin Trade Name Freq PRN Reason Stop Dose Admin Acetaminophen 650 mg 08/26/23 17:24 08/31/23 09:08 Acetaminophen 325 Mg Tablet PO 650 mg Q6H PRN Administration Mild Pain (1-3) or Fever Apixaban 5 mg 08/26/23 21:00 08/31/23 09:02 Apixaban 5 Mg Tablet PO 5 mg Q12H DAMIAN Administration Clopidogrel Bisulfate 75 mg 08/27/23 09:00 08/31/23 09:02 Clopidogrel Bisulfate 75 Mg Tablet PO 75 mg DAILY DAMIAN Administration Ezetimibe 10 mg 08/27/23 09:00 08/31/23 09:02 Ezetimibe 10 Mg Tablet PO 10 mg DAILY DAMIAN Administration Empagliflozin 10 mg 08/28/23 12:30 08/31/23 09:02 Empagliflozin 10 Mg Tablet PO 10 mg DAILY DAMIAN Administration Furosemide 40 mg 08/30/23 17:00 08/31/23 09:02 Furosemide Inj 40 Mg/4 Ml Vial IV PUSH 40 mg BID DAMIAN Administration Metoprolol Succinate 25 mg 08/27/23 09:00 08/31/23 09:02 Metoprolol Succinate Ext Rel 25 Mg Tabcr PO 25 mg QAM DAMIAN Administration Polyethylene Glycol 17 gm 08/26/23 21:28 Polyethylene Glycol 3350 17 Gm Powd.Pack PO DAILY PRN Constipation Potassium Chloride 20 meq 08/27/23 09:00 08/31/23 09:02 Potassium Chloride 20 Meq Er Tablet PO 20 meq DAILY DAMIAN Administration Sacubitril/Valsartan 1 tab 08/30/23 21:00 08/31/23 09:02 Sacubitril/Valsartan 24-26 Mg Tablet PO 1 tab Q12HR DAMIAN Administration Spironolactone 25 mg 08/28/23 12:35 08/31/23 09:02 Spironolactone 25 Mg Tablet PO 25 mg QAM DAMIAN Administration Radiology Results: ITS Impressions Venous Doppler Study 08/27/23 12:44 IMPRESSION: 1: No lower extremity deep venous thrombosis. Chest X-Ray 08/30/23 10:45 IMPRESSION: 1. Hazy airspace and increased interstitial opacities in bilateral lower lung zones most likely mild pulmonary edema versus less likely pneumonia. 2. Unchanged small to moderate-sized right pleural effusion. 3. Cardiomegaly. Labs Labs: Laboratory Results - last 24 hr 08/26/23 08/30/23 20:23 11:07 Puncture Site Right radial ABG pH 7.420 ABG pCO2 62.3 H* ABG pO2 92.4 ABG PO2/FiO2 Ratio 2.64 ABG HCO3 39.5 H ABG O2 Saturation 97.0 ABG O2 Content 12.8 L ABG Base Excess 13.1 A-a Gradient 84.7 Oxyhemoglobin 96.1 Total Hemoglobin 9.4 L O2 Delivery Device Bipap O2 Liters/Min Not Reportable FiO2 35 Expiratory Pressure 10 Inspiratory Pressure 14 Urine Pneumococcal Ag Not detected
[2023-08-31 10:17] LABS: Blood Urea Nitrogen 19 mg/dL (9-20); Calcium 9.4 mg/dL (8.4-10.2); Carbon Dioxide > 40 mmol/L (22-30); Chloride 91 mmol/L (98-107); Estimated CRCL calculation 72 ml/min; Estimated Glomerular Filt Rate > 60; Glucose 192 mg/dL (65-110); Magnesium 2.1 mg/dL (1.6-2.3); Phosphorus 3.1 mg/dL (2.5-4.5); Potassium 3.6 mmol/L (3.4-5.0); Sodium 141 mmol/L (137-145)
--- NOTE | 2023-08-31 12:26 | PM.DS ---
DS: Admitting Diagnosis Discharge Date 08/30 Admitting Diagnosis (1) Recurrent right pleural effusion: Code(s): J90 - Pleural effusion, not elsewhere classified Status: Acute (2) Heart failure with reduced ejection fraction: Code(s): I50.20 - Unspecified systolic (congestive) heart failure Status: Deleted (3) Obstructive sleep apnea treated with BiPAP: Code(s): G47.33 - Obstructive sleep apnea (adult) (pediatric) Status: Acute DS: Discharge Diagnosis Discharge Diagnosis (1) Recurrent right pleural effusion: Code(s): J90 - Pleural effusion, not elsewhere classified Status: Acute (2) Heart failure with reduced ejection fraction: Code(s): I50.20 - Unspecified systolic (congestive) heart failure Status: Deleted (3) Obstructive sleep apnea treated with BiPAP: Code(s): G47.33 - Obstructive sleep apnea (adult) (pediatric) Status: Acute DS: Summary Hospital Course Hospital Course: This is a 78-year-old male with coronary artery disease, hypertension, paroxysmal atrial fibrillation status post left atrial appendage ligation and Maze procedure on apixaban, obstructive sleep apnea, and chronic hypoxic respiratory failure on 3 L nasal cannula who presented to the emergency department for evaluation of shortness of breath. In the ED: He was afebrile on arrival stable blood pressures. Labs were significant for WBC count of 6.0, hemoglobin 9.0, INR 1.6, 126, proBNP 7560. ABG showed a pH of 7.414, pCO2 55.6, PO2 64.7, bicarb 34.8. Chest x-ray shows opacification the right lung base suggestive of atelectasis versus pneumonia with pleural effusion and interstate in the left lung base which may indicate underlying pulmonary edema. He was given a dose of azithromycin and ceftriaxone for possible pneumonia in addition to furosemide 40 mg IV. He is being admitted in this setting for further treatment. The following med issues have been addressed during hospitalization Acute on chronic respiratory failure Noncompliant on BiPAP at home. Multiple remissions due to noncompliance. Presented with a pCO2 72.6 not on 55.6. BiPAP settings changed to 12/6 with O2 supplementation. ApneaLink tonight to assess response. Consulted the automation tester, automation tester considered worsening resp failure due to heart failure. Recommended continue BiPAP and aggressive diuresis. Acute on chronic heart failure with preserved ejection fraction Repeated chest is shows showed increased interstitial opacity bilateral lower lung zone, suggest mild pulmonary edema Patient's son Jardiance and spironolactone Application Integration Specialist concerned above fluid overload, recommend continue diuretic medications and monitor patient in patient IV changed to Lasix 40 mg b.i.d. IV push, hold oral Lasix 08/29 Follow-up input output BMP a electrolyte 08/30: Patient is euvolemic, changed to Lasix 40 mg daily p.o. Essential hypertension Changed to Entresto p.o. per Cardiology recommendation AFib rate controlled. Continue Eliquis 5 mg b.i.d. p.o., metoprolol 25 mg daily p.o. Plan is for discharge to home No GI prophylaxis indicated. Full code Patient is ready to be discharged, automation tester agreed to discharge patient today and follow-up patient in office Time Spent with Patient Time attestation: Total time spent providing and/or coordinating discharge services: Exam Narrative: GENERAL: Pleasant, in no acute distress. Well-nourished. - EYES: EOMI. Anicteric. - HENT: Moist mucous membranes. - LUNGS: Decreased air entry right lobe - CARDIOVASCULAR: Regular rate and rhythm. No murmur. No JVD. - ABDOMEN: Soft, non-tender and non-distended. No palpable masses. - EXTREMITIES: 1+ lower extremities edema. Peripheral pulses 2+. Non-tender. - NEUROLOGIC: No focal neurological deficits. CN II-XII grossly intact. - PSYCHIATRIC: Awake, Alert and oriented x 3. Appropriate mood and affect. - SKIN: No rashes or lesions. Warm. - LYMPH: No cervical lymphadenopathy. DS: Data Data Completed and Pending Labs on day of discharge: Labs from last 24 hours 08/31/23 08/26/23 09:39 20:23 Sodium 141 Potassium 3.6 Chloride 91 L Carbon Dioxide > 40 H Anion Gap BUN 19 Creatinine 1.00 Estim Creat Clear Calc 72 Estimated GFR > 60 Glucose 192 H Calcium 9.4 Phosphorus 3.1 Magnesium 2.1 Urine Pneumococcal Ag Not detected Preliminary micro results at discharge 08/26/23 13:59 Blood Culture - Preliminary Blood Staphylococcus hominis 08/26/23 13:59 Blood Culture - Preliminary Blood Discharge Plan Discharge Attending physician on discharge: Mayito Boyd Consulting providers: Mieky Perez; Irene Fischer Discharging Clinician: Mayito Boyd Anticipated Discharge Date/Time: 08/30/23 09:05 Patient Disposition: Home Health Service Activity: as tolerated Diet: as tolerated and heart healthy Discharge Instructions: Per Care Coordination: Zelalem Jacobson [facility] ( ) will call to set up initial visit. RN please fax discharge instructions/summary to [phone]. Patient Instructions: Antibiotic Form, Empagliflozin (By mouth), Sacubitril/Valsartan (By mouth) Stand Alone Forms: General Discharge Information Follow-up/Referrals: Frederick Mendez DO [Primary Care Provider] - (Patient needs to see primary care doctor in 1 week) Heron Panda MD [Physician] - (PATIENT NEEDS TO SEE WRAPPER SHEETER AT SCHEDULED APPOINTMENT) Mikey Perez MD [Physician] - (Patient needs to see automation tester at scheduled appointment) Discharge Medications: New Jardiance 10 mg Tablet 10 mg PO DAILY 30 Days Qty: 30 1RF spironolactone 25 mg Tablet 25 mg PO QAM Qty: 30 1RF Entresto 24-26 mg tablet 1 tablet PO BID Qty: 30 1RF furosemide [Lasix] 40 mg tablet 40 mg PO DAILY Qty: 30 1RF Continued acetaminophen 500 mg capsule 500 mg PO Q6H PRN (Reason: Pain (Scale Score 1-3)) clopidogrel 75 mg tablet 75 mg PO DAILY potassium chloride 20 mEq tablet extended release 20 meq PO DAILY tramadol 50 mg tablet 50 mg PO Q8H PRN (Reason: Pain (Scale Score 4-6)) senna-docusate sodium Tablet 1 tablet PO BID PRN (Reason: Constipation ) Rx Instructions: If no results from Miralax polyethylene glycol 3350 [Miralax] 17 gram/dose powder 17 g PO DAILY PRN (Reason: Constipation ) metoprolol succinate [Toprol XL] 25 mg Tablet Extended Release 24 Hr 25 mg PO QAM Qty: 30 0RF ezetimibe [Zetia] 10 mg tablet 10 mg PO DAILY Qty: 30 0RF Eliquis 5 mg tablet 5 mg PO Q12H furosemide 40 mg Tablet 40 mg PO DAILY Qty: 30 1RF Discontinued olmesartan 5 mg tablet 10 mg PO DAILY Date of admission: 08/29/23 10:47 Primary Care Provider: Frederick Mendez Admitting Provider: Clem Franz Attending physician on admission: Clem Franz Condition: Stable
[2023-08-31 22:03] LABS: Legionella pneumophila Ag Ur NOT DETECTED
== END 2023-08-31 14:30 | disposition home or self-care (01) | DRG 291 ==
LOC: ANHED 13:18 → ANHIMU 16:12 → ANH3MEDSUR 08-30 09:20 → ANHIMU 09-02 12:34
PROVIDERS: Emergency Medicine; General Practice; Physician Assistant; Admitting Provider Internal Medicine; Emergency Provider Physician Assistant; PCP Family Medicine; Visit Provider Hospitalist
DX: I11.0 Hypertensive heart disease with heart failure (principal); I50.23 Acute on chronic systolic (congestive) heart failure; J18.9 Pneumonia, unspecified organism; J96.21 Acute and chronic respiratory failure with hypoxia; J96.22 Acute and chronic respiratory failure with hypercapnia; I48.19 Other persistent atrial fibrillation; I25.5 Ischemic cardiomyopathy; E66.01 Morbid (severe) obesity due to excess calories; E78.5 Hyperlipidemia, unspecified; G47.33 Obstructive sleep apnea (adult) (pediatric); Z20.822 Contact with and (suspected) exposure to COVID-19; Z79.01 Long term (current) use of anticoagulants; Z99.81 Dependence on supplemental oxygen; Z95.1 Presence of aortocoronary bypass graft; Z91.199 Patient's noncompliance with other medical treatment and regimen due to unspecified reason; Z79.02 Long term (current) use of antithrombotics/antiplatelets; Z68.39 Body mass index [BMI] 39.0-39.9, adult
CPT/HCPCS: 36415; 36600; 71045; 80048; 80053; 81001; 82375; 82805; 83050; 83735; 83880; 84100; 84484; 85025; 85027; 85610; 85730; 87040; 87077; 87181; 87449; 87637; 87899; 93005; 93970; 94002; 94003; 94762; 96365; 96367; 96375; 96376; 97161; 97165; 99285; A9270; C8929; G0378; J0456; J0696; J1940; Q9957

== ENCOUNTER 2023-10-11 09:30 | Outpatient (RCR) | payer OTHER, SELFPAY ==
--- NOTE | 2023-09-02 16:05 | PCCPR ---
Pt arrived for cardiac rehab admission appointment today. Upon review of medical history, it was noted that he was recently discharged from the hospital on Saturday08/31/23. Pt did not mention this today. While patient was here, noted spo2 90-91% at rest on O2 at 1lpm. Increased to 3lpm, spo2 95%. Contacted Dr. Kenyon Mendez office to notify of oxygen requirement and to obtain medical release for patient to attend cardiac rehab. Pt made aware.
--- NOTE | 2023-10-02 10:42 | PCCPR ---
Pt had been experiencing some lower back pain and therefore cancelled his Saturday and Saturday sessions last week. Pt did not show up on Saturday09/30/23, message was left on patient's voicemail, no return call. Pt was a no call no show again today, call placed to patient, states he is doing well, back is better, just had some doctor appointments and trying to do a little bit of work . Requested that if he is unable to make it to his scheduled session, to please call and let us know as early as possible. Verbalized understanding. Pt states he will not be here on Saturday, but he hopes to make it in on Saturday10/07/23.
--- NOTE | 2023-10-11 14:30 | PCCPR ---
Voicemail left with patient regarding discharge due to excessive absence and no call no show. Last recorded session was 09/23/23. Pt called 09/24/23 to report that he would not make his appointment on 09/25/23. Pt then did not call or show for appointment on 09/27/23. 09/30/23 patient was again a no call no show, message was left with the patient. 10/02/23 no call / no show, able to make contact with the patient and he stated he had been working a little here an there, won't be in Saturday10/04/23, but will make his appointment on Saturday , reminded patient of attendance and adherence policy and to make sure to call if he was unable to attend his scheduled session. Saturday10/07/23, again, no call no show. Saturday10/09/23, no call no show. Today, again, no call no show. Message left with patient, will mail notice of discharge.
== END 2023-10-11 14:49 | disposition home or self-care (01) ==
PROVIDERS: PCP Family Medicine
DX: Z95.1 Presence of aortocoronary bypass graft (principal)
CPT/HCPCS: 93798